=== PATIENT | male | born 1955 | race Caucasian/White ===

== ENCOUNTER → 2018-06-03 08:31 | Outpatient (CLI) | payer OTHER, MEDICAID, SELFPAY ==
[2018-06-03 09:12] LABS: Add Manual Diff / Slide Review NO; Basophils Percent Auto 0.9 % (0-2); Eosinophils Percent Auto 3.2 % (2-4); Hemoglobin 14.1 g/dL (13.5-17.5); Lymphocytes Percent Auto 19.8 % (25-40); Mean Corpuscular HGB Conc 34.5 % (30-36); Mean Corpuscular Hemoglobin 32.9 PG (26-34); Mean Corpuscular Volume 95.2 fL (80-100); Monocytes Percent Auto 9.3 % (3-14); Neutrophils Absolute Auto 6900 /uL (1500-7000); Neutrophils Percent Auto 66.8 % (50-75); Platelet Count 463 X10^3/uL (150-400); Red Cell Distribution Width 11.9 % (11.6-14.8); White Blood Cell Count 10.3 X10^3/uL (4.5-11.0)
[2018-06-03 09:45] LABS: Alanine Aminotransferase 17 IU/L (21-72); Albumin 4.5 g/dL (3.5-5.0); Albumin Globulin Ratio 1.7 (1.0-2.8); Alkaline Phosphatase 103 U/L (38-126); Aspartate Aminotransferase 22 IU/L (17-59); Bilirubin Total 0.5 mg/dL (0.2-1.3); Blood Urea Nitrogen 19 mg/dL (9-20); Calcium 9.3 mg/dL (8.4-10.2); Carbon Dioxide 28 mmol/L (22-32); Chloride 105 mmol/L (98-107); Cholesterol 191 mg/dL (140-199); Estimated Glomerular Filt Rate > 60.0 mL/min (>60); Globulin 2.6 g/dL (1.7-4.1); Glucose 121 mg/dL (80-110); HDL Cholesterol 50 mg/dL (40-60); HEMOLYSIS < 15 (0-50); LDL Cholesterol Calculated 125 mg/dL (<100); Potassium 4.6 mmol/L (3.4-5.1); Sodium 145 mmol/L (137-145); Total Protein 7.1 g/dL (6.3-8.2); Triglycerides 80 mg/dL (35-150)
== END ==
PROVIDERS: PCP Family Medicine; Visit Provider Family Medicine
DX: E78.5 Hyperlipidemia, unspecified (principal); G93.49 Other encephalopathy; I63.9 Cerebral infarction, unspecified; I67.89 Other cerebrovascular disease; I10 Essential (primary) hypertension
CPT/HCPCS: 36415; 80053; 80061; 85025

== ENCOUNTER 2018-08-07 13:01 | Emergency (ER) | payer OTHER, MEDICAID, SELFPAY ==
[2018-08-07 13:02] VITALS: BP 132/91; PULSE 88; RESP 14; TEMP 36.4; O2SAT 96
--- NOTE | 2018-08-07 13:10 | ED.HA ---
HPI - Headache <MARY Byrd - Last Filed: 08/07/18 22:13> General Chief Complaint: Headache Stated Complaint: stated head pain Time Seen by Provider: 08/07/18 13:10 Source: patient Mode of arrival: ambulatory Limitations: no limitations History of Present Illness HPI Narrative: 62-year-old male with history of cerebral autosomal dominant arteriaopathy that is a former smoker here for complaint of headache since last night. He does have a history of having frequent headaches due to said condition. he has been followed by this at [facility]. He states that he normally uses Tylenol for his headaches. He reports that this headache is different due to nausea vomiting which is new. He denies photophobia. He denies history of having migraines. He states he has had multiple episodes of vomiting since last night. He reports that the vomiting has subsided and his headache has reduced in intensity. He states that the quantity /quality of his headache is same as his prior headaches. He denies any head trauma. No fevers. Positive p.o. intake. He denies any other concerns or complaints this timeframe. Related Data Home Medications Medication Instructions Recorded Confirmed acetaminophen 325 mg PO 4-6XD #0 03/16/17 08/07/18 amlodipine 10 mg PO DAILY 08/07/18 08/07/18 hydroxyzine pamoate 25 - 50 mg PO BEDTIME 08/07/18 08/07/18 Previous Rx's Medication Instructions Recorded aspirin 81 mg tablet,delayed 81 mg PO DAILY #30 tab 11/19/17 release escitalopram 5 mg tablet 5 mg PO DAILY #90 tab 04/15/18 fluticasone 50 mcg/actuation nasal 1 spray INTRANASAL BID #16 gm 06/06/18 spray,suspension pravastatin 40 mg tablet 40 mg PO DAILY #30 tab 08/06/18 ondansetron 4 mg PO BID-TID PRN #10 tab 08/07/18 Allergies Allergy/AdvReac Type Severity Reaction Status Date / Time BEES Allergy Unknown Uncoded 07/19/18 15:57 Review of Systems <MARY Byrd - Last Filed: 08/07/18 22:13> Constitutional Denies chills, Denies fever(s), Reports headache(s), Denies lethargy and Denies weakness Eyes Denies change in vision, Denies eye discharge, Denies irritation and Denies loss of vision ENT Ears, Nose, Mouth, and Throat: Denies change in voice, Reports headache(s), Denies neck pain and Denies sore throat Cardiovascular Denies chest pain, Denies irregular heart rhythm, Denies lightheadedness, Denies palpitations, Denies dyspnea, Denies dyspnea on exertion and Denies orthopnea Respiratory Denies cough, Denies dyspnea, Denies dyspnea on exertion and Denies wheezing Gastrointestinal Gastrointestinal: Reports nausea and Reports vomiting Genitourinary Denies hematuria, Denies flank pain, Denies urinary incontinence and Denies urinary urgency Musculoskeletal Denies neck pain Integumentary/Breasts Denies pruritus, Denies erythema, Denies rash and Denies wounds Neurologic Denies confusion, Reports headache(s), Denies loss of vision and Denies weakness Psychiatric Denies anxiety, Denies confusion, Denies depression, Denies homicidal ideation and Denies suicidal ideation Endocrine Denies palpitations Hematologic/Lymphatic Denies easy bruising Allergic/Immunologic Denies wheezing PFSH <MARY Byrd - Last Filed: 08/07/18 22:13> Medical History Conductive hearing 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 (Chronic) Sensorineural hearing loss (SNHL) of both ears (Chronic) Headache (Chronic 04/01/15) 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) History of frequent headaches (Chronic) Hyperlipidemia (Chronic) Insomnia (Chronic) Low testosterone (Chronic) MRSA (methicillin resistant Staphylococcus aureus) (Chronic) Partial blindness (Chronic ~2010) Sleep apnea (Chronic) Tinnitus (Chronic) Surgical History Surgical procedure planned (Resolved) Surgical procedure planned (Resolved ~03/16/12) Family History Brother Hyperlipidemia Mother Age: 87 Hyperlipidemia GERD (gastroesophageal reflux disease) Sister Hyperlipidemia Sister Hyperlipidemia Sister Hyperlipidemia Sister Hyperlipidemia Father Emphysema lung Social History Smoking Status: Former smoker Social History Smoking Status: Former smoker Exam <MARY Byrd - Last Filed: 08/07/18 22:13> Initial Vital Signs Initial Vital Signs: Vital Signs Temperature 97.6 F 08/07/18 13:02 Pulse Rate 88 08/07/18 13:02 Respiratory Rate 14 08/07/18 13:02 Blood Pressure 132/91 H 08/07/18 13:02 Pulse Oximetry 96 08/07/18 13:02 Const General: cooperative and well developed Nutritional Appearance: well nourished Orientation: alert, awake, oriented x3 and not confused HENMT Mouth: oral mucosae normal and moist mucous membranes Eyes General: appearance normal, both eyes and all related structures Eyelids: eyelids normal Conjunctivae: conjunctivae normal Sclera: sclerae normal Pupils: PERRL EOM: EOM intact bilaterally Chest Chest: normal inspection of the chest Resp Effort & Inspection: normal respiratory effort, able to speak in complete sentences, no respiratory distress and no use of accessory muscles Auscultation: clear to auscultation bilaterally, no rales, no rhonchi and no wheezes Cardio Rate: regular rate Rhythm: regular rhythm Heart Sounds: no click, no gallops, no murmurs and no rubs Pulses: normal peripheral pulses Skin General: no rashes or lesions noted, No jaundice and No petechiae Neuro General: alert, oriented x3, gait normal and no focal motor deficits Speech: speech normal <Nile Velazquez DO - Last Filed: 08/08/18 07:10> Initial Vital Signs Initial Vital Signs: Vital Signs Temperature 97.6 F 08/07/18 13:02 Pulse Rate 88 08/07/18 13:02 Respiratory Rate 14 08/07/18 13:02 Blood Pressure 132/91 H 08/07/18 13:02 Pulse Oximetry 96 08/07/18 13:02 Course <MARY Byrd - Last Filed: 08/07/18 22:13> Orders Ordered: Discontinued Medications Sodium Chloride (Normal Saline 0.9%) 1,000 mls @ 1,000 mls/hr IV BOLUS ONE Stop: 08/07/18 14:25 Last Infusion: 08/07/18 15:00 Dose: 0 mls/hr Admin: 08/07/18 14:05 Dose: 1,000 mls/hr Morphine Sulfate (Morphine) 2 mg IV NOW ONE Stop: 08/07/18 13:33 Last Admin: 08/07/18 14:05 Dose: 2 mg Ondansetron HCl (Zofran) 4 mg IV NOW ONE Stop: 08/07/18 13:33 Last Admin: 08/07/18 14:05 Dose: 4 mg Vital Signs - 8 hr 08/07/18 14:55 Pulse Rate 71 Respiratory Rate 14 Blood Pressure 131/72 Pulse Oximetry 99 <Nile Velazquez DO - Last Filed: 08/08/18 07:10> Orders Ordered: Discontinued Medications Sodium Chloride (Normal Saline 0.9%) 1,000 mls @ 1,000 mls/hr IV BOLUS ONE Stop: 08/07/18 14:25 Last Infusion: 08/07/18 15:00 Dose: 0 mls/hr Admin: 08/07/18 14:05 Dose: 1,000 mls/hr Morphine Sulfate (Morphine) 2 mg IV NOW ONE Stop: 08/07/18 13:33 Last Admin: 08/07/18 14:05 Dose: 2 mg Ondansetron HCl (Zofran) 4 mg IV NOW ONE Stop: 08/07/18 13:33 Last Admin: 08/07/18 14:05 Dose: 4 mg Vital Signs - 8 hr 08/07/18 14:55 Pulse Rate 71 Respiratory Rate 14 Blood Pressure 131/72 Pulse Oximetry 99 MDM - Headache <MARY Byrd - Last Filed: 08/07/18 22:13> Lab Data Result diagrams: 08/07/18 13:53 08/07/18 13:53 Lab Results 08/07/18 08/07/18 Range/Units 13:53 13:53 WBC 10.5 (4.5-11.0) X10^3/uL RBC 4.87 (4.5-5.9) X10^6/uL Hgb 15.7 (13.5-17.5) g/dL Hct 46.9 (41-53) % MCV 96.3 (80-100) fL MCH 32.2 (26-34) PG MCHC 33.4 (30-36) % RDW 12.2 (11.6-14.8) % Plt Count 477 H (150-400) X10^3/uL Neut % (Auto) 67.6 (50-75) % Lymph % (Auto) 22.2 L (25-40) % Scre[place] % (Auto) 7.7 (3-14) % Eos % (Auto) 1.6 L (2-4) % Baso % (Auto) 0.9 (0-2) % Neut # (Auto) 7100 H (3919-5144) /uL Lymph # (Auto) 2300 (6015-3931) /uL [place] # (Auto) 800 (0-900) /uL Eos # (Auto) 200 (0-450) /uL Baso # (Auto) 100 (0-100) /uL Sodium 138 (137-145) mmol/L Potassium 3.7 (3.4-5.1) mmol/L Chloride 103 (98-107) mmol/L Carbon Dioxide 23 (22-32) mmol/L BUN 14 (9-20) mg/dL Creatinine 0.90 (0.66-1.25) mg/dL Estimated GFR > 60.0 (>60) mL/min BUN/Creatinine Ratio 15.6 (6-22) Glucose 141 H (80-110) mg/dL Calcium 9.6 (8.4-10.2) mg/dL Total Bilirubin 1.1 (0.2-1.3) mg/dL AST 22 (17-59) IU/L ALT 15 L (21-72) IU/L Alkaline Phosphatase 87 (38-126) U/L Total Protein 7.5 (6.3-8.2) g/dL Albumin 4.8 (3.5-5.0) g/dL Globulin 2.7 (1.7-4.1) g/dL Albumin/Globulin Ratio 1.8 (1.0-2.8) Imaging Data CT scan - head: Radiologist's impression: [address] [place] [address] CT Scan Report Signed Patient: Carlos Enrique Bullock R#: [id number] : 5Acct:[id number] Age/Sex: 62 / MDate of Service: 08/07/18 Loc: ED Accession Number: [id number] Procedure: CT head/brain wo con Ordering Provider: Sathish Trinidad PROCEDURE: CT HEAD/BRAIN WO CON INDICATIONS: headache TECHNIQUE: Noncontrast 4.5 mm thick angled axial sections acquired from the foramen magnum to the vertex, with coronal and sagittal reformats. For radiation dose reduction, the following was used: automated exposure control, adjustment of mA and/or kV according to patient size. COMPARISON: [facility], CT, HEAD WITHOUT CONTRAST, 03/16/2017, 13:25. [facility], CT, HEAD WITHOUT CONTRAST, 07/03/2016, 16:49. FINDINGS: Image quality: Excellent. CSF spaces: Basal cisterns are patent. No extra-axial fluid collections. Ventricles are normal in size and shape. Brain: No midline shift. No intracranial masses or hemorrhage. Palacios-white matter interface is normal. Skull and face: Calvarium and visualized facial bones are intact, without suspicious lesions. Sinuses: Visualized sinuses and mastoids are clear. IMPRESSION: Moderate microvascular atherosclerotic change in the deep white matter of each hemisphere, stable over time from the comparison study in June 2016. There is no sign of hemorrhage, no sign of mass lesion, and no sign of acute stroke. Dictated by: Simone Murry M.D. on 08/07/2018 at 14:16 Approved by: Simone Murry M.D. on 08/07/2018 at 14:16 MDM Narrative Medical decision making narrative: CT scan of the head was obtained and was negative for any acute findings. CT scan does show moderate microvascular atherosclerotic changes which is stable with comparison study of June of 2016 no hemorrhage or lesions are seen. CBC and Chem panel were obtained were unremarkable. Headache has resolved at this point and he is tolerating p.o. intake. headache presents as his chronic headache due to cerebral autosomal dominant arteriopathy. [id number] Tylenol as needed for any discomfort. Small amount of Zofran as prescribed for any nausea. Recommend the patient follows up with his specialist at [facility] neurology for re-evaluation for any worsening symptoms. <Nile Velazquez, - Last Filed: 08/08/18 07:10> Lab Data Lab Results 08/07/18 08/07/18 Range/Units 13:53 13:53 WBC 10.5 (4.5-11.0) X10^3/uL RBC 4.87 (4.5-5.9) X10^6/uL Hgb 15.7 (13.5-17.5) g/dL Hct 46.9 (41-53) % MCV 96.3 (80-100) fL MCH 32.2 (26-34) PG MCHC 33.4 (30-36) % RDW 12.2 (11.6-14.8) % Plt Count 477 H (150-400) X10^3/uL Neut % (Auto) 67.6 (50-75) % Lymph % (Auto) 22.2 L (25-40) % Scre[place] % (Auto) 7.7 (3-14) % Eos % (Auto) 1.6 L (2-4) % Baso % (Auto) 0.9 (0-2) % Neut # (Auto) 7100 H (3901-5624) /uL Lymph # (Auto) 2300 (1980-2975) /uL Screven # (Auto) 800 (0-900) /uL Eos # (Auto) 200 (0-450) /uL Baso # (Auto) 100 (0-100) /uL Sodium 138 (137-145) mmol/L Potassium 3.7 (3.4-5.1) mmol/L Chloride 103 (98-107) mmol/L Carbon Dioxide 23 (22-32) mmol/L BUN 14 (9-20) mg/dL Creatinine 0.90 (0.66-1.25) mg/dL Estimated GFR > 60.0 (>60) mL/min BUN/Creatinine Ratio 15.6 (6-22) Glucose 141 H (80-110) mg/dL Calcium 9.6 (8.4-10.2) mg/dL Total Bilirubin 1.1 (0.2-1.3) mg/dL AST 22 (17-59) IU/L ALT 15 L (21-72) IU/L Alkaline Phosphatase 87 (38-126) U/L Total Protein 7.5 (6.3-8.2) g/dL Albumin 4.8 (3.5-5.0) g/dL Globulin 2.7 (1.7-4.1) g/dL Albumin/Globulin Ratio 1.8 (1.0-2.8) Discharge Plan Departure Patient Disposition: Home Clinical Impression: Headache Discharge Date/Time: 08/07/18 14:55 Interventions: ED Discharge Assessment Last Done: 08/07/18 14:55 Instructions: DI for Headache Activity Restrictions/Additional Instructions: laboratory results and CT were negative for any acute findings. Head CT appears stable compared to prior head CT from 2017. Signs and symptoms presents as chronic headache secondary to cerebral autosomal dominant arteriopathy. follow-up with her specialty care at [facility]. Follow up with primary care provider. Use [id number] Tylenol as needed for any discomfort. The Zofran is prescribed to help with any nausea he also use as directed. For any worsening symptoms return to the emergency room. Prescriptions: New ondansetron 4 mg tablet,disintegrating 4 mg PO BID-TID PRN (Reason: nausea and vomiting) Qty: 10 RF: 0 No Action acetaminophen 325 MG tablet 325 mg PO 4-6XD Qty: 0 RF: 0 aspirin 81 mg tablet,delayed release (DR/EC) 81 mg PO DAILY Qty: 30 RF: 11 escitalopram oxalate 5 mg tablet 5 mg PO DAILY Qty: 90 RF: 1 pravastatin 40 mg tablet 40 mg PO DAILY Qty: 30 RF: 1 fluticasone 50 mcg/actuation spray,suspension 1 spray Intranasal BID Qty: 16 RF: 0 amlodipine 10 mg tablet 10 mg PO DAILY RF: 0 hydroxyzine pamoate 25 mg capsule 25 - 50 mg PO BEDTIME RF: 0 Referrals: Laila Reynolds DO [Primary Care Provider] - <Nile Velazquez DO - Last Filed: 08/08/18 07:10> Cosign ED Attending Cosignature Attestation: I was available for consultation during this patient's emergency department encounter
--- NOTE | 2018-08-07 13:27 | DI.CT.S_ITS ---
PROCEDURE: CT HEAD/BRAIN WO CON INDICATIONS: headache TECHNIQUE: Noncontrast 4.5 mm thick angled axial sections acquired from the foramen magnum to the vertex, with coronal and sagittal reformats. For radiation dose reduction, the following was used: automated exposure control, adjustment of mA and/or kV according to patient size. COMPARISON: [facility], CT, HEAD WITHOUT CONTRAST, 03/16/2017, 13:25. [facility], CT, HEAD WITHOUT CONTRAST, 07/03/2016, 16:49. FINDINGS: Image quality: Excellent. CSF spaces: Basal cisterns are patent. No extra-axial fluid collections. Ventricles are normal in size and shape. Brain: No midline shift. No intracranial masses or hemorrhage. Palacios-white matter interface is normal. Skull and face: Calvarium and visualized facial bones are intact, without suspicious lesions. Sinuses: Visualized sinuses and mastoids are clear. IMPRESSION: Moderate microvascular atherosclerotic change in the deep white matter of each hemisphere, stable over time from the comparison study in June 2016. There is no sign of hemorrhage, no sign of mass lesion, and no sign of acute stroke. Dictated by: Simone Murry M.D. on 08/07/2018 at 14:16 Approved by: Simone Murry M.D. on 08/07/2018 at 14:16
--- NOTE | 2018-08-07 13:46 | ED_ITS ---
HPI - Headache <MARY Byrd - Last Filed: 08/07/18 22:13> General Chief Complaint: Headache Stated Complaint: stated head pain Time Seen by Provider: 08/07/18 13:10 Source: patient Mode of arrival: ambulatory Limitations: no limitations History of Present Illness HPI Narrative: 62-year-old male with history of cerebral autosomal dominant arteriaopathy that is a former smoker here for complaint of headache since last night. He does have a history of having frequent headaches due to said condition. he has been followed by this at [facility]. He states that he normally uses Tylenol for his headaches. He reports that this headache is different due to nausea vomiting which is new. He denies photophobia. He denies history of having migraines. He states he has had multiple episodes of vomiting since last night. He reports that the vomiting has subsided and his headache has reduced in intensity. He states that the quantity /quality of his headache is same as his prior headaches. He denies any head trauma. No fevers. Positive p.o. intake. He denies any other concerns or complaints this timeframe. Related Data Home Medications Medication Instructions Recorded Confirmed acetaminophen 325 mg PO 4-6XD #0 03/16/17 08/07/18 amlodipine 10 mg PO DAILY 08/07/18 08/07/18 hydroxyzine pamoate 25 - 50 mg PO BEDTIME 08/07/18 08/07/18 Previous Rx's Medication Instructions Recorded aspirin 81 mg tablet,delayed 81 mg PO DAILY #30 tab 11/19/17 release escitalopram 5 mg tablet 5 mg PO DAILY #90 tab 04/15/18 fluticasone 50 mcg/actuation nasal 1 spray INTRANASAL BID #16 gm 06/06/18 spray,suspension pravastatin 40 mg tablet 40 mg PO DAILY #30 tab 08/06/18 ondansetron 4 mg PO BID-TID PRN #10 tab 08/07/18 Allergies Allergy/AdvReac Type Severity Reaction Status Date / Time BEES Allergy Unknown Uncoded 07/19/18 15:57 Review of Systems <MARY Byrd - Last Filed: 08/07/18 22:13> Constitutional Denies chills, Denies fever(s), Reports headache(s), Denies lethargy and Denies weakness Eyes Denies change in vision, Denies eye discharge, Denies irritation and Denies loss of vision ENT Ears, Nose, Mouth, and Throat: Denies change in voice, Reports headache(s), D enies neck pain and Denies sore throat Cardiovascular Denies chest pain, Denies irregular heart rhythm, Denies lightheadedness, Denies palpitations, Denies dyspnea, Denies dyspnea on exertion and Denies orthopnea Respiratory Denies cough, Denies dyspnea, Denies dyspnea on exertion and Denies wheezing Gastrointestinal Gastrointestinal: Reports nausea and Reports vomiting Genitourinary Denies hematuria, Denies flank pain, Denies urinary incontinence and Denies urinary urgency Musculoskeletal Denies neck pain Integumentary/Breasts Denies pruritus, Denies erythema, Denies rash and Denies wounds Neurologic Denies confusion, Reports headache(s), Denies loss of vision and Denies weakness Psychiatric Denies anxiety, Denies confusion, Denies depression, Denies homicidal ideation and Denies suicidal ideation Endocrine Denies palpitations Hematologic/Lymphatic Denies easy bruising Allergic/Immunologic Denies wheezing PFSH <MARY Byrd - Last Filed: 08/07/18 22:13> Medical History Conductive hearing 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 (Chronic) Sensorineural hearing loss (SNHL) of both ears (Chronic) Headache (Chronic 04/01/15) 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) History of frequent headaches (Chronic) Hyperlipidemia (Chronic) Insomnia (Chronic) Low testosterone (Chronic) MRSA (methicillin resistant Staphylococcus aureus) (Chronic) Partial blindness (Chronic ~2010) Sleep apnea (Chronic) Tinnitus (Chronic) Surgical History Surgical procedure planned (Resolved) Surgical procedure planned (Resolved ~03/16/12) Family History Brother Hyperlipidemia Mother Age: 87 Hyperlipidemia GERD (gastroesophageal reflux disease) Sister Hyperlipidemia Sister Hyperlipidemia Sister Hyperlipidemia Sister Hyperlipidemia Father Emphysema lung Social History Smoking Status: Former smoker Social History Smoking Status: Former smoker Exam <MARY Byrd - Last Filed: 08/07/18 22:13> Initial Vital Signs Initial Vital Signs: Vital Signs Temperature 97.6 F 08/07/18 13:02 Pulse Rate 88 08/07/18 13:02 Respiratory Rate 14 08/07/18 13:02 Blood Pressure 132/91 H 08/07/18 13:02 Pulse Oximetry 96 08/07/18 13:02 Const General: cooperative and well developed Nutritional Appearance: well nourished Orientation: alert, awake, oriented x3 and not confused HENMT Mouth: oral mucosae normal and moist mucous membranes Eyes General: appearance normal, both eyes and all related structures Eyelids: eyelids normal Conjunctivae: conjunctivae normal Sclera: sclerae normal Pupils: PERRL EOM: EOM intact bilaterally Chest Chest: normal inspection of the chest Resp Effort & Inspection: normal respiratory effort, able to speak in complete sentences, no respiratory distress and no use of accessory muscles Auscultation: clear to auscultation bilaterally, no rales, no rhonchi and no wheezes Cardio Rate: regular rate Rhythm: regular rhythm Heart Sounds: no click, no gallops, no murmurs and no rubs Pulses: normal peripheral pulses Skin General: no rashes or lesions noted, No jaundice and No petechiae Neuro General: alert, oriented x3, gait normal and no focal motor deficits Speech: speech normal <Nile Velazquez DO - Last Filed: 08/08/18 07:10> Initial Vital Signs Initial Vital Signs: Vital Signs Temperature 97.6 F 08/07/18 13:02 Pulse Rate 88 08/07/18 13:02 Respiratory Rate 14 08/07/18 13:02 Blood Pressure 132/91 H 08/07/18 13:02 Pulse Oximetry 96 08/07/18 13:02 Course <MARY Byrd - Last Filed: 08/07/18 22:13> Orders Ordered: Discontinued Medications Sodium Chloride (Normal Saline 0.9%) 1,000 mls @ 1,000 mls/hr IV BOLUS ONE Stop: 08/07/18 14:25 Last Infusion: 08/07/18 15:00 Dose: 0 mls/hr Admin: 08/07/18 14:05 Dose: 1,000 mls/hr Morphine Sulfate (Morphine) 2 mg IV NOW ONE Stop: 08/07/18 13:33 Last Admin: 08/07/18 14:05 Dose: 2 mg Ondansetron HCl (Zofran) 4 mg IV NOW ONE Stop: 08/07/18 13:33 Last Admin: 08/07/18 14:05 Dose: 4 mg Vital Signs - 8 hr 08/07/18 14:55 Pulse Rate 71 Respiratory Rate 14 Blood Pressure 131/72 Pulse Oximetry 99 <Nile Velazquez DO - Last Filed: 08/08/18 07:10> Orders Ordered: Discontinued Medications Sodium Chloride (Normal Saline 0.9%) 1,000 mls @ 1,000 mls/hr IV BOLUS ONE Stop: 08/07/18 14:25 Last Infusion: 08/07/18 15:00 Dose: 0 mls/hr Admin: 08/07/18 14:05 Dose: 1,000 mls/hr Morphine Sulfate (Morphine) 2 mg IV NOW ONE Stop: 08/07/18 13:33 Last Admin: 08/07/18 14:05 Dose: 2 mg Ondansetron HCl (Zofran) 4 mg IV NOW ONE Stop: 08/07/18 13:33 Last Admin: 08/07/18 14:05 Dose: 4 mg Vital Signs - 8 hr 08/07/18 14:55 Pulse Rate 71 Respiratory Rate 14 Blood Pressure 131/72 Pulse Oximetry 99 MDM - Headache <MARY Byrd - Last Filed: 08/07/18 22:13> Lab Data Result diagrams: 08/07/18 13:53 08/07/18 13:53 Lab Results 08/07/18 08/07/18 Range/Units 13:53 13:53 WBC 10.5 (4.5-11.0) X10^3/uL RBC 4.87 (4.5-5.9) X10^6/uL Hgb 15.7 (13.5-17.5) g/dL Hct 46.9 (41-53) % MCV 96.3 (80-100) fL MCH 32.2 (26-34) PG MCHC 33.4 (30-36) % RDW 12.2 (11.6-14.8) % Plt Count 477 H (150-400) X10^3/uL Neut % (Auto) 67.6 (50-75) % Lymph % (Auto) 22.2 L (25-40) % [place] % (Auto) 7.7 (3-14) % Eos % (Auto) 1.6 L (2-4) % Baso % (Auto) 0.9 (0-2) % Neut # (Auto) 7100 H (5231-8202) /uL Lymph # (Auto) 2300 (1454-6126) /uL [place] # (Auto) 800 (0-900) /uL Eos # (Auto) 200 (0-450) /uL Baso # (Auto) 100 (0-100) /uL Sodium 138 (137-145) mmol/L Potassium 3.7 (3.4-5.1) mmol/L Chloride 103 (98-107) mmol/L Carbon Dioxide 23 (22-32) mmol/L BUN 14 (9-20) mg/dL Creatinine 0.90 (0.66-1.25) mg/dL Estimated GFR > 60.0 (>60) mL/min BUN/Creatinine Ratio 15.6 (6-22) Glucose 141 H (80-110) mg/dL Calcium 9.6 (8.4-10.2) mg/dL Total Bilirubin 1.1 (0.2-1.3) mg/dL AST 22 (17-59) IU/L ALT 15 L (21-72) IU/L Alkaline Phosphatase 87 (38-126) U/L Total Protein 7.5 (6.3-8.2) g/dL Albumin 4.8 (3.5-5.0) g/dL Globulin 2.7 (1.7-4.1) g/dL Albumin/Globulin Ratio 1.8 (1.0-2.8) Imaging Data CT scan - head: Radiologist's impression: [address] [place] [address] CT Scan Report Signed Patient: Carlos Enrique Bullock R#: [id number] : 5Acct:[id number] Age/Sex: 62 / MDate of Service: 08/07/18 Loc: ED Accession Number: [id number] Procedure: CT head/brain wo con Ordering Provider: Sathish Trinidad PROCEDURE: CT HEAD/BRAIN WO CON INDICATIONS: headache TECHNIQUE: Noncontrast 4.5 mm thick angled axial sections acquired from the foramen magnum to the vertex, with coronal and sagittal reformats. For radiation dose reduction, the following was used: automated exposure control, adjustment of mA and/or kV according to patient size. COMPARISON: [facility], CT, HEAD WITHOUT CONTRAST, 03/16/2017, 13:25[facility], CT, HEAD WITHOUT CONTRAST, 07/03/2016, 16:49. FINDINGS: Image quality: Excellent. CSF spaces: Basal cisterns are patent. No extra-axial fluid collections. Ventricles are normal in size and shape. Brain: No midline shift. No intracranial masses or hemorrhage. [place]-white matter interface is normal. Skull and face: Calvarium and visualized facial bones are intact, without suspicious lesions. Sinuses: Visualized sinuses and mastoids are clear. IMPRESSION: Moderate microvascular atherosclerotic change in the deep white matter of each hemisphere, stable over time from the comparison study in June 2016. There is no sign of hemorrhage, no sign of mass lesion, and no sign of acute stroke. Dictated by: Simone Murry M.D. on 08/07/2018 at 14:16 Approved by: Simone Murry M.D. on 08/07/2018 at 14:16 MDM Narrative Medical decision making narrative: CT scan of the head was obtained and was negative for any acute findings. CT scan does show moderate microvascular atherosclerotic changes which is stable with comparison study of June of 2016 no hemorrhage or lesions are seen. CBC and Chem panel were obtained were unremarkable. Headache has resolved at this point and he is tolerating p.o. intake. headache presents as his chronic headache due to cerebral autosomal dominant arteriopathy. [id number] Tylenol as needed for any discomfort. Small amount of Zofran as prescribed for any nausea. Recommend the patient follows up with his specialist at [facility] neurology for re- evaluation for any worsening symptoms. <Nile Velazquez, DO - Last Filed: 08/08/18 07:10> Lab Data Lab Results 08/07/18 08/07/18 Range/Units 13:53 13:53 WBC 10.5 (4.5-11.0) X10^3/uL RBC 4.87 (4.5-5.9) X10^6/uL Hgb 15.7 (13.5-17.5) g/dL Hct 46.9 (41-53) % MCV 96.3 (80-100) fL MCH 32.2 (26-34) PG MCHC 33.4 (30-36) % RDW 12.2 (11.6-14.8) % Plt Count 477 H (150-400) X10^3/uL Neut % (Auto) 67.6 (50-75) % Lymph % (Auto) 22.2 L (25-40) % [place] % (Auto) 7.7 (3-14) % Eos % (Auto) 1.6 L (2-4) % Baso % (Auto) 0.9 (0-2) % Neut # (Auto) 7100 H (2325-8935) /uL Lymph # (Auto) 2300 (5618-2169) /uL [place] # (Auto) 800 (0-900) /uL Eos # (Auto) 200 (0-450) /uL Baso # (Auto) 100 (0-100) /uL Sodium 138 (137-145) mmol/L Potassium 3.7 (3.4-5.1) mmol/L Chloride 103 (98-107) mmol/L Carbon Dioxide 23 (22-32) mmol/L BUN 14 (9-20) mg/dL Creatinine 0.90 (0.66-1.25) mg/dL Estimated GFR > 60.0 (>60) mL/min BUN/Creatinine Ratio 15.6 (6-22) Glucose 141 H (80-110) mg/dL Calcium 9.6 (8.4-10.2) mg/dL Total Bilirubin 1.1 (0.2-1.3) mg/dL AST 22 (17-59) IU/L ALT 15 L (21-72) IU/L Alkaline Phosphatase 87 (38-126) U/L Total Protein 7.5 (6.3-8.2) g/dL Albumin 4.8 (3.5-5.0) g/dL Globulin 2.7 (1.7-4.1) g/dL Albumin/Globulin Ratio 1.8 (1.0-2.8) Discharge Plan Departure Patient Disposition: Home Clinical Impression: Headache Discharge Date/Time: 08/07/18 14:55 Interventions: ED Discharge Assessment Last Done: 08/07/18 14:55 Instructions: DI for Headache Activity Restrictions/Additional Instructions: laboratory results and CT were negative for any acute findings. Head CT appears stable compared to prior head CT from 2017. Signs and symptoms presents as chronic headache secondary to cerebral autosomal dominant arteriopathy. follow-up with her specialty care at [facility]. Follow up with primary care provider. Use [id number] Tylenol as needed for any discomfort. The Zofran is prescribed to help with any nausea he also use as directed. For any worsening symptoms return to the emergency room. Prescriptions: New ondansetron 4 mg tablet,disintegrating 4 mg PO BID-TID PRN (Reason: nausea and vomiting) Qty: 10 RF: 0 No Action acetaminophen 325 MG tablet 325 mg PO 4-6XD Qty: 0 RF: 0 aspirin 81 mg tablet,delayed release (DR/EC) 81 mg PO DAILY Qty: 30 RF: 11 escitalopram oxalate 5 mg tablet 5 mg PO DAILY Qty: 90 RF: 1 pravastatin 40 mg tablet 40 mg PO DAILY Qty: 30 RF: 1 fluticasone 50 mcg/actuation spray,suspension 1 spray Intranasal BID Qty: 16 RF: 0 amlodipine 10 mg tablet 10 mg PO DAILY RF: 0 hydroxyzine pamoate 25 mg capsule 25 - 50 mg PO BEDTIME RF: 0 Referrals: Laila Reynolds DO [Primary Care Provider] - <Nile Velazquez DO - Last Filed: 08/08/18 07:10> Cosign ED Attending Cosignature Attestation: I was available for consultation during this patient's emergency department encounter
[2018-08-07 14:00] LABS: Add Manual Diff / Slide Review NO; Basophils Absolute Auto 100 /uL (0-100); Basophils Percent Auto 0.9 % (0-2); Eosinophils Absolute Auto 200 /uL (0-450); Eosinophils Percent Auto 1.6 % (2-4); Hematocrit 46.9 % (41-53); Hemoglobin 15.7 g/dL (13.5-17.5); Lymphocytes Absolute Auto 2300 /uL (1100-4500); Lymphocytes Percent Auto 22.2 % (25-40); Mean Corpuscular HGB Conc 33.4 % (30-36); Mean Corpuscular Hemoglobin 32.2 PG (26-34); Mean Corpuscular Volume 96.3 fL (80-100); Monocytes Absolute Auto 800 /uL (0-900); Monocytes Percent Auto 7.7 % (3-14); Neutrophils Absolute Auto 7100 /uL (1500-7000); Neutrophils Percent Auto 67.6 % (50-75); Platelet Count 477 X10^3/uL (150-400); Red Blood Cell Count 4.87 X10^6/uL (4.5-5.9); Red Cell Distribution Width 12.2 % (11.6-14.8); White Blood Cell Count 10.5 X10^3/uL (4.5-11.0)
[2018-08-07] MEDS: ONDANSETRON 4 MG/2 ML INJ IV (14:05)
[2018-08-07] MEDS: MORPHINE 2 MG/ML INJ IV (14:05)
[2018-08-07] MEDS: SODIUM CHLORIDE 0.9% 1,000 ML 1000 ML IV (14:05)
[2018-08-07 14:11] LABS: Alanine Aminotransferase 15 IU/L (21-72); Albumin 4.8 g/dL (3.5-5.0); Albumin Globulin Ratio 1.8 (1.0-2.8); Alkaline Phosphatase 87 U/L (38-126); Aspartate Aminotransferase 22 IU/L (17-59); BUN Creatinine Ratio 15.6 (6-22); Bilirubin Total 1.1 mg/dL (0.2-1.3); Blood Urea Nitrogen 14 mg/dL (9-20); Calcium 9.6 mg/dL (8.4-10.2); Carbon Dioxide 23 mmol/L (22-32); Chloride 103 mmol/L (98-107); Estimated Glomerular Filt Rate > 60.0 mL/min (>60); Globulin 2.7 g/dL (1.7-4.1); Glucose 141 mg/dL (80-110); HEMOLYSIS < 15 (0-50); Potassium 3.7 mmol/L (3.4-5.1); Sodium 138 mmol/L (137-145); Total Protein 7.5 g/dL (6.3-8.2)
[2018-08-07 14:55] VITALS: BP 131/72; PULSE 71; RESP 14; O2SAT 99
== END 2018-08-07 14:55 | disposition home or self-care (01) ==
PROVIDERS: Emergency Provider Nurse Practitioner Family; Family Provider Family Medicine; PCP Family Medicine
DX: R51 Headache (principal)
CPT/HCPCS: 36591; 70450; 80053; 85025; 96361; 96374; 96375; 99283; 99284; J2270; J2405

== ENCOUNTER → 2019-02-12 14:08 | Outpatient (CLI) | payer OTHER, MEDICAID, SELFPAY ==
[2019-02-12 14:32] LABS: Add Manual Diff / Slide Review NO; Basophils Absolute Auto 100 /uL (0-100); Basophils Percent Auto 0.6 % (0-2); Eosinophils Absolute Auto 300 /uL (0-450); Eosinophils Percent Auto 3.3 % (2-4); Hematocrit 44.2 % (41-53); Hemoglobin 15.1 g/dL (13.5-17.5); Lymphocytes Absolute Auto 2400 /uL (1100-4500); Lymphocytes Percent Auto 28.6 % (25-40); Mean Corpuscular HGB Conc 34.2 % (30-36); Mean Corpuscular Hemoglobin 32.6 PG (26-34); Mean Corpuscular Volume 95.2 fL (80-100); Monocytes Absolute Auto 1200 /uL (0-900); Monocytes Percent Auto 13.5 % (3-14); Neutrophils Absolute Auto 4600 /uL (1500-7000); Platelet Count 441 X10^3/uL (150-400); Red Blood Cell Count 4.64 X10^6/uL (4.5-5.9); Red Cell Distribution Width 12.4 % (11.6-14.8); White Blood Cell Count 8.5 X10^3/uL (4.5-11.0)
[2019-02-12 15:00] LABS: Alanine Aminotransferase 18 IU/L (21-72); Albumin 4.6 g/dL (3.5-5.0); Albumin Globulin Ratio 1.8 (1.0-2.8); Alkaline Phosphatase 94 U/L (38-126); Aspartate Aminotransferase 24 IU/L (17-59); BUN Creatinine Ratio 17.8 (6-22); Bilirubin Total 1.1 mg/dL (0.2-1.3); Blood Urea Nitrogen 16 mg/dL (9-20); Calcium 9.7 mg/dL (8.4-10.2); Carbon Dioxide 28 mmol/L (22-32); Chloride 102 mmol/L (98-107); Estimated Glomerular Filt Rate > 60.0 mL/min (>60); Globulin 2.5 g/dL (1.7-4.1); Glucose 85 mg/dL (80-110); HEMOLYSIS < 15 (0-50); Lipase 54 U/L (23-300); Potassium 4.6 mmol/L (3.4-5.1); Sodium 140 mmol/L (137-145); Total Protein 7.1 g/dL (6.3-8.2)
== END ==
PROVIDERS: PCP Family Medicine; Visit Provider Family Medicine
DX: R10.9 Unspecified abdominal pain (principal)
CPT/HCPCS: 36415; 80053; 83690; 85025

== ENCOUNTER → 2019-02-13 17:13 | Outpatient (CLI) | payer OTHER, MEDICAID, SELFPAY ==
--- NOTE | 2019-02-13 17:16 | DI.RAD.S_ITS ---
PROCEDURE: XR ABDOMEN 1V INDICATIONS: abdominal pain TECHNIQUE: One view of the abdomen acquired. COMPARISON: None. FINDINGS: Surgical changes and devices: None. Bowel: Bowel gas pattern is normal except for mild colonic obstipation. Soft tissues: No suspicious abdominal calcifications. Visualized solid organ contours appear normal in size. Bones: No suspicious bony lesions. IMPRESSION: Mild colonic obstipation, otherwise normal. Dictated by: Simone Murry M.D. on 02/14/2019 at 8:26 Approved by: Simone Murry M.D. on 02/14/2019 at 8:26
== END ==
PROVIDERS: PCP Family Medicine; Visit Provider Family Medicine
DX: R10.9 Unspecified abdominal pain (principal); K59.00 Constipation, unspecified
CPT/HCPCS: 74018

== ENCOUNTER → 2019-03-18 12:00 | Outpatient (CLI) | payer OTHER, MEDICAID, SELFPAY ==
--- NOTE | 2019-03-18 12:02 | DI.RAD.S_ITS ---
PROCEDURE: XR KNEE LT 3V INDICATIONS: left knee medial joint line pain TECHNIQUE: 3 views of the knee were acquired. COMPARISON: None. FINDINGS: Bones: No fractures or dislocations. No suspicious bony lesions. Degenerative sclerosis and spurring. Soft tissues: No joint effusion. Pretibial soft tissue swelling IMPRESSION: Severe pretibial soft tissue swelling. If the patient's pain or other symptoms persist, consider further evaluation with MRI Dictated by: Roman Espinoza M.D. on 03/18/2019 at 15:09 Approved by: Roman Espinoza M.D. on 03/18/2019 at 15:11
== END ==
PROVIDERS: PCP Family Medicine; Visit Provider Family Medicine
DX: M25.562 Pain in left knee (principal); M79.89 Other specified soft tissue disorders
CPT/HCPCS: 73562

== ENCOUNTER 2019-08-14 17:20 | Emergency (ER) | payer OTHER, MEDICAID, SELFPAY ==
[2019-08-14 17:20] VITALS: BP 138/95; PULSE 82; RESP 16; TEMP 36.9; O2SAT 97; BMI 25.3
--- NOTE | 2019-08-14 17:28 | DI.RAD.S_ITS ---
PROCEDURE: XR CHEST 1V INDICATIONS: chest pain TECHNIQUE: One view of the chest was acquired. COMPARISON: None. FINDINGS: Surgical changes and devices: None. Lungs and pleura: Lungs are clear. No pleural effusions or pneumothorax. Mediastinum: Mediastinal contours appear normal. Heart size is normal. Bones and chest wall: No suspicious bony lesions. Overlying soft tissues appear unremarkable. IMPRESSION: No acute cardiopulmonary abnormality. Dictated by: Murray Dhaliwal M.D. on 08/14/2019 at 18:29 Approved by: Murray Dhaliwal M.D. on 08/14/2019 at 18:29
[2019-08-14 18:01] LABS: Add Manual Diff / Slide Review NO; Basophils Absolute Auto 100 /uL (0-100); Basophils Percent Auto 0.7 % (0-2); Eosinophils Absolute Auto 300 /uL (0-450); Eosinophils Percent Auto 2.3 % (2-4); Hematocrit 40.9 % (41-53); Lymphocytes Absolute Auto 2300 /uL (1100-4500); Lymphocytes Percent Auto 16.5 % (25-40); Mean Corpuscular HGB Conc 34.2 % (30-36); Mean Corpuscular Hemoglobin 32.8 PG (26-34); Mean Corpuscular Volume 95.9 fL (80-100); Monocytes Absolute Auto 1600 /uL (0-900); Monocytes Percent Auto 11.8 % (3-14); Neutrophils Absolute Auto 9400 /uL (1500-7000); Neutrophils Percent Auto 68.7 % (50-75); Platelet Count 411 X10^3/uL (150-400); Red Blood Cell Count 4.27 X10^6/uL (4.5-5.9); Red Cell Distribution Width 12.6 % (11.6-14.8); White Blood Cell Count 13.7 X10^3/uL (4.5-11.0)
[2019-08-14 18:04] LABS: Prothrombin Time 11.5 SECONDS (10.1-12.7)
[2019-08-14 18:06] LABS: PTT Partial Thromboplastin Tim 30 SECONDS (26.4-36.2)
--- NOTE | 2019-08-14 18:06 | ED_ITS ---
HPI - Chest Pain General Chief Complaint: Chest Pain Stated Complaint: lt leg, shoulder and head pain and swelling Time Seen by Provider: 08/14/19 18:05 Source: patient Mode of arrival: Ambulatory History of Present Illness HPI narrative: 63-year-old gentleman with hypertension and hyperlipidemia presents with left knee pain and swelling and mentions in an offhand manner that he has had brief episode of fleeting chest pain that was not associated with activity, diaphoresis, shortness of breath lasted only minutes but did catches attention. He talk to his primary care physician who recommended he come to the emergency department. On arrival his primary focus is clearly his knee. On review of systems he has been increasing activity recently he started exercising and spent a significant amount of time with the of the leg press machine trying to compete with a younger woman at the gym. He also was skiing last week in continues to work as a [employer]. He states he has not been doing activities where he is crawling on his knees but he has been doing more pushups that do involve more knee time at the gym recently. Related Data Home Medications Medication Instructions Recorded Confirmed acetaminophen 325 mg PO 4-6XD #0 03/16/17 08/04/19 Previous Rx's Medication Instructions Recorded amlodipine 10 mg tablet 10 mg PO DAILY #90 tab 06/25/19 pravastatin 40 mg tablet 40 mg PO DAILY #90 tab 06/25/19 aspirin 81 mg tablet,delayed 81 mg PO DAILY #90 tab 07/18/19 release escitalopram oxalate 5 mg tablet 5 mg PO DAILY #90 tab 07/18/19 fluticasone propionate 50 1 spray INTRANASAL BID #16 gm 07/18/19 mcg/actuation nasal spray,suspension Allergies Allergy/AdvReac Type Severity Reaction Status Date / Time BEES Allergy Unknown Uncoded 08/14/19 17:28 Review of Systems Review of Systems Narrative: Denies ? fever ? cough ? cold ? chills ? dyspnea ? orthopnea ? wheezing ? abdominal pain ? change to bowel or bladder habits ? nausea vomiting ? skin changes ? rashes Patient History Medical History Anxiety (Acute) Asbestos exposure (Acute) CADASIL (cerebral autosomal dominant arteriopathy with subcortical infarcts and leukoencephalopathy) (Acute ~2010) Concussion (Inactive) Conductive hearing 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 (Chronic) Eustachian tube dysfunction (Acute) Headache (Chronic 04/01/15) History of frequent headaches (Chronic) Hyperlipidemia (Chronic) Insomnia (Chronic) Low testosterone (Chronic) Minor head injury without loss of consciousness (Inactive) Monoallelic mutation of NOTCH3 gene (Acute) MRSA (methicillin resistant Staphylococcus aureus) (Chronic) Partial blindness (Chronic ~2010) Prepatellar bursitis (Resolved) Sensorineural hearing loss (SNHL) of both ears (Chronic) Sleep apnea (Chronic) Tinnitus (Chronic) Surgical History History of myringotomy (Acute ~2017) Surgical procedure planned (Resolved) Surgical procedure planned (Resolved ~03/16/12) Family History Brother Hyperlipidemia Mother Age: 88 Hyperlipidemia GERD (gastroesophageal reflux disease) CADASIL (cerebral AD arteriopathy w infarcts and leukoencephalopathy) Sister Hyperlipidemia CADASIL (cerebral AD arteriopathy w infarcts and leukoencephalopathy) Sister Hyperlipidemia Sister Hyperlipidemia Sister Hyperlipidemia Father Emphysema lung Daughter CADASIL (cerebral AD arteriopathy w infarcts and leukoencephalopathy) Social History Smoking Status: Former smoker Smoking Status: Former smoker alcohol intake frequency: 0-2 drinks per day Substance Use Type: does not use Exam Narrative Exam Narrative: General: Healthy appearing, in no acute distress. Able to give a complete and coherent history. Well-nourished well-developed HEENT: Moist mucous membranes, normal sclera with reactive pupils, Neck: No JVD, supple Respiratory: Lungs are clear to auscultation, no wheezing no rales no rhonchi. Full and symmetrical air movement Cardiac: Regular rate and rhythm no murmurs no bruits Abdomen: Soft nontender good bowel tones, no flank pain Skin: Warm and dry, no rashes Neurologic: Grossly neurologically intact with no obvious asymmetries or abnormalities Extremities: No trauma, well perfused. His left knee with a moderate pre patella bursitis with minor edema, no erythema, no warmth and full range of motion at that knee. He has 1+ edema distal to that without venous stasis mathis ges. Psych: Cooperative, appropriate insight and affect Initial Vital Signs Initial Vital Signs: Vital Signs Temperature 98.4 F 08/14/19 17:20 Pulse Rate 82 08/14/19 17:20 Respiratory Rate 16 08/14/19 17:20 Blood Pressure 138/95 H 08/14/19 17:20 Pulse Oximetry 97 08/14/19 17:20 Course Orders Ordered: ED Orders 08/14/19 17:28 XR chest 1V Stat 08/14/19 17:31 EKG-12 Lead Stat 08/14/19 17:43 Complete Blood Count AUTO DIFF Stat Comprehensive Metabolic Panel Stat Lipase Stat Partial Thromboplastin Time Stat Prothrombin Time INR Stat Troponin & CK Cardiac Panel Stat Vital Signs Vital signs: Vital Signs - 8 hr 08/14/19 17:20 Temperature 98.4 F Pulse Rate 82 Respiratory Rate 16 Blood Pressure 138/95 H Pulse Oximetry 97 MDM - Chest Pain Medical Records Data Attestation: I reviewed the patient's medical records. Lab Data Attestation: I reviewed the patient's lab results. Lab results narrative: MILD LEUKOCYTOSIS WITHOUT OBVIOUS INFECTIOUS ETIOLOGY. I suspect the slightly elevated creatinine kinase is due to his recent increase in weightlifting activities at the gym. Result diagrams: 08/14/19 17:43 08/14/19 17:43 Labs: Lab Results 08/14/19 08/14/19 08/14/19 Range/Units 17:43 17:43 17:43 WBC 13.7 H (4.5-11.0) X10^3/uL RBC 4.27 L (4.5-5.9) X10^6/uL Hgb 14.0 (13.5-17.5) g/dL Hct 40.9 L (41-53) % MCV 95.9 (80-100) fL MCH 32.8 (26-34) PG MCHC 34.2 (30-36) % RDW 12.6 (11.6-14.8) % Plt Count 411 H (150-400) X10^3/uL Neut % (Auto) 68.7 (50-75) % Lymph % (Auto) 16.5 L (25-40) % Patrick % (Auto) 11.8 (3-14) % Eos % (Auto) 2.3 (2-4) % Baso % (Auto) 0.7 (0-2) % Neut # (Auto) 9400 H (3912-7666) /uL Lymph # (Auto) 2300 (3948-6935) /uL Patrick # (Auto) 1600 H (0-900) /uL Eos # (Auto) 300 (0-450) /uL Baso # (Auto) 100 (0-100) /uL PT 11.5 (10.1-12.7) SECONDS INR 1.0 (0.9-1.3) APTT 30 (26.4-36.2) SECONDS Sodium 140 (137-145) mmol/L Potassium 4.1 (3.4-5.1) mmol/L Chloride 103 (98-107) mmol/L Carbon Dioxide 27 (22-32) mmol/L BUN 15 (9-20) mg/dL Creatinine 0.90 (0.66-1.25) mg/dL Estimated GFR > 60.0 (>60) mL/min BUN/Creatinine Ratio 16.7 (6-22) Glucose 87 (80-110) mg/dL Calcium 9.2 (8.4-10.2) mg/dL Total Bilirubin 0.5 (0.2-1.3) mg/dL AST 24 (17-59) IU/L ALT 12 (<50) IU/L Alkaline Phosphatase 91 (38-126) U/L Total Creatine Kinase 184 H (55-170) U/L Troponin I < 0.012 (0.01-0.034) ng/mL Total Protein 7.3 (6.3-8.2) g/dL Albumin 4.6 (3.5-5.0) g/dL Globulin 2.7 (1.7-4.1) g/dL Albumin/Globulin Ratio 1.7 (1.0-2.8) Lipase 49 (23-300) U/L Imaging Data Chest x-ray: Radiologist's Impression: IMPRESSION: No acute cardiopulmonary abnormality. Dictated by: Murray Dhaliwal M.D. on 08/14/2019 at 18:29 ECG Data Attestation: I personally reviewed and interpreted this ECG as follows: Interpretation: NORMAL SINUS RHYTHM AT A RATE OF 72. NORMAL INTERVALS, NORMAL AXIS, NO ACUTE ISCHEMIC CHANGES. MDM Narrative Medical decision making narrative: 63-year-old gentleman with fleeting chest pain with negative cardiac workup. Increased recent activity at the gym probably explains the musculoskeletal chest pain. He also presents with left prepatellar bursitis again related to overactivity. There is no evidence of infection related to the bursitis. The knee is wrapped with an Jerrell wrap for comfort and patient is safe for discharge home. There is no evidence of pneumonia, pneumothorax, cellulitis, bursal infection, sepsis, pulmonary embolism or acute coronary syndrome. Discharge Plan Departure Patient Disposition: Home Clinical Impression: Bursitis, prepatellar, left, Musculoskeletal chest pain Instructions: DI for Atypical Chest Pain, DI for Bursitis Activity Restrictions/Additional Instructions: Thank you for coming in today Growing old is a challenge however competing against the super fit women at the gym probably isn't in your best interest at this time-you going to have to work up to that. There is no evidence of any heart or heart related issues with the fleeting chest pain that you had noted. I suspect her increased activity both was skiing and at the gym has contributed to the prepatellar bursitis that is bothering you with the left knee. Please continue to use ice, rest compression and Tylenol to help with the pain. This should heal spontaneously If you do notice increasing warmth redness or other signs of infection around that knee, please feel free to return to the emergency room and I am happy to re-evaluate. I hope you make it to your vacation to the [facility]! Prescriptions: No Action acetaminophen 325 MG tablet 325 mg PO 4-6XD Qty: 0 RF: 0 amlodipine 10 mg tablet 10 mg PO DAILY Qty: 90 RF: 3 pravastatin 40 mg tablet 40 mg PO DAILY Qty: 90 RF: 3 escitalopram oxalate 5 mg tablet 5 mg PO DAILY Qty: 90 RF: 1 fluticasone propionate 50 mcg/actuation spray,suspension 1 spray Intranasal BID Qty: 16 RF: 0 aspirin [Aspirin Low Dose] 81 mg tablet,delayed release (DR/EC) 81 mg PO DAILY Qty: 90 RF: 3 Referrals: Laila Reynolds DO [Primary Care Provider] -
[2019-08-14 18:08] LABS: Alanine Aminotransferase 12 IU/L (<50); Albumin 4.6 g/dL (3.5-5.0); Albumin Globulin Ratio 1.7 (1.0-2.8); Alkaline Phosphatase 91 U/L (38-126); Aspartate Aminotransferase 24 IU/L (17-59); BUN Creatinine Ratio 16.7 (6-22); Bilirubin Total 0.5 mg/dL (0.2-1.3); Blood Urea Nitrogen 15 mg/dL (9-20); Calcium 9.2 mg/dL (8.4-10.2); Carbon Dioxide 27 mmol/L (22-32); Chloride 103 mmol/L (98-107); Creatine Kinase 184 U/L (55-170); Estimated Glomerular Filt Rate > 60.0 mL/min (>60); Globulin 2.7 g/dL (1.7-4.1); Glucose 87 mg/dL (80-110); HEMOLYSIS < 15 (0-50); Lipase 49 U/L (23-300); Potassium 4.1 mmol/L (3.4-5.1); Sodium 140 mmol/L (137-145); Total Protein 7.3 g/dL (6.3-8.2)
[2019-08-14 18:19] LABS: Troponin I < 0.012 ng/mL (0.01-0.034)
[2019-08-14 19:00] VITALS: BP 139/95; PULSE 78; RESP 16; O2SAT 98
[2019-08-14 19:45] LABS: CKMB % Relative Index 0.6 % (1.5-5.0); Creatine Kinase MB 1.03 ng/mL (<2.37)
== END 2019-08-14 19:20 | disposition home or self-care (01) ==
PROVIDERS: Emergency Medicine; Emergency Provider Emergency Medicine; PCP Family Medicine; Referring Provider Family Medicine
DX: M70.42 Prepatellar bursitis, left knee (principal); R07.89 Other chest pain
CPT/HCPCS: 36415; 71045; 80053; 82550; 82553; 83690; 84484; 85025; 85610; 85730; 93005; 99284; 99285

== ENCOUNTER → 2020-04-19 08:46 | Outpatient (CLI) | payer OTHER, MEDICAID, SELFPAY ==
[2020-04-19 10:35] LABS: Alanine Aminotransferase 13 IU/L (<50); Albumin Globulin Ratio 1.5 (1.0-2.8); Alkaline Phosphatase 80 U/L (38-126); Aspartate Aminotransferase 26 IU/L (17-59); BUN Creatinine Ratio 23.2 (6-22); Bilirubin Total 0.7 mg/dL (0.2-1.3); Blood Urea Nitrogen 22 mg/dL (9-20); Calcium 8.8 mg/dL (8.4-10.2); Carbon Dioxide 29 mmol/L (22-32); Chloride 105 mmol/L (98-107); Cholesterol 205 mg/dL (140-199); Estimated Glomerular Filt Rate > 60.0 mL/min (>60); Globulin 2.6 g/dL (1.7-4.1); Glucose 120 mg/dL (80-110); HDL Cholesterol 55 mg/dL (40-60); HEMOLYSIS < 15 (0-50); LDL Cholesterol Calculated 138 mg/dL (<100); Potassium 4.2 mmol/L (3.4-5.1); Sodium 137 mmol/L (137-145); Total Protein 6.6 g/dL (6.3-8.2); Triglycerides 60 mg/dL (35-150)
== END ==
PROVIDERS: PCP Family Medicine; Referring Provider Family Medicine; Visit Provider Family Medicine
DX: E78.5 Hyperlipidemia, unspecified (principal); I10 Essential (primary) hypertension
CPT/HCPCS: 36415; 80053; 80061

== ENCOUNTER 2020-08-06 08:18 | Emergency (ER) | payer MEDICARE, OTHER, MEDICAID, SELFPAY ==
[2020-08-06] VITALS (9 sets, daily range): BP systolic 130–146; BP diastolic 74–94; PULSE 57–66; RESP 17–21; TEMP 36.6; O2SAT 96–99; BMI 25.0
--- NOTE | 2020-08-06 08:45 | DI.RAD.S_ITS ---
PROCEDURE: XR CHEST 1V INDICATIONS: chest pain TECHNIQUE: One view of the chest was acquired. COMPARISON: [facility], CR, XR CHEST 1V, 08/14/2019, 17:47. FINDINGS: Surgical changes and devices: None. Lungs and pleura: Lungs are clear. No pleural effusions or pneumothorax. Mediastinum: Mediastinal contours appear normal. Heart size is normal. Bones and chest wall: No suspicious bony lesions. Overlying soft tissues appear unremarkable. IMPRESSION: No evidence acute pulmonary process. Dictated by: Irvin Garcia M.D. on 08/06/2020 at 9:19 Approved by: Irvin Garcia M.D. on 08/06/2020 at 9:19
[2020-08-06 08:59] LABS: Add Manual Diff / Slide Review NO; Basophils Absolute Auto 0 /uL (0-100); Basophils Percent Auto 0.5 % (0-2); Eosinophils Absolute Auto 300 /uL (0-450); Hematocrit 43.5 % (41-53); Hemoglobin 14.8 g/dL (13.5-17.5); Lymphocytes Absolute Auto 1900 /uL (1100-4500); Lymphocytes Percent Auto 24.6 % (25-40); Mean Corpuscular HGB Conc 34.1 % (30-36); Mean Corpuscular Hemoglobin 33.4 PG (26-34); Mean Corpuscular Volume 97.8 fL (80-100); Monocytes Absolute Auto 800 /uL (0-900); Monocytes Percent Auto 10.6 % (3-14); Neutrophils Absolute Auto 4700 /uL (1500-7000); Neutrophils Percent Auto 60.3 % (50-75); Platelet Count 399 X10^3/uL (150-400); Prothrombin Time 11.5 SECONDS (10.1-12.7); Red Blood Cell Count 4.45 X10^6/uL (4.5-5.9); Red Cell Distribution Width 11.9 % (11.6-14.8); White Blood Cell Count 7.8 X10^3/uL (4.5-11.0)
--- NOTE | 2020-08-06 09:01 | ED_ITS ---
HPI - Headache General Chief Complaint: Headache Stated Complaint: arm numbness,headache,vomiting Time Seen by Provider: 08/06/20 08:59 Source: patient Mode of arrival: Ambulatory Limitations: no limitations History of Present Illness HPI Narrative: Patient is a 64-year-old male who presents with headache bilat eral arm numbness and nausea vomiting. He said he was driving 2 days ago when both of his arms went numb. He said it lasted all day but then resolved. He then started vomiting and had a bad headache on Sunday which is 2 days ago. He vomited once yesterday feels like he has acid in his chest but currently denies any chest pain. His arm numbness is has improved and he is left with medium headache. He states that he does have a autosomal dominant disease where his brain age is faster than the rest of his body. He apparently was at [facility] in a coma in 2010. He is not allowed to take ibuprofen because of this. MD Complaint: headache Onset (ago): day(s) Onset description: sudden Location: diffuse Related Data Home Medications Medication Instructions Recorded Confirmed acetaminophen 325 mg PO 4-6XD #0 03/16/17 07/12/20 Previous Rx's Medication Instructions Recorded fluticasone propionate 50 1 spray INTRANASAL BID #16 gm 07/18/19 mcg/actuation nasal spray,suspension amlodipine 10 mg tablet 10 mg PO DAILY #90 tab 01/23/20 aspirin 81 mg tablet,delayed 81 mg PO DAILY #90 tab 01/23/20 release pravastatin 40 mg tablet 40 mg PO DAILY #90 tab 01/23/20 escitalopram oxalate 5 mg tablet 10 mg PO DAILY #180 tab 04/21/20 Allergies Allergy/AdvReac Type Severity Reaction Status Date / Time BEES Allergy Unknown Uncoded 08/06/20 08:37 Review of Systems Review of Systems ROS Unobtainable: All systems reviewed & are unremarkable except as noted in HPI and below Constitutional Constitutional: Denies chills, Denies fever(s), Denies lethargy and Denies weakness Eyes Eyes: Denies change in vision, Denies eye discharge, Denies irritation and Denies loss of vision Cardiovascular Cardiovascular: Denies chest pain, Denies irregular heart rhythm, Denies palpitations, Denies dyspnea and Denies dyspnea on exertion Respiratory Respiratory: Denies cough, Denies dyspnea, Denies dyspnea on exertion and Denies wheezing Gastrointestinal Gastrointestinal: Reports dyspepsia Musculoskeletal Musculoskeletal: Denies back pain Integumentary/Breasts Skin/Breast: Denies pruritus, Denies erythema, Denies rash and Denies wounds Neurologic Neurologic: Denies loss of vision and Denies weakness Endocrine Endocrine: Denies palpitations Allergic/Immunologic Allergic/Immunologic: Denies wheezing Patient History Medical History (Updated 08/06/20 @ 10:23 by Kathe Fairchild DO) Anxiety Asbestos exposure CADASIL (cerebral autosomal dominant arteriopathy with subcortical infarcts and leukoencephalopathy) (~2010) Concussion Conductive hearing 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 Eustachian tube dysfunction Headache (04/01/15) History of frequent headaches Hyperlipidemia Insomnia Low testosterone Minor head injury without loss of consciousness Monoallelic mutation of NOTCH3 gene MRSA (methicillin resistant Staphylococcus aureus) Partial blindness (~2010) Prepatellar bursitis Sensorineural hearing loss (SNHL) of both ears Sleep apnea Tinnitus Surgical History History of myringotomy (~2017) Surgical procedure planned Surgical procedure planned (~03/16/12) Family History Brother Hyperlipidemia Mother Age: 89 Hyperlipidemia GERD (gastroesophageal reflux disease) CADASIL (cerebral AD arteriopathy w infarcts and leukoencephalopathy) Sister Hyperlipidemia CADASIL (cerebral AD arteriopathy w infarcts and leukoencephalopathy) Sister Hyperlipidemia Sister Hyperlipidemia Sister Hyperlipidemia Father Emphysema lung Daughter CADASIL (cerebral AD arteriopathy w infarcts and leukoencephalopathy) Social History Smoking Status: Former smoker Smoking Status: Former smoker alcohol intake frequency: 0-2 drinks per day Substance Use Type: does not use Exam Initial Vital Signs Initial Vital Signs: Vital Signs Blood Pressure 142/82 H 08/06/20 08:30 GENERAL: Alert well-appearing 64-year-old male HEENT: Head atraumatic,EOMI, pupils reactive, face symmetric, moist mucous membranes CARDIOVASCULAR: Regular rate and rhythm without murmurs, rubs or gallops. RESPIRATORY: Breath sounds equal bilaterally, no wheezes rales or rhonchi. ABDOMEN: Soft, nontender. Normoactive bowel sounds all 4 quadrants. No guarding or rebound. EXTREMITIES: Normal range of motion, no clubbing or edema. Neurovascularly intact NEUROLOGICAL: Alert and oriented x4.Normal gait and speech. Cranial nerves II th rough XII grossly intact. Good [id number], good [id number], strength equal bilaterally, no dysarthria or aphasia, sensation in tact to soft touch bilaterally, no visual changes, no facial droop SKIN: Warm, dry, no laceration, no petechiae, no rashes or lesions. Scores NIH Stroke Scale Level of Conciousness: Alert, keenly responsive Ask month/age: Answers both questions correctly. Open/close eyes, close hand: Performs both tasks correctly Best gaze horizontal: Normal Visual mena: No visual loss Facial palsy: Normal symetrical movement Left arm drift: No drift for full 10 sec Right arm drift: No drift for full 10 sec Left leg drift: No drift for full 5 sec Right leg drift: No drift for full 5 sec Limb ataxia: Absent Sensory on face/arms/legs: Normal, no sensory loss Best language: No aphasia, normal Dysarthria: Normal Extinction or inattention: No abnormality Total NIH Stroke scale score: 0 Course Orders Ordered: Discontinued Medications Sodium Chloride (Normal Saline 0.9%) 1,000 mls @ 1,000 mls/hr IV BOLUS ONE Stop: 08/06/20 10:14 Last Infusion: 08/06/20 10:54 Dose: 0 mls/hr Documented by: Admin: 08/06/20 09:27 Dose: 1,000 mls/hr Documented by: PEDRO Pantoprazole Sodium (Pantoprazole 40 Mg Vial) 40 mg IV NOW ONE Stop: 08/06/20 09:16 Last Admin: 08/06/20 09:27 Dose: 40 mg Documented by: PEDRO Vital Signs Vital signs: Vital Signs - 8 hr 08/06/20 10:54 Pulse Rate 59 L Blood Pressure 145/94 H Pulse Oximetry 98 MDM - Headache Lab Data Attestation: I reviewed the patient's lab results. Result diagrams: 08/06/20 08:35 08/06/20 08:35 Labs: Lab Results 08/06/20 08/06/20 08/06/20 Range/Units 08:35 08:35 08:35 WBC 7.8 (4.5-11.0) X10^3/uL RBC 4.45 L (4.5-5.9) X10^6/uL Hgb 14.8 (13.5-17.5) g/dL Hct 43.5 (41-53) % MCV 97.8 (80-100) fL MCH 33.4 (26-34) PG MCHC 34.1 (30-36) % RDW 11.9 (11.6-14.8) % Plt Count 399 (150-400) X10^3/uL Neut % (Auto) 60.3 (50-75) % Lymph % (Auto) 24.6 L (25-40) % Stewart % (Auto) 10.6 (3-14) % Eos % (Auto) 4.0 (2-4) % Baso % (Auto) 0.5 (0-2) % Neut # (Auto) 4700 (3364-5948) /uL Lymph # (Auto) 1900 (3058-4532) /uL Stewart # (Auto) 800 (0-900) /uL Eos # (Auto) 300 (0-450) /uL Baso # (Auto) 0 (0-100) /uL PT 11.5 (10.1-12.7) SECONDS INR 1.0 (0.9-1.3) APTT 28 (26.4-36.2) SECONDS Sodium 136 L (137-145) mmol/L Potassium 4.4 (3.4-5.1) mmol/L Chloride 105 (98-107) mmol/L Carbon Dioxide 29 (22-32) mmol/L BUN 20 (9-20) mg/dL Creatinine 0.88 (0.66-1.25) mg/dL Estimated GFR > 60.0 (>60) mL/min BUN/Creatinine Ratio 22.7 H (6-22) Glucose 111 H (80-110) mg/dL Calcium 8.8 (8.4-10.2) mg/dL Magnesium 2.1 (1.6-2.3) mg/dL Total Bilirubin 0.8 (0.2-1.3) mg/dL AST 28 (17-59) IU/L ALT 15 (<50) IU/L Alkaline Phosphatase 88 (38-126) U/L Total Creatine Kinase 176 H (55-170) U/L CK-MB (CK-2) 1.51 (<2.37) ng/mL CK-MB (CK-2) Rel Index 0.9 L (1.5-5.0) % Troponin I < 0.012 (0.01-0.034) ng/mL Total Protein 6.9 (6.3-8.2) g/dL Albumin 4.3 (3.5-5.0) g/dL Globulin 2.6 (1.7-4.1) g/dL Albumin/Globulin Ratio 1.7 (1.0-2.8) Lipase 46 (23-300) U/L Imaging Data CT scan - head: Radiologist's Impression: PROCEDURE: CT HEAD/BRAIN WO CON INDICATIONS: headache with vomiting TECHNIQUE: Noncontrast 4.5 mm thick angled axial sections acquired from the foramen magnum to the vertex, with coronal and sagittal reformats. For radiation dose reduction, the following was used: automated exposure control, adjustment of mA and/or kV according to patient size. COMPARISON: [facility], CT, CT HEAD/BRAIN WO CON, 08/07/2018, 13:46. FINDINGS: Image quality: Excellent. CSF spaces: Basal cisterns are patent. No extra-axial fluid collections. The ventricles are symmetric in size and shape. Brain: No intracranial bleeds or masses. There is cerebral volume loss for age, with resultant ventricular and sulcal prominence. There are periventricular and deep white matter chronic small vessel ischemic changes. There is intracranial internal carotid artery atherosclerosis. Skull and face: Calvarium and visualized facial bones appear intact, without suspicious lesions. Skin nodule involving the right frontal parietal scalp image 26/2 measuring 5 mm. Sinuses: Visualized sinuses and mastoids are clear. IMPRESSION: No acute intracranial process. Incidentally noted right scalp skin nodule. Recommend clinical correlation and visual inspection to exclude neoplastic possibilities Dictated by: Roman Espinoza M.D. on 08/06/2020 at 9:33 Chest x-ray: Radiologist's Impression: PROCEDURE: XR CHEST 1V INDICATIONS: chest pain TECHNIQUE: One view of the chest was acquired. COMPARISON: [facility], CR, XR CHEST 1V, 08/14/2019, 17:47. FINDINGS: Surgical changes and devices: None. Lungs and pleura: Lungs are clear. No pleural effusions or pneumothorax. Mediastinum: Mediastinal contours appear normal. Heart size is normal. Bones and chest wall: No suspicious bony lesions. Overlying soft tissues appear unremarkable. IMPRESSION: No evidence acute pulmonary process. Dictated by: Irvin Garcia M.D. on 08/06/2020 at 9:19 ECG Data Attestation: I personally reviewed and interpreted this ECG as follows: Interpretation: Normal sinus rhythm rate 60 is p.r. interval 169 QRS [address] changes no T-wave inversions MDM Narrative Medical decision making narrative: Patient overall does not have any focal deficits. Head CT is within normal limits blood work is overall reassuring. He improved with Protonix. At this time feels ready and able to go home Discharge Plan Departure Patient Disposition: Home Clinical Impression: Headache Qualifiers: Headache type: unspecified Headache chronicity pattern: unspecified pattern Intractability: not intractable Qualified Code(s): R51.9 - Headache, unspecified GERD (gastroesophageal reflux disease) Qualifiers: Esophagitis presence: without esophagitis Qualified Code(s): K21.9 - Gastro- esophageal reflux disease without esophagitis Instructions: DI for Headache Activity Restrictions/Additional Instructions: *You have been diagnosed with headache and acid reflux *What to do: At this time blood work and CT scan are overall reassuring. You may require more testing with her primary care doctor but not indicated at this time *Continue to take medications as directed Omeprazole or famotidine for acid reflux this can be found [id number] please follow directions *Follow up with your primary care provider in 2-3 days *Return to ER if you should have worsening headache, weakness, numbness, tingling, chest pain or any new, worsening or concerning symptoms Prescriptions: No Action acetaminophen 325 MG tablet 325 mg PO 4-6XD Qty: 0 RF: 0 fluticasone propionate 50 mcg/actuation spray,suspension 1 spray Intranasal BID Qty: 16 RF: 0 escitalopram oxalate 5 mg tablet 10 mg PO DAILY Qty: 180 RF: 3 amlodipine 10 mg tablet 10 mg PO DAILY Qty: 90 RF: 3 aspirin [Aspirin Low Dose] 81 mg tablet,delayed release (DR/EC) 81 mg PO DAILY Qty: 90 RF: 3 pravastatin 40 mg tablet 40 mg PO DAILY Qty: 90 RF: 3 Referrals: Laila Reynolds DO [Primary Care Provider] -
[2020-08-06 09:02] LABS: PTT Partial Thromboplastin Tim 28 SECONDS (26.4-36.2)
[2020-08-06 09:06] LABS: Alanine Aminotransferase 15 IU/L (<50); Albumin 4.3 g/dL (3.5-5.0); Albumin Globulin Ratio 1.7 (1.0-2.8); Alkaline Phosphatase 88 U/L (38-126); Aspartate Aminotransferase 28 IU/L (17-59); BUN Creatinine Ratio 22.7 (6-22); Bilirubin Total 0.8 mg/dL (0.2-1.3); Blood Urea Nitrogen 20 mg/dL (9-20); Calcium 8.8 mg/dL (8.4-10.2); Carbon Dioxide 29 mmol/L (22-32); Chloride 105 mmol/L (98-107); Creatine Kinase 176 U/L (55-170); Estimated Glomerular Filt Rate > 60.0 mL/min (>60); Globulin 2.6 g/dL (1.7-4.1); Glucose 111 mg/dL (80-110); HEMOLYSIS < 15 (0-50); Lipase 46 U/L (23-300); Magnesium 2.1 mg/dL (1.6-2.3); Potassium 4.4 mmol/L (3.4-5.1); Sodium 136 mmol/L (137-145); Total Protein 6.9 g/dL (6.3-8.2)
[2020-08-06 09:16] LABS: Troponin I < 0.012 ng/mL (0.01-0.034)
--- NOTE | 2020-08-06 09:17 | DI.CT.S_ITS ---
PROCEDURE: CT HEAD/BRAIN WO CON INDICATIONS: headache with vomiting TECHNIQUE: Noncontrast 4.5 mm thick angled axial sections acquired from the foramen magnum to the vertex, with coronal and sagittal reformats. For radiation dose reduction, the following was used: automated exposure control, adjustment of mA and/or kV according to patient size. COMPARISON: [facility], CT, CT HEAD/BRAIN WO CON, 08/07/2018, 13:46. FINDINGS: Image quality: Excellent. CSF spaces: Basal cisterns are patent. No extra-axial fluid collections. The ventricles are symmetric in size and shape. Brain: No intracranial bleeds or masses. There is cerebral volume loss for age, with resultant ventricular and sulcal prominence. There are periventricular and deep white matter chronic small vessel ischemic changes. There is intracranial internal carotid artery atherosclerosis. Skull and face: Calvarium and visualized facial bones appear intact, without suspicious lesions. Skin nodule involving the right frontal parietal scalp image 26/2 measuring 5 mm. Sinuses: Visualized sinuses and mastoids are clear. IMPRESSION: No acute intracranial process. Incidentally noted right scalp skin nodule. Recommend clinical correlation and visual inspection to exclude neoplastic possibilities Dictated by: Roman Espinoza M.D. on 08/06/2020 at 9:33 Approved by: Roman Espinoza M.D. on 08/06/2020 at 9:37
[2020-08-06 09:21] LABS: CKMB % Relative Index 0.9 % (1.5-5.0); Creatine Kinase MB 1.51 ng/mL (<2.37)
[2020-08-06] MEDS: PANTOPRAZOLE 40 MG VIAL IV (09:27)
[2020-08-06] MEDS: SODIUM CHLORIDE 0.9% 1,000 ML 1000 ML IV (09:27)
== END 2020-08-06 10:55 | disposition home or self-care (01) ==
PROVIDERS: Emergency Provider Emergency Medicine; PCP Family Medicine
DX: R51.9 Headache, unspecified (principal); K21.9 Gastro-esophageal reflux disease without esophagitis; R07.9 Chest pain, unspecified; R20.0 Anesthesia of skin; R11.2 Nausea with vomiting, unspecified; R10.13 Epigastric pain
CPT/HCPCS: 36415; 70450; 71045; 80053; 82550; 82553; 83690; 83735; 84484; 85025; 85610; 85730; 93005; 93010; 96361; 96374; 99283; 99284; C9113

== ENCOUNTER → 2020-08-20 10:27 | Outpatient (CLI) | payer OTHER, MEDICAID, SELFPAY ==
[2020-08-20 11:05] LABS: COVID19 -Nasal RAPID Negative (Negative)
== END ==
PROVIDERS: PCP Family Medicine; Referring Provider Family Medicine; Visit Provider Family Medicine
DX: Z20.822 Contact with and (suspected) exposure to COVID-19 (principal)
CPT/HCPCS: 87635; C9803

== ENCOUNTER → 2020-08-20 12:36 | Outpatient (CLI) | payer MEDICARE, MEDICAID, SELFPAY ==
--- NOTE | 2020-09-01 09:52 | PM.PFT.1 ---
Pulmonary Function Test Referral & Results Date Patient Seen: 08/20/20 Requesting provider: Laila Reynolds Results: The spirometry demonstrates an FVC of 3.59 L which is 88% of predicted. The FEV1 was measured at 3.04 L which is 100% of predicted. The FEV1/FVC ratio was 84 which is 114% of predicted. Following the administration of bronchodilator there was no appreciable change to above normal numbers. Lung volumes show an SVC of 3.68 L which is 87% of predicted. The diffusing capacity was measured at 22.73 which is 80% of predicted. No hemoglobin value was provided, so no correction for potential anemia could be made, if appropriate. The maximum voluntary ventilation was normal Interpretation: This study demonstrates probably normal spirometry although there may be evidence of very minimal restrictive lung disease based on slight reduction SVC Diffusing capacity is also probably normal, although could be minimally reduced
== END ==
PROVIDERS: PCP Family Medicine; Referring Provider Family Medicine; Visit Provider Family Medicine
DX: Z77.090 Contact with and (suspected) exposure to asbestos (principal); Z20.822 Contact with and (suspected) exposure to COVID-19
CPT/HCPCS: 87635; 94060; 94726; 94729; C9803

== ENCOUNTER → 2020-11-29 12:11 | Outpatient (CLI) | payer OTHER, MEDICAID, SELFPAY ==
[2020-11-29 13:05] LABS: Add Manual Diff / Slide Review NO; Basophils Absolute Auto 100 /uL (0-100); Basophils Percent Auto 0.7 % (0-2); Eosinophils Absolute Auto 200 /uL (0-450); Hematocrit 44.1 % (41-53); Hemoglobin 14.8 g/dL (13.5-17.5); Lymphocytes Absolute Auto 2400 /uL (1100-4500); Lymphocytes Percent Auto 21.2 % (25-40); Mean Corpuscular HGB Conc 33.6 % (30-36); Mean Corpuscular Hemoglobin 32.7 PG (26-34); Mean Corpuscular Volume 97.3 fL (80-100); Monocytes Absolute Auto 1500 /uL (0-900); Monocytes Percent Auto 13.1 % (3-14); Neutrophils Absolute Auto 7200 /uL (1500-7000); Platelet Count 449 X10^3/uL (150-400); Red Blood Cell Count 4.53 X10^6/uL (4.5-5.9); Red Cell Distribution Width 11.9 % (11.6-14.8); White Blood Cell Count 11.4 X10^3/uL (4.5-11.0)
[2020-11-29 13:09] LABS: INR 1.1 (0.9-1.3)
[2020-11-29 13:17] LABS: BUN Creatinine Ratio 16.1 (6-22); Blood Urea Nitrogen 15 mg/dL (9-20); Calcium 9.6 mg/dL (8.4-10.2); Carbon Dioxide 27 mmol/L (22-32); Chloride 102 mmol/L (98-107); Estimated Glomerular Filt Rate > 60.0 mL/min (>60); Glucose 106 mg/dL (80-110); HEMOLYSIS < 15 (0-50); Potassium 4.3 mmol/L (3.4-5.1); Sodium 138 mmol/L (137-145)
== END ==
PROVIDERS: PCP Family Medicine; Referring Provider Physician Assistant; Visit Provider Physician Assistant
DX: M79.89 Other specified soft tissue disorders (principal)
CPT/HCPCS: 36415; 80048; 85025; 85610

== ENCOUNTER → 2020-11-29 13:44 | Outpatient (CLI) | payer MEDICARE, MEDICAID, SELFPAY ==
--- NOTE | 2020-11-29 13:45 | DI.US.S_ITS ---
PROCEDURE: US PERIPH VENOUS LOW EXTREM LT INDICATIONS: swelling TECHNIQUE: Real-time imaging, as well as color and pulse Doppler interrogation, were performed of the lower extremity deep veins from the inguinal ligament to the popliteal fossa. COMPARISON: [facility], CR, XR KNEE LT 3V, 03/18/2019, 12:03. FINDINGS: The common femoral, femoral and popliteal veins are normally compressible, and free of intraluminal thrombus. Color and pulse Doppler demonstrate normal phasic intraluminal flow. There is normal augmentation response to distal compression maneuver. In the area of palpable abnormality, there is a hypoechoic mass measuring 2.5 x 1.6 x 2.5 cm. No definite internal vascularity identified. This may correspond to the soft tissue swelling seen on the comparison radiograph from 03/18/19. IMPRESSION: No evidence of deep venous thrombosis. Indeterminate hypoechoic mass versus complex cyst in the area of palpable abnormality. Recommend further evaluation with contrast enhanced MRI. Technically, indolent neoplasm cannot be excluded. Dictated by: Roman Espinoza M.D. on 11/29/2020 at 14:55 Approved by: Roman Espinoza M.D. on 11/29/2020 at 14:57
== END ==
PROVIDERS: PCP Family Medicine; Referring Provider Physician Assistant; Visit Provider Physician Assistant
DX: M79.89 Other specified soft tissue disorders (principal)
CPT/HCPCS: 36415; 80048; 85025; 85610; 93971

== ENCOUNTER → 2020-12-31 09:36 | Outpatient (CLI) | payer MEDICARE, MEDICAID, SELFPAY ==
[2020-12-31 11:36] LABS: COVID19 -Nasal RAPID Negative (Negative)
== END ==
PROVIDERS: PCP Family Medicine; Visit Provider Surgery
DX: Z01.812 Encounter for preprocedural laboratory examination (principal); Z20.822 Contact with and (suspected) exposure to COVID-19
CPT/HCPCS: 87635; C9803

== ENCOUNTER 2021-01-03 09:09 | Day surgery (SDC) | payer MEDICARE, MEDICAID, SELFPAY ==
--- NOTE | 2021-01-03 | PATH_ITS ---
[facility] Accession Number: [id number] . 01 Material submitted: . esophagus, E-G Junction - GE JUNCTION . 02 Diagnosis: Gastroesophageal Junction, Biopsy: Squamous epithelium with no diagnostic abnormality. Intraepithelial eosinophils are not increased. Additional levels were examined. Negative for dysplasia and malignancy. MRV 01/07/2021 1436 Local . 02 Electronically signed: . Viki Carnes MD, Pathologist NPI- [id number] . 01 Gross description: . GE JUNCTION: Received in formalin is 1 fragment(s) of koch, soft tissue measuring 0.4 x 0.2 x 0.1 cm submitted entirely in 1 cassette(s) /AKILA 01/04/2021 0526 Local . 02 Pathologist provided ICD-10: R13.10 . 02 CPT . 748687 Performed at: 01 [facility] [address], [place], [place] [id number] MD Kvng Thomas MD Phone: [phone] Performed at: [address] [facility] [address] [place], [place] [id number] MD Viki Carnes MD Phone: [phone]
[2021-01-03] MEDS: LACTATED RINGERS 1,000 ML 200 ML IV (10:43)
[2021-01-03 11:08] VITALS: BP 140/82; PULSE 53; RESP 14; TEMP 36.4; O2SAT 98
--- NOTE | 2021-01-03 11:15 | PM.PREOP ---
Pre-operative Note Interval Note History & Physical reviewed/Exam performed by Physician: Yes Changes to H&P: No
[2021-01-03] MEDS: fentaNYL 250 MCG/5 ML INJ IV (11:22)
[2021-01-03] MEDS: MIDAZOLAM 5 MG/5 ML VIAL IV (11:22)
[2021-01-03] MEDS: LIDOCAINE 4% SOLN 50 ML 20 ML TOP (11:22)
--- NOTE | 2021-01-03 11:31 | PM.OP.ENDO ---
Operative Date/Time/Diagnoses Date of procedure: 01/03/21 Time of procedure: 11:31 Pre-op diagnosis: Esophageal dysphagia Post-op diagnosis: same Procedure & Clinicians Study performed: Esophagoduodenoscopy Same procedure as scheduled: Yes Indications: Esophageal dysphagia Surgeon: Rashi Argueta Procedure Notes Procedure in detail: Patient placed in left lateral decubitus position. Time out was performed. Procedural sedation was administered with Versed and Fentanyl. A bite block was placed. the scope was inserted into the mouth and advanced through the esophagus and into the stomach. The pylorus was intubated and the duodenum was normal to the 2nd portion. The scope was retroflexed within the stomach and there was no hiatal hernia. No ulcers, or gastritis. The scope was withdrawn into the esophagus the Z line was seen at 40 cm from the incisions. There was mild esophagitis at the GE junction, no valerie Daly's, multiple random biopsies of the GE junction were taken with forceps. T no esophageal stricture. Stomach was desufflated and scope removed. Patient tolerated procedure well. Specimen(s): other (GE junction) Complications: none Impression: Esophagitis Post-procedure Plan for aftercare: Protonix 20 mg b.i.d. Disposition: same day surgery
[2021-01-03 11:33] VITALS: BP 136/96; PULSE 64; RESP 14; TEMP 36.6; O2SAT 93
--- NOTE | 2021-01-03 11:35 | SUR.PHASEI ---
Received to PACU after EGD with sedation. Report received from DAVY Serrato.
[2021-01-03 11:43] VITALS: BP 125/84; PULSE 63; RESP 14; O2SAT 92
[2021-01-03 11:48] VITALS: BP 129/91; PULSE 70; RESP 12; TEMP 36.4; O2SAT 94
--- NOTE | 2021-01-03 11:49 | SUR.PHASEI ---
Annette at Dr Argueta's office spoke to Dr Argueta in regards to discharge instructions concerning protonix vs omeprazole. Protonix is what pt should start on.
[2021-01-03 11:53] VITALS: BP 131/90; PULSE 72; RESP 14; O2SAT 95
[2021-01-03 12:12] VITALS: BP 140/84; PULSE 69; RESP 14; TEMP 36.4; O2SAT 95
== END 2021-01-03 12:41 | disposition home or self-care (01) ==
PROVIDERS: PCP Family Medicine; Referring Provider Surgery; Visit Provider Surgery
PROC: 0DJ08ZZ Inspection of Upper Intestinal Tract, Via Natural or Artificial Opening Endoscopic (ICD-10-PCS; CPT 43235; principal; 2021-01-03 11:30)
DX: R13.10 Dysphagia, unspecified (principal)
CPT/HCPCS: 43239; J2250; J3010

== ENCOUNTER → 2021-01-05 08:38 | Outpatient (CLI) | payer MEDICARE, MEDICAID, SELFPAY ==
--- NOTE | 2021-01-05 | DI.MRI.S_ITS ---
PROCEDURE: MR LOWER LEG LT WO/W CON INDICATIONS: LEFT LEG SWELLING TECHNIQUE: Noncontrast coronal T1 spin echo and STIR, sagittal T1 spin echo with fat saturation and STIR, axial T1 spin echo and T2 fast spin echo with fat saturation. After the administration of contrast, axial/sagittal/coronal T1 spin echo with fat saturation through the left lower leg. COMPARISON: [facility], US, US PERIPH VENOUS LOW EXTREM LT, 11/29/2020, 14:00. FINDINGS: Image quality: Excellent. Bones: The visualized bone marrow demonstrates normal signal on all sequences. The overlying cortex appears intact. A small circumscribed nonaggressive osseous lesion is seen in the posterior portion of the central tibial metaphysis, most likely representing a benign lesion such as an enchondroma. Soft tissues: Adjacent to the skin marker at the level of the tibial tubercle, there is a circumscribed subcutaneous collection measuring approximately 3.8 x 1.6 x 3.2 cm that corresponds to the abnormality seen on ultrasound from 11/29/2020. There is central T2-hyperintense signal with a hypointense rim and intermediate signal intensity on T1-weighted images without appreciable contrast enhancement. Findings are consistent with a subacute to chronic hematoma. There is mild surrounding subcutaneous soft tissue edema. No solid soft tissue masses are visualized. The scanned muscles demonstrate normal overall bulk and internal signal. Abnormal signal is seen in the bilateral medial menisci, and bilateral meniscal tears are suspected. However, this exam is not tailored for evaluation of the knees or ankles. IMPRESSION: 1. Subacute to chronic hematoma measuring up to 3.8 cm in the subcutaneous tissues anterior to the tibial tubercle corresponds to the abnormality seen on ultrasound from 11/29/2020. 2. Probable bilateral medial meniscal tears are incidentally noted. Dictated by: Brain Han M.D. on 01/05/2021 at 9:55 Approved by: Brain Han M.D. on 01/05/2021 at 10:09
== END ==
PROVIDERS: PCP Family Medicine; Referring Provider Family Medicine; Visit Provider Family Medicine
DX: M79.89 Other specified soft tissue disorders (principal); R93.6 Abnormal findings on diagnostic imaging of limbs; S80.12XA Contusion of left lower leg, initial encounter
CPT/HCPCS: 73720

== ENCOUNTER 2022-02-15 17:17 | Inpatient (IN) | payer MEDICARE, MEDICAID, SELFPAY ==
[2022-02-15] VITALS (17 sets, daily range): BP systolic 140–194; BP diastolic 66–104; PULSE 70–115; RESP 18–32; TEMP 37.1–37.8; O2SAT 93–98; BMI 24.3
--- NOTE | 2022-02-15 17:09 | DI.CT.S_ITS ---
PROCEDURE: CT STROKE INDICATIONS: left sided weakness hemiparesis TECHNIQUE: Noncontrast 4.5 mm thick angled axial sections acquired from the foramen magnum to the vertex, with coronal reformats. For radiation dose reduction, the following was used: automated exposure control, adjustment of mA and/or kV according to patient size. COMPARISON: [facility], CT, CT ANGIO HEAD AND NECK, 02/15/2022, 17:00. FINDINGS: Image quality: Degraded by patient positioning factors. CSF spaces: Basal cisterns are patent. No extra-axial fluid collections. The ventricles are symmetric in size and shape. Brain: No intracranial bleeds or masses. There is cerebral volume loss for age, with resultant ventricular and sulcal prominence. There are periventricular and deep white matter chronic small vessel ischemic changes. There is intracranial internal carotid artery atherosclerosis. Skull and face: Calvarium and visualized facial bones appear intact, without suspicious lesions. Sinuses: Visualized sinuses and mastoids are clear. IMPRESSION: No acute intracranial abnormality. Findings discussed with Dr. Kathe Fairchild MD on 02/15/2022 at 17:46 hours. This study fulfills neurological imaging criteria for inclusion or exclusion of acute stroke therapies based on available published neurological guidelines. Dictated by: Arnold Matt M.D. on 02/15/2022 at 17:45 Approved by: Arnold Matt M.D. on 02/15/2022 at 17:48
--- NOTE | 2022-02-15 17:15 | DI.CT.S_ITS ---
PROCEDURE: CT ANGIO HEAD AND NECK INDICATIONS: left sided weakness TECHNIQUE: After the administration of intravenous contrast, 1 mm thick sections acquired from the aortic arch through the [place] of [place]. Post-contrast 4.5 mm thick sections then re-acquired from the foramen magnum to the vertex. 3-dimensional zuojyas-rvewameen-btgttnsmnp (MIP) and/or volume rendering reformats were acquired of the central intracranial vasculature and neck separately. For radiation dose reduction, the following was used: automated exposure control, adjustment of mA and/or kV according to patient size. COMPARISON: None. FINDINGS: Image quality: Excellent. BRAIN: CSF spaces: Ventricles are normal in size and shape. Basal cisterns are patent. No extra-axial fluid collections. Brain: No midline shift. Moderate patchy low-density within the periventricular and subcortical white matter No intracranial bleeds or masses. [place]-white matter interface appears intact. Skull and face: Calvarium and facial bones appear intact, without suspicious lesions. Orbits appear normal. Sinuses: Sinuses and mastoids are clear. HEAD CT ANGIOGRAPHY: Anterior circulation: Mild calcific stenosis of the cavernous segments of the internal carotid arteries bilaterally. The flow within the paired anterior cerebral arteries is normal and symmetric. The flow within the middle cerebral arteries is normal and symmetric. The anterior communicating artery is seen. No aneurysms are seen. Posterior circulation: Visualized portions of the vertebral arteries demonstrate normal caliber, and join to form a normal appearing basilar artery. Flow within the posterior cerebral arteries is normal and symmetric. No aneurysms are seen. NECK CT ANGIOGRAPHY: Carotid system: The great vessels demonstrate a conventional anatomy as they arise from the aortic arch. The origins of the common carotid arteries appear patent. The common carotid arteries demonstrate normal caliber and courses. There is mild, roughly 10% calcific origin stenosis of the bilateral internal carotid arteries. Posterior circulation: Mild right and high-grade left vertebral artery origin stenosis. Focal stenosis within the distal left vertebral artery. Right distal vertebral artery is small in caliber and patent. The more superior extracranial portions of both vertebral arteries also demonstrate normal courses and calibers. They join to form a normal appearing basilar artery. Soft tissues: Visualized neck soft tissues demonstrate no suspicious abnormalities. Bones: No suspicious bony lesions. Visualized cervical spine appears normally aligned. IMPRESSION: 1. No acute process involving the arterial tree of the head and neck. 2. Volume loss and small vessel ischemic disease. 3. 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 4. Mild bilateral internal carotid artery origin stenoses. Any quantitative measurements of stenosis were performed using NASCET criteria. Dictated by: Arnold Matt M.D. on 02/15/2022 at 17:48 Approved by: Arnold Matt M.D. on 02/15/2022 at 17:52
--- NOTE | 2022-02-15 17:20 | DI.RAD.S_ITS ---
PROCEDURE: XR CHEST 1V INDICATIONS: stroke TECHNIQUE: One view of the chest was acquired. COMPARISON: [facility], CR, XR CHEST 1V, 08/06/2020, 8:53. FINDINGS: Surgical changes and devices: None. Lungs and pleura: Moderate patchy bilateral multifocal airspace opacities.. No pleural effusions or pneumothorax. Mediastinum: Mediastinal contours appear normal. Heart size is normal. Bones and chest wall: No suspicious bony lesions. Overlying soft tissues appear unremarkable. IMPRESSION: Multifocal pneumonia. Dictated by: Arnold Matt M.D. on 02/15/2022 at 17:52 Approved by: Arnold Matt M.D. on 02/15/2022 at 17:53
[2022-02-15] MEDS: LORazepam 2 MG/ML INJ 1 MG IV (17:39)
--- NOTE | 2022-02-15 18:06 | ED_ITS ---
HPI - Neuro Symptoms/Deficit General Chief Complaint: Trauma Stated Complaint: L sided weakness Time Seen by Provider: 02/15/22 17:27 Source: EMS and other Mode of arrival: EMS History of Present Illness HPI Narrative: 66-year-old male former smoker with history of GERD, hypertension presents by EMS for evaluation significant left-sided weakness and altered mental status. Per EMS roommate states that he was found on the floor confused and has not been normal for the past few days. He was seen and evaluated by EMS last night due to the fall and at the time the patient declared he did not want to be seen. He is altered, apparently neglecting his left side and had blood glucose 168 prior to arrival. Due to the fall with altered mental status patient was activated as a modified trauma. He is not activated as a code stroke as he is outside of any window for tPA or CODE IR. On Anticoagulants: No Related Data Home Medications Medication Instructions Recorded Confirmed acetaminophen 325 mg tablet 325 mg PO 4-6XD pain ##0 03/16/17 12/13/21 propranolol 10 mg tablet 10 mg PO BID 12/13/21 12/13/21 Previous Rx's Medication Instructions Recorded amlodipine 10 mg tablet 10 mg PO DAILY #90 tabs 07/21/21 hydroxyzine pamoate 50 mg capsule 50 mg PO BEDTIME PRN insomnia #30 07/21/21 caps pantoprazole 20 mg tablet,delayed 20 mg PO BID #60 tabs 07/21/21 release (Protonix) pravastatin 40 mg tablet 40 mg PO DAILY #90 tabs 07/21/21 Allergies Allergy/AdvReac Type Severity Reaction Status Date / Time BEES AdvReac Mild local Uncoded 12/13/21 10:23 irritation Review of Systems Review of Systems ROS Unobtainable: Unobtainable due to mental status/LOC Hematologic/Lymphatic On Anticoagulants: No Patient History Medical History Anxiety Asbestos exposure CADASIL (cerebral autosomal dominant arteriopathy with subcortical infarcts and leukoencephalopathy) (~2010) Concussion Conductive hearing 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 Eustachian tube dysfunction GERD (gastroesophageal reflux disease) Headache (04/01/15) Hiatal hernia History of frequent headaches Hyperlipidemia (09/29/16) Insomnia Leukoaraiosis (~2014) Low testosterone Minor head injury without loss of consciousness Monoallelic mutation of NOTCH3 gene MRSA (methicillin resistant Staphylococcus aureus) Partial blindness (~2010) Prepatellar bursitis Sensorineural hearing loss (SNHL) of both ears Sleep apnea Tinnitus Surgical History History of myringotomy (~2017) Surgical procedure planned Surgical procedure planned (~03/16/12) Family History Brother Hyperlipidemia Mother Age: 91 Hyperlipidemia GERD (gastroesophageal reflux disease) CADASIL (cerebral AD arteriopathy w infarcts and leukoencephalopathy) Sister Hyperlipidemia CADASIL (cerebral AD arteriopathy w infarcts and leukoencephalopathy) Sister Hyperlipidemia Sister Hyperlipidemia Sister Hyperlipidemia Father Emphysema lung Daughter CADASIL (cerebral AD arteriopathy w infarcts and leukoencephalopathy) Social History household members: none Smoking Status: Former smoker alcohol intake: former Smoking Status: Former smoker alcohol intake frequency: 0-2 drinks per day Substance Use Type: does not use Exam Narrative Exam Narrative: GENERAL: [66] year old patient appears stated age. Not following commands, apparently neglecting left side. HEAD: Atraumatic. Normocephalic. EYES: Pupils equal round and reactive. Extraocular motions intact. No scleral icterus. No injection or drainage. ENT: Nose without bleeding, purulent drainage. Throat without erythema, t onsillar hypertrophy or exudate. Airway patent. NECK: Trachea midline. Non tender CARDIOVASCULAR: Regular rate and rhythm without murmurs, gallops, or rubs. RESPIRATORY: Clear to auscultation. Breath sounds equal bilaterally. No wheezes, rales, or rhonchi. GASTROINTESTINAL: Abdomen soft, non-tender, nondistended. EXTREMITIES: No edema or joint tenderness. BACK: Nontender without deformity or crepitance. No flank tenderness. NEURO: Guarding airway, CNII-XII grossly in tact SKIN: No rash or erythema of visible areas Initial Vital Signs Initial Vital Signs: Vital Signs Pulse Rate 113 H 02/15/22 17:34 Pulse Oximetry 93 02/15/22 17:34 Scores NIH Stroke Scale Level of Conciousness: Not alert, requires repeated stimulation to attend, or is obtunded Ask month/age: Answers neither question correctly, aphasic, stuporous, coma Open/close eyes, close hand: Performs one task correctly Best gaze horizontal: Partial gaze palsy, can be overcome by finger tracking, head turning Visual mena: No visual loss Facial palsy: Normal symetrical movement Left arm drift: Drifts down, not to bed Right arm drift: No drift for full 10 sec Left leg drift: Drifts down, not to bed Right leg drift: No drift for full 5 sec Limb ataxia: Absent Sensory on face/arms/legs: Mild to moderate sensory loss, can tell touch Best language: Mild to moderate, slurs some words Dysarthria: Mild to mod,some slurring Extinction or inattention: Visual, tactile, auditory, spacial or personal inatt ention to stimuli Total NIH Stroke scale score: 12 Course Orders Ordered: ED Orders 02/15/22 17:09 CT Stroke Stat 02/15/22 17:15 CT angio head and neck Stat 02/15/22 17:20 XR chest 1V Stat EKG-12 Lead Stat 02/15/22 17:54 Urine Drug Screen, Rapid Stat 02/15/22 17:55 COVID19 -Nasal RAPID/Pre-Proc Stat Complete Blood Count AUTO DIFF Stat Comprehensive Metabolic Panel Stat ETOH [Ethanol (ETOH)] Stat Lactate (Lactic Acid) Stat Lipase Stat Procalcitonin Stat Troponin & CK Cardiac Panel Stat 02/15/22 18:49 COVID19 -Nasal RAPID/Pre-Proc Stat 02/15/22 20:18 Blood Culture Stat Sodium Chloride (Normal Saline 0.9%) 2,190 mls @ 730 mls/hr 30 ml/kg infuse over 3 hr (2190 ml) IV NOW ONE Stop: 02/15/22 21:32 Last Admin: 02/15/22 20:05 Dose: 730 mls/hr Documented By: JUAN Discontinued Medications Sodium Chloride (Normal Saline 0.9%) 1,000 mls @ 1,000 mls/hr IV BOLUS ONE Stop: 02/15/22 19:15 Last Infusion: 02/15/22 20:04 Dose: 0 mls/hr Documented By: Admin: 02/15/22 18:29 Dose: 1,000 mls/hr Documented By: NANCY Levofloxacin (Levaquin) 750 mg in 150 mls @ 100 mls/hr IV NOW ONE Stop: 02/15/22 19:45 Last Infusion: 02/15/22 20:10 Dose: 0 mls/hr Documented By: Admin: 02/15/22 18:36 Dose: 100 mls/hr Documented By: NANCY Lorazepam (Lorazepam 2 Mg/Ml Inj) 1 mg IV NOW ONE Stop: 02/15/22 17:20 Last Admin: 02/15/22 17:39 Dose: 1 mg Documented By: BASIA Reevaluation(s) Reevaluation #1: Patient was not following commands and not lying still, given Ativan to help him remain still for imaging Vital Signs Vital signs: Vital Signs - 8 hr 02/15/22 17:39 02/15/22 17:34 02/15/22 17:35 Temperature 98.7 F Pulse Rate 98 H 113 H Respiratory Rate 18 Blood Pressure 178/97 H 178/97 H Pulse Oximetry 96 93 Oxygen Delivery Method Room Air 02/15/22 17:35 02/15/22 17:50 02/15/22 17:50 Temperature Pulse Rate 115 H 92 H Respiratory Rate 23 Blood Pressure 174/99 H Pulse Oximetry 94 95 Oxygen Delivery Method 02/15/22 18:00 02/15/22 18:00 02/15/22 18:30 Temperature Pulse Rate 91 H Respiratory Rate 19 Blood Pressure 170/98 H 179/94 H Pulse Oximetry 94 Oxygen Delivery Method 02/15/22 18:30 02/15/22 19:00 02/15/22 19:00 Temperature Pulse Rate 95 H 110 H Respiratory Rate 25 H 28 H Blood Pressure 183/95 H Pulse Oximetry 95 93 Oxygen Delivery Method 02/15/22 19:06 02/15/22 19:06 02/15/22 19:30 Temperature Pulse Rate 110 H Respiratory Rate 22 Blood Pressure 178/91 H 181/101 H Pulse Oximetry Oxygen Delivery Method 02/15/22 19:30 Temperature Pulse Rate 105 H Respiratory Rate 24 Blood Pressure Pulse Oximetry 93 Oxygen Delivery Method MDM - Neuro Symptoms/Deficit Lab Data Result diagrams: 02/15/22 17:55 02/15/22 17:55 Labs: Lab Results 02/15/22 02/15/22 02/15/22 Range/Units 17:55 17:55 17:55 WBC 18.3 H (4.5-11.0) X10^3/uL RBC 4.29 L (4.5-5.9) X10^6/uL Hgb 14.5 (13.5-17.5) g/dL Hct 41.3 (41-53) % MCV 96.4 (80-100) fL MCH 33.7 (26-34) PG MCHC 35.0 (30-36) % RDW 12.0 (11.6-14.8) % Plt Count 397 (150-400) X10^3/uL Neut % (Auto) 85.2 H (50-75) % Lymph % (Auto) 5.5 L (25-40) % [place] % (Auto) 9.0 (3-14) % Eos % (Auto) 0.0 L (2-4) % Baso % (Auto) 0.3 (0-2) % Neut # (Auto) 85115 H (5863-6395) /uL Lymph # (Auto) 1000 L (6787-1188) /uL [place] # (Auto) 1600 H (0-900) /uL Eos # (Auto) 0 (0-450) /uL Baso # (Auto) 100 (0-100) /uL Sodium 134 L (137-145) mmol/L Potassium 3.9 (3.4-5.1) mmol/L Chloride 95 L (98-107) mmol/L Carbon Dioxide 26 (22-32) mmol/L BUN 19 (9-20) mg/dL Creatinine 0.85 (0.66-1.25) mg/dL Estimated GFR > 60 (>60) mL/min BUN/Creatinine Ratio 22.4 H (6-22) Glucose 148 H (80-110) mg/dL Lactate 3.2 H (0.7-2.1) mmol/L Calcium 8.9 (8.4-10.2) mg/dL Total Bilirubin 2.3 H (0.2-1.3) mg/dL AST 31 (17-59) IU/L ALT 18 (<50) IU/L Alkaline Phosphatase 74 (38-126) U/L Total Creatine Kinase 483 H (55-170) U/L CK-MB (CK-2) 2.48 H (<2.37) ng/mL CK-MB (CK-2) Rel Index 0.5 L (1.5-5.0) % Troponin I 0.014 (0.01-0.034) ng/mL Total Protein 7.8 (6.3-8.2) g/dL Albumin 4.9 (3.5-5.0) g/dL Globulin 2.9 (1.7-4.1) g/dL Albumin/Globulin Ratio 1.7 (1.0-2.8) Lipase 21 L (23-300) U/L Procalcitonin (<0.5) ng/mL Ethyl Alcohol ( - 10) mg/dL SARS-CoV-2 (PCR) (Negative) 02/15/22 02/15/22 02/15/22 Range/Units 17:55 17:55 17:55 WBC (4.5-11.0) X10^3/uL RBC (4.5-5.9) X10^6/uL Hgb (13.5-17.5) g/dL Hct (41-53) % MCV (80-100) fL MCH (26-34) PG MCHC (30-36) % RDW (11.6-14.8) % Plt Count (150-400) X10^3/uL Neut % (Auto) (50-75) % Lymph % (Auto) (25-40) % [place] % (Auto) (3-14) % Eos % (Auto) (2-4) % Baso % (Auto) (0-2) % Neut # (Auto) (2271-8518) /uL Lymph # (Auto) (2072-8522) /uL [place] # (Auto) (0-900) /uL Eos # (Auto) (0-450) /uL Baso # (Auto) (0-100) /uL Sodium (137-145) mmol/L Potassium (3.4-5.1) mmol/L Chloride (98-107) mmol/L Carbon Dioxide (22-32) mmol/L BUN (9-20) mg/dL Creatinine (0.66-1.25) mg/dL Estimated GFR (>60) mL/min BUN/Creatinine Ratio (6-22) Glucose (80-110) mg/dL Lactate (0.7-2.1) mmol/L Calcium (8.4-10.2) mg/dL Total Bilirubin (0.2-1.3) mg/dL AST (17-59) IU/L ALT (<50) IU/L Alkaline Phosphatase (38-126) U/L Total Creatine Kinase (55-170) U/L CK-MB (CK-2) (<2.37) ng/mL CK-MB (CK-2) Rel Index (1.5-5.0) % Troponin I (0.01-0.034) ng/mL Total Protein (6.3-8.2) g/dL Albumin (3.5-5.0) g/dL Globulin (1.7-4.1) g/dL Albumin/Globulin Ratio (1.0-2.8) Lipase (23-300) U/L Procalcitonin 0.05 (<0.5) ng/mL Ethyl Alcohol < 10 ( - 10) mg/dL SARS-CoV-2 (PCR) Negative (Negative) 02/15/22 Range/Units 18:49 WBC (4.5-11.0) X10^3/uL RBC (4.5-5.9) X10^6/uL Hgb (13.5-17.5) g/dL Hct (41-53) % MCV (80-100) fL MCH (26-34) PG MCHC (30-36) % RDW (11.6-14.8) % Plt Count (150-400) X10^3/uL Neut % (Auto) (50-75) % Lymph % (Auto) (25-40) % [place] % (Auto) (3-14) % Eos % (Auto) (2-4) % Baso % (Auto) (0-2) % Neut # (Auto) (1250-2133) /uL Lymph # (Auto) (8131-9543) /uL [place] # (Auto) (0-900) /uL Eos # (Auto) (0-450) /uL Baso # (Auto) (0-100) /uL Sodium (137-145) mmol/L Potassium (3.4-5.1) mmol/L Chloride (98-107) mmol/L Carbon Dioxide (22-32) mmol/L BUN (9-20) mg/dL Creatinine (0.66-1.25) mg/dL Estimated GFR (>60) mL/min BUN/Creatinine Ratio (6-22) Glucose (80-110) mg/dL Lactate (0.7-2.1) mmol/L Calcium (8.4-10.2) mg/dL Total Bilirubin (0.2-1.3) mg/dL AST (17-59) IU/L ALT (<50) IU/L Alkaline Phosphatase (38-126) U/L Total Creatine Kinase (55-170) U/L CK-MB (CK-2) (<2.37) ng/mL CK-MB (CK-2) Rel Index (1.5-5.0) % Troponin I (0.01-0.034) ng/mL Total Protein (6.3-8.2) g/dL Albumin (3.5-5.0) g/dL Globulin (1.7-4.1) g/dL Albumin/Globulin Ratio (1.0-2.8) Lipase (23-300) U/L Procalcitonin (<0.5) ng/mL Ethyl Alcohol ( - 10) mg/dL SARS-CoV-2 (PCR) Negative (Negative) Imaging Data Chest x-ray: Radiologist's Impression: [address] [address] XRay Report Signed Patient: Carlos Enrique Bullock MR#: [id number] : 1955 Acct:[id number] Age/Sex: 66 / M Date of Service: 02/15/22 Loc: Accession Number: [id number] ?? Procedure: XR chest 1V Ordering Provider: Kathe Fairchild D.O. PROCEDURE:? XR CHEST 1V ? INDICATIONS:? stroke ? TECHNIQUE:? One view of the chest was acquired.? ? COMPARISON:? [facility], CR, XR CHEST 1V, 08/06/2020, 8:53. ? FINDINGS:? ? Surgical changes and devices:? None.? ? Lungs and pleura:? Moderate patchy bilateral multifocal airspace opacities..? No pleural effusions or pneumothorax.? ? Mediastinum:? Mediastinal contours appear normal.? Heart size is normal.? ? Bones and chest wall:? No suspicious bony lesions.? Overlying soft tissues appear unremarkable.? ? IMPRESSION:? Multifocal pneumonia.? ? ? Dictated by: Arnold Matt M.D. on 02/15/2022 at 17:52 ? ? Approved by: Arnold Matt M.D. on 02/15/2022 at 17:53 ? CT scan - head: Radiologist's Impression: No bleed CTA - brain/neck: Radiologist's Impression: No LVO MDM Narrative Medical decision making narrative: Patient presents with stroke and possible trauma activation and neurologic findings including left upper and lower extremity weakness that have been present for at least 1 day. He is outside of any tPA or interventional window, imaging is unremarkable and demonstrates no bleed or large vessel occlusion. Patient meets sepsis criteria as well and has multifocal pneumonia. Patient requires hospitalization for further stabilization and treatment of his multiple underlying conditions Discharge Plan Departure Patient Disposition: Admitted As Inpatient Clinical Impression: Sepsis, Multifocal pneumonia, Stroke Admit Date/Time: 02/15/22 20:42 Admit Provider: Indigo Gomez
[2022-02-15 18:09] LABS: Add Manual Diff / Slide Review NO; Basophils Absolute Auto 100 /uL (0-100); Basophils Percent Auto 0.3 % (0-2); Eosinophils Absolute Auto 0 /uL (0-450); Hematocrit 41.3 % (41-53); Hemoglobin 14.5 g/dL (13.5-17.5); Lymphocytes Absolute Auto 1000 /uL (1100-4500); Lymphocytes Percent Auto 5.5 % (25-40); Mean Corpuscular Hemoglobin 33.7 PG (26-34); Mean Corpuscular Volume 96.4 fL (80-100); Monocytes Absolute Auto 1600 /uL (0-900); Neutrophils Absolute Auto 15600 /uL (1500-7000); Neutrophils Percent Auto 85.2 % (50-75); Platelet Count 397 X10^3/uL (150-400); Red Blood Cell Count 4.29 X10^6/uL (4.5-5.9); White Blood Cell Count 18.3 X10^3/uL (4.5-11.0)
[2022-02-15 18:22] LABS: Lactate (Lactic Acid) 3.2 mmol/L (0.7-2.1)
[2022-02-15 18:23] LABS: Alanine Aminotransferase 18 IU/L (<50); Albumin 4.9 g/dL (3.5-5.0); Albumin Globulin Ratio 1.7 (1.0-2.8); Alkaline Phosphatase 74 U/L (38-126); Aspartate Aminotransferase 31 IU/L (17-59); BUN Creatinine Ratio 22.4 (6-22); Bilirubin Total 2.3 mg/dL (0.2-1.3); Blood Urea Nitrogen 19 mg/dL (9-20); Calcium 8.9 mg/dL (8.4-10.2); Carbon Dioxide 26 mmol/L (22-32); Chloride 95 mmol/L (98-107); Creatine Kinase 483 U/L (55-170); Estimated Glomerular Filt Rate > 60 mL/min (>60); Ethanol (ETOH) < 10 mg/dL; Globulin 2.9 g/dL (1.7-4.1); Glucose 148 mg/dL (80-110); HEMOLYSIS < 15 (0-50); Lipase 21 U/L (23-300); Potassium 3.9 mmol/L (3.4-5.1); Sodium 134 mmol/L (137-145); Total Protein 7.8 g/dL (6.3-8.2)
[2022-02-15] MEDS: SODIUM CHLORIDE 0.9% 1,000 ML 1000 ML IV (18:29)
[2022-02-15 18:32] LABS: COVID19 -Nasal RAPID Negative (Negative)
[2022-02-15 18:35] LABS: Troponin I 0.014 ng/mL (0.01-0.034)
[2022-02-15] MEDS: levoFLOXacin 750 MG/150 ML PIGGYBACK 100 MG IV (18:36)
[2022-02-15 18:38] LABS: CKMB % Relative Index 0.5 % (1.5-5.0); Creatine Kinase MB 2.48 ng/mL (<2.37)
[2022-02-15 19:27] LABS: Procalcitonin 0.05 ng/mL (<0.5)
[2022-02-15 19:54] LABS: COVID19 -Nasal RAPID Negative (Negative)
[2022-02-15 20:00] LABS: Reflexed Lactate in 2 Hours Y
[2022-02-15] MEDS: SODIUM CHLORIDE 0.9% 2,190 ML 730 ML IV (20:05)
[2022-02-15 21:09] LABS: Lactate 2HR (Lactic Acid Rflx) 3.2 mmol/L (0.7-2.1)
[2022-02-15] MEDS: cefTRIAXone 1,000 MG in SODIUM CHLORIDE 0.9% 100 ML 200 MG IV (21:57)
--- NOTE | 2022-02-15 22:00 | PC.NURSE ---
Patient admitted to 226 from ED for stroke, AMS, and sepsis. Patient confused on admission and unable to answer admission questions. Patient tachycardic (low 100's) and hypertensive. He was unable to move L arm and L leg when asked. Abx given, labs collected.
[2022-02-15 22:17] LABS: PTT Partial Thromboplastin Tim 27 SECONDS (26-36)
[2022-02-15] MEDS: AZITHROMYCIN 500 MG in DEXTROSE 5% IN WATER 250 ML 250 MG IV (22:22)
[2022-02-15 22:30] LABS: Magnesium 1.6 mg/dL (1.6-2.3)
[2022-02-15 22:31] LABS: INR 1.2 (0.9-1.3); Prothrombin Time 13.9 SECONDS (10.1-12.7)
[2022-02-15 22:35] LABS: C-Reactive Protein Quant 1.8 mg/dL (<1.0)
[2022-02-15 22:39] LABS: NT-proBNP (BNP-Adult 18+) 298 pg/mL (<125)
[2022-02-15 22:52] LABS: Hemoglobin A1C% w Est Avg Glu 5.5 % (4.0-6.0)
[2022-02-15 23:02] LABS: Thyroid Stimulating Hormone 0.516 uIU/mL (0.47-4.68)
[2022-02-15 23:18] LABS: Influenza A - CEPHEID Flu A NEGATIVE (NEGATIVE); Influenza B - CEPHEID Flu B NEGATIVE (NEGATIVE)
[2022-02-15 23:41] LABS: HCO3 ABG 23 mmol/L (22-26); PCO2 ABG 34.9 mmHg (35-45); PO2 ABG 63 mmHg (80-100); TCO2 ABG 24 mmol/L (21-31); pH ABG 7.42 (7.35-7.45)
[2022-02-15 23:42] LABS: Fractionated Inspired Oxygen 21; Oxygen Saturation ABG 92 % (95-100)
[2022-02-15] MEDS: MAGNESIUM SULFATE 2 GM/50 ML PIGGYBACK IV (23:47)
[2022-02-16] VITALS (51 sets, daily range): BP systolic 127–179; BP diastolic 74–111; PULSE 63–107; RESP 5–43; TEMP 36.6–37.4; O2SAT 94–100
[2022-02-16 00:43] LABS: Troponin I 0.022 ng/mL (0.01-0.034)
[2022-02-16] MEDS: diazePAM 10 MG/2 ML SYRINGE IV ×3 (00:51→23:48)
[2022-02-16 02:37] LABS: Ur Creatinine 20 (Normal); Ur Specific Gravity 1.025 (Normal); Urine pH 7 (Normal)
[2022-02-16 02:38] LABS: UR Morphine/Opiate cutoff 300 Negative (Negative); Urine Amphetamines Negative (Negative); Urine Barbiturates Negative (Negative); Urine Cocaine Negative (Negative); Urine MDMA Negative (Negative); Urine Methamphetamines Negative (Negative); Urine Phencyclidine Negative (Negative)
[2022-02-16 02:39] LABS: Urine Benzodiazepines Positive (Negative); Urine Methadone Negative (Negative); Urine Oxycodone Negative (Negative); Urine Tricyclic Antidepressant Negative (Negative)
[2022-02-16 02:54] LABS: Appearance Urine UA CLEAR; Bilirubin Urine UA NEGATIVE (NEGATIVE); Color Urine UA YELLOW; Glucose Urine UA TRACE g/dL (Negative); Ketones Urine UA TRACE (NEGATIVE); Leukocyte Esterase Urine UA NEGATIVE (NEGATIVE); Nitrite Urine UA NEGATIVE (Negative); Occult Blood Urine UA 2+ (Negative); Protein Urine UA TRACE (Negative)
--- NOTE | 2022-02-16 03:36 | PM.HP.1 ---
History of Present Illness History of Present Illness Date Patient Seen: 02/15/22 Time Patient Seen: 21:11 Chief complaint: L sided weakness Narrative: Carlos Enrique Bullock is a 66-year-old male former smoker with history of GERD, esophagitis, hypertension, HLD presents by EMS for evaluation significant left-sided weakness and altered mental status.? Per EMS roommate states that he was found on the floor confused and has not been normal for the past few days.? He was seen and evaluated by EMS last night due to the fall and at the time the patient declared he did not want to be seen.? He is altered, apparently neglecting his left side and had blood glucose 168 prior to arrival. He was not activated as a code stroke as he was outside of any window for tPA or CODE IR. In the ED patient presented with febrile temp of 100.1? hypertensive urgency BP is 181/101, 194/95, tachycardic with heart rates [id number], and tachypneic RR 24, 25, 29, but O2 saturations remained above 90% on room air. Patient is significantly confused and unable to contribute to HPI, ROS. Upon admit patient's temp is 98.7?, BP 179/94, HR is 95, R is 25, O2 saturation is 95% on room air. Patient has a white count of 18.3, with a left shift 15,600, mono# 1600, sofa score 5, mild hyponatremia sodium 134, chloride 95, glucose 148, total bili 2.3, lactate 3.2, CRP 1.8, BNP 298, TSH WNL, procalcitonin WNL, T CK 43, CK-2 is 2.48, COVID is negative. ABGs pH 7.42, pCO2 34.9, PO2 63, bicarb 23, T CO2 24, O2 saturation 92%. Initial NIH in the ED was recorded as 12 but difficult to evaluate accuracy as patient is unable to follow commands appropriately, definite left sided neglect. CTA is negative for pulmonary embolus, head CT is negative for any acute intracranial process. Chest x-ray demonstrates multifocal pneumonia. Patient is admitted for sepsis, due to multifocal pneumonia, encephalopathy, ground level fall possible head injury, r/o stroke/TIA. Patient History Medical History Anxiety Asbestos exposure CADASIL (cerebral autosomal dominant arteriopathy with subcortical infarcts and leukoencephalopathy) (~2010) Concussion Conductive hearing 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 Eustachian tube dysfunction GERD (gastroesophageal reflux disease) Headache (04/01/15) Hiatal hernia History of frequent headaches Hyperlipidemia (09/29/16) Insomnia Leukoaraiosis (~2014) Low testosterone Minor head injury without loss of consciousness Monoallelic mutation of NOTCH3 gene MRSA (methicillin resistant Staphylococcus aureus) Partial blindness (~2010) Prepatellar bursitis Sensorineural hearing loss (SNHL) of both ears Sleep apnea Tinnitus Surgical History History of myringotomy (~2017) Surgical procedure planned Surgical procedure planned (~03/16/12) Family & Social History Family History Brother Hyperlipidemia Mother Age: 91 Hyperlipidemia GERD (gastroesophageal reflux disease) CADASIL (cerebral AD arteriopathy w infarcts and leukoencephalopathy) Sister Hyperlipidemia CADASIL (cerebral AD arteriopathy w infarcts and leukoencephalopathy) Sister Hyperlipidemia Sister Hyperlipidemia Sister Hyperlipidemia Father Emphysema lung Daughter CADASIL (cerebral AD arteriopathy w infarcts and leukoencephalopathy) Social History: household members none Tobacco & Substance use: Smoking Status Former smoker alcohol intake former alcohol intake frequency 0-2 drinks per day Substance Use Type does not use Meds Home Medications and Allergies Home Medications Medication Instructions Recorded Confirmed Type acetaminophen 325 mg tablet 325 mg PO 4-6XD pain ##0 03/16/17 12/13/21 History amlodipine 10 mg tablet 10 mg PO DAILY #90 tabs 07/21/21 12/13/21 Rx hydroxyzine pamoate 50 mg capsule 50 mg PO BEDTIME PRN insomnia #30 07/21/21 12/13/21 Rx caps pantoprazole 20 mg tablet,delayed 20 mg PO BID #60 tabs 07/21/21 12/13/21 Rx release (Protonix) pravastatin 40 mg tablet 40 mg PO DAILY #90 tabs 07/21/21 12/13/21 Rx propranolol 10 mg tablet 10 mg PO BID 12/13/21 12/13/21 History Allergies Allergy/AdvReac Type Severity Reaction Status Date / Time BEES AdvReac Mild local Uncoded 12/13/21 10:23 irritation Review of Systems Review of Systems Narrative: Patient unable to participate in ROS due to encephalopathy. Exam Vital Signs (past 8 hours): - 02/15/22 21:30 02/15/22 21:40 02/15/22 22:04 Temperature 100.1 F H Pulse Rate 109 H 102 H Respiratory Rate 29 H 29 H Blood Pressure 194/95 H Pulse Oximetry 97 97 96 Oxygen Delivery Method Room Air Oxygen Flow Rate 0 02/15/22 22:00 02/15/22 22:00 02/15/22 22:00 Temperature Pulse Rate 104 H Respiratory Rate 32 H Blood Pressure 177/104 H Pulse Oximetry 97 Oxygen Delivery Method Room Air Oxygen Flow Rate 02/15/22 22:30 02/15/22 22:30 02/15/22 23:00 Temperature Pulse Rate 88 Respiratory Rate 20 Blood Pressure 169/88 H 156/90 H Pulse Oximetry 97 Oxygen Delivery Method Oxygen Flow Rate 02/15/22 23:00 02/15/22 23:30 02/15/22 23:30 Temperature Pulse Rate 88 86 Respiratory Rate 19 19 Blood Pressure 150/90 H Pulse Oximetry 96 98 Oxygen Delivery Method Oxygen Flow Rate 02/15/22 23:33 02/15/22 23:33 02/16/22 00:00 Temperature Pulse Rate 70 Respiratory Rate Blood Pressure 140/66 179/98 H Pulse Oximetry 94 Oxygen Delivery Method Oxygen Flow Rate 02/16/22 00:00 02/16/22 00:30 02/16/22 00:30 Temperature Pulse Rate 107 H 99 H Respiratory Rate 39 H 25 H Blood Pressure 165/89 H Pulse Oximetry 98 97 Oxygen Delivery Method Oxygen Flow Rate 02/16/22 01:00 02/16/22 01:00 02/16/22 01:30 Temperature 99.4 F Pulse Rate 104 H 88 Respiratory Rate 27 H 20 Blood Pressure 173/104 H Pulse Oximetry 98 96 Oxygen Delivery Method Oxygen Flow Rate 02/16/22 01:30 02/16/22 02:00 02/16/22 02:00 Temperature Pulse Rate 86 Respiratory Rate 20 Blood Pressure 156/86 H 158/88 H Pulse Oximetry 99 Oxygen Delivery Method Oxygen Flow Rate 02/16/22 02:30 02/16/22 02:30 02/16/22 03:00 Temperature Pulse Rate 104 H Respiratory Rate 39 H Blood Pressure 174/98 H 158/83 H Pulse Oximetry 98 Oxygen Delivery Method Oxygen Flow Rate 02/16/22 03:00 Temperature Pulse Rate 78 Respiratory Rate Blood Pressure Pulse Oximetry 99 Oxygen Delivery Method Oxygen Flow Rate Oxygen Delivery Method Room Air Oxygen Flow Rate 0 Narrative Exam Narrative: General: Patient is a well-developed male, confused unable to follow commands, in no distress at this time. HEENT: Normocephalic, atraumatic, extraocular muscles intact, oral pharynx is clear and mucous membranes are moist. Neck is supple and symmetric, trachea is midline, no adenopathy, no thyroid enlargement, nontender, no masses palpated. Negative for JVD Chest: Normal AP diameter and contour without kyphoscoliosis, no nasal flaring, retractions. Positive tachypneic non-labored breathing Lungs: Auscultation of all lung mena are clear without adventitious sounds, wheezes, rhonchi, or rales. Cardio: S1 & S2 with regular rate and rhythm without murmur, rubs, or gallops, no carotid bruit, no cardiac pulsations present. Abdomen: Soft nontender, negative for organomegaly, or masses. Bowel sounds are present in all 4 quadrants without guarding or rebound, no CVA tenderness. Musculoskeletal: Muscle strength and tone are equal within normal limits, no deformity, crepitus, effusions, cyanosis, clubbing or edema present. Full range of motion intact radial and pedal pulses are normal. Skin: Warm dry and intact without rashes, ulcerations or petechiae. Neuro: Orientated to self, strength is +5/5 in all extremities, sensation to touch intact, no gross deficits noted of cranial nerves. Psych: Patient calm resting confused, in no distress at this time. Objective Labs Result Diagrams: 02/15/22 17:55 02/15/22 17:55 Labs: Laboratory Results - last 24 hr 02/15/22 02/15/22 02/15/22 17:55 17:55 17:55 WBC 18.3 H RBC 4.29 L Hgb 14.5 Hct 41.3 MCV 96.4 MCH 33.7 MCHC 35.0 RDW 12.0 Plt Count 397 Neut % (Auto) 85.2 H Lymph % (Auto) 5.5 L [place] % (Auto) 9.0 Eos % (Auto) 0.0 L Baso % (Auto) 0.3 Neut # (Auto) 24900 H Lymph # (Auto) 1000 L [place] # (Auto) 1600 H Eos # (Auto) 0 Baso # (Auto) 100 PT INR APTT ABG pH ABG pCO2 ABG pO2 ABG HCO3 ABG Total CO2 ABG O2 Saturation ABG Base Excess FiO2 Sodium 134 L Potassium 3.9 Chloride 95 L Carbon Dioxide 26 BUN 19 Creatinine 0.85 Estimated GFR > 60 BUN/Creatinine Ratio 22.4 H Glucose 148 H Hemoglobin A1c Lactate 3.2 H Calcium 8.9 Magnesium Total Bilirubin 2.3 H AST 31 ALT 18 Alkaline Phosphatase 74 Total Creatine Kinase 483 H CK-MB (CK-2) 2.48 H CK-MB (CK-2) Rel Index 0.5 L Troponin I 0.014 C-Reactive Protein NT-Pro-B Natriuret Pep Total Protein 7.8 Albumin 4.9 Globulin 2.9 Albumin/Globulin Ratio 1.7 Lipase 21 L Procalcitonin TSH Urine Color Urine Appearance Urine pH Ur Specific [place] Urine Protein Urine Glucose (UA) Urine Ketones Urine Occult Blood Urine Nitrate Urine Bilirubin Urine Urobilinogen Ur Leukocyte Esterase Nasal Screen MRSA (PCR) U Opiates 300ng/mL cut Ur Oxycodone Screen Urine Methadone Screen Ur Barbiturates Screen U Tricyclic Antidepress Ur Phencyclidine Scrn Ur Amphetamines Screen U Methamphetamines Scrn Ur MDMA Scrn (Ecstasy) U Benzodiazepines Scrn Urine Cocaine Screen U Marijuana (THC) Screen Ethyl Alcohol SARS-CoV-2 (PCR) Influenza A (RT-PCR) Influenza B (RT-PCR) 02/15/22 02/15/22 02/15/22 17:55 17:55 17:55 WBC RBC Hgb Hct MCV MCH MCHC RDW Plt Count Neut % (Auto) Lymph % (Auto) [place] % (Auto) Eos % (Auto) Baso % (Auto) Neut # (Auto) Lymph # (Auto) [place] # (Auto) Eos # (Auto) Baso # (Auto) PT INR APTT ABG pH ABG pCO2 ABG pO2 ABG HCO3 ABG Total CO2 ABG O2 Saturation ABG Base Excess FiO2 Sodium Potassium Chloride Carbon Dioxide BUN Creatinine Estimated GFR BUN/Creatinine Ratio Glucose Hemoglobin A1c Lactate Calcium Magnesium Total Bilirubin AST ALT Alkaline Phosphatase Total Creatine Kinase CK-MB (CK-2) CK-MB (CK-2) Rel Index Troponin I C-Reactive Protein NT-Pro-B Natriuret Pep Total Protein Albumin Globulin Albumin/Globulin Ratio Lipase Procalcitonin 0.05 TSH Urine Color Urine Appearance Urine pH Ur Specific [place] Urine Protein Urine Glucose (UA) Urine Ketones Urine Occult Blood Urine Nitrate Urine Bilirubin Urine Urobilinogen Ur Leukocyte Esterase Nasal Screen MRSA (PCR) U Opiates 300ng/mL cut Ur Oxycodone Screen Urine Methadone Screen Ur Barbiturates Screen U Tricyclic Antidepress Ur Phencyclidine Scrn Ur Amphetamines Screen U Methamphetamines Scrn Ur MDMA Scrn (Ecstasy) U Benzodiazepines Scrn Urine Cocaine Screen U Marijuana (THC) Screen Ethyl Alcohol < 10 SARS-CoV-2 (PCR) Negative Influenza A (RT-PCR) Influenza B (RT-PCR) 02/15/22 02/15/22 02/15/22 18:49 20:18 21:49 WBC RBC Hgb Hct MCV MCH MCHC RDW Plt Count Neut % (Auto) Lymph % (Auto) [place] % (Auto) Eos % (Auto) Baso % (Auto) Neut # (Auto) Lymph # (Auto) [place] # (Auto) Eos # (Auto) Baso # (Auto) PT INR APTT ABG pH ABG pCO2 ABG pO2 ABG HCO3 ABG Total CO2 ABG O2 Saturation ABG Base Excess FiO2 Sodium Potassium Chloride Carbon Dioxide BUN Creatinine Estimated GFR BUN/Creatinine Ratio Glucose Hemoglobin A1c 5.5 Lactate 3.2 H Calcium Magnesium Total Bilirubin AST ALT Alkaline Phosphatase Total Creatine Kinase CK-MB (CK-2) CK-MB (CK-2) Rel Index Troponin I C-Reactive Protein NT-Pro-B Natriuret Pep Total Protein Albumin Globulin Albumin/Globulin Ratio Lipase Procalcitonin TSH Urine Color Urine Appearance Urine pH Ur Specific [place] Urine Protein Urine Glucose (UA) Urine Ketones Urine Occult Blood Urine Nitrate Urine Bilirubin Urine Urobilinogen Ur Leukocyte Esterase Nasal Screen MRSA (PCR) U Opiates 300ng/mL cut Ur Oxycodone Screen Urine Methadone Screen Ur Barbiturates Screen U Tricyclic Antidepress Ur Phencyclidine Scrn Ur Amphetamines Screen U Methamphetamines Scrn Ur MDMA Scrn (Ecstasy) U Benzodiazepines Scrn Urine Cocaine Screen U Marijuana (THC) Screen Ethyl Alcohol SARS-CoV-2 (PCR) Negative Influenza A (RT-PCR) Influenza B (RT-PCR) 02/15/22 02/15/22 02/15/22 21:49 21:49 21:49 WBC RBC Hgb Hct MCV MCH MCHC RDW Plt Count Neut % (Auto) Lymph % (Auto) [place] % (Auto) Eos % (Auto) Baso % (Auto) Neut # (Auto) Lymph # (Auto) [place] # (Auto) Eos # (Auto) Baso # (Auto) PT 13.9 H INR 1.2 APTT 27 ABG pH ABG pCO2 ABG pO2 ABG HCO3 ABG Total CO2 ABG O2 Saturation ABG Base Excess FiO2 Sodium Potassium Chloride Carbon Dioxide BUN Creatinine Estimated GFR BUN/Creatinine Ratio Glucose Hemoglobin A1c Lactate Calcium Magnesium Total Bilirubin AST ALT Alkaline Phosphatase Total Creatine Kinase CK-MB (CK-2) CK-MB (CK-2) Rel Index Troponin I C-Reactive Protein NT-Pro-B Natriuret Pep Total Protein Albumin Globulin Albumin/Globulin Ratio Lipase Procalcitonin TSH 0.516 Urine Color Urine Appearance Urine pH Ur Specific [place] Urine Protein Urine Glucose (UA) Urine Ketones Urine Occult Blood Urine Nitrate Urine Bilirubin Urine Urobilinogen Ur Leukocyte Esterase Nasal Screen MRSA (PCR) U Opiates 300ng/mL cut Ur Oxycodone Screen Urine Methadone Screen Ur Barbiturates Screen U Tricyclic Antidepress Ur Phencyclidine Scrn Ur Amphetamines Screen U Methamphetamines Scrn Ur MDMA Scrn (Ecstasy) U Benzodiazepines Scrn Urine Cocaine Screen U Marijuana (THC) Screen Ethyl Alcohol SARS-CoV-2 (PCR) Influenza A (RT-PCR) Influenza B (RT-PCR) 02/15/22 02/15/22 02/15/22 21:49 21:49 21:49 WBC RBC Hgb Hct MCV MCH MCHC RDW Plt Count Neut % (Auto) Lymph % (Auto) [place] % (Auto) Eos % (Auto) Baso % (Auto) Neut # (Auto) Lymph # (Auto) [place] # (Auto) Eos # (Auto) Baso # (Auto) PT INR APTT ABG pH ABG pCO2 ABG pO2 ABG HCO3 ABG Total CO2 ABG O2 Saturation ABG Base Excess FiO2 Sodium Potassium Chloride Carbon Dioxide BUN Creatinine Estimated GFR BUN/Creatinine Ratio Glucose Hemoglobin A1c Lactate Calcium Magnesium 1.6 Total Bilirubin AST ALT Alkaline Phosphatase Total Creatine Kinase CK-MB (CK-2) CK-MB (CK-2) Rel Index Troponin I C-Reactive Protein 1.8 H NT-Pro-B Natriuret Pep 298 H Total Protein Albumin Globulin Albumin/Globulin Ratio Lipase Procalcitonin TSH Urine Color Urine Appearance Urine pH Ur Specific [place] Urine Protein Urine Glucose (UA) Urine Ketones Urine Occult Blood Urine Nitrate Urine Bilirubin Urine Urobilinogen Ur Leukocyte Esterase Nasal Screen MRSA (PCR) U Opiates 300ng/mL cut Ur Oxycodone Screen Urine Methadone Screen Ur Barbiturates Screen U Tricyclic Antidepress Ur Phencyclidine Scrn Ur Amphetamines Screen U Methamphetamines Scrn Ur MDMA Scrn (Ecstasy) U Benzodiazepines Scrn Urine Cocaine Screen U Marijuana (THC) Screen Ethyl Alcohol SARS-CoV-2 (PCR) Influenza A (RT-PCR) Influenza B (RT-PCR) 02/15/22 02/15/22 02/15/22 22:13 22:13 23:08 WBC RBC Hgb Hct MCV MCH MCHC RDW Plt Count Neut % (Auto) Lymph % (Auto) [place] % (Auto) Eos % (Auto) Baso % (Auto) Neut # (Auto) Lymph # (Auto) [place] # (Auto) Eos # (Auto) Baso # (Auto) PT INR APTT ABG pH 7.42 ABG pCO2 34.9 L ABG pO2 63 L ABG HCO3 23 ABG Total CO2 24 ABG O2 Saturation 92 L ABG Base Excess -2.0 FiO2 21 Sodium Potassium Chloride Carbon Dioxide BUN Creatinine Estimated GFR BUN/Creatinine Ratio Glucose Hemoglobin A1c Lactate Calcium Magnesium Total Bilirubin AST ALT Alkaline Phosphatase Total Creatine Kinase CK-MB (CK-2) CK-MB (CK-2) Rel Index Troponin I C-Reactive Protein NT-Pro-B Natriuret Pep Total Protein Albumin Globulin Albumin/Globulin Ratio Lipase Procalcitonin TSH Urine Color Urine Appearance Urine pH Ur Specific [place] Urine Protein Urine Glucose (UA) Urine Ketones Urine Occult Blood Urine Nitrate Urine Bilirubin Urine Urobilinogen Ur Leukocyte Esterase Nasal Screen MRSA (PCR) Negative for mrsa U Opiates 300ng/mL cut Ur Oxycodone Screen Urine Methadone Screen Ur Barbiturates Screen U Tricyclic Antidepress Ur Phencyclidine Scrn Ur Amphetamines Screen U Methamphetamines Scrn Ur MDMA Scrn (Ecstasy) U Benzodiazepines Scrn Urine Cocaine Screen U Marijuana (THC) Screen Ethyl Alcohol SARS-CoV-2 (PCR) Influenza A (RT-PCR) Flu a negative Influenza B (RT-PCR) Flu b negative 02/15/22 02/15/22 02/16/22 23:59 23:59 00:16 WBC RBC Hgb Hct MCV MCH MCHC RDW Plt Count Neut % (Auto) Lymph % (Auto) [place] % (Auto) Eos % (Auto) Baso % (Auto) Neut # (Auto) Lymph # (Auto) [place] # (Auto) Eos # (Auto) Baso # (Auto) PT INR APTT ABG pH ABG pCO2 ABG pO2 ABG HCO3 ABG Total CO2 ABG O2 Saturation ABG Base Excess FiO2 Sodium Potassium Chloride Carbon Dioxide BUN Creatinine Estimated GFR BUN/Creatinine Ratio Glucose Hemoglobin A1c Lactate Calcium Magnesium Total Bilirubin AST ALT Alkaline Phosphatase Total Creatine Kinase CK-MB (CK-2) CK-MB (CK-2) Rel Index Troponin I 0.022 C-Reactive Protein NT-Pro-B Natriuret Pep Total Protein Albumin Globulin Albumin/Globulin Ratio Lipase Procalcitonin TSH Urine Color Yellow Urine Appearance Clear Urine pH 7.0 Ur Specific [place] 1.020 Urine Protein Trace H Urine Glucose (UA) Trace H Urine Ketones Trace H Urine Occult Blood 2+ H Urine Nitrate Negative Urine Bilirubin Negative Urine Urobilinogen 2.0 H Ur Leukocyte Esterase Negative Nasal Screen MRSA (PCR) U Opiates 300ng/mL cut Negative Ur Oxycodone Screen Negative Urine Methadone Screen Negative Ur Barbiturates Screen Negative U Tricyclic Antidepress Negative Ur Phencyclidine Scrn Negative Ur Amphetamines Screen Negative U Methamphetamines Scrn Negative Ur MDMA Scrn (Ecstasy) Negative U Benzodiazepines Scrn Positive H Urine Cocaine Screen Negative U Marijuana (THC) Screen TNP Ethyl Alcohol SARS-CoV-2 (PCR) Influenza A (RT-PCR) Influenza B (RT-PCR) Assessment & Plan Assessment & Plan narrative: Carlos Enrique Bullock is a 66-year-old male former smoker with history of GERD, esophagitis, hypertension found down with significant left-sided weakness and altered mental status.? He was not activated as a code stroke as he was outside of any window for tPA or CODE IR. Patient admitted for management of sepsis secondary to multifocal pneumonia, encephalopathy rule out TIA versus stroke, with hypertensive urgency. 1. Sepsis, secondary to multifocal pneumonia, acute, present on admission -presenting: temp of 100.1? hypertensive urgency BP is 181/101, 194/95, tachycardic with heart rates 109,105, and tachypneic RR 24, 25, 29, but O2 saturations remained above 90% on room air. -wbc 18.3, neut 15,600, mono# 1600, sofa score 5, Na+ 134, - ABGs pH 7.42, pCO2 34.9, PO2 63, bicarb 23, T CO2 24, O2 saturation 92%. -patient received sepsis rehydration in ED -CTA is negative for pulmonary embolus -Chest x-ray demonstrates multifocal pneumonia. -prednisone 40 mg p.o. q.day, DuoNebs, incentive spirometry, respiratory consult -blood cultures, sputum culture, u/a, flu A/ B, COVID negative, procalcitonin wnl -impaired therapy azithromycin and Rocephin -patient is not in respiratory failure, no distress stable. 2. Encephalopathy, reported ground level fall, patient found down, neurological deficit (left-sided neglect), acute, present on admission -R/O TIA vs Stroke -Stroke MR orderd - Initial NIH in the ED was recorded as 12, unable to complete accurate NIH as patient is unable to follow commands appropriately, definite left sided neglect present. - head CT is negative for any acute intracranial process. -patient bedside swallow, aspiration precautions, seizure precautions, Fall precautions- in observation room, neuro checks, NIH PRN -Plavix, Lipitor, ASA- -PT, OT, and speech consult placed -tox ordered 3. Essential hypertension with hypertensive urgency, acute on chronic, present on admission - 181/101, 194/95, 179/94, -allow for permissive hypertension -continue patient's amlodipine, propanolol, hydralazine -metoprolol 5 mg as needed Q 15 minutes with a max of 3 doses for SBP >180, DBP >100, HR >110 sustained greater than 30 minutes -initial troponin 0.014-trend x3 -Telemed -Pt/PTT/INR 4. GERD with esophagitis, chronic, present on admission -continue Protonix 5. Hyperlipidemia, chronic, present on admission -hold pravastatin patient being given Lipitor Code status:DNR Surrogate decision maker: Rachele FRANCIS PCR:Negative DVT/VTE prophylaxis: Lovenox and SCDs Disposition: Patient admitted to acute care service expected length of stay greater than 3 midnights. I have utilized all available immediate resources to obtain, update, or review the patient's current medications. I confirmed that the patient's advanced care plan is present, Code status is documented and/or surrogate decision maker is listed in the patient's medical record. Time Spent With Patient Critical Care time: I spent a total of [] minutes of critical care time on this patient's care today; this time is exclusive of procedural time. Scores GCS Curtis coma scale eye opening: To sound Curtis coma scale verbal response: Confused Courtney coma scale motor response: Localising Curtis coma scale total score: 12
[2022-02-16] MEDS: METOPROLOL TARTRATE 5 MG/5 ML INJ IV (05:10)
--- NOTE | 2022-02-16 05:28 | DI.RAD.S_ITS ---
PROCEDURE: XR HIP W PEL IF DONE LT 2V INDICATIONS: bruising on L hip, from fall? TECHNIQUE: 2 views of the hip were acquired. COMPARISON: None. FINDINGS: Patient is rotated which limits the study. There is no evidence of fracture. The femoral head appears to be in normal alignment. IMPRESSION: No acute finding. Dictated by: Sandip Montes M.D. on 02/16/2022 at 15:25 Approved by: Sandip Montes M.D. on 02/16/2022 at 15:26
[2022-02-16 05:47] LABS: Add Manual Diff / Slide Review NO; Basophils Absolute Auto 0 /uL (0-100); Basophils Percent Auto 0.2 % (0-2); Eosinophils Absolute Auto 0 /uL (0-450); Hemoglobin 13.5 g/dL (13.5-17.5); Lymphocytes Absolute Auto 1900 /uL (1100-4500); Lymphocytes Percent Auto 9.7 % (25-40); Mean Corpuscular HGB Conc 34.7 % (30-36); Mean Corpuscular Hemoglobin 33.4 PG (26-34); Mean Corpuscular Volume 96.4 fL (80-100); Monocytes Absolute Auto 2600 /uL (0-900); Neutrophils Absolute Auto 15400 /uL (1500-7000); Neutrophils Percent Auto 77.1 % (50-75); Platelet Count 399 X10^3/uL (150-400); Red Blood Cell Count 4.05 X10^6/uL (4.5-5.9); Red Cell Distribution Width 12.2 % (11.6-14.8); White Blood Cell Count 19.9 X10^3/uL (4.5-11.0)
[2022-02-16 05:55] LABS: Alanine Aminotransferase 14 IU/L (<50); Albumin 4.3 g/dL (3.5-5.0); Albumin Globulin Ratio 1.8 (1.0-2.8); Alkaline Phosphatase 62 U/L (38-126); Aspartate Aminotransferase 37 IU/L (17-59); BUN Creatinine Ratio 18.8 (6-22); Bilirubin Total 2.1 mg/dL (0.2-1.3); Blood Urea Nitrogen 15 mg/dL (9-20); Calcium 8.3 mg/dL (8.4-10.2); Carbon Dioxide 24 mmol/L (22-32); Chloride 99 mmol/L (98-107); Cholesterol 230 mg/dL (140-199); Estimated Glomerular Filt Rate > 60 mL/min (>60); Globulin 2.4 g/dL (1.7-4.1); Glucose 140 mg/dL (80-110); HDL Cholesterol 57 mg/dL (40-60); HEMOLYSIS < 15 (0-50); LDL Cholesterol Calculated 150 mg/dL (<100); Sodium 132 mmol/L (137-145); Total Protein 6.7 g/dL (6.3-8.2); Triglycerides 113 mg/dL (35-150)
[2022-02-16 06:04] LABS: Troponin I 0.026 ng/mL (0.01-0.034)
[2022-02-16 06:54] LABS: Bacteria Urine None Seen; Culture Indicated Urine Cult Not Indicated; RBC Urine 1-5/HPF (0-5/HPF); Squamous Epithelial Cell Urine None Seen (0-5/HPF); WBC Urine None Seen (0-5/HPF)
--- NOTE | 2022-02-16 09:05 | SLP.IPNOTE ---
Attempted bedside swallow assessment at 9:00. Pt was oriented to self but not place. He was unable to follow instructions during oral motor exam and not safe for PO trials at this time. Per NSG, pt was having difficulty managing secretions. Recommend NPO until bedside swallow assessment can be completed.
--- NOTE | 2022-02-16 09:26 | PC.NURSE ---
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 Daughter claims there are certain medications that the patient can not take or it will kill him, like TPA. She asked that we contact Dr Wallace and she will have the information on the team of neurologists that treat him.
--- NOTE | 2022-02-16 09:36 | PC.NURSE ---
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 Daughter claims there are certain medications that the patient can not take or it will kill him, like TPA. She asked that we contact Dr Wallace and she will have the information on the team of neurologists that treat him.
--- NOTE | 2022-02-16 11:30 | SLP.IPNOTE ---
Attempted bedside swallow evaluation with pt at 11:20. Pt was asleep when BEAD FILLER arrived and did not wake to verbal or tactile cues. NSG woke pt up by shifting his position and pt refused to participate in evaluation. Recommend continued NPO diet until bedside swallow evaluation can be done. Will attempt tomorrow.
--- NOTE | 2022-02-16 13:39 | CM.DANOTE ---
DCP Assessment: Payor: Medicare and Medicaid PCP: Sergio Cárdenas MD Pt is a 66 y.o. M who presented to the ER via EMS following left sided weakness and altered mental status as reported by his roommate. Roommate told physician that he was found on the floor confused and has not been normal for the last few days. Pt admitted for further evaluation and management of symptoms. DCP unable to speak with patient due to his altered mental status. Upon arrival for DCP shift, RN verbalized that we were unable to find any contact information for pt or pt family. Eventually, pt daughter, Maricarmen, called and were able to find out information regarding pt. DCP later contacted Maricarmen and discussed discharge needs. Per Maricarmen, pt lives semi-alone as he has a house that he rents rooms out too who lives in the same structure. Maricarmen states that he has had episodes where he is incapacitated at times due to his illness. Maricarmen states that she does not live locally but was on the way to the hospital to visit with her dad. Maricarmen states that he is normally independent and still works. Maricarmen asked some questions regarding pt status and DCP instructed her to follow up with the MD and RN when she arrives at the hospital for further information and plan. DCP instructed to call or request case management for any other questions that might arise. DCP to follow up with team regarding further discharge needs. P: Pt to have MRI today. Will determine further discharge needs as plan of care needs are discussed. Yoko Romero RN/ALEX Discharge Planning/Care Management CM Discharge Assessment Start: 02/16/22 13:38 Freq: Status: Active Protocol: Document 02/16/22 13:38 EVAN (Rec: 02/16/22 13:39 EVAN [id number]) Discharge Planning Assessment Assigned Waistline Joiner Overlock Yoko Romero RN/ALEX Advance Directives? Yes Advance Directives on File No History Provided By Family Member Prior Living Arrangements House Household Members none Comment Pt has tenants that live in his house. Type of transporation used prior to Drives own vehicle admit Independent with ADL's Yes Is patient alert and oriented? No Discharge Plan Home Referrals Initiated None needed Additional Comment At this time. Whiteboard Updated in Patient Room with Yes name and ext. # of Waistline Joiner Overlock Comment Instructed to call Review Status In Process Please Provide Date Initial DC 02/16/22 Assessment Was Performed Next Review Type Continued Stay Review
--- NOTE | 2022-02-16 14:18 | DIET.CONS2 ---
Dietary Inpatient Consultation Note Admission Date: 02/15/2022 20:42 RD consult received, pt not yet cleared by [facility] for diet or reccs for meal and fluid textures, pt currently sleeping. RD will check in Sunday. Diet: 02/16/22 09:07 NPO Diet Diet Modifications: NPO Type: Strict Electronically Signed by: Becky Dave 02/16/22 14:18 Clinical Dietitian [address] [id number]
--- NOTE | 2022-02-16 15:16 | OT.IPNOTE ---
Still awaiting results of hip x-ray. Checked on pt for OT eval and pt asleep in the room. Per nursing best to wait until tomorrow for OT eval as hopefully pt will be more medically appropriate and alert.
--- NOTE | 2022-02-16 15:30 | PT-IP ANOTE ---
Discussed pt with [employer] who stated pt has been somnolent and difficult to rouse. Alertness did improve earlier today when pt's daughter was present. Also waiting on result for hip x-ray as pt was found down. RN advised may be best to hold PT evaluation until daughter is present tomorrow. Plan to check back Sunday AM.
--- NOTE | 2022-02-16 15:43 | PM.PN.1 ---
Subjective Subjective Date Patient Seen: 02/16/22 Interval history: Patient denies complaints today. Denies chest pain, fever, shortness of breath. Did not recall why he is in the hospital, when asked if he had become confused before he said yes and when asked about if he sees a neurologist he did not recall that. Exam Vital Signs (past 8 hours): - 02/16/22 08:00 02/16/22 08:00 02/16/22 08:30 Temperature Pulse Rate 84 70 Respiratory Rate 25 H 18 Blood Pressure 156/101 H Pulse Oximetry 96 98 02/16/22 09:00 02/16/22 09:30 02/16/22 10:00 Temperature Pulse Rate 86 72 70 Respiratory Rate 16 18 19 Blood Pressure Pulse Oximetry 97 96 96 02/16/22 10:44 02/16/22 11:00 02/16/22 11:30 Temperature Pulse Rate 74 67 73 Respiratory Rate 21 20 19 Blood Pressure Pulse Oximetry 98 98 02/16/22 12:00 02/16/22 12:00 02/16/22 12:30 Temperature Pulse Rate 71 84 Respiratory Rate 18 22 Blood Pressure 139/77 Pulse Oximetry 99 99 02/16/22 13:00 02/16/22 13:30 02/16/22 14:00 Temperature Pulse Rate 87 79 69 Respiratory Rate 22 21 18 Blood Pressure Pulse Oximetry 99 94 96 02/16/22 14:30 02/16/22 15:00 02/16/22 15:18 Temperature 99.4 F Pulse Rate 71 90 Respiratory Rate 17 25 H Blood Pressure Pulse Oximetry 98 97 Oxygen Delivery Method Room Air Oxygen Flow Rate 0 Narrative Exam Narrative: General: Patient is a well-developed male, in no distress at this time. HEENT: Normocephalic, atraumatic, extraocular muscles intact, oral pharynx is clear and mucous membranes are moist. Neck is supple and symmetric, trachea is midline, no adenopathy, no thyroid enlargement, nontender, no masses palpated. Negative for JVD Chest: Normal AP diameter and contour without kyphoscoliosis, no nasal flaring, retractions. Positive tachypneic non-labored breathing Lungs: Auscultation of all lung mena are clear without adventitious sounds, wheezes, rhonchi, or rales. Cardio: S1 & S2 with regular rate and rhythm without murmur, rubs, or gallops, no carotid bruit, no cardiac pulsations present. Abdomen: Soft nontender, negative for organomegaly, or masses. Bowel sounds are present in all 4 quadrants without guarding or rebound, no CVA tenderness. Musculoskeletal: Muscle strength and tone are equal within normal limits, no deformity, crepitus, effusions, cyanosis, clubbing or edema present. Full range of motion intact radial and pedal pulses are normal. Skin: Warm dry and intact without rashes, ulcerations or petechiae. Neuro: Orientated to self, location, strength is +5/5 in all extremities, sensation to touch intact, no gross deficits noted of cranial nerves. Psych: Patient calm resting confused, in no distress at this time. Objective Labs Result Diagrams: 02/16/22 05:04 02/16/22 05:04 Labs: Laboratory Results - last 24 hr 02/15/22 02/15/22 02/15/22 17:55 17:55 17:55 WBC 18.3 H RBC 4.29 L Hgb 14.5 Hct 41.3 MCV 96.4 MCH 33.7 MCHC 35.0 RDW 12.0 Plt Count 397 Neut % (Auto) 85.2 H Lymph % (Auto) 5.5 L [place] % (Auto) 9.0 Eos % (Auto) 0.0 L Baso % (Auto) 0.3 Neut # (Auto) 67[address] H Lymph # (Auto) 1000 L [place] # (Auto) 1600 H Eos # (Auto) 0 Baso # (Auto) 100 PT INR APTT ABG pH ABG pCO2 ABG pO2 ABG HCO3 ABG Total CO2 ABG O2 Saturation ABG Base Excess FiO2 Sodium 134 L Potassium 3.9 Chloride 95 L Carbon Dioxide 26 BUN 19 Creatinine 0.85 Estimated GFR > 60 BUN/Creatinine Ratio 22.4 H Glucose 148 H Hemoglobin A1c Lactate 3.2 H Calcium 8.9 Magnesium Total Bilirubin 2.3 H AST 31 ALT 18 Alkaline Phosphatase 74 Total Creatine Kinase 483 H CK-MB (CK-2) 2.48 H CK-MB (CK-2) Rel Index 0.5 L Troponin I 0.014 C-Reactive Protein NT-Pro-B Natriuret Pep Total Protein 7.8 Albumin 4.9 Globulin 2.9 Albumin/Globulin Ratio 1.7 Triglycerides Cholesterol LDL Cholesterol, Calc HDL Cholesterol Lipase 21 L Procalcitonin TSH Urine Color Urine Appearance Urine pH Ur Specific [place] Urine Protein Urine Glucose (UA) Urine Ketones Urine Occult Blood Urine Nitrate Urine Bilirubin Urine Urobilinogen Ur Leukocyte Esterase Urine RBC Urine WBC Ur Squamous Epith Cells Urine Bacteria Ur Culture Indicated? Nasal Screen MRSA (PCR) U Opiates 300ng/mL cut Ur Oxycodone Screen Urine Methadone Screen Ur Barbiturates Screen U Tricyclic Antidepress Ur Phencyclidine Scrn Ur Amphetamines Screen U Methamphetamines Scrn Ur MDMA Scrn (Ecstasy) U Benzodiazepines Scrn Urine Cocaine Screen U Marijuana (THC) Screen Ethyl Alcohol SARS-CoV-2 (PCR) Influenza A (RT-PCR) Influenza B (RT-PCR) 02/15/22 02/15/22 02/15/22 17:55 17:55 17:55 WBC RBC Hgb Hct MCV MCH MCHC RDW Plt Count Neut % (Auto) Lymph % (Auto) [place] % (Auto) Eos % (Auto) Baso % (Auto) Neut # (Auto) Lymph # (Auto) [place] # (Auto) Eos # (Auto) Baso # (Auto) PT INR APTT ABG pH ABG pCO2 ABG pO2 ABG HCO3 ABG Total CO2 ABG O2 Saturation ABG Base Excess FiO2 Sodium Potassium Chloride Carbon Dioxide BUN Creatinine Estimated GFR BUN/Creatinine Ratio Glucose Hemoglobin A1c Lactate Calcium Magnesium Total Bilirubin AST ALT Alkaline Phosphatase Total Creatine Kinase CK-MB (CK-2) CK-MB (CK-2) Rel Index Troponin I C-Reactive Protein NT-Pro-B Natriuret Pep Total Protein Albumin Globulin Albumin/Globulin Ratio Triglycerides Cholesterol LDL Cholesterol, Calc HDL Cholesterol Lipase Procalcitonin 0.05 TSH Urine Color Urine Appearance Urine pH Ur Specific [place] Urine Protein Urine Glucose (UA) Urine Ketones Urine Occult Blood Urine Nitrate Urine Bilirubin Urine Urobilinogen Ur Leukocyte Esterase Urine RBC Urine WBC Ur Squamous Epith Cells Urine Bacteria Ur Culture Indicated? Nasal Screen MRSA (PCR) U Opiates 300ng/mL cut Ur Oxycodone Screen Urine Methadone Screen Ur Barbiturates Screen U Tricyclic Antidepress Ur Phencyclidine Scrn Ur Amphetamines Screen U Methamphetamines Scrn Ur MDMA Scrn (Ecstasy) U Benzodiazepines Scrn Urine Cocaine Screen U Marijuana (THC) Screen Ethyl Alcohol < 10 SARS-CoV-2 (PCR) Negative Influenza A (RT-PCR) Influenza B (RT-PCR) 02/15/22 02/15/22 02/15/22 18:49 20:18 21:49 WBC RBC Hgb Hct MCV MCH MCHC RDW Plt Count Neut % (Auto) Lymph % (Auto) [place] % (Auto) Eos % (Auto) Baso % (Auto) Neut # (Auto) Lymph # (Auto) [place] # (Auto) Eos # (Auto) Baso # (Auto) PT INR APTT ABG pH ABG pCO2 ABG pO2 ABG HCO3 ABG Total CO2 ABG O2 Saturation ABG Base Excess FiO2 Sodium Potassium Chloride Carbon Dioxide BUN Creatinine Estimated GFR BUN/Creatinine Ratio Glucose Hemoglobin A1c 5.5 Lactate 3.2 H Calcium Magnesium Total Bilirubin AST ALT Alkaline Phosphatase Total Creatine Kinase CK-MB (CK-2) CK-MB (CK-2) Rel Index Troponin I C-Reactive Protein NT-Pro-B Natriuret Pep Total Protein Albumin Globulin Albumin/Globulin Ratio Triglycerides Cholesterol LDL Cholesterol, Calc HDL Cholesterol Lipase Procalcitonin TSH Urine Color Urine Appearance Urine pH Ur Specific [place] Urine Protein Urine Glucose (UA) Urine Ketones Urine Occult Blood Urine Nitrate Urine Bilirubin Urine Urobilinogen Ur Leukocyte Esterase Urine RBC Urine WBC Ur Squamous Epith Cells Urine Bacteria Ur Culture Indicated? Nasal Screen MRSA (PCR) U Opiates 300ng/mL cut Ur Oxycodone Screen Urine Methadone Screen Ur Barbiturates Screen U Tricyclic Antidepress Ur Phencyclidine Scrn Ur Amphetamines Screen U Methamphetamines Scrn Ur MDMA Scrn (Ecstasy) U Benzodiazepines Scrn Urine Cocaine Screen U Marijuana (THC) Screen Ethyl Alcohol SARS-CoV-2 (PCR) Negative Influenza A (RT-PCR) Influenza B (RT-PCR) 02/15/22 02/15/22 02/15/22 21:49 21:49 21:49 WBC RBC Hgb Hct MCV MCH MCHC RDW Plt Count Neut % (Auto) Lymph % (Auto) [place] % (Auto) Eos % (Auto) Baso % (Auto) Neut # (Auto) Lymph # (Auto) [place] # (Auto) Eos # (Auto) Baso # (Auto) PT 13.9 H INR 1.2 APTT 27 ABG pH ABG pCO2 ABG pO2 ABG HCO3 ABG Total CO2 ABG O2 Saturation ABG Base Excess FiO2 Sodium Potassium Chloride Carbon Dioxide BUN Creatinine Estimated GFR BUN/Creatinine Ratio Glucose Hemoglobin A1c Lactate Calcium Magnesium Total Bilirubin AST ALT Alkaline Phosphatase Total Creatine Kinase CK-MB (CK-2) CK-MB (CK-2) Rel Index Troponin I C-Reactive Protein NT-Pro-B Natriuret Pep Total Protein Albumin Globulin Albumin/Globulin Ratio Triglycerides Cholesterol LDL Cholesterol, Calc HDL Cholesterol Lipase Procalcitonin TSH 0.516 Urine Color Urine Appearance Urine pH Ur Specific [place] Urine Protein Urine Glucose (UA) Urine Ketones Urine Occult Blood Urine Nitrate Urine Bilirubin Urine Urobilinogen Ur Leukocyte Esterase Urine RBC Urine WBC Ur Squamous Epith Cells Urine Bacteria Ur Culture Indicated? Nasal Screen MRSA (PCR) U Opiates 300ng/mL cut Ur Oxycodone Screen Urine Methadone Screen Ur Barbiturates Screen U Tricyclic Antidepress Ur Phencyclidine Scrn Ur Amphetamines Screen U Methamphetamines Scrn Ur MDMA Scrn (Ecstasy) U Benzodiazepines Scrn Urine Cocaine Screen U Marijuana (THC) Screen Ethyl Alcohol SARS-CoV-2 (PCR) Influenza A (RT-PCR) Influenza B (RT-PCR) 02/15/22 02/15/22 02/15/22 21:49 21:49 21:49 WBC RBC Hgb Hct MCV MCH MCHC RDW Plt Count Neut % (Auto) Lymph % (Auto) [place] % (Auto) Eos % (Auto) Baso % (Auto) Neut # (Auto) Lymph # (Auto) [place] # (Auto) Eos # (Auto) Baso # (Auto) PT INR APTT ABG pH ABG pCO2 ABG pO2 ABG HCO3 ABG Total CO2 ABG O2 Saturation ABG Base Excess FiO2 Sodium Potassium Chloride Carbon Dioxide BUN Creatinine Estimated GFR BUN/Creatinine Ratio Glucose Hemoglobin A1c Lactate Calcium Magnesium 1.6 Total Bilirubin AST ALT Alkaline Phosphatase Total Creatine Kinase CK-MB (CK-2) CK-MB (CK-2) Rel Index Troponin I C-Reactive Protein 1.8 H NT-Pro-B Natriuret Pep 298 H Total Protein Albumin Globulin Albumin/Globulin Ratio Triglycerides Cholesterol LDL Cholesterol, Calc HDL Cholesterol Lipase Procalcitonin TSH Urine Color Urine Appearance Urine pH Ur Specific [place] Urine Protein Urine Glucose (UA) Urine Ketones Urine Occult Blood Urine Nitrate Urine Bilirubin Urine Urobilinogen Ur Leukocyte Esterase Urine RBC Urine WBC Ur Squamous Epith Cells Urine Bacteria Ur Culture Indicated? Nasal Screen MRSA (PCR) U Opiates 300ng/mL cut Ur Oxycodone Screen Urine Methadone Screen Ur Barbiturates Screen U Tricyclic Antidepress Ur Phencyclidine Scrn Ur Amphetamines Screen U Methamphetamines Scrn Ur MDMA Scrn (Ecstasy) U Benzodiazepines Scrn Urine Cocaine Screen U Marijuana (THC) Screen Ethyl Alcohol SARS-CoV-2 (PCR) Influenza A (RT-PCR) Influenza B (RT-PCR) 02/15/22 02/15/22 02/15/22 22:13 22:13 23:08 WBC RBC Hgb Hct MCV MCH MCHC RDW Plt Count Neut % (Auto) Lymph % (Auto) [place] % (Auto) Eos % (Auto) Baso % (Auto) Neut # (Auto) Lymph # (Auto) [place] # (Auto) Eos # (Auto) Baso # (Auto) PT INR APTT ABG pH 7.42 ABG pCO2 34.9 L ABG pO2 63 L ABG HCO3 23 ABG Total CO2 24 ABG O2 Saturation 92 L ABG Base Excess -2.0 FiO2 21 Sodium Potassium Chloride Carbon Dioxide BUN Creatinine Estimated GFR BUN/Creatinine Ratio Glucose Hemoglobin A1c Lactate Calcium Magnesium Total Bilirubin AST ALT Alkaline Phosphatase Total Creatine Kinase CK-MB (CK-2) CK-MB (CK-2) Rel Index Troponin I C-Reactive Protein NT-Pro-B Natriuret Pep Total Protein Albumin Globulin Albumin/Globulin Ratio Triglycerides Cholesterol LDL Cholesterol, Calc HDL Cholesterol Lipase Procalcitonin TSH Urine Color Urine Appearance Urine pH Ur Specific [place] Urine Protein Urine Glucose (UA) Urine Ketones Urine Occult Blood Urine Nitrate Urine Bilirubin Urine Urobilinogen Ur Leukocyte Esterase Urine RBC Urine WBC Ur Squamous Epith Cells Urine Bacteria Ur Culture Indicated? Nasal Screen MRSA (PCR) Negative for mrsa U Opiates 300ng/mL cut Ur Oxycodone Screen Urine Methadone Screen Ur Barbiturates Screen U Tricyclic Antidepress Ur Phencyclidine Scrn Ur Amphetamines Screen U Methamphetamines Scrn Ur MDMA Scrn (Ecstasy) U Benzodiazepines Scrn Urine Cocaine Screen U Marijuana (THC) Screen Ethyl Alcohol SARS-CoV-2 (PCR) Influenza A (RT-PCR) Flu a negative Influenza B (RT-PCR) Flu b negative 02/15/22 02/15/22 02/16/22 23:59 23:59 00:16 WBC RBC Hgb Hct MCV MCH MCHC RDW Plt Count Neut % (Auto) Lymph % (Auto) [place] % (Auto) Eos % (Auto) Baso % (Auto) Neut # (Auto) Lymph # (Auto) [place] # (Auto) Eos # (Auto) Baso # (Auto) PT INR APTT ABG pH ABG pCO2 ABG pO2 ABG HCO3 ABG Total CO2 ABG O2 Saturation ABG Base Excess FiO2 Sodium Potassium Chloride Carbon Dioxide BUN Creatinine Estimated GFR BUN/Creatinine Ratio Glucose Hemoglobin A1c Lactate Calcium Magnesium Total Bilirubin AST ALT Alkaline Phosphatase Total Creatine Kinase CK-MB (CK-2) CK-MB (CK-2) Rel Index Troponin I 0.022 C-Reactive Protein NT-Pro-B Natriuret Pep Total Protein Albumin Globulin Albumin/Globulin Ratio Triglycerides Cholesterol LDL Cholesterol, Calc HDL Cholesterol Lipase Procalcitonin TSH Urine Color Yellow Urine Appearance Clear Urine pH 7.0 Ur Specific [place] 1.020 Urine Protein Trace H Urine Glucose (UA) Trace H Urine Ketones Trace H Urine Occult Blood 2+ H Urine Nitrate Negative Urine Bilirubin Negative Urine Urobilinogen 2.0 H Ur Leukocyte Esterase Negative Urine RBC 1-5/hpf Urine WBC None seen Ur Squamous Epith Cells None seen Urine Bacteria None seen Ur Culture Indicated? Cult not indicated Nasal Screen MRSA (PCR) U Opiates 300ng/mL cut Negative Ur Oxycodone Screen Negative Urine Methadone Screen Negative Ur Barbiturates Screen Negative U Tricyclic Antidepress Negative Ur Phencyclidine Scrn Negative Ur Amphetamines Screen Negative U Methamphetamines Scrn Negative Ur MDMA Scrn (Ecstasy) Negative U Benzodiazepines Scrn Positive H Urine Cocaine Screen Negative U Marijuana (THC) Screen TNP Ethyl Alcohol SARS-CoV-2 (PCR) Influenza A (RT-PCR) Influenza B (RT-PCR) 02/16/22 02/16/22 02/16/22 05:04 05:04 05:04 WBC 19.9 H RBC 4.05 L Hgb 13.5 Hct 39.0 L MCV 96.4 MCH 33.4 MCHC 34.7 RDW 12.2 Plt Count 399 Neut % (Auto) 77.1 H Lymph % (Auto) 9.7 L [place] % (Auto) 13.0 Eos % (Auto) 0.0 L Baso % (Auto) 0.2 Neut # (Auto) 19128 H Lymph # (Auto) 1900 [place] # (Auto) 2600 H Eos # (Auto) 0 Baso # (Auto) 0 PT INR APTT ABG pH ABG pCO2 ABG pO2 ABG HCO3 ABG Total CO2 ABG O2 Saturation ABG Base Excess FiO2 Sodium 132 L Potassium 4.0 Chloride 99 Carbon Dioxide 24 BUN 15 Creatinine 0.80 Estimated GFR > 60 BUN/Creatinine Ratio 18.8 Glucose 140 H Hemoglobin A1c Lactate Calcium 8.3 L Magnesium Total Bilirubin 2.1 H AST 37 ALT 14 Alkaline Phosphatase 62 Total Creatine Kinase CK-MB (CK-2) CK-MB (CK-2) Rel Index Troponin I 0.026 C-Reactive Protein NT-Pro-B Natriuret Pep Total Protein 6.7 Albumin 4.3 Globulin 2.4 Albumin/Globulin Ratio 1.8 Triglycerides 113 Cholesterol 230 H LDL Cholesterol, Calc 150 H HDL Cholesterol 57 Lipase Procalcitonin TSH Urine Color Urine Appearance Urine pH Ur Specific [place] Urine Protein Urine Glucose (UA) Urine Ketones Urine Occult Blood Urine Nitrate Urine Bilirubin Urine Urobilinogen Ur Leukocyte Esterase Urine RBC Urine WBC Ur Squamous Epith Cells Urine Bacteria Ur Culture Indicated? Nasal Screen MRSA (PCR) U Opiates 300ng/mL cut Ur Oxycodone Screen Urine Methadone Screen Ur Barbiturates Screen U Tricyclic Antidepress Ur Phencyclidine Scrn Ur Amphetamines Screen U Methamphetamines Scrn Ur MDMA Scrn (Ecstasy) U Benzodiazepines Scrn Urine Cocaine Screen U Marijuana (THC) Screen Ethyl Alcohol SARS-CoV-2 (PCR) Influenza A (RT-PCR) Influenza B (RT-PCR) [facility] Medical History Anxiety Asbestos exposure CADASIL (cerebral autosomal dominant arteriopathy with subcortical infarcts and leukoencephalopathy) (~2010) Concussion Conductive hearing 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 Eustachian tube dysfunction GERD (gastroesophageal reflux disease) Headache (04/01/15) Hiatal hernia History of frequent headaches Hyperlipidemia (09/29/16) Insomnia Leukoaraiosis (~2014) Low testosterone Minor head injury without loss of consciousness Monoallelic mutation of NOTCH3 gene MRSA (methicillin resistant Staphylococcus aureus) Partial blindness (~2010) Prepatellar bursitis Sensorineural hearing loss (SNHL) of both ears Sleep apnea Tinnitus Surgical History History of myringotomy (~2017) Surgical procedure planned Surgical procedure planned (~03/16/12) Family History Brother Hyperlipidemia Mother Age: 91 Hyperlipidemia GERD (gastroesophageal reflux disease) CADASIL (cerebral AD arteriopathy w infarcts and leukoencephalopathy) Sister Hyperlipidemia CADASIL (cerebral AD arteriopathy w infarcts and leukoencephalopathy) Sister Hyperlipidemia Sister Hyperlipidemia Sister Hyperlipidemia Father Emphysema lung Daughter CADASIL (cerebral AD arteriopathy w infarcts and leukoencephalopathy) Social History household members: none Smoking Status: Former smoker alcohol intake: former Assessment & Plan Assessment & Plan narrative: Carlos Enrique Bullock is a 66-year-old male former smoker with history of GERD, esophagitis, hypertension, and prior autosomal dominant condition called CADASIL for which he follows with neurology at the and is currently in a clinical trial. 1. Sepsis, secondary to multifocal pneumonia, acute, present on admission sofa score 5 -patient received sepsis rehydration in ED and antibiotic therapy. -Chest x-ray and CT demonstrates multifocal pneumonia. -stop prednisone -continue therapy azithromycin and Rocephin -patient is not in respiratory failure, no distress stable. 2. Acute encephalopathy in setting of known CADASIL, present on admission -R/O TIA vs Stroke, though suspect metabolic -Stroke MR ordered but patient unable to tolerate today, will try again tomorrow - Initial NIH in the ED was recorded as 12, though this was difficult to assess. - head CT is negative for any acute intracranial process. -failed speech eval today, reassess daily -patient currently reported on clinical trial for his CADASIL at . Spoke wih Dr. Wallace today, recommended only ASA. Stop plavix. Prior presentations of his have included encephalopathy only and MRIs have previously been negative. Recommends MRI and continued therapy for antibiotics. EEG also beneficial though not available and not necessary for transfer at this time. -PT / OT if patient allows. 3. Essential hypertension with hypertensive urgency, acute on chronic, present on admission -continue patient's amlodipine, propanolol, hydralazine -metoprolol 5 mg as needed Q 15 minutes with a max of 3 doses for SBP >180, DBP >100, HR >110 sustained greater than 30 minutes -initial within normal limits x3. 4. GERD with esophagitis, chronic, present on admission -continue Protonix 5. Hyperlipidemia, chronic, present on admission -hold pravastatin, take lipitor when tolerating oral diet. Code status:DNR Surrogate decision maker: Rachele FRANCIS PCR:Negative DVT/VTE prophylaxis: Lovenox Disposition: Anticipate discharge home, timing unclear. I have utilized all available immediate resources to obtain, update, or review the patient's current medications. I confirmed that the patient's advanced care plan is present, Code status is documented and/or surrogate decision maker is listed in the patient's medical record. Time Spent With Patient Critical Care time: I spent a total of [] minutes of critical care time on this patient's care today; this time is exclusive of procedural time. Scores SOFA PaO2/FIO2: < 400 mmHg
--- NOTE | 2022-02-16 18:52 | PC.NURSE ---
decision maker is Baltazar Hernadez, not Rachele Rosado whos number is incorrect in system
[2022-02-16] MEDS: PANTOPRAZOLE 40 MG VIAL 20 MG IV (21:00)
[2022-02-16] MEDS: cefTRIAXone 1,000 MG in SODIUM CHLORIDE 0.9% 100 ML 200 MG IV (21:01)
[2022-02-16] MEDS: SODIUM CHLORIDE 0.9% FLUSH 10 ML IV (21:09)
[2022-02-16] MEDS: AZITHROMYCIN 500 MG in DEXTROSE 5% IN WATER 250 ML 250 MG IV (21:44)
[2022-02-17] VITALS (8 sets, daily range): BP systolic 110–148; BP diastolic 67–91; PULSE 64–95; RESP 18–25; TEMP 36.5–37.1; O2SAT 92–100
[2022-02-17] MEDS: diazePAM 10 MG/2 ML SYRINGE IV (01:25)
[2022-02-17 05:58] LABS: Add Manual Diff / Slide Review NO; Basophils Absolute Auto 0 /uL (0-100); Basophils Percent Auto 0.4 % (0-2); Eosinophils Absolute Auto 0 /uL (0-450); Eosinophils Percent Auto 0.1 % (2-4); Hematocrit 39.6 % (41-53); Hemoglobin 13.4 g/dL (13.5-17.5); Lymphocytes Absolute Auto 2400 /uL (1100-4500); Lymphocytes Percent Auto 19.2 % (25-40); Mean Corpuscular HGB Conc 33.7 % (30-36); Mean Corpuscular Hemoglobin 33.2 PG (26-34); Mean Corpuscular Volume 98.5 fL (80-100); Monocytes Absolute Auto 1800 /uL (0-900); Monocytes Percent Auto 14.5 % (3-14); Neutrophils Absolute Auto 8300 /uL (1500-7000); Neutrophils Percent Auto 65.8 % (50-75); Platelet Count 383 X10^3/uL (150-400); Red Blood Cell Count 4.02 X10^6/uL (4.5-5.9); Red Cell Distribution Width 12.1 % (11.6-14.8); White Blood Cell Count 12.7 X10^3/uL (4.5-11.0)
[2022-02-17 06:06] LABS: Alanine Aminotransferase 13 IU/L (<50); Albumin Globulin Ratio 1.4 (1.0-2.8); Alkaline Phosphatase 55 U/L (38-126); Aspartate Aminotransferase 24 IU/L (17-59); BUN Creatinine Ratio 19.6 (6-22); Blood Urea Nitrogen 21 mg/dL (9-20); Calcium 8.6 mg/dL (8.4-10.2); Carbon Dioxide 30 mmol/L (22-32); Chloride 102 mmol/L (98-107); Estimated Glomerular Filt Rate > 60 mL/min (>60); Globulin 2.8 g/dL (1.7-4.1); Glucose 119 mg/dL (80-110); HEMOLYSIS < 15 (0-50); Potassium 4.2 mmol/L (3.4-5.1); Sodium 137 mmol/L (137-145); Total Protein 6.8 g/dL (6.3-8.2)
--- NOTE | 2022-02-17 07:32 | PC.NURSE ---
PRN valium given for agitation.
[2022-02-17] MEDS: PANTOPRAZOLE 40 MG VIAL 20 MG IV ×2 (09:04→20:37)
--- NOTE | 2022-02-17 09:07 | DI.MRI.S_ITS ---
PROCEDURE: MR HEAD/BRAIN WO CON INDICATIONS: 66-year-old male with neurologic deficit and history CADASIL TECHNIQUE: Noncontrast axial T1 spin echo, axial T2 fast spin echo, sagittal and axial FLAIR, coronal T2 fast spin echo, axial gradient echo, axial diffusion and ADC through the brain. COMPARISON: [facility], CT, CT STROKE, 02/15/2022, 17:00. FINDINGS: Image quality: Study is significantly limited motion artifact Confluent white matter disease noted with probable underlying old white matter infarcts. Diffusion sequence is grossly normal. No significant midline shift or large intracranial hemorrhage present. Smaller foci less than 5 mm of old blood products noted in the right lentiform nucleus and temporal cortex, consistent with sequelae of prior hemorrhagic lacunar infarcts. IMPRESSION: 1. No evidence of acute infarct, acute hemorrhage or mass lesion. 2. Advanced confluent white matter disease and small old infarcts, consistent with given history of CADASIL. 3. Significantly limited exam related to motion artifact Approved by: Daniel Pérez M.D. on 02/17/2022 at 9:52
[2022-02-17] MEDS: SODIUM CHLORIDE 0.9% FLUSH 10 ML IV ×3 (09:53→20:37)
--- NOTE | 2022-02-17 10:07 | OT.IPNOTE ---
Check on pt for OT eval and pt going down to get an MRI, to check on the pt later.
--- NOTE | 2022-02-17 10:09 | PT-IP ANOTE ---
Attempted to eval with OT, however upon getting to pt's room, he was in the process of being taken down to DI for further brain imaging.
--- NOTE | 2022-02-17 10:27 | ST.IPCSEOM ---
Visit Care Team Role Provider Type Sergio Cárdenas MD Primary Care Provider Physician Specialty: Internal Medicine Pediatrics Address: [address] [place] [address], [facility] Phone: Fax: Email: [email or web address] Provider Physician Referring Provider Specialty: Emergency Medicine Address: [address] [place] [address], [facility] Email: [email or web address]NE [facility] Admit Provider Physician Attending Provider Specialty: Hospitalist Internal Medicine Address: [address] [place] [address], [facility] Email: Current Diagnoses Sepsis, unspecified organism (02/15/22) Past Medical History (Last Reviewed 02/16/22 @ 03:50 by EVELYNE CampbellNY) Anxiety (Medical) Asbestos exposure (Medical) CADASIL (cerebral autosomal dominant arteriopathy with subcortical infarcts and leukoencephalopathy) (Medical ~2010) neuro recommendations are to avoid anticoagulation and IV antithrombotics if possible. Strict maintenance of normal blood pressure, blood sugar. Concussion (Medical) Conductive hearing 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 (Medical) Eustachian tube dysfunction (Medical) GERD (gastroesophageal reflux disease) (Medical) Headache (Medical 04/01/15) Follows with neurology clinic. At 03/18 visit they requested he keep a headache diary, their hypothysis is headaches may be triggered by poor sleep. They also recommended evaluation for depression as a contributor to his irritability and stress which has decreased off of topirimate. 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 MRSA (methicillin resistant Staphylococcus aureus) (Medical) Gluteal Partial blindness (Medical ~2010) Right homonymous hemianopsia Prepatellar bursitis (Medical) Sensorineural hearing loss (SNHL) of both ears (Medical) Sleep apnea (Medical) Tinnitus (Medical) Speech-Language Pathology Swallow Evaluation BENZENE STILL UTILITY OPERATOR Clinical Swallow Evaluation Start: 02/17/22 09:55 Freq: Status: Active Protocol: Document 02/17/22 09:55 RADHAMES (Rec: 02/17/22 10:26 ZS [id number]) Clinical Swallow Evaluation Session Time Visit Start Time 09:30 Visit Stop Time 10:00 Total Visit Minutes 30 Setting Assessment Location Acute Care Visit Type Note Type Initial evaluation Next Note Type Next Note Type Treatment Note Patient Information Identification Type Name History Per H&P: Carlos Enrique Bullock is a 66-year-old male former smoker with history of GERD, esophagitis, hypertension, HLD presents by EMS for evaluation significant left- sided weakness and altered mental status.? Per EMS roommate states that he was found on the floor confused and has not been normal for the past few days.? He was seen and evaluated by EMS last night due to the fall and at the time the patient declared he did not want to be seen.? He is altered, apparently neglecting his left side and had blood glucose 168 prior to arrival. He was not activated as a code stroke as he was outside of any window for tPA or CODE IR. In the ED patient presented with febrile temp of 100.1? hypertensive urgency BP is 181 /101, 194/95, tachycardic with heart rates 108178, and tachypneic RR 24, 25, 29, but O2 saturations remained above 90% on room air. Patient is significantly confused and unable to contribute to HPI, ROS. Upon admit patient's temp is 98.7?, BP 179/94, HR is 95, R is 25, O2 saturation is 95% on room air. Initial NIH in the ED was recorded as 12 but difficult to evaluate accuracy as patient is unable to follow commands appropriately, definite left sided neglect. CTA is negative for pulmonary embolus, head CT is negative for any acute intracranial process. Chest x-ray demonstrates multifocal pneumonia. Patient is admitted for sepsis, due to multifocal pneumonia, encephalopathy, ground level fall possible head injury, r/o stroke/TIA. Subjective Observations Carlos Enrique was laying in bed when BENZENE STILL UTILITY OPERATOR arrived. His eyes were open and he was awake and alert. Oriented to self and place (i.e., hospital) but not time. He agreed to participate in swallow evaluation and was repositioned to upright position in bed for assessment . Reported by Patient Current Diet Nothing by mouth Baseline Feeding Method Independent in self-feeding Objective Assessment Mental Status Alert,Responsive,Cooperative Oral Integrity WFL Dentition Missing teeth,Upper dentures/ partials Lip Function Within normal limits Observation of Lips at Rest Symmetrical Pucker Within normal limits Lip Retraction Within normal limits Alternating Pucker/Lip Retraction Incoordination Tongue Function Within normal limits Observations of Tongue at Rest Within normal limits Tongue Protrusion Within normal limits Tongue Retraction Within normal limits Tongue Lateralization Within normal limits Jaw Function Within normal limits Observations of Jaw at Rest Within normal limits Jaw Opening Within normal limits Jaw Closing Within normal limits Hard/Soft Palate Function Within normal limits Observations of Hard/Soft Palate Within normal limits Comment Completed oral motor exam with pt. He presented with possible mild thrush and tongue fissures, though reported no discomfort in oral cavity. Structures were symmetrical at rest and in motion. Tongue, lips, and jaw strength and ROM were WNL, though coordination of smile/ pucker was moderately impaired . Unclear if difficulty was in coordinating movements or understanding directions. Pt wears upper dentures, which he does not currently have with him. Some missing lower dentition in the back. Pt reported he is able to chew soft foods without his dentures. Food and Liquid Trials Position During Assessment Upright (90 degrees),In bed Liquids Trialed Thin Solids Trialed Puree,Dysphagia Mechanical Administration Type Tea spoon,Cup single sip,Cup consecutive sips,Straw,Self- feeding Oral Impairment Within normal limits Oral Phase Comments Pt exhibited no anterior loss of bolus and no oral residue following PO trials. He was observed to eat and drink very quickly and was reminded to take single small sips/bites at a time. Fast rate of eating /drinking may be due, in part, to high hunger levels as a result of NPO diet. Mastication of peaches was timely and efficient and pt reported no difficulty. Pharyngeal Impairment Mildly impaired Pharyngeal Phase Comments Pt did not cough when taking small, single sips of water and implementing chin tuck. When BENZENE STILL UTILITY OPERATOR left the room, pt began coughing while drinking water. BENZENE STILL UTILITY OPERATOR returned and provided coaching regarding swallow safety, use of chin tuck, and slow rate of eating/ drinking. Pt expressed understanding and followed directions to drink with a slow rate. Pt would likely benefit from verbal reminders to drink slowly. No overt signs/symptoms of aspiration observed with solids. Fatigue/Endurance Endurance WNL Comment Pt requires reminders to follow directions for improved swallow safety. Recommend pt only be fed when awake and alert. When he is groggy, swallow safety is impaired as is his ability to follow directions. Strategies Attempted Chin tuck Findings Swallowing Function Within normal limits Severity of Swallow Impairment Within normal limits Contributing Factors to Swallow Reduced alertness or attention Impairment ,Difficulty following directions,Mastication inefficiency Prognosis Fair Based on Cognitive status,Family support,Age,Comorbidities Comment The pt presents with swallowing WNL, though exhibits mild pharyngeal impairment when drinking rapidly as evidenced by increased coughing with rapid PO intake of thin liquids. Pt benefitted from verbal reminders to slow rate of drinking, though impaired cognition requires frequent reminders of this. Pt exhibited no overt signs/ symptoms of aspiration with solids. He does not currently have his upper dentures and would benefit from a softer diet for ease of PO intake. Recommend thin liquids and dysphgia mechanical diet with monitoring and reminders to drink slowly during meals. Thickened liquids are not recommended at this time as rate of intake is primary concern for aspiration and this does not change with thickness of liquid. Impact on Safety and Functioning Risk for aspiration Recommendations Instrumental Assessment No Swallowing Treatment Yes Frequency Follow-up to ensure diet tolerance and use of strategies. Recommended Solids Dysphagia Mechanical Recommended Liquids Thin Other Recommendations Reminders to eat/drink slowly. Safety Precautions/Swallowing 1 to 1 distant supervision, Recommendations Feed only when alert,Reduce distractions,Remain upright ( 90 degrees) during all oral intake,Needs verbal cues to use recommended strategies, Upright position at least 30 minutes after meals,Small bites and sips when eating, Slow rate; swallow between bites Medication Recommendations As Tolerated Education Patient/Caregiver Education Described results of evaluation,Patient expressed understanding of evaluation, Patient expressed agreement with goals & treatment plans, Patient expressed understanding of safety precautions,Patient expressed understanding of feeding recommendations,Patient requires further education/ training Goals Short-term Goals 1. The pt will perform safe swallow strategies with oral intake independently to reduce risk of aspiration. Long-term Goals The pt will safely tolerate least restrictive diet to meet his nutrition and hydration needs.
--- NOTE | 2022-02-17 11:42 | PC.NURSE ---
Addendum entered by Arias Caban R.N. 02/17/22 15:32: Pt sleeping RR even and unlaboured offers no c/o presently, physically or verbally. Original Note: some repetitive questions, left weaker than right working with OT. Family at bedside. Pt had MRI this morning see report. Family asking appropriate questions. Pt a bit fidgety, impulsive.
--- NOTE | 2022-02-17 11:45 | OT.IP.EVAL ---
Current Diagnoses Sepsis, unspecified organism (02/15/22) Past Medical History (Last Reviewed 02/16/22 @ 03:50 by EVELYNE Campbell-[place]) Anxiety Asbestos exposure CADASIL (cerebral autosomal dominant arteriopathy with subcortical infarcts and leukoencephalopathy) (~2010) Concussion Conductive hearing 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 Eustachian tube dysfunction GERD (gastroesophageal reflux disease) Headache (04/01/15) Hiatal hernia History of frequent headaches Hyperlipidemia (09/29/16) Insomnia Leukoaraiosis (~2014) Low testosterone Minor head injury without loss of consciousness Monoallelic mutation of NOTCH3 gene MRSA (methicillin resistant Staphylococcus aureus) Partial blindness (~2010) Prepatellar bursitis Sensorineural hearing loss (SNHL) of both ears Sleep apnea Tinnitus Surgical History (Last Reviewed 02/16/22 @ 03:50 by EVELYNE Campbell-[place]) History of myringotomy (~2017) Surgical procedure planned Surgical procedure planned (~03/16/12) Occupational Therapy Inpatient Evaluation/Re-Eval M1 PT/OT-IP Prior Functional Status Start: 02/16/22 14:42 Freq: NEEDED Status: Active Protocol: Document 02/17/22 11:49 [facility] (Rec: 02/17/22 12:28 [facility] [id number]) Medical Review Prior Functional Status Communication Prior completely independent. Mobility and Gait Prior pt did not use any devices for mobility needs. Activities of Daily Living and IADL's Completely independent with ADL, IADL, drives and works in construction. Social History Household Members none Living Arrangements House Number of Floors (Floors) One Floor Number of Stairs To Enter/Railing? 3-4 steps with no rails Home Environment Walk in Shower,Tub/Shower Home Equipment Grab Bars In Shower M2 OT-IP Current Condition Start: 02/17/22 11:48 Freq: Status: Active Protocol: Document 02/17/22 11:49 [facility] (Rec: 02/17/22 12:28 [facility] [id number]) Occupational Therapy Current Condition Current Condition Evaluation Date 02/17/22 Treatment Diagnosis Sepsis, multiple PNA Diagnosis Onset Date 02/15/22 M3 OT- IP Subjective and Pain Start: 02/17/22 11:48 Freq: Status: Active Protocol: Document 02/17/22 11:49 [facility] (Rec: 02/17/22 12:28 [facility] [id number]) OT- Subjective Occupational Therapy Visit Type Type Initial Evaluation Visit Start Time 11:08 Visit Stop Time 11:45 Total Visit Minutes 37 Occupational Therapy Visit Comments Patient Comments Pt agreed to get up and pt's two daughters and grandson in the room. Patient/Caregiver Goals To go home. OT Pain Assessment Pain When Pain Assessed At Rest Pain Present Pain Present Denied Pain M4 OT- IP ADL's Start: 02/17/22 11:48 Freq: Status: Active Protocol: Document 02/17/22 11:49 [facility] (Rec: 02/17/22 12:28 [facility] [id number]) OT RNP-Meto-Cwidrlp Comments OT Self-Feeding Comments Not at meal time. OT ADL-Grooming Comments OT Grooming Comments Not performed. OT ADL-Oral Care Comments Oral Care Comments Not performed. OT ADL-Dressing General Eval Lower Body Dressing Ability Moderate Assistance Comments OT Dressing Comments Pt having trouble to grasp the sock with his left hand and also having decreased balance on the edge of the bed and needing to help leeroy his socks . OT ADL-Toileting Comments OT Toileting Comments Pt not having to go at this time. OT ADL-Bathing Comments OT Bathing Comments Not performed. M5 OT- IP IADL's Start: 02/17/22 11:48 Freq: Status: Active Protocol: Document 02/17/22 11:49 [facility] (Rec: 02/17/22 12:28 [facility] [id number]) OT-Instrumental Activities of Daily Living Deficits IADL Deficits Identified Deficits Home Safety Awareness Awareness of Need for Assistance at Home Decreased Awareness Ability to Problem Solve Emergency Unable to Problem Solve Situations Home Safety Comments Pt is very confused at this time and also had Ativan earlier as got an MRI which may be also affecting his mentation. At this time if pt having to go would require 24/ 7 assist for all needs. M6 OT- IP Functional Cognition Start: 02/17/22 11:48 Freq: Status: Active Protocol: Document 02/17/22 11:49 [facility] (Rec: 02/17/22 12:28 [facility] [id number]) Cognitive Factors Limiting Selfcare Function Cognitive Ability Level of Alertness Confusional State Patient Orientation Name Attention Span Ability Capable of Focused Attention, Unable to Sustain Attention Ability to Follow Commands Able to Follow One Step Commands with Increased Time, Able to Follow One Step Commands with Repetition Memory Description Short Term Impaired,Residential Impaired,Working Impaired Safety Awareness Underestimates Need for Assistance Cognitive Comments Cognitive Assessment Comments Pt mainly orientated to his name. Pt not able to say and identify the name of his daughters initially and needing cues. Pt initially unaware where he is at , but able to [facility] hospital after given pt multiple choices. Pt very impulsive and decreased safety awareness at this time . pt needing increased time to process commands. OT- Vision and Hearing OT- Vision Assessment Vision Assessment Comments Per chart pt has conductive hearing loss right ear. M7 OT- IP Mobility and Balance Start: 02/17/22 11:48 Freq: Status: Active Protocol: Document 02/17/22 11:49 [facility] (Rec: 02/17/22 12:28 [facility] [id number]) OT- Bed Mobility Assessment Supine to Sit Supine to Sit Assist Standby Assistance Sit to Supine Sit to Supine Assist Standby Assistance OT-Transfer Assessment Sit to and From Stand Sit to and from Stand Minimal Assistance,Moderate Assistance,1 Person Assistance ,2 Person Assistance Transfers Transfer Ability Moderate Assistance,1 Person Assistance,2 Person Assistance Technique Transfer Destination Bed Transfer Technique Stand Step Pivot Devices Transfer Assistive Devices None,Gait Belt,Front Wheeled Walker Comments Mobility Comments Pt needing to use momentum to get into long sitting and increased time to get to the edge of the bed. DHAVAL x2 to stand to FWW and MODA x 2 to walk as pt tends to cross his feet, unsteady on his feet and leans to the left. At this time suggested two person assist for safety due to unsteadiness and impulsivity of the pt. OT- Balance Assessment Sitting Balance and Reactions Static Sitting Balance Ability Fair Dynamic Sitting Balance Ability Poor Standing Balance and Reactions Static Standing Balance Ability Poor Dynamic Standing Balance Ability Poor Comments Other Balance Tests/Deviations/Treatment Pt needing MODA form falling : over when trying to leeroy/doff his socks. Pt leans to the left during static sitting. Pt needing assist x2 on his feet with FWW as pt tends to cross his feet when up on his feet. M8 OT- IP Objective Assessments Start: 02/17/22 11:48 Freq: Status: Active Protocol: Document 02/17/22 11:49 [facility] (Rec: 02/17/22 12:28 [facility] [id number]) OT Gross Range of Motion Upper Extremity Range of Motion Assessment Within Functional Limits OT Strength Upper Extremity Strength Assessment Left Impaired Comments Strength Comments RUE 5/5, LUE 4-/5 to 4/5 from proximal to distal. OT-Muscle Tone Assessment Muscle Tone WNL Yes M9 OT- IP Assessment and Plan Start: 02/17/22 11:48 Freq: Status: Active Protocol: Document 02/17/22 11:49 [facility] (Rec: 02/17/22 12:28 [facility] [id number]) OT Summary Assessment and Plan Potential Rehabilitation Potential Good Analytic Complexity at Evaluation Moderate Summary OT Impairments Strength,Balance,Coordination, Functional Cognition, Functional Mobility,Self- Feeding,Grooming,Dressing, Toileting,Bathing,Toilet Transfers,Shower Transfers, Activity Tolerance Progress Towards Goals Slow Progress due to Medical Issues,Slow Progress due to Activity Tolerance,Slow Progress due to Cognition Assessment Summary Pt MOD complexity and main barriers are steps, decreased balance, safety awareness, functional cognition, and now needing 2 person assist for all needs. Pt just received Ativan earlier due to MRI which may be affecting his mentation as well. Pt will benefit from skilled rehab. Prior pt was completely independent and worked as a engineer design and construction. Goals Self-Feeding Goal Independent Grooming Goal Independent Dressing Goal Independent Toileting Goal Independent Bathing Goal Independent Toilet Transfer Goal Independent Shower Transfer Goal Independent Days to Meet Goals 25 Frequency of Treatment Frequency Of Treatment Once a Day Treatment Plan OT Treatment Plan ADL Training,Functional Cognition Training,Functional Mobility,Patient/Family Education,Discharge Planning Discharge Recommendations OT Discharge Recommendations SNF Rehab Transportation Needs at Discharge Wheelchair/Cabulance
--- NOTE | 2022-02-17 13:21 | CM.DPC ---
DCP Acute Rehab vs SNF Per MD, pt making some improvements but still far below baseline and spent lengthy time bedside with pt and his family members. Per PT/OT/ST, feel pt could likely benefit from Acute Inpt Rehab. Per MD, pt with likely stroke per MRI results and comorbidities. Family requesting referral sent to [facility] and if pt cannot meet criteria then request for SNF closer to them in [facility]. BRANNON called [facility] and left [facility] requesting review and faxed referral to [phone]. BRANNON printed list for [facility] SNF, SW called following: [facility] [place]- left msg Brenna Ellis- [facility] Plan: SW to follow closely in the AM with [facility] Acute [facility]hab review and further calls to [place] SNFs as a back up. Liz Albarado, REFERENCE LIBRARY ASSISTANT
--- NOTE | 2022-02-17 14:23 | PM.PN.1 ---
Subjective Subjective Date Patient Seen: 02/17/22 Interval history: Patient denies complaints today. Denies chest pain, fever, shortness of breath. He remains confused, but slow with improvement. MRI today shows possible old infarcts with small hemorrhages also appear old per read. Per [facility] yesterday his MRIs have not showed prior infarcts in the past. These may represent a new infarct for him given his L weakness and difficulty swallowing, along with decline in his cognitive function per family. Family does not wish for him to return home at this time. Exam Vital Signs (past 8 hours): - 02/17/22 06:45 02/17/22 06:51 02/17/22 08:14 Temperature 98.8 F 98.1 F Pulse Rate 73 66 Respiratory Rate 21 Blood Pressure 138/87 Pulse Oximetry 94 Oxygen Flow Rate 0 02/17/22 11:25 Temperature 98.1 F Pulse Rate 70 Respiratory Rate 18 Blood Pressure 148/91 H Pulse Oximetry 94 Oxygen Flow Rate 0 Oxygen Delivery Method Room Air Oxygen Flow Rate 0 Narrative Exam Narrative: General: Patient is a well-developed male, in no distress at this time. HEENT: Normocephalic, atraumatic, extraocular muscles intact, oral pharynx is clear and mucous membranes are moist. Neck is supple and symmetric, trachea is midline, no adenopathy, no thyroid enlargement, nontender, no masses palpated. Negative for JVD Chest: Normal AP diameter and contour without kyphoscoliosis. No tenderness Lungs: Auscultation of all lung mena are clear without adventitious sounds, wheezes, rhonchi, or rales. Cardio: regular rate and rhythm without murmur, rubs, or gallops, no carotid bruit, no cardiac pulsations present. Abdomen: S NT ND Musculoskeletal: Muscle strength and tone are equal within normal limits, no deformity, crepitus, effusions, cyanosis, clubbing or edema present. Full range of motion intact radial and pedal pulses are normal. Skin: Warm dry and intact without rashes, ulcerations or petechiae. Neuro: Orientated to self, hospital only. strength is +5/5 in all extremities, sensation to touch intact, no gross deficits noted of cranial nerves. Psych: Patient calm resting confused, in no distress at this time. Objective Labs Result Diagrams: 02/17/22 05:28 02/17/22 05:28 Labs: Laboratory Results - last 24 hr 02/17/22 02/17/22 05:28 05:28 WBC 12.7 H RBC 4.02 L Hgb 13.4 L Hct 39.6 L MCV 98.5 MCH 33.2 MCHC 33.7 RDW 12.1 Plt Count 383 Neut % (Auto) 65.8 Lymph % (Auto) 19.2 L [place] % (Auto) 14.5 H Eos % (Auto) 0.1 L Baso % (Auto) 0.4 Neut # (Auto) 8300 H Lymph # (Auto) 2400 [place] # (Auto) 1800 H Eos # (Auto) 0 Baso # (Auto) 0 Sodium 137 Potassium 4.2 Chloride 102 Carbon Dioxide 30 BUN 21 H Creatinine 1.07 Estimated GFR > 60 BUN/Creatinine Ratio 19.6 Glucose 119 H Calcium 8.6 Total Bilirubin 1.0 AST 24 ALT 13 Alkaline Phosphatase 55 Total Protein 6.8 Albumin 4.0 Globulin 2.8 Albumin/Globulin Ratio 1.4 [facility] Medical History Anxiety Asbestos exposure CADASIL (cerebral autosomal dominant arteriopathy with subcortical infarcts and leukoencephalopathy) (~2010) Concussion Conductive hearing 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 Eustachian tube dysfunction GERD (gastroesophageal reflux disease) Headache (04/01/15) Hiatal hernia History of frequent headaches Hyperlipidemia (09/29/16) Insomnia Leukoaraiosis (~2014) Low testosterone Minor head injury without loss of consciousness Monoallelic mutation of NOTCH3 gene MRSA (methicillin resistant Staphylococcus aureus) Partial blindness (~2010) Prepatellar bursitis Sensorineural hearing loss (SNHL) of both ears Sleep apnea Tinnitus Surgical History History of myringotomy (~2017) Surgical procedure planned Surgical procedure planned (~03/16/12) Family History Brother Hyperlipidemia Mother Age: 91 Hyperlipidemia GERD (gastroesophageal reflux disease) CADASIL (cerebral AD arteriopathy w infarcts and leukoencephalopathy) Sister Hyperlipidemia CADASIL (cerebral AD arteriopathy w infarcts and leukoencephalopathy) Sister Hyperlipidemia Sister Hyperlipidemia Sister Hyperlipidemia Father Emphysema lung Daughter CADASIL (cerebral AD arteriopathy w infarcts and leukoencephalopathy) Social History household members: none Smoking Status: Former smoker alcohol intake: former Assessment & Plan Assessment & Plan narrative: Carlos Enrique Bullock is a 66-year-old male former smoker with history of GERD, esophagitis, hypertension, and prior autosomal dominant condition called CADASIL for which he follows with neurology at the and is currently in a clinical trial. 1. Sepsis, secondary to multifocal pneumonia, acute, present on admission sofa score 5 -patient received sepsis rehydration in ED and antibiotic therapy. -Chest x-ray and CT demonstrates multifocal pneumonia. -stopped oral prednisone that was given on admission. -continue therapy azithromycin and Rocephin -patient is not in respiratory failure, no distress stable. 2. Acute encephalopathy in setting of known CADASIL, CVA, present on admission -MRI shows R sided possible hemorrhagic conversion of old lacunar infarct. Timing unable to be determined but possibly represents source of new deficits. - Initial NIH in the ED was recorded as 12, though this was difficult to assess. He has current difficulties with swallowing, cognitigion, and is weak on the left which would possibly fit with areas seen on MRI. - head CT was negative for any acute intracranial process. -patient currently reported on clinical trial for his CADASIL at . Spoke wih Dr. Wallace. recommended only ASA. Stopped plavix. Prior presentations of his have included encephalopathy only and MRIs have previously been negative. EEG also beneficial though not available and not necessary for transfer at this time. MRI as noted above. -PT / OT to continue -continue speech, currently need frequent behavioral reminders to safely swallow, though is much improved today. 3. Essential hypertension with hypertensive urgency, acute on chronic, present on admission -continue patient's amlodipine, propanolol, hydralazine -metoprolol 5 mg as needed Q 15 minutes with a max of 3 doses for SBP >180, DBP >100, HR >110 sustained greater than 30 minutes -initial within normal limits x3. 4. GERD with esophagitis, chronic, present on admission -continue Protonix 5. Hyperlipidemia, chronic, present on admission -hold pravastatin, take lipitor when tolerating oral diet. Code status:DNR Surrogate decision maker: Rachele FRANCIS PCR:Negative DVT/VTE prophylaxis: Lovenox Disposition: Anticipate discharge to SNF or possible acute rehab depending on PT/OT evaluations. I have utilized all available immediate resources to obtain, update, or review the patient's current medications. I confirmed that the patient's advanced care plan is present, Code status is documented and/or surrogate decision maker is listed in the patient's medical record. Time Spent With Patient Critical Care time: I spent a total of [] minutes of critical care time on this patient's care today; this time is exclusive of procedural time.
[2022-02-17] MEDS: AMLODIPINE 5 MG TABLET 10 MG PO (15:48)
--- NOTE | 2022-02-17 16:39 | PT.IIE ---
Current Diagnoses Sepsis, unspecified organism (02/15/22) Surgical History (Last Reviewed 02/16/22 @ 03:50 by BERLIN Campbell) History of myringotomy (~2017) Surgical procedure planned Surgical procedure planned (~03/16/12) Medical History (Last Reviewed 02/16/22 @ 03:50 by EVELYNE Campbell-[place]) Anxiety Asbestos exposure CADASIL (cerebral autosomal dominant arteriopathy with subcortical infarcts and leukoencephalopathy) (~2010) Concussion Conductive hearing 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 Eustachian tube dysfunction GERD (gastroesophageal reflux disease) Headache (04/01/15) Hiatal hernia History of frequent headaches Hyperlipidemia (09/29/16) Insomnia Leukoaraiosis (~2014) Low testosterone Minor head injury without loss of consciousness Monoallelic mutation of NOTCH3 gene MRSA (methicillin resistant Staphylococcus aureus) Partial blindness (~2010) Prepatellar bursitis Sensorineural hearing loss (SNHL) of both ears Sleep apnea Tinnitus Physical Therapy Inpatient Evaluation/Re-Eval M1 PT/OT-IP Prior Functional Status Start: 02/16/22 14:42 Freq: NEEDED Status: Active Protocol: Document 02/17/22 16:39 DLM (Rec: 02/17/22 17:02 [facility] [id number]) Medical Review Prior Functional Status Medical History Reviewed Yes Diet/Fluid Consistency Regular Communication Independent. Wears dentures Mobility and Gait Independent without device, active in community Activities of Daily Living and IADL's Completely independent with ADL, IADL, drives and works in construction. Social History Household Members none Living Arrangements House Number of Floors (Floors) One Floor Number of Stairs To Enter/Railing? 3 steps with rail Home Environment Walk in Shower,Tub/Shower Home Equipment Grab Bars In Shower Employment Status Self-Employed Additional Social History Comment He has two supportive Daughters M2 PT-IP Current Condition Start: 02/16/22 14:42 Freq: NEEDED Status: Active Protocol: Document 02/17/22 16:39 DLM (Rec: 02/17/22 17:02 [facility] [id number]) Physical Therapy Current Condition Current Condition Evaluation Date 02/17/22 Treatment Diagnosis Left side weakness, impaired balance and gait Onset Date 02/15/22 M3 PT-IP Subjective Start: 02/16/22 14:42 Freq: NEEDED Status: Active Protocol: Document 02/17/22 16:39 DLM (Rec: 02/17/22 17:02 [facility] [id number]) Subjective Physical Therapy Visit Type Type Initial Evaluation Visit Start Time 16:00 Visit Stop Time 16:39 Total Visit Minutes 39 Number of CANDY SPREADER Visits 0 Physical Therapy Visit Comments Patient Comments He does not know why he is in the hospital Patient Goals He wants to go home M4 PT-IP Mobility and Gait Start: 02/16/22 14:42 Freq: NEEDED Status: Active Protocol: Document 02/17/22 16:39 DLM (Rec: 02/17/22 17:02 [facility] [id number]) PT-Bed Mobility Assessment Rolling Type of Rolling Bilateral Level of Assist Independent Supine to Sit Supine to Sit Independent Sit to Supine Sit to Supine Independent Scooting Scooting to Edge of Bed Independent Scooting Up and Down in Bed Independent PT-Transfer Assessment Sit to and From Stand Sit to and from Stand Contact Guard Assistance,Use of Upper Extremities Equipment Transfer Assistive Device Gait Belt,Front Wheeled Walker Transfers Transfer Destination Bed,Toilet Transfer Technique Stand Step Pivot Transfer Ability Level of Assist Minimal Assistance,Use of Upper Extremities Comments Mobility Comments He is able to stand up without device but very unsteady when he reaches standing. He is safer when using the FWW for support but it does not fully compensate for his decreased balance in static standing and when he is moving. Pt likes to enter bed by placing his knee on the bed and diving into the bed. He is resistant to sitting on the edge of the bed first even when asked. Gait Assessment Gait Gait Assistance Required: Minimum Assistance,Moderate Assistance Distance (Feet) 300 Assistive Devices Assistive Device Gait Belt,Front Wheeled Walker Gait Deviations General Gait Pattern Wide Based Gait Factors Limiting Gait Function Factors Limiting Gait Function Difficulty Following Directions,Poor Balance Comments Gait Comments He is impulsive and tries to go too fast during gait. He needs assistance to go slower during gait. He needs reminders to use the FWW. Even with the FWW he is prone to lateral losses of balance. Stair Climbing Assessment Comments Stair Climbing Comments not tested this visit PT-Balance Assessment Sitting Balance and Reactions Static Sitting Balance Ability Good Dynamic Sitting Balance Ability Good Standing Balance and Reactions Static Standing Balance Ability Poor Dynamic Standing Balance Ability Poor Balance Tests Single Limb Standing unable to hold with left worse than right Romberg increased sway with lateral losses of balance Tandem Standing unable to hold Comments Other Balance Tests/Deviations/Treatment standing in narrow FLACO with : eyes open- head motions with severe losses of balance with up/down worse than side to side. M5 PT-IP Objective Assessments Start: 02/16/22 14:42 Freq: NEEDED Status: Active Protocol: Document 02/17/22 16:39 DLM (Rec: 02/17/22 17:02 [facility] [id number]) Orientation Orientation/Cognition Level of Alertness Alert Orientation Name,Place Language Function Ability No Deficits Noted Safety Awareness Decreased Safety Awareness Memory Description Short Term Impaired Comments He believed it was still January. He does not know the day of the week. He has difficulty reading information on the white board on the wall to assist with orientation but he does look towards the board to try. He does not know why he is in the hospital. He reports his Daughters visited him today. He is very impulsive and shows poor awareness of his deficits. He shows decreased concentration with tasks and often perseverates on the prior task. Even with demonstration it is difficult for him to change to a new task. He is pleasant and will participate in conversation. Gross Range of Motion Upper Extremity ROM Assessment Within Functional Limits Lower Extremity ROM Assessment Within Functional Limits Strength Upper Extremity Strength Assessment Left Impaired Lower Extremity Strength Assessment Left Impaired Comments Strength Comments 4/5 Coordination Assessment Gross Coordination Gross Coordination Impaired Assessment Foot Tapping Test Moderate Impairment Sensation Assessment Sensation Gross Sensation WNL Muscle Tone Muscle Tone WNL Yes M6 PT-IP Treatment Start: 02/16/22 14:42 Freq: NEEDED Status: Active Protocol: Document 02/17/22 16:39 DLM (Rec: 02/17/22 17:02 [facility] [id number]) Physical Therapy Treatment Education Education Provided Safety Other Treatments Other Treatment Performed re-orientation and safety education provided this visit. Bed alarm in use to decrease his fall risks. He is aware of his need to urinate and was able to get to the toilet without incontinence. He needs encouragement to sit on the toilet instead of standing. M7 PT-IP Assessment and Plan Start: 02/16/22 14:42 Freq: NEEDED Status: Active Protocol: Document 02/17/22 16:39 DLM (Rec: 02/17/22 17:02 [facility] [id number]) PT Summary Assessment and Plan Potential Rehabilitation Potential Good Status of Condition at Evaluation Evolving Summary Impairments Strength,Balance,Coordination, Cognition,Transfers,Gait, Activity Tolerance Assessment Summary Carlos Enrique is alert and willing to work with physical therapy. He can follow simple instructions but has decreased concentration, perseveration and is very impulsive. He presents with impaired balance and coordination in addition to mild left sided weakness. His lack of awareness of his deficits makes him a high fall risk. His gait improves with use of the FWW and when he goes slower. He likes to get back into bed by crawling in on his knee instead of sitting first. He is not safe to discharge home alone. He needs 24/ assistance available at discharge. He is a good candidate for acute rehab. Goals Transfer Goal Contact Guard Assistance,Front Wheeled Walker Gait Goal Contact Guard Assistance,Front Wheel Walker Gait Distance 150 feet Days to Meet Goals 5 Frequency of Treatment Frequency Of Treatment Once a Day Treatment Plan Physical Therapy Treatment Plan Transfer Training,Gait Training,Therapeutic Exercise, Balance Retraining,Discharge Planning,Neuromuscular Re-ed, Coordination Retraining Precautions Other Precautions High fall risk, confusion Recommendations To Nursing Amount of Assist Needed 1 Person Assist Discharge Recommendations PT Discharge Recommendations SNF Rehab,Acute Rehab Transportation Needs at Discharge Private Vehicle,Wheelchair/ Cabulance
--- NOTE | 2022-02-17 17:08 | DIET.CONS ---
Dietary Consultation Note Admission Date: 02/15/2022 20:42 Assessment: 66 y/o M admitted with left-sided weakness and altered mental status found to have sepsis and acute encephalopathy. RD consulted for NPO stroke. Carlos Enrique has since seen [facility] [employer] and diet changed to dysphagia with thin liquids. Carlos Enrique with PT when RD tried to complete assessment. He has had some weight loss (-5.8% over 2 mo and -6.8% pver 4 mo), which is not significant. Will attempt assessment again, though pending POs may not need nutrition interventions. Ht: 167.64 cm Wt: 68.5 kg BMI: 24.3 UBW: Last BM: () MNA: Kyree Score: 16 Diet: 02/17/22 Lunch Dysphagia Diet Diet Modifications: 1:1 distant supervision & remind to use strategies Liquid consistency: Normal/Thin Food texture: Dysphagia Mechanical Soft Labs: RBC 4.02 X10^6/uL (4.5-5.9) L 02/17/22 05:28 Hgb 13.4 g/dL (13.5-17.5) L 02/17/22 05:28 Hct 39.6 % (41-53) L 02/17/22 05:28 Creatinine 1.07 mg/dL (0.66-1.25) 02/17/22 05:28 Hemoglobin A1c 5.5 % (4.0-6.0) 02/15/22 21:49 Lactate 3.2 mmol/L (0.7-2.1) H 02/15/22 20:18 NT-Pro-B Natriuret Pep 298 pg/mL (<125) H 02/15/22 21:49 Monitoring/Evaluations: POs ; Next RD visit 02/20 Electronically Signed by: Juany Yeung 02/17/22 17:08 Clinical Dietitian [address] [address]
[2022-02-17] MEDS: cefTRIAXone 1,000 MG in SODIUM CHLORIDE 0.9% 100 ML 200 MG IV (20:37)
[2022-02-17] MEDS: hydrOXYzine pamoate 25 MG CAPSULE 50 MG PO (20:38)
[2022-02-17] MEDS: SENNOSIDES 8.6 MG TABLET 17.2 MG PO (20:38)
[2022-02-17] MEDS: PROPRANOLOL 10 MG TABLET PO (20:38)
[2022-02-17] MEDS: ATORVASTATIN 20 MG TABLET 80 MG PO (20:38)
[2022-02-17] MEDS: AZITHROMYCIN 500 MG in DEXTROSE 5% IN WATER 250 ML 250 MG IV (22:18)
[2022-02-18 00:13] VITALS: BP 108/71; PULSE 61; RESP 18; TEMP 36.7; O2SAT 96
[2022-02-18 04:59] LABS: Add Manual Diff / Slide Review NO; Basophils Absolute Auto 100 /uL (0-100); Basophils Percent Auto 0.7 % (0-2); Eosinophils Absolute Auto 200 /uL (0-450); Eosinophils Percent Auto 1.7 % (2-4); Hematocrit 38.7 % (41-53); Hemoglobin 13.3 g/dL (13.5-17.5); Lymphocytes Absolute Auto 2800 /uL (1100-4500); Lymphocytes Percent Auto 27.1 % (25-40); Mean Corpuscular HGB Conc 34.4 % (30-36); Mean Corpuscular Hemoglobin 33.7 PG (26-34); Mean Corpuscular Volume 97.8 fL (80-100); Monocytes Absolute Auto 1500 /uL (0-900); Monocytes Percent Auto 14.1 % (3-14); Neutrophils Absolute Auto 5800 /uL (1500-7000); Neutrophils Percent Auto 56.4 % (50-75); Platelet Count 378 X10^3/uL (150-400); Red Blood Cell Count 3.95 X10^6/uL (4.5-5.9); Red Cell Distribution Width 11.9 % (11.6-14.8); White Blood Cell Count 10.4 X10^3/uL (4.5-11.0)
[2022-02-18 05:01] VITALS: BP 136/77; PULSE 63; RESP 18; TEMP 36.5; O2SAT 95
[2022-02-18 05:08] LABS: Alanine Aminotransferase 13 IU/L (<50); Albumin 3.8 g/dL (3.5-5.0); Albumin Globulin Ratio 1.4 (1.0-2.8); Alkaline Phosphatase 57 U/L (38-126); Aspartate Aminotransferase 23 IU/L (17-59); Bilirubin Total 0.8 mg/dL (0.2-1.3); Blood Urea Nitrogen 21 mg/dL (9-20); Calcium 8.5 mg/dL (8.4-10.2); Carbon Dioxide 30 mmol/L (22-32); Chloride 103 mmol/L (98-107); Estimated Glomerular Filt Rate > 60 mL/min (>60); Globulin 2.7 g/dL (1.7-4.1); Glucose 103 mg/dL (80-110); HEMOLYSIS < 15 (0-50); Potassium 4.3 mmol/L (3.4-5.1); Sodium 138 mmol/L (137-145); Total Protein 6.5 g/dL (6.3-8.2)
--- NOTE | 2022-02-18 06:35 | PC.NURSE ---
End of shift report. Patient oriented to self, can state name and date, impulsive, forgets to use call light for assist OOB to use urinal. Slept well during the night. Woke up this am incontinent of urine. Bathed, new gown and linen change. Adult briefs put on. Bed alarm on.
[2022-02-18 07:46] VITALS: BP 111/67; PULSE 61; RESP 16; TEMP 36.8; O2SAT 94
--- NOTE | 2022-02-18 10:48 | OT.IP.TRT ---
Current Diagnoses Sepsis, unspecified organism (02/15/22) Occupational Therapy Treatment Note M2 OT-IP Current Condition Start: 02/17/22 11:48 Freq: Status: Active Protocol: Document 02/17/22 11:49 [facility] (Rec: 02/17/22 12:28 [facility] [id number]) Occupational Therapy Current Condition Current Condition Evaluation Date 02/17/22 Treatment Diagnosis Sepsis, multiple PNA Diagnosis Onset Date 02/15/22 M3 OT- IP Subjective and Pain Start: 02/17/22 11:48 Freq: Status: Active Protocol: Document 02/18/22 11:16 [facility] (Rec: 02/18/22 11:41 [facility] [id number]) OT- Subjective Occupational Therapy Visit Type Type Treatment Note Visit Start Time 10:20 Visit Stop Time 10:48 Total Visit Minutes 28 Occupational Therapy Visit Comments Patient Comments Pt eating his breakfast when Ot came in to see the pt. Patient/Caregiver Goals TO get better. OT Pain Assessment Pain When Pain Assessed At Rest Pain Present Pain Present Denied Pain M4 OT- IP ADL's Start: 02/17/22 11:48 Freq: Status: Active Protocol: Document 02/18/22 11:16 [facility] (Rec: 02/18/22 11:41 [facility] [id number]) OT [id number] General Evaluation Self-Feeding Ability Independent Comments OT Self-Feeding Comments Pt able to use utensils appropriately to eat his cream of wheat.Pt insisting that he was eating potatoes and thought the brown sugar was cinnamon. OT ADL-Grooming General Evaluation Grooming Ability Standby Assistance Areas Needing Assistance Retrieving/Set-up of Grooming Items Comments OT Grooming Comments Assist to open the package for his brush. OT ADL-Oral Care General Eval Oral Care Ability Standby Assistance Areas of Assistance Retrieving/Set-Up of Items Comments Oral Care Comments CGA for balance while standing with the FWW in front of the sink for oral care needs. OT ADL-Dressing General Eval Lower Body Dressing Ability Moderate Assistance Comments OT Dressing Comments Pt able to leeroy brief over his feet after cues for orientation. MODA for balance and also assist to help pull up the brief in the back. OT ADL-Toileting Comments OT Toileting Comments Pt just used the toilet earlier with PT. OT ADL-Bathing Comments OT Bathing Comments To attempt on next session. M6 OT- IP Functional Cognition Start: 02/17/22 11:48 Freq: Status: Active Protocol: Document 02/18/22 11:16 [facility] (Rec: 02/18/22 11:41 [facility] [id number]) Cognitive Factors Limiting Selfcare Function Cognitive Ability Level of Alertness Alert Patient Orientation Name Attention Span Ability Capable of Focused Attention, Capable of Sustained Attention Ability to Follow Commands Able to Follow One Step Commands with Increased Time, Able to Follow One Step Commands with Repetition Safety Awareness Underestimates Need for Assistance Cognitive Comments Cognitive Assessment Comments Pt able to read/see numbers and letters however not able to read after reading out the letters. 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 Pt able to follow commands and needing cues to slow down and take his time. OT- Vision and Hearing OT- Vision Assessment Vision Assessment Comments Pt able to see up close and distance for letters and numbers but not able to read them. M7 OT- IP Mobility and Balance Start: 02/17/22 11:48 Freq: Status: Active Protocol: Document 02/18/22 11:16 [facility] (Rec: 02/18/22 11:41 [facility] [id number]) OT- Bed Mobility Assessment Supine to Sit Supine to Sit Assist Standby Assistance Sit to Supine Sit to Supine Assist Standby Assistance Scooting Scooting to Edge of Bed Contact Guard Assistance OT-Transfer Assessment Sit to and From Stand Sit to and from Stand Minimal Assistance Transfers Transfer Ability Minimal Assistance,Moderate Assistance Technique Transfer Destination Bed Transfer Technique Stand Step Pivot Devices Transfer Assistive Devices Gait Belt,Front Wheeled Walker Comments Mobility Comments SBA to get out of the bed, CGA to stand to FWW and from DHAVAL to MODA for balance with the FWW as pt very unsteady on his feet a little impulsive and needs constant cues to slow down and for safety cues for FWW safety. OT- Balance Assessment Sitting Balance and Reactions Static Sitting Balance Ability Good Dynamic Sitting Balance Ability Fair Standing Balance and Reactions Static Standing Balance Ability Fair Dynamic Standing Balance Ability Poor Comments Other Balance Tests/Deviations/Treatment Pt still tends to cross his : feet at times when up with the FWW. Pt needing MIN A for balance while leaning forwards to leeroy his brief over his feet. M9 OT- IP Assessment and Plan Start: 02/17/22 11:48 Freq: Status: Active Protocol: Document 02/18/22 11:16 [facility] (Rec: 02/18/22 11:41 [facility] [id number]) OT Summary Assessment and Plan Potential Rehabilitation Potential Good Analytic Complexity at Evaluation Moderate Summary OT Impairments Strength,Balance,Coordination, Functional Cognition, Functional Mobility,Self- Feeding,Grooming,Dressing, Toileting,Bathing,Toilet Transfers,Shower Transfers, Activity Tolerance Progress Towards Goals Progressing Toward Goals Assessment Summary Pt making overall improvements with mobility and ADL needs today however 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 Pt now needing one person assist for needs and able to eat with utensils on his own and do oral care and grooming needs after set-up. Pt still having difficulty to read words but able to see, recognize and states individual letters. Pt would benefit from acute rehab versus skilled rehab- as now able to tolerate much more activity today. Pt is highly motivated to get better. Goals Self-Feeding Goal Independent Grooming Goal Independent Dressing Goal Independent Toileting Goal Independent Bathing Goal Independent Toilet Transfer Goal Independent Shower Transfer Goal Independent Days to Meet Goals 24 Frequency of Treatment Frequency Of Treatment Once a Day Treatment Plan OT Treatment Plan ADL Training,Functional Cognition Training,Functional Mobility,Patient/Family Education,Discharge Planning Discharge Recommendations OT Discharge Recommendations SNF Rehab,Acute Rehab Transportation Needs at Discharge Private Vehicle,Wheelchair/ Cabulance
[2022-02-18] MEDS: AMLODIPINE 5 MG TABLET 10 MG PO (10:55)
[2022-02-18] MEDS: PROPRANOLOL 10 MG TABLET PO ×2 (10:55→21:32)
[2022-02-18] MEDS: ASPIRIN EC 81 MG TABLET PO (10:55)
[2022-02-18] MEDS: PANTOPRAZOLE 40 MG VIAL 20 MG IV (10:56)
[2022-02-18] MEDS: ENOXAPARIN 40 MG/0.4 ML SYRINGE SUBCUT (10:56)
[2022-02-18] MEDS: SODIUM CHLORIDE 0.9% FLUSH 10 ML IV ×2 (10:57→21:33)
[2022-02-18 11:40] VITALS: BP 106/59; PULSE 78; RESP 17; TEMP 36.5; O2SAT 94
--- NOTE | 2022-02-18 14:03 | PM.PN.1 ---
Subjective Subjective Date Patient Seen: 02/18/22 Interval history: Patient denies complaints today. Denies chest pain, fever, shortness of breath. He remains confused, though much improved today. Exam Vital Signs (past 8 hours): - 02/18/22 07:46 02/18/22 11:40 Temperature 98.2 F 97.7 F Pulse Rate 61 78 Respiratory Rate 16 17 Blood Pressure 111/67 106/59 L Pulse Oximetry 94 94 Oxygen Flow Rate 0 0 Oxygen Delivery Method Room Air Oxygen Flow Rate 0 Narrative Exam Narrative: General: Patient is a well-developed male, in no distress at this time. HEENT: Normocephalic, atraumatic, extraocular muscles intact, oral pharynx is clear and mucous membranes are moist. Neck is supple and symmetric, trachea is midline, no adenopathy, no thyroid enlargement, nontender, no masses palpated. Negative for JVD Chest: Normal AP diameter and contour without kyphoscoliosis. No tenderness Lungs: Auscultation of all lung mena are clear without adventitious sounds, wheezes, rhonchi, or rales. Cardio: regular rate and rhythm without murmur, rubs, or gallops, no carotid bruit, no cardiac pulsations present. Abdomen: S NT ND Musculoskeletal: Muscle strength and tone are equal within normal limits, no deformity, crepitus, effusions, cyanosis, clubbing or edema present. Full range of motion intact radial and pedal pulses are normal. Skin: Warm dry and intact without rashes, ulcerations or petechiae. Neuro: Orientated to self, hospital only. strength is +5/5 in all extremities, sensation to touch intact, no gross deficits noted of cranial nerves. Psych: Patient calm resting confused, in no distress at this time. Objective Labs Result Diagrams: 02/18/22 04:39 02/18/22 04:39 Labs: Laboratory Results - last 24 hr 02/18/22 02/18/22 04:39 04:39 WBC 10.4 RBC 3.95 L Hgb 13.3 L Hct 38.7 L MCV 97.8 MCH 33.7 MCHC 34.4 RDW 11.9 Plt Count 378 Neut % (Auto) 56.4 Lymph % (Auto) 27.1 [place] % (Auto) 14.1 H Eos % (Auto) 1.7 L Baso % (Auto) 0.7 Neut # (Auto) 5800 Lymph # (Auto) 2800 [place] # (Auto) 1500 H Eos # (Auto) 200 Baso # (Auto) 100 Sodium 138 Potassium 4.3 Chloride 103 Carbon Dioxide 30 BUN 21 H Creatinine 1.00 Estimated GFR > 60 BUN/Creatinine Ratio 21.0 Glucose 103 Calcium 8.5 Total Bilirubin 0.8 AST 23 ALT 13 Alkaline Phosphatase 57 Total Protein 6.5 Albumin 3.8 Globulin 2.7 Albumin/Globulin Ratio 1.4 FOR[facility]LY [facility], [facility] Medical History Anxiety Asbestos exposure CADASIL (cerebral autosomal dominant arteriopathy with subcortical infarcts and leukoencephalopathy) (~2010) Concussion Conductive hearing 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 Eustachian tube dysfunction GERD (gastroesophageal reflux disease) Headache (04/01/15) Hiatal hernia History of frequent headaches Hyperlipidemia (09/29/16) Insomnia Leukoaraiosis (~2014) Low testosterone Minor head injury without loss of consciousness Monoallelic mutation of NOTCH3 gene MRSA (methicillin resistant Staphylococcus aureus) Partial blindness (~2010) Prepatellar bursitis Sensorineural hearing loss (SNHL) of both ears Sleep apnea Tinnitus Surgical History History of myringotomy (~2017) Surgical procedure planned Surgical procedure planned (~03/16/12) Family History Brother Hyperlipidemia Mother Age: 91 Hyperlipidemia GERD (gastroesophageal reflux disease) CADASIL (cerebral AD arteriopathy w infarcts and leukoencephalopathy) Sister Hyperlipidemia CADASIL (cerebral AD arteriopathy w infarcts and leukoencephalopathy) Sister Hyperlipidemia Sister Hyperlipidemia Sister Hyperlipidemia Father Emphysema lung Daughter CADASIL (cerebral AD arteriopathy w infarcts and leukoencephalopathy) Social History household members: none Smoking Status: Former smoker alcohol intake: former Assessment & Plan Assessment & Plan narrative: Carlos Enrique Bullock is a 66-year-old male former smoker with history of GERD, esophagitis, hypertension, and prior autosomal dominant condition called CADASIL for which he follows with neurology at the and is currently in a clinical trial. 1. Sepsis, secondary to multifocal pneumonia, acute, present on admission sofa score 5 -patient received sepsis rehydration in ED and antibiotic therapy. -Chest x-ray and CT demonstrates multifocal pneumonia. -stopped oral prednisone that was given on admission. -continue therapy azithromycin x3 days and Rocephin for 5 days total therapy. -patient is not in respiratory failure, no distress stable. 2. Acute encephalopathy in setting of known CADASIL, CVA, present on admission -MRI shows R sided possible hemorrhagic conversion of old lacunar infarct. Timing unable to be determined but possibly represents source of new deficits. - Initial NIH in the ED was recorded as 12, though this was difficult to assess. He has current difficulties with swallowing, cognitigion, and is weak on the left which would possibly fit with areas seen on MRI. - head CT was negative for any acute intracranial process. -patient currently reported on clinical trial for his CADASIL at . Spoke [facility] Dr. Wallace. recommended only ASA. Stopped plavix. Prior presentations of his have included encephalopathy only and MRIs have previously been negative. EEG also beneficial though not available and not necessary for transfer at this time. MRI as noted above. -PT / OT to continue -continue speech, currently need frequent behavioral reminders to safely swallow, though is much improved today. 3. Essential hypertension with hypertensive urgency, acute on chronic, present on admission -continue patient's amlodipine, propanolol, hydralazine -metoprolol 5 mg as needed Q 15 minutes with a max of 3 doses for SBP >180, DBP >100, HR >110 sustained greater than 30 minutes -initial within normal limits x3. 4. GERD with esophagitis, chronic, present on admission -continue Protonix 5. Hyperlipidemia, chronic, present on admission -hold pravastatin, take lipitor when tolerating oral diet. Code status:DNR Surrogate decision maker: Rachele FRANCIS PCR:Negative DVT/VTE prophylaxis: Lovenox Disposition: Anticipate discharge to SNF or possible acute rehab depending on PT/OT evaluations. I have utilized all available immediate resources to obtain, update, or review the patient's current medications. I confirmed that the patient's advanced care plan is present, Code status is documented and/or surrogate decision maker is listed in the patient's medical record. Time Spent With Patient Critical Care time: I spent a total of [] minutes of critical care time on this patient's care today; this time is exclusive of procedural time.
--- NOTE | 2022-02-18 15:47 | PT.IPTN ---
Current Diagnoses Sepsis, unspecified organism (02/15/22) Physical Therapy Treatment Note M2 PT-IP Current Condition Start: 02/16/22 14:42 Freq: NEEDED Status: Active Protocol: Document 02/17/22 16:39 DLM (Rec: 02/17/22 17:02 DLM [id number]) Physical Therapy Current Condition Current Condition Evaluation Date 02/17/22 Treatment Diagnosis Left side weakness, impaired balance and gait Onset Date 02/15/22 M3 PT-IP Subjective Start: 02/16/22 14:42 Freq: NEEDED Status: Active Protocol: Document 02/18/22 15:47 DLM (Rec: 02/18/22 16:02 DLM [id number]) Subjective Physical Therapy Visit Type Type Treatment Note Visit Start Time 15:00 Visit Stop Time 15:47 Total Visit Minutes 47 Number of BAND MAKER Visits 0 Physical Therapy Visit Comments Patient Comments He believes someone wanted to amputate his left leg during this hospitalization. Patient Goals He wants to get better and go back to his normal activites M4 PT-IP Mobility and Gait Start: 02/16/22 14:42 Freq: NEEDED Status: Active Protocol: Document 02/18/22 15:47 DLM (Rec: 02/18/22 16:02 DLM [id number]) PT-Bed Mobility Assessment Rolling Level of Assist Independent Supine to Sit Supine to Sit Independent Sit to Supine Sit to Supine Independent Scooting Scooting to Edge of Bed Independent Scooting Up and Down in Bed Independent PT-Transfer Assessment Sit to and From Stand Sit to and from Stand Contact Guard Assistance,Use of Upper Extremities Equipment Transfer Assistive Device Gait Belt,Front Wheeled Walker Transfers Transfer Destination Bed,Toilet Transfer Technique Stand Step Pivot Transfer Ability Level of Assist Contact Guard Assistance, Minimal Assistance,Use of Upper Extremities Comments Mobility Comments Intermittent losse of balance laterally and posteriorly, his balance respond is slow. Pt up to toilet to urinate and he agrees to sit. He forgots to pull down underpants before sitting on toilet. Gait Assessment Gait Gait Assistance Required: Contact Guard Assist,Minimum Assistance Distance (Feet) 400 Assistive Devices Assistive Device Gait Belt,Front Wheeled Walker Gait Deviations General Gait Pattern Ataxic,Wide Based Gait Factors Limiting Gait Function Factors Limiting Gait Function Difficulty Following Directions,Poor Balance,Poor Safety Awareness Comments Gait Comments He agrees to use the FWW for gait. He needs frequent reminders to slow down to better manage his balance. Lateral losses of balance intermittently during gait especially when distracted and he turns his head or going around corners. PT-Balance Assessment Sitting Balance and Reactions Static Sitting Balance Ability Good Dynamic Sitting Balance Ability Good Standing Balance and Reactions Static Standing Balance Ability Fair Dynamic Standing Balance Ability Fair Device Used FWW M5 PT-IP Objective Assessments Start: 02/16/22 14:42 Freq: NEEDED Status: Active Protocol: Document 02/17/22 16:39 DLM (Rec: 02/17/22 17:02 ON LICENSE OF [facility] [id number]) Orientation Orientation/Cognition Level of Alertness Alert Orientation Name,Place Language Function Ability No Deficits Noted Safety Awareness Decreased Safety Awareness Memory Description Short Term Impaired Comments He believed it was still January. He does not know the day of the week. He has difficulty reading information on the white board on the wall to assist with orientation but he does look towards the board to try. He does not know why he is in the hospital. He reports his Daughters visited him today. He is very impulsive and shows poor awareness of his deficits. He shows decreased concentration with tasks and often perseverates on the prior task. Even with demonstration it is difficult for him to change to a new task. He is pleasant and will participate in conversation. Gross Range of Motion Upper Extremity ROM Assessment Within Functional Limits Lower Extremity ROM Assessment Within Functional Limits Strength Upper Extremity Strength Assessment Left Impaired Lower Extremity Strength Assessment Left Impaired Comments Strength Comments 4/5 Coordination Assessment Gross Coordination Gross Coordination Impaired Assessment Foot Tapping Test Moderate Impairment Sensation Assessment Sensation Gross Sensation WNL Muscle Tone Muscle Tone WNL Yes M6 PT-IP Treatment Start: 02/16/22 14:42 Freq: NEEDED Status: Active Protocol: Document 02/18/22 15:47 DLM (Rec: 02/18/22 16:02 DL [id number]) Physical Therapy Treatment Other Treatments Other Treatment Performed Standing LE ex with UE support : marching, heel raises, hip extension, hip abduction x 10 reps each B. He has a lot of difficulty completing hip extension exercises with impaired motor planning for that movement. Balance activities: standing in narrow FLACO, standing with EC, standing in tandem, standing with head motions, stepping motions M7 PT-IP Assessment and Plan Start: 02/16/22 14:42 Freq: NEEDED Status: Active Protocol: Document 02/18/22 15:47 DLM (Rec: 02/18/22 16:02 DLScott [id number]) PT Summary Assessment and Plan Summary Impairments Strength,Balance,Coordination, Cognition,Transfers,Gait, Activity Tolerance Progress Towards Goals Progressing Toward Goals Assessment Summary Carlos Enrique is resting in bed but wakes up easily. He participated in re-orientation this morning. This afternoon he was able to recall the day of the week and the hospital name. He knows the month. He does not understand why he is in the hospital. He has decreased insight into his deficits at this time and is focused on being able to go home. He is cooperative with therapy and shows good effort with all activities. He continues to have impaired motor planning and impaired standing balance. He shows improved use of the FWW to manage his balance. He was able to increase his distance of gait. He is not safe to discharge home alone and continues to be a high fall risk. Continue to recommend Acute Rehab at discharge. Goals Transfer Goal Standby Assistance,Front Wheeled Walker Gait Goal Standby Assistance,Front Wheel Walker Gait Distance 150 feet Days to Meet Goals 5 Frequency of Treatment Frequency Of Treatment Once a Day Treatment Plan Physical Therapy Treatment Plan Transfer Training,Gait Training,Therapeutic Exercise, Balance Retraining,Discharge Planning,Neuromuscular Re-ed, Coordination Retraining Precautions Other Precautions High fall risk, confusion, impulsive Recommendations To Nursing Amount of Assist Needed 1 Person Assist Discharge Recommendations PT Discharge Recommendations SNF Rehab,Acute Rehab Transportation Needs at Discharge Private Vehicle,Wheelchair/ Cabulance
[2022-02-18 16:30] VITALS: BP 129/74; PULSE 64; RESP 20; TEMP 36.4; O2SAT 95
--- NOTE | 2022-02-18 16:48 | CM.DPNOTE ---
Discharge Planning Note: Met with patient in room. One of his tenants is visiting. Patient conversing, sitting up in bed. PT worked with him this afternoon, she states he has improved in some areas from yesterday. Apparently cognition, swallowing and balance are issues. S.T. to work with patient tomorrow. Patient states he is not vaccinated and does not desire to be. This limits finding SNF rehabs for him. Daughters Maricarmen and Yanique live in [facility] [facility] [place] and want him to be in skilled rehab facility near them. Yanique will be visiting patient tomorrow. Had lengthy discussion with Maricarmen re patient's condition and stroke effects as well as his genetic disorder which the daughters also have and are educated about she states. She would like to speak with doctor about his condition. Will ask hospitalist tomorrow if he/she can speak with her. Spoke with [facility] SNF, they cannot take, must be fully vaccinated. Spoke with [facility] in [place], [facility] not in until Sunday or Sunday ([phone]), they state patient would have to be in isolation for 14 days if not vaccinated. P: Meet with daughter Yanique tomorrow. Ask hospitalist to call daughter Maricarmen, most involved. Discuss patient needs with therapies. Continue to work on finding acute inpatient Rehab. Prov [facility] rehab looking at, but daughter states she [place]. Dariela Simon RN/DCP
[2022-02-18 19:25] VITALS: BP 113/56; PULSE 68; RESP 18; TEMP 36.5; O2SAT 97
[2022-02-18] MEDS: ATORVASTATIN 20 MG TABLET 80 MG PO (21:32)
[2022-02-18] MEDS: cefTRIAXone 1,000 MG in SODIUM CHLORIDE 0.9% 100 ML 200 MG IV (21:32)
[2022-02-18] MEDS: PANTOPRAZOLE DR 20 MG TABLET PO (21:32)
[2022-02-18] MEDS: SENNOSIDES 8.6 MG TABLET 17.2 MG PO (21:32)
[2022-02-19 04:00] VITALS: BP 142/80; PULSE 56; RESP 18; TEMP 36.2; O2SAT 96
[2022-02-19] MEDS: PANTOPRAZOLE DR 20 MG TABLET PO ×2 (06:23→21:18)
[2022-02-19 08:00] VITALS: BP 118/77; PULSE 64; RESP 16; TEMP 36.5; O2SAT 94
[2022-02-19] MEDS: ASPIRIN EC 81 MG TABLET PO (09:39)
[2022-02-19] MEDS: AMLODIPINE 5 MG TABLET 10 MG PO (09:39)
[2022-02-19] MEDS: ENOXAPARIN 40 MG/0.4 ML SYRINGE SUBCUT (09:39)
[2022-02-19] MEDS: PROPRANOLOL 10 MG TABLET PO ×2 (09:39→21:14)
[2022-02-19] MEDS: SODIUM CHLORIDE 0.9% FLUSH 10 ML IV ×2 (09:40→21:20)
--- NOTE | 2022-02-19 09:59 | ST.IPSLE ---
Visit Care Team Role Provider Type Sergio Cárdenas MD Primary Care Provider Physician Specialty: Internal Medicine Pediatrics Address: [address] [place] [address], [facility] Phone: Fax: Email: [email or web address] Singer DO Emergency Provider Physician Referring Provider Specialty: Emergency Medicine Address: [address] [place] [address], [facility] Email: [email or web address] Indigo Gomez [facility] Admit Provider Physician Attending Provider Specialty: Hospitalist Internal Medicine Address: [address] [place] [address], [facility] Email: Current Diagnoses Sepsis, unspecified organism (02/15/22) Past Medical History (Last Reviewed 02/16/22 @ 03:50 [facility] Anxiety (Medical) Asbestos exposure (Medical) CADASIL (cerebral autosomal dominant arteriopathy with subcortical infarcts and leukoencephalopathy) (Medical ~2010) neuro recommendations are to avoid anticoagulation and IV antithrombotics if possible. Strict maintenance of normal blood pressure, blood sugar. Concussion (Medical) Conductive hearing 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 (Medical) Eustachian tube dysfunction (Medical) GERD (gastroesophageal reflux disease) (Medical) Headache (Medical 04/01/15) Follows with neurology clinic. At 03/18 visit they requested he keep a headache diary, their hypothysis is headaches may be triggered by poor sleep. They also recommended evaluation for depression as a contributor to his irritability and stress which has decreased off of topirimate. 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 MRSA (methicillin resistant Staphylococcus aureus) (Medical) Gluteal Partial blindness (Medical ~2010) Right homonymous hemianopsia Prepatellar bursitis (Medical) Sensorineural hearing loss (SNHL) of both ears (Medical) Sleep apnea (Medical) Tinnitus (Medical) Speech-Language Pathology Speech/Language Eval [employer] Adult Cognitive Linguistic Eval Start: 02/19/22 09:24 Freq: Status: Active Protocol: Document 02/19/22 09:24 MG (Rec: 02/19/22 09:56 MG [id number]) Adult Cognitive Linguistic Evaluation Session Time Visit Start Time 08:30 Visit Stop Time 09:15 Total Visit Minutes 45 Visit Information Visit Number 2 Setting Assessment Location Acute Care Patient Information Identification Type Name Patient History Per H&P: Carlos Enrique Bullock is a 66-year-old male former smoker with history of GERD, esophagitis, hypertension, HLD presents by EMS for evaluation significant left- sided weakness and altered mental status.? Per EMS roommate states that he was found on the floor confused and has not been normal for the past few days.? He was seen and evaluated by EMS last night due to the fall and at the time the patient declared he did not want to be seen.? He is altered, apparently neglecting his left side and had blood glucose 168 prior to arrival. He was not activated as a code stroke as he was outside of any window for tPA or CODE IR. In the ED patient presented with febrile temp of 100.1? hypertensive urgency BP is 181 /101, 194/95, tachycardic with heart rates [id number], and tachypneic RR 24, 25, 29, but O2 saturations remained above 90% on room air. Patient is significantly confused and unable to contribute to HPI, ROS. Upon admit patient's temp is 98.7?, BP 179/94, HR is 95, R is 25, O2 saturation is 95% on room air. Initial NIH in the ED was recorded as 12 but difficult to evaluate accuracy as patient is unable to follow commands appropriately, definite left sided neglect. CTA is negative for pulmonary embolus, head CT is negative for any acute intracranial process. Chest x-ray demonstrates multifocal pneumonia. Patient is admitted for sepsis, due to multifocal pneumonia, encephalopathy, ground level fall possible head injury, r/o stroke/TIA. Education Level Dropped out ej year of high school Occupation Status Construction Hearing Hearing Level Normal Vision Vision Status Impaired Comments Wears glasses; were not at hospital at this time Previous Therapy Previous Speech-Language Therapy No Subjective Patient Report Pt was eating breakfast when [employer]W MEMBER entered the room. Pt was agreeable to [employer]BER entering and conducting language evaluation with him. Further evaluation was requested by the team in order to best plan for discharge. Of note, pt was very talkative and engaging this morning. No overt s/sx noted during his meal. No wet/ gurlgy voice observed. Laryngeal palpation indicated adequate movement at that time . Pt noted he did not feel he was having any swallowing or speech concerns. Mental Status Alert,Responsive,Cooperative, Confused Informal Assessment Receptive Language Normal Yes Expressive Language Normal Yes Pragmatic Language Normal Yes Speech Normal Yes Cognition Normal No Formal Assessment Standardized Test/Screener Type [facility] Mental Status (UMS) Administration Complete Results Pt scored a 13/30 on this assessment, indicating moderate cognitive changes at this time. Of note, pt appeared to have the most difficult time with short term memory storage (i.e., not being able to recall instructions just given, asking for repetitions of information, following verbal tasks residential). Testing protocol is in pt's hospital file. Findings/Results Language Function Within functional limits Cognitive Function Moderately impaired Findings Pt demonstrates congitive communication deficits which negatively impact his ability to retain and verbalize new information given to him. Pt appears unaware of difficulties at this time. Of note, the pt reported he wants to go home and he feels back to normal multiple times during this evaluation. Cognitive Communication Deficits Self-awareness of Cognitive- Limited awareness (minimal Communication Deficits appreciation without specificity) Impact on Functioning Activity Limits/Particip.Rest. Mild: Interpersonal Interactions Mod: General Tasks and Demands Household Tasks Employment Community Safety Risks Mild: Being Left Alone at Home Reacting to Emergency Mod: Managing Medication Traveling Alone in Community Prognosis Prognosis Fair Based on Cognitive status,Comorbidities ,Time since onset Plan of Care Speech-Language Treatment Yes Frequency F/U with therapy for cognitive communication strategies and memory tasks. Patient/Caregiver Education Described results of evaluation,Patient expressed understanding of evaluation, Patient expressed agreement with goals and treatment plans ,Patient expressed understanding of safety precautions,Patient expressed understanding of feeding recommendations,Patient requires further education/ training,Family/caregivers require further education/ training Short Term Goals Pt will participate and utilize memory strategies with 2 verbal reminders. Pt will participate in ongoing evaluation to advance diet if possible. Clothespin Drier Operator Goals Pt will participate and utilize memory strategies independently. Pt will tolerate least restrictive diet without demonstrating overt s/sx of aspiration. Discharge Recommendations [facility] facility, Inpatient rehab facility
[2022-02-19 11:54] VITALS: BP 128/74; PULSE 64; RESP 17; TEMP 36.8; O2SAT 96
--- NOTE | 2022-02-19 12:20 | PT.IPTN ---
Current Diagnoses Sepsis, unspecified organism (02/15/22) Physical Therapy Treatment Note M2 PT-IP Current Condition Start: 02/16/22 14:42 Freq: NEEDED Status: Active Protocol: Document 02/17/22 16:39 DLM (Rec: 02/17/22 17:02 DLM [id number]) Physical Therapy Current Condition Current Condition Evaluation Date 02/17/22 Treatment Diagnosis Left side weakness, impaired balance and gait Onset Date 02/15/22 M3 PT-IP Subjective Start: 02/16/22 14:42 Freq: NEEDED Status: Active Protocol: Document 02/19/22 12:20 AW (Rec: 02/19/22 12:33 AW [id number]) Subjective Physical Therapy Visit Type Type Treatment Note Visit Start Time 11:55 Visit Stop Time 12:20 Total Visit Minutes 25 Number of MANAGER MEDICAL WRITING Visits 0 Physical Therapy Visit Comments Patient Comments Pt understands he likely had a stroke and knows he is in the hospital. Patient Goals He wants to get better and go back to his normal activites M4 PT-IP Mobility and Gait Start: 02/16/22 14:42 Freq: NEEDED Status: Active Protocol: Document 02/19/22 12:20 AW (Rec: 02/19/22 12:33 AW [id number]) PT-Bed Mobility Assessment Supine to Sit Supine to Sit Independent Sit to Supine Sit to Supine Independent Scooting Scooting to Edge of Bed Independent Scooting Up and Down in Bed Independent PT-Transfer Assessment Sit to and From Stand Sit to and from Stand Contact Guard Assistance,Use of Upper Extremities Equipment Transfer Assistive Device None,Gait Belt Transfers Transfer Destination Bed Transfer Technique ambulated with and without FWW Transfer Ability Level of Assist Contact Guard Assistance,Use of Upper Extremities Comments Mobility Comments Pt lying in bed as PT arrived. He sat up and stood using FWW initially to walk the halls. After 200 feet with FWW SBA, pt agreed to ambulate without AD, requiring CGA to min assist to recover from intermittent lateral and posterior LOB. Gait Assessment Gait Gait Assistance Required: Contact Guard Assist,Minimum Assistance Distance (Feet) 400 Assistive Devices Assistive Device None,Gait Belt,Front Wheeled Walker Gait Deviations General Gait Pattern Wide Based Gait Factors Limiting Gait Function Factors Limiting Gait Function Difficulty Following Directions,Poor Balance,Poor Safety Awareness Comments Gait Comments Pt is impulsive, needs regular reminders to slow down for improved balance, needs up to min assist for intermittent LOB - especially in turns and around corners. PT-Balance Assessment Sitting Balance and Reactions Static Sitting Balance Ability Good Dynamic Sitting Balance Ability Good Standing Balance and Reactions Static Standing Balance Ability Fair Dynamic Standing Balance Ability Fair Device Used FWW, no AD Balance Tests Romberg increased sway with lateral losses of balance Tandem Standing able to maintain semi-tandem 15 sec Comments Other Balance Tests/Deviations/Treatment -NBOS EO and EC : -NBOS with head turns and nods EO and EC -semi-tandem stance EO M5 PT-IP Objective Assessments Start: 02/16/22 14:42 Freq: NEEDED Status: Active Protocol: Document 02/17/22 16:39 DLM (Rec: 02/17/22 17:02 DLM [id number]) Orientation Orientation/Cognition Level of Alertness Alert Orientation Name,Place Language Function Ability No Deficits Noted Safety Awareness Decreased Safety Awareness Memory Description Short Term Impaired Comments He believed it was still January. He does not know the day of the week. He has difficulty reading information on the white board on the wall to assist with orientation but he does look towards the board to try. He does not know why he is in the hospital. He reports his Daughters visited him today. He is very impulsive and shows poor awareness of his deficits. He shows decreased concentration with tasks and often perseverates on the prior task. Even with demonstration it is difficult for him to change to a new task. He is pleasant and will participate in conversation. Gross Range of Motion Upper Extremity ROM Assessment Within Functional Limits Lower Extremity ROM Assessment Within Functional Limits Strength Upper Extremity Strength Assessment Left Impaired Lower Extremity Strength Assessment Left Impaired Comments Strength Comments 4/5 Coordination Assessment Gross Coordination Gross Coordination Impaired Assessment Foot Tapping Test Moderate Impairment Sensation Assessment Sensation Gross Sensation WNL Muscle Tone Muscle Tone WNL Yes M6 PT-IP Treatment Start: 02/16/22 14:42 Freq: NEEDED Status: Active Protocol: Document 02/19/22 12:20 AW (Rec: 02/19/22 12:33 AW [id number]) Physical Therapy Treatment Education Education Provided Safety Other Treatments Other Treatment Performed Extra time spent discussing rehab options and differentiating acute rehab from SNF. End of session, pt had a better idea of acute rehab as a means to the stated goal of returning to more independent living. M7 PT-IP Assessment and Plan Start: 02/16/22 14:42 Freq: NEEDED Status: Active Protocol: Document 02/19/22 12:20 AW (Rec: 02/19/22 12:33 AW [id number]) PT Summary Assessment and Plan Summary Impairments Strength,Balance,Coordination, Cognition,Transfers,Gait, Activity Tolerance Progress Towards Goals Progressing Toward Goals Assessment Summary Carlos Enrique expressed fear that rehab would be a end and that he would end up in a fdc. Educated pt extensively on acute rehab environment and high-intensity rehab designed to get him back to regular activity. Pt continues to have poor motor planning and impaired balance that put him at risk of falls. Given needs for speech and physical therapy combined with pt's ability to participate in rehab activities, pt remains an excellent candidate for acute inpatient rehab. Goals Transfer Goal Standby Assistance,Front Wheeled Walker Gait Goal Standby Assistance,Front Wheel Walker Gait Distance 150 feet Days to Meet Goals 5 Frequency of Treatment Frequency Of Treatment Once a Day Treatment Plan Physical Therapy Treatment Plan Transfer Training,Gait Training,Therapeutic Exercise, Balance Retraining,Discharge Planning,Neuromuscular Re-ed, Coordination Retraining Precautions Other Precautions High fall risk, confusion, impulsive Recommendations To Nursing Amount of Assist Needed 1 Person Assist Discharge Recommendations PT Discharge Recommendations SNF Rehab,Acute Rehab Transportation Needs at Discharge Private Vehicle,Wheelchair/ Cabulance
--- NOTE | 2022-02-19 13:14 | CM.DPNOTE ---
Faxed referral to [facility]. [facility] [place] [phone]. Jane Stephen CM Assist.
--- NOTE | 2022-02-19 15:14 | PM.PN.1 ---
Subjective Subjective Date Patient Seen: 02/19/22 Interval history: Patient denies complaints today. Denies chest pain, fever, shortness of breath. He wants to return home at this time, was agreeable to continue to work with therapies today. Exam Vital Signs (past 8 hours): - 02/19/22 08:00 02/19/22 11:54 Temperature 97.7 F 98.3 F Pulse Rate 64 64 Respiratory Rate 16 17 Blood Pressure 118/77 128/74 Pulse Oximetry 94 96 Oxygen Flow Rate 0 0 Oxygen Delivery Method Room Air Oxygen Flow Rate 0 Narrative Exam Narrative: General: Patient is a well-developed male, in no distress at this time. HEENT: Normocephalic, atraumatic, extraocular muscles intact, oral pharynx is clear and mucous membranes are moist. Neck is supple and symmetric, trachea is midline, no adenopathy, no thyroid enlargement, nontender, no masses palpated. Negative for JVD Chest: Normal AP diameter and contour without kyphoscoliosis. No tenderness Lungs: Auscultation of all lung mena are clear without adventitious sounds, wheezes, rhonchi, or rales. Cardio: regular rate and rhythm without murmur, rubs, or gallops, no carotid bruit, no cardiac pulsations present. Abdomen: S NT ND Musculoskeletal: Muscle strength and tone are equal within normal limits, no deformity, crepitus, effusions, cyanosis, clubbing or edema present. Full range of motion intact radial and pedal pulses are normal. Skin: Warm dry and intact without rashes, ulcerations or petechiae. Neuro: Orientated to self, hospital only. strength is +5/5 in all extremities, sensation to touch intact, no gross deficits noted of cranial nerves. Psych: Patient calm resting, in no distress at this time. Poor retention of short term memory. Objective Labs Result Diagrams: 02/18/22 04:39 02/18/22 04:39 [facility] Medical History Anxiety Asbestos exposure CADASIL (cerebral autosomal dominant arteriopathy with subcortical infarcts and leukoencephalopathy) (~2010) Concussion Conductive hearing 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 Eustachian tube dysfunction GERD (gastroesophageal reflux disease) Headache (04/01/15) Hiatal hernia History of frequent headaches Hyperlipidemia (09/29/16) Insomnia Leukoaraiosis (~2014) Low testosterone Minor head injury without loss of consciousness Monoallelic mutation of NOTCH3 gene MRSA (methicillin resistant Staphylococcus aureus) Partial blindness (~2010) Prepatellar bursitis Sensorineural hearing loss (SNHL) of both ears Sleep apnea Tinnitus Surgical History History of myringotomy (~2017) Surgical procedure planned Surgical procedure planned (~03/16/12) Family History Brother Hyperlipidemia Mother Age: 91 Hyperlipidemia GERD (gastroesophageal reflux disease) CADASIL (cerebral AD arteriopathy w infarcts and leukoencephalopathy) Sister Hyperlipidemia CADASIL (cerebral AD arteriopathy w infarcts and leukoencephalopathy) Sister Hyperlipidemia Sister Hyperlipidemia Sister Hyperlipidemia Father Emphysema lung Daughter CADASIL (cerebral AD arteriopathy w infarcts and leukoencephalopathy) Social History household members: none Smoking Status: Former smoker alcohol intake: former Assessment & Plan Assessment & Plan narrative: Carlos Enrique Bullock is a 66-year-old male former smoker with history of GERD, esophagitis, hypertension, and prior autosomal dominant condition called CADASIL for which he follows with neurology at the and is currently in a clinical trial. 1. Sepsis, secondary to multifocal pneumonia, acute, present on admission sofa score 5 -patient received sepsis rehydration in ED and antibiotic therapy. -Chest x-ray and CT demonstrates multifocal pneumonia. -stopped oral prednisone that was given on admission. -continue therapy azithromycin x3 days and Rocephin for 5 days total therapy. -patient is not in respiratory failure, no distress stable. 2. Acute encephalopathy in setting of known CADASIL, CVA, present on admission -MRI shows R sided possible hemorrhagic conversion of old lacunar infarct. Timing unable to be determined but possibly represents source of new deficits. - Initial NIH in the ED was recorded as 12, though this was difficult to assess. He has current difficulties with swallowing, cognitigion, and is weak on the left which would possibly fit with areas seen on MRI. - head CT was negative for any acute intracranial process. -patient currently reported on clinical trial for his CADASIL at . Spoke wih Dr. Wallace. recommended only ASA. Stopped plavix. Prior presentations of his have included encephalopathy only and MRIs have previously been negative. EEG also beneficial though not available and not necessary for transfer at this time. MRI as noted above. -PT / OT to continue -continue speech, currently need frequent behavioral reminders to safely swallow, though is much improved. -SLUMS score of 13/30, indicative of significant cognitive impairment. 3. Essential hypertension with hypertensive urgency, acute on chronic, present on admission -continue patient's amlodipine, propanolol, hydralazine -metoprolol 5 mg as needed Q 15 minutes with a max of 3 doses for SBP >180, DBP >100, HR >110 sustained greater than 30 minutes -initial within normal limits x3. 4. GERD with esophagitis, chronic, present on admission -continue Protonix 5. Hyperlipidemia, chronic, present on admission -hold pravastatin, take lipitor when tolerating oral diet. Code status:DNR Surrogate decision maker: Rachele Rosado COVID PCR:Negative, he is unvaccinated. DVT/VTE prophylaxis: Lovenox Disposition: Hopeful for acute rehab, his lack of covid vaccination precludes him from many possible discharge options. I have utilized all available immediate resources to obtain, update, or review the patient's current medications. I confirmed that the patient's advanced care plan is present, Code status is documented and/or surrogate decision maker is listed in the patient's medical record. Time Spent With Patient Critical Care time: I spent a total of [] minutes of critical care time on this patient's care today; this time is exclusive of procedural time.
--- NOTE | 2022-02-19 15:26 | CM.DPNOTE ---
Discharge Planning Note: Patient worked with therapies today -- PT and COTTON PROGRAM TECHNICIAN. Still struggling but improving. Beginning of day he was saying he wanted to go home but with this DCP and especially [facility] he has come around to accepting the value of acute inpatient rehab for good results. Daughter Maricarmen has also talked with him and encouraging him to do this. [facility] called and spoke with Maricarmen and realize he has a good dc plan from rehab and that is, he would go to Maricarmen's and 's home upon discharge. Sent more PT notes to Meri at [facility] acute inpatient rehab. They are still deciding if accept, Risk Control Manager will have to approve after weekend. Also faxed [facility] in [place] and faxed initial referral. Spoke with katya Millan, , admissions. Plan: Discharge to [facility] if accepting when medically cleared. If [facility] cannot accept, possible backup [facility], stay in touch. Dariela Simon RN/DCP
[2022-02-19 17:10] VITALS: BP 119/82; PULSE 69; RESP 21; TEMP 36.6; O2SAT 95
[2022-02-19 20:00] VITALS: BP 125/86; PULSE 77; RESP 18; TEMP 36.5; O2SAT 98
[2022-02-19] MEDS: ATORVASTATIN 20 MG TABLET 80 MG PO (21:13)
[2022-02-19] MEDS: hydrOXYzine pamoate 25 MG CAPSULE 50 MG PO (21:14)
[2022-02-19] MEDS: SENNOSIDES 8.6 MG TABLET 17.2 MG PO (21:14)
[2022-02-19] MEDS: cefTRIAXone 1,000 MG in SODIUM CHLORIDE 0.9% 100 ML 200 MG IV (21:19)
[2022-02-20] VITALS: BP 114/74; PULSE 57; RESP 16; TEMP 36.8; O2SAT 97
[2022-02-20 04:00] VITALS: BP 103/63; PULSE 56; RESP 15; TEMP 36.1; O2SAT 94
--- NOTE | 2022-02-20 06:41 | PC.NURSE ---
End of shift report. Care of patient from . Patient AAOX3, forgets to use call light for assist, impulsive. Left sided weakness, unsteady gait. Needs assist to prevent fall while getting up to void in BR. Patient is hopeful he can transition home after going to rehab.
[2022-02-20 08:00] VITALS: BP 100/56; PULSE 54; RESP 16; TEMP 36.4; O2SAT 97
[2022-02-20] MEDS: ASPIRIN EC 81 MG TABLET PO (08:17)
[2022-02-20] MEDS: PANTOPRAZOLE DR 20 MG TABLET PO (08:17)
[2022-02-20] MEDS: AMLODIPINE 5 MG TABLET 10 MG PO (08:17)
[2022-02-20] MEDS: ENOXAPARIN 40 MG/0.4 ML SYRINGE SUBCUT (08:17)
[2022-02-20] MEDS: SODIUM CHLORIDE 0.9% FLUSH 10 ML IV (08:18)
--- NOTE | 2022-02-20 08:45 | CM.DPC ---
Addendum entered by Megan Butcher R.N. 02/20/22 15:46: Spoke to patient's daughter, Sandra, and daughter, Yanique. 'They are prepared to take patient home and follow up with [facility] tomorrow. Confirmed with Monty at [facility], that this can be done. She gave her cell number for family to contact. Her number is: [phone]. She will reach out to family, or they can call her tomorrow. Confirmed that patient has Medicare A&B. Was able to get a copy of his card from nurse, and faxed it to Monty. Nurse is obtaining a rapid COVID, and have updated hospitalist for discharge. Addendum entered by Megan Butcher R.N. 02/20/22 14:12: Sent today's OT note to [facility], along with other therapy notes. Will confirm acceptance again, and if they do deny, may need to discuss patient going home with home health, since many facilities have already been contacted. Have spoken to family, daughter, Sandra, is willing to take patient home until he can go to inpatient rehab. Will need to contact Monty to ensure that this can be done. Daughter, aYnique, is also at bedside and is speaking to her sister. Will call facility back and see if this is an option. Addendum entered by Megan Butcher R.N. 02/20/22 12:28: Monty called back from [facility], stated that they reviewed, and based on his cognitive assessment, may be able to accept patient, most likely not until Sun. She was requesting updated O.T. note, possible cognitive assessment, as well, vitals. Asked O.T. if she can do cognitive assessment today, if one was not done. Called back Monty and asked her if she can possibly consider patient for tomorrow. She indicated that if she has some discharges, may consider, can follow up in the am. Gave this DC manufacturing planner fax number of [phone]. Will fax over notes today, and await updated therapy notes. Addendum entered by Megan Butcher R.N. 02/20/22 11:29: Meri at [facility] feels that patient is too high functioning to go to their facility, so they are declining. Awaiting to hear back from [facility]. Updated P.T, they will try to see patient sooner, and put in an updated note. Addendum entered by Megan Butcher R.N. 02/20/22 11:21: Met with patient in his room, had left a message with daughter, Sandra, about the possibility of [facility] accepting patient today. Meri had mentioned, patient has been doing pretty well with therapy, and not sure how much he will need at their facility. She is reviewing clinicals. Patient had someone at bedside, a friend of the family named Antonio. Patient continues to say I want to go home. Sandra, patient's daughter, called back, and updated her. She was more hopeful for [facility] in [place]. Let her know that if patient is medically cleared, and that there is an accepting facility, would most likely need to go with the accepting facility. Daughter stated, has anyone called and asked if [facility] can take patient, let her know that this gearcase assembler can follow up. Called Motny in admissions at [facility]. She indicated, she has to review, patient is walking 400 feet, and may not qualify, but will discuss with her medical delivery technician. She already indicated that they may not be able to accept until Sunday or Sun. At this point, will follow up with both facilities today, regarding acceptance. Addendum entered by Megan Butcher R.N. 02/20/22 09:37: Spoke to Meri at [facility], could possibly take patient today. She indicated, she still needs clinical information, H&P, more P.T. notes, vitals. Sent over 40 pages including face sheet, H&P, MRI results, med sheets, P.T, O.T, and speech notes. Original Note: DCP Cont: [facility] a message, not in detail, in order to follow up if they can accept patient. It is also noted that [facility] may possibly accept as well. P: DCP to continue to follow, as is noted that two facilities may be able to accept patient tomorrow. Megan Butcher RN/Ruby On Rails Software Developer
--- NOTE | 2022-02-20 10:59 | DIET.CONS2 ---
Dietary Inpatient Consultation Note Admission Date: 02/15/2022 20:42 Pt eating well over weekend, 100% POs most meals using [employer] strategies. Pt to transfer to acute rehab today or tomorrow. Diet: 02/17/22 Lunch Dysphagia Diet Diet Modifications: 1:1 distant supervision & remind to use strategies Liquid consistency: Normal/Thin Food texture: Dysphagia Mechanical Soft Nutrition Percent Meal Consumed 100% 02/19/22 18:00 Percent Meal Consumed 100% 02/19/22 13:00 Percent Meal Consumed 25% 02/19/22 09:11 Percent Meal Consumed 100% 02/18/22 17:45 Percent Meal Consumed 5 02/18/22 12:31 Electronically Signed by: Becky Dave 02/20/22 10:59 Clinical Dietitian [address] [id number]
--- NOTE | 2022-02-20 11:38 | OT.IP.TRT ---
Current Diagnoses Sepsis, unspecified organism (02/15/22) Occupational Therapy Treatment Note M2 OT-IP Current Condition Start: 02/17/22 11:48 Freq: Status: Active Protocol: Document 02/17/22 11:49 CCC (Rec: 02/17/22 12:28 CCC [id number]) Occupational Therapy Current Condition Current Condition Evaluation Date 02/17/22 Treatment Diagnosis Sepsis, multiple PNA Diagnosis Onset Date 02/15/22 M3 OT- IP Subjective and Pain Start: 02/17/22 11:48 Freq: Status: Active Protocol: Document 02/20/22 13:34 CGR (Rec: 02/20/22 13:46 CGR [id number]) OT- Subjective Occupational Therapy Visit Type Type Progress Note Visit Start Time 11:11 Visit Stop Time 11:38 Total Visit Minutes 27 Notes Pt agreeable to shower Occupational Therapy Visit Comments Patient Comments how does this leg look (in reference to his L leg), they wanted to cut it off when I first came in here. OT Pain Assessment Pain When Pain Assessed At Rest Pain Present Pain Present Denied Pain M4 OT- IP ADL's Start: 02/17/22 11:48 Freq: Status: Active Protocol: Document 02/20/22 13:34 CGR (Rec: 02/20/22 13:46 CGR [id number]) OT [id number] Comments OT Self-Feeding Comments not meal time OT ADL-Grooming General Evaluation Grooming Ability Standby Assistance Areas Needing Assistance Combing/Brushing Hair,Face Washing Comments OT Grooming Comments standing at sink OT ADL-Oral Care General Eval Oral Care Ability Standby Assistance Areas of Assistance Brushing Teeth Comments Oral Care Comments standing at sink OT ADL-Dressing General Eval Upper Body Dressing Ability Independent Lower Body Dressing Ability Standby Assistance Areas Needing Assistance Underpants/Brief,Socks Comments OT Dressing Comments hospital gown, brief and socks OT ADL-Toileting Comments OT Toileting Comments not performed OT ADL-Bathing Bathing Type Bathing Type Shower General Evaluation Bathing Ability Contact Guard Assistance Comments OT Bathing Comments Pt performed showering seated and standing in shower. Pt stands without notifying their residential mortgage underwriter that he is going to stand dispite instructions to do so for safety. Pt reminded of this and continues to stand without notifiying the residential mortgage underwriter . M5 OT- IP IADL's Start: 02/17/22 11:48 Freq: Status: Active Protocol: Document 02/17/22 11:49 [facility] (Rec: 02/17/22 12:28 [facility] [id number]) OT-Instrumental Activities of Daily Living Deficits IADL Deficits Identified Deficits Home Safety Awareness Awareness of Need for Assistance at Home Decreased Awareness Ability to Problem Solve Emergency Unable to Problem Solve Situations Home Safety Comments Pt is very confused at this time and also had Ativan earlier as got an MRI which may be also affecting his mentation. At this time if pt having to go would require 24/ 7 assist for all needs. M6 OT- IP Functional Cognition Start: 02/17/22 11:48 Freq: Status: Active Protocol: Document 02/18/22 11:16 [facility] (Rec: 02/18/22 11:41 [facility] [id number]) Cognitive Factors Limiting Selfcare Function Cognitive Ability Level of Alertness Alert Patient Orientation Name Attention Span Ability Capable of Focused Attention, Capable of Sustained Attention Ability to Follow Commands Able to Follow One Step Commands with Increased Time, Able to Follow One Step Commands with Repetition Safety Awareness Underestimates Need for Assistance Cognitive Comments Cognitive Assessment Comments Pt able to read/see numbers and letters however not able to read after reading out the letters. 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 Pt able to follow commands and needign cues to slow down and take his time. OT- Vision and Hearing OT- Vision Assessment Vision Assessment Comments Pt able to see up close and distance for letters and numbers but not able to read them. M7 OT- IP Mobility and Balance Start: 02/17/22 11:48 Freq: Status: Active Protocol: Document 02/20/22 13:34 CGR (Rec: 02/20/22 13:46 CGR [id number]) OT- Bed Mobility Assessment Supine to Sit Supine to Sit Assist Standby Assistance Sit to Supine Sit to Supine Assist Standby Assistance Scooting Scooting to Edge of Bed Standby Assistance OT-Transfer Assessment Sit to and From Stand Sit to and from Stand Contact Guard Assistance Transfers Transfer Ability Contact Guard Assistance Technique Transfer Destination Bed,Shower Stall Transfer Technique Stand Step Pivot Devices Transfer Assistive Devices Gait Belt,Front Wheeled Walker Comments Mobility Comments Pt ambualted around the room with CGA d/t highly impulsive without proper use of walker for balance. OT- Balance Assessment Sitting Balance and Reactions Static Sitting Balance Ability Good Dynamic Sitting Balance Ability Fair M8 OT- IP Objective Assessments Start: 02/17/22 11:48 Freq: Status: Active Protocol: Document 02/17/22 11:49 CCC (Rec: 02/17/22 12:28 CCC [id number]) OT Gross Range of Motion Upper Extremity Range of Motion Assessment Within Functional Limits OT Strength Upper Extremity Strength Assessment Left Impaired Comments Strength Comments RUE 5/5, LUE 4-/5 to 4/5 from proximal to distal. OT-Muscle Tone Assessment Muscle Tone WNL Yes M9 OT- IP Assessment and Plan Start: 02/17/22 11:48 Freq: Status: Active Protocol: Document 02/20/22 13:34 CGR (Rec: 02/20/22 13:46 CGR [id number]) OT Summary Assessment and Plan Potential Rehabilitation Potential Good Analytic Complexity at Evaluation Moderate Summary OT Impairments Strength,Balance,Coordination, Functional Cognition, Functional Mobility,Self- Feeding,Grooming,Dressing, Toileting,Bathing,Toilet Transfers,Shower Transfers, Activity Tolerance Progress Towards Goals Progressing Toward Goals Assessment Summary Pt is progressing with his abilities. Pt was able to bathe himself with with poor safety. Pt educated on safety without follow through. Pt appears to have progressed in his abilities but is largely unsafe d/t his implusivity. Pt will continue to benefit from therapy services. Goals Self-Feeding Goal Independent Grooming Goal Independent Dressing Goal Independent Toileting Goal Independent Bathing Goal Independent Toilet Transfer Goal Independent Shower Transfer Goal Independent Days to Meet Goals 24 Frequency of Treatment Frequency Of Treatment Once a Day Treatment Plan OT Treatment Plan ADL Training,Functional Cognition Training,Functional Mobility,Patient/Family Education,Discharge Planning Discharge Recommendations OT Discharge Recommendations SNF Rehab,Acute Rehab Transportation Needs at Discharge Private Vehicle,Wheelchair/ Cabulance
[2022-02-20 11:53] VITALS: BP 140/79; PULSE 79; RESP 21; TEMP 36; O2SAT 97
--- NOTE | 2022-02-20 14:56 | PT.IPTN ---
Current Diagnoses Sepsis, unspecified organism (02/15/22) Physical Therapy Treatment Note M2 PT-IP Current Condition Start: 02/16/22 14:42 Freq: NEEDED Status: Active Protocol: Document 02/17/22 16:39 DLM (Rec: 02/17/22 17:02 DLM [id number]) Physical Therapy Current Condition Current Condition Evaluation Date 02/17/22 Treatment Diagnosis Left side weakness, impaired balance and gait Onset Date 02/15/22 M3 PT-IP Subjective Start: 02/16/22 14:42 Freq: NEEDED Status: Active Protocol: Document 02/20/22 14:35 [facility] (Rec: 02/20/22 14:56 [facility] [id number]) Subjective Physical Therapy Visit Type Type Treatment Note Visit Start Time 12:45 Visit Stop Time 13:10 Total Visit Minutes 25 Number of PRINCIPAL JAVA SOFTWARE ENGINEER Visits 0 Physical Therapy Visit Comments Patient Comments pt finished lunch and is laying in bed, he agrees to PT . He states his leg is feeling much better M4 PT-IP Mobility and Gait Start: 02/16/22 14:42 Freq: NEEDED Status: Active Protocol: Document 02/20/22 14:35 [facility] (Rec: 02/20/22 14:56 [facility] [id number]) PT-Transfer Assessment Sit to and From Stand Sit to and from Stand Standby Assistance Equipment Transfer Assistive Device None,Gait Belt Transfers Transfer Destination Bed Transfer Technique initially used FWW but then discontinued us and pt ambulated without walker Transfer Ability Level of Assist Contact Guard Assistance,Use of Upper Extremities Comments Mobility Comments Pt lying in bed after lunch. He stood with fww and ambulated 200 feet with walker . The walker was then discontinued and Carlos Enrique walked 5 laps around the ICU which is approx 680 feet with CGA and no loss of balance Gait Assessment Gait Gait Assistance Required: Contact Guard Assist Distance (Feet) 680 Assistive Devices Assistive Device None,Gait Belt Gait Deviations General Gait Pattern Wide Based Gait Factors Limiting Gait Function Factors Limiting Gait Function Difficulty Following Directions,Poor Balance,Poor Safety Awareness Comments Gait Comments Pt is demonstrating improved mobility for ambulation and does not require the fww. He is CGA and is taking full weight onto his left LE. He does tend to walk fast but did not show any loss of balance with gait today PT-Balance Assessment Sitting Balance and Reactions Static Sitting Balance Ability Good Dynamic Sitting Balance Ability Good Standing Balance and Reactions Static Standing Balance Ability Good Dynamic Standing Balance Ability Fair Device Used no AD M5 PT-IP Objective Assessments Start: 02/16/22 14:42 Freq: NEEDED Status: Active Protocol: Document 02/17/22 16:39 DLM (Rec: 02/17/22 17:02 DLM [id number]) Orientation Orientation/Cognition Level of Alertness Alert Orientation Name,Place Language Function Ability No Deficits Noted Safety Awareness Decreased Safety Awareness Memory Description Short Term Impaired Comments He believed it was still January. He does not know the day of the week. He has difficulty reading information on the white board on the wall to assist with orientation but he does look towards the board to try. He does not know why he is in the hospital. He reports his Daughters visited him today. He is very impulsive and shows poor awareness of his deficits. He shows decreased concentration with tasks and often perseverates on the prior task. Even with demonstration it is difficult for him to change to a new task. He is pleasant and will participate in conversation. Gross Range of Motion Upper Extremity ROM Assessment Within Functional Limits Lower Extremity ROM Assessment Within Functional Limits Strength Upper Extremity Strength Assessment Left Impaired Lower Extremity Strength Assessment Left Impaired Comments Strength Comments 4/5 Coordination Assessment Gross Coordination Gross Coordination Impaired Assessment Foot Tapping Test Moderate Impairment Sensation Assessment Sensation Gross Sensation WNL Muscle Tone Muscle Tone WNL Yes M6 PT-IP Treatment Start: 02/16/22 14:42 Freq: NEEDED Status: Active Protocol: Document 02/19/22 12:20 AW (Rec: 02/19/22 12:33 AW [id number]) Physical Therapy Treatment Education Education Provided Safety Other Treatments Other Treatment Performed Extra time spent discussing rehab options and differentiating acute rehab from SNF. End of session, pt had a better idea of acute rehab as a means to the stated goal of returning to more independent living. M7 PT-IP Assessment and Plan Start: 02/16/22 14:42 Freq: NEEDED Status: Active Protocol: Document 02/20/22 14:35 [facility] (Rec: 02/20/22 14:56 [facility] [id number]) PT Summary Assessment and Plan Summary Impairments Strength,Balance,Coordination, Cognition,Transfers,Gait, Activity Tolerance Progress Towards Goals Progressing Toward Goals Assessment Summary Carlos Enrique is doing better overall with his mobility and was CGA only for ambulation today of approx 680 feet without assistive device. He is showing progression with his left sided leg strength and tested 5/5 with MMT today. He is still showing cognitive impairments and impulsivity. He would benefit from acute rehab for cognitive impairments. Goals Transfer Goal Standby Assistance,Front Wheeled Walker Gait Goal Standby Assistance,Front Wheel Walker Gait Distance 150 feet Days to Meet Goals 5 Frequency of Treatment Frequency Of Treatment Once a Day Treatment Plan Physical Therapy Treatment Plan Transfer Training,Gait Training,Therapeutic Exercise, Balance Retraining,Discharge Planning,Neuromuscular Re-ed, Coordination Retraining Precautions Other Precautions High fall risk, confusion, impulsive Recommendations To Nursing Amount of Assist Needed 1 Person Assist Discharge Recommendations PT Discharge Recommendations SNF Rehab,Acute Rehab Transportation Needs at Discharge Private Vehicle,Wheelchair/ Cabulance
--- NOTE | 2022-02-20 16:04 | P.DS_ITS ---
History of Present Illness History of Present Illness Date Patient Seen: 02/20/22 Chief complaint: L sided weakness Narrative: Per Indigo Gomez, COIN MACHINE SUPERVISOR-BC: Carlos Enrique Bullock is a 66-year-old male former smoker with history of GERD, esophagitis, hypertension, HLD presents by EMS for evaluation significant left- sided weakness and altered mental status.? Per EMS roommate states that he was found on the floor confused and has not been normal for the past few days.? He was seen and evaluated by EMS last night due to the fall and at the time the patient declared he did not want to be seen.? He is altered, apparently neglecting his left side and had blood glucose 168 prior to arrival. He was not activated as a code stroke as he was outside of any window for tPA or CODE IR. In the ED patient presented with febrile temp of 100.1? hypertensive urgency BP is 181/101, 194/95, tachycardic with heart rates 128025, and tachypneic RR 24, 25, 29, but O2 saturations remained above 90% on room air. Patient is significantly confused and unable to contribute to HPI, ROS. Upon admit patient's temp is 98.7?, BP 179/94, HR is 95, R is 25, O2 saturation is 95% on room air. Patient has a white count of 18.3, with a left shift 15,600, mono# 1600, sofa score 5, mild hyponatremia sodium 134, chloride 95, glucose 148, total bili 2.3, lactate 3.2, CRP 1.8, BNP 298, TSH WNL, procalcitonin WNL, T CK 43, CK-2 is 2.48, COVID is negative. ABGs pH 7.42, pCO2 34.9, PO2 63, bicarb 23, T CO2 24, O2 saturation 92%. Initial NIH in the ED was recorded as 12 but difficult to evaluate accuracy as patient is unable to follow commands appropriately, definite left sided neglect. CTA is negative for pulmonary embolus, head CT is negative for any acute intracranial process. Chest x-ray demonstrates multifocal pneumonia. Patient is admitted for sepsis, due to multifocal pneumonia, encephalopathy, ground level fall possible head injury, r/o stroke/TIA. Discharge Providers Provider Date of admission: 02/15/22 20:42 Discharge Date: 02/20/22 Primary care physician: Sergio Cárdenas MD Consults: 02/15/22 20:39 Consult to Discharge Planning Routine Comment: stroke Consult to Occupational Therapy Evaluate & Treat Comment: left side deficit Physician Instructions: Evaluate and treat Consult to Physical Therapy Evaluate & Treat Comment: left side deficit Physician Instructions: Evaluate and Treat Consult to Speech Therapy Evaluate & Treat Comment: left side deficit Physician Instructions: Evaluate and treat 02/15/22 20:55 Consult to Respiratory Therapy Evaluate & Treat Comment: PRN Pneumonia Physician Instructions: Evaluate and treat 02/15/22 21:51 Consult to Speech Therapy Evaluate & Treat Comment: Physician Instructions: Evaluate and treat 02/15/22 21:55 Consult to Dietitian, Adult Routine Comment: Reason For Exam: stroke 02/16/22 15:34 Consult to Dietitian, Adult Routine Comment: Reason For Exam: NPO stroke Discharge provider: John Pinozn DO Summary Hospital Course Discharge Diagnosis: Please see hospital course by problem list noted Hospital Course: Carlos Enrique Bullock is a 66-year-old male former smoker with history of GERD, esophagitis, hypertension, and prior autosomal dominant condition called CADASIL for which he follows with neurology at the and is currently in a clinical trial. 1. Sepsis, secondary to multifocal pneumonia, acute, present on admission sofa score 5 -patient received sepsis rehydration in ED and antibiotic therapy. -Chest x-ray and CT demonstrated multifocal pneumonia in the emergency room. -continued therapy azithromycin x3 days and Rocephin for 5 days total therapy. He was discharged with oral augmentin to complete pneumonia treatment at home / acute rehab. ? 2. Acute encephalopathy in setting of known CADASIL, CVA, present on admission - MRI showed R sided possible hemorrhagic conversion of old lacunar infarct. Timing unable to be determined but possibly represents source of new deficits. He was initially was on aspirin, this was held and I recommend he follow up with his stroke neurology team at [facility] to discuss ongoing management. - Initial NIH in the ED was recorded as 12, though this was difficult to assess. He has current difficulties with swallowing, cognition, and is weak on the left which would possibly fit with areas seen on MRI. These symptoms did improve rapidly over the course of admission. - head CT was negative for any acute intracranial process. -patient currently reported on clinical trial for his CADASIL at . Spoke [facility] Dr. Wallace. recommended only ASA initially. Stopped plavix. Prior presentations of his have included encephalopathy only and MRIs have previously been negative. EEG also beneficial though not available and not necessary for transfer. MRI as noted above. -PT / OT / speech therapy at acute rehab. -SLUMS score of 13/30, indicative of significant cognitive impairment. -patient was insistent on going home. He was medically stable as of 02/20 and continuing to improve. He is being evaluated for an acute rehab stay at [facility] nearer to his family, but bed not available until possibly Sunday. Family agreed to take patient to live with daughter and will transport patient to acute rehab at that time. Please see care management notes for further specifics. 3. Essential hypertension with hypertensive urgency, acute on chronic, present on admission -continued patient's amlodipine, propanolol, hydralazine. No changes currently recommended. Initially some medications were held in the setting of sepsis. 4. GERD with esophagitis, chronic, present on admission -continued home Protonix 5. Hyperlipidemia, chronic, present on admission - continued home pravastatin. Time Spent with Patient Time spent: Greater than 30 minutes Exam Vital Signs (past 8 hours): - 02/20/22 11:53 Temperature 96.8 F L Pulse Rate 79 Respiratory Rate 21 Blood Pressure 140/79 Pulse Oximetry 97 Oxygen Delivery Method Room Air Oxygen Flow Rate 0 Narrative Exam Narrative: General: Patient is a well-developed male, in no distress at this time. HEENT: Normocephalic, atraumatic, extraocular muscles intact, oral pharynx is clear and mucous membranes are moist. Neck is supple and symmetric, trachea is midline, no adenopathy, no thyroid enlargement, nontender, no masses palpated. Negative for JVD Chest: Normal AP diameter and contour without kyphoscoliosis. No tenderness Lungs: Auscultation of all lung mena are clear without adventitious sounds, wheezes, rhonchi, or rales. Cardio: regular rate and rhythm without murmur, rubs, or gallops, no carotid bruit, no cardiac pulsations present. Abdomen: S NT ND Musculoskeletal: Muscle strength and tone are equal within normal limits, no deformity, crepitus, effusions, cyanosis, clubbing or edema present. Full range of motion intact radial and pedal pulses are normal. Skin: Warm dry and intact without rashes, ulcerations or petechiae. Neuro: Orientated to self, hospital only. strength is +5/5 in all extremities, sensation to touch intact, no gross deficits noted of cranial nerves. Psych: Patient calm resting, in no distress at this time. Poor retention of short term memory. Objective Labs Result Diagrams: 02/18/22 04:39 02/18/22 04:39 [facility] Medical History Anxiety Asbestos exposure CADASIL (cerebral autosomal dominant arteriopathy with subcortical infarcts and leukoencephalopathy) (~2010) Concussion Conductive hearing 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 Eustachian tube dysfunction GERD (gastroesophageal reflux disease) Headache (04/01/15) Hiatal hernia History of frequent headaches Hyperlipidemia (09/29/16) Insomnia Leukoaraiosis (~2014) Low testosterone Minor head injury without loss of consciousness Monoallelic mutation of NOTCH3 gene MRSA (methicillin resistant Staphylococcus aureus) Partial blindness (~2010) Prepatellar bursitis Sensorineural hearing loss (SNHL) of both ears Sleep apnea Tinnitus Surgical History History of myringotomy (~2017) Surgical procedure planned Surgical procedure planned (~03/16/12) Family History Brother Hyperlipidemia Mother Age: 91 Hyperlipidemia GERD (gastroesophageal reflux disease) CADASIL (cerebral AD arteriopathy w infarcts and leukoencephalopathy) Sister Hyperlipidemia CADASIL (cerebral AD arteriopathy w infarcts and leukoencephalopathy) Sister Hyperlipidemia Sister Hyperlipidemia Sister Hyperlipidemia Father Emphysema lung Daughter CADASIL (cerebral AD arteriopathy w infarcts and leukoencephalopathy) Social History household members: none Smoking Status: Former smoker alcohol intake: former Discharge Plan Discharge Plan Patient Disposition: Home Provider Discharge Comment: You were admitted to the hospital with confusion, possibly due to a new CVA or pneumonia. You improved with time and antibiotics. Follow up with your stroke neurologist at [facility]. [place], but you wished to go home with your sister for a few days. 3 additional day of antibiotics were sent to [facility] for treatment of pneumonia. Discharge orders & Medications Prescriptions: New amoxicillin-pot clavulanate 875-125 mg tablet 1 tab PO BID 3 Days Qty: 6 0RF Continued acetaminophen 325 MG tablet 325 mg PO 4-6XD Qty: 0 amlodipine 10 mg tablet 10 mg PO DAILY Qty: 90 3RF pantoprazole [Protonix] 20 mg tablet,delayed release (DR/EC) 20 mg PO BID Qty: 60 1RF pravastatin 40 mg tablet 40 mg PO DAILY Qty: 90 3RF hydroxyzine pamoate 50 mg capsule 50 mg PO BEDTIME PRN (Reason: insomnia) Qty: 30 6RF propranolol 10 mg tablet 10 mg PO BID Follow up/Referrals: Sergio Cárdenas MD [Primary Care Provider] - Diet/Activity/Treatments Diet: Diet as Tolerated Activity: As tolerated Other treatments: [facility] at [phone] tomorrow to arrance admission for patient. Visit Report/Discharge Packet Instructions: DI for Pneumonia -- Adult, How to Prevent Falls Discharge Data Primary Care Provider: Sergio Cárdenas
[2022-02-20 16:30] VITALS: BP 131/83; PULSE 79; RESP 20; TEMP 36.3; O2SAT 98
[2022-02-20 17:14] LABS: COVID19 -Nasal RAPID Negative (Negative)
--- NOTE | 2022-02-20 17:38 | PC.NURSE ---
Discharge instructions given to Yanique, daughter, who also picked up patient's prescription. information given and written for Maricarmen to call Rehab tomorrow. Covid negative
== END 2022-02-20 17:20 | disposition home or self-care (01) | DRG 871 ==
LOC: ED 18:53 → AC 21:09 → ICU 21:20 → AC 02-21 15:55
PROVIDERS: Emergency Medicine; Internal Medicine; Admitting Provider Nurse Practitioner Family; Emergency Provider Emergency Medicine; PCP Pediatrics; Referring Provider Emergency Medicine; Visit Provider Nurse Practitioner Family
DX: A41.9 Sepsis, unspecified organism (principal); G93.41 Metabolic encephalopathy; J18.9 Pneumonia, unspecified organism; I63.9 Cerebral infarction, unspecified; I61.8 Other nontraumatic intracerebral hemorrhage; R41.4 Neurologic neglect syndrome; G81.94 Hemiplegia, unspecified affecting left nondominant side; I67.850 Cerebral autosomal dominant arteriopathy with subcortical infarcts and leukoencephalopathy; R65.20 Severe sepsis without septic shock; I16.0 Hypertensive urgency; R13.10 Dysphagia, unspecified; R47.1 Dysarthria and anarthria; I10 Essential (primary) hypertension; K21.00 Gastro-esophageal reflux disease with esophagitis, without bleeding; E78.5 Hyperlipidemia, unspecified; R29.712 NIHSS score 12; G47.00 Insomnia, unspecified; Z87.891 Personal history of nicotine dependence; Z20.822 Contact with and (suspected) exposure to COVID-19; Z66 Do not resuscitate
CPT/HCPCS: 36415; 36600; 70450; 70496; 70498; 70551; 71045; 73502; 80053; 80061; 80305; 80320; 81001; 82550; 82553; 82805; 83036; 83605; 83690; 83735; 83880; 84145; 84443; 84484; 85025; 85610; 85730; 86140; 87040; 87502; 87635; 87797; 92523; 92610; 93005; 96365; 96366; 96375; 97112; 97116; 97162; 97166; 97530; 97535; 99285; C9803; C9113; J0696; J1650; J1956; J2060; J3360; J3475

== ENCOUNTER → 2022-04-18 13:00 | Outpatient (CLI) | payer MEDICARE, MEDICAID, SELFPAY ==
[2022-02-15 22:24] VITALS: BMI 24.3
[2022-04-18 15:14] LABS: Prostate Specific Antigen Scrn 1.17 ng/mL (0.1-4.0)
[2022-04-18 15:33] LABS: Microalbumin Urine Random 2.1 mg/dL (0-1.6)
[2022-04-18 16:13] LABS: Creatinine Urine Random 396.2 mg/dL; Microalbumi Creatinin Ratio Ur 5.3 ug/mg CR (<30)
== END ==
PROVIDERS: PCP Family Medicine; Referring Provider Family Medicine; Visit Provider Family Medicine
DX: Z12.5 Encounter for screening for malignant neoplasm of prostate (principal); I10 Essential (primary) hypertension
CPT/HCPCS: 36415; 82043; 82570; G0103

== ENCOUNTER → 2022-05-16 08:32 | Outpatient (CLI) | payer MEDICARE, MEDICAID, SELFPAY ==
[2022-02-15 22:24] VITALS: BMI 24.3
[2022-05-16 09:36] LABS: Influenza A - CEPHEID Flu A NEGATIVE (NEGATIVE); Influenza B - CEPHEID Flu B NEGATIVE (NEGATIVE); Respiratory Syncytial Virus Negative (Negative)
[2022-05-16 09:39] LABS: COVID-19 CEPHEID 4-PLEX PCR POSITIVE (Negative)
== END ==
PROVIDERS: PCP Family Medicine; Visit Provider Physician Assistant Medical
DX: R51.9 Headache, unspecified (principal); Z20.828 Contact with and (suspected) exposure to other viral communicable diseases; R05.1 Acute cough
CPT/HCPCS: 0241U

== ENCOUNTER 2022-07-28 19:09 | Inpatient (IN) | payer MEDICARE, MEDICAID, SELFPAY ==
[2022-02-15 22:24] VITALS: BMI 24.3
[2022-07-28] VITALS (40 sets, daily range): BP systolic 96–145; BP diastolic 57–95; PULSE 66–82; RESP 18–37; TEMP 36.8; O2SAT 93–99; BMI 19.6; BMI 19.1
--- NOTE | 2022-07-28 19:09 | DI.CT.S_ITS ---
PROCEDURE: CT STROKE INDICATIONS: CODE STROKE TECHNIQUE: Noncontrast 4.5 mm thick angled axial sections acquired from the foramen magnum to the vertex, with coronal reformats. For radiation dose reduction, the following was used: automated exposure control, adjustment of mA and/or kV according to patient size. COMPARISON: [facility], CT, CT STROKE, 02/15/2022, 17:00. FINDINGS: Image quality: Excellent. CSF spaces: Basal cisterns are patent. No extra-axial fluid collections. The ventricles are symmetric in size and shape. Brain: No intracranial bleeds or masses. There is cerebral volume loss for age, with resultant ventricular and sulcal prominence. There are periventricular and deep white matter chronic small vessel ischemic changes. There is intracranial internal carotid artery atherosclerosis. Skull and face: Calvarium and visualized facial bones appear intact, without suspicious lesions. Sinuses: Visualized sinuses and mastoids are clear. IMPRESSION: 1. No CT evidence of acute intracranial abnormalities. No contraindication for tPA therapy. 2. Age related volume loss and extensive white matter chronic small vessel ischemic changes not significantly changed from previous study. Findings were reported to Dr. Fairchidl in the ER at 7:17 p.m. On 07/28/2022. This study fulfills neurological imaging criteria for inclusion or exclusion of acute stroke therapies based on available published neurological guidelines. Dictated by: Jeremías Carlin M.D. on 07/28/2022 at 19:16 Approved by: Jeremías Carlin M.D. on 07/28/2022 at 19:17
--- NOTE | 2022-07-28 19:09 | DI.CT.S_ITS ---
PROCEDURE: CT ANGIO HEAD AND NECK INDICATIONS: CODE STROKE TECHNIQUE: After the administration of intravenous contrast, 1 mm thick sections acquired from the aortic arch through the [place] of [place]. Post-contrast 4.5 mm thick sections then re-acquired from the foramen magnum to the vertex. 3-dimensional tyebumm-rzuisyiap-ksyzlexedc (MIP) and/or volume rendering reformats were acquired of the central intracranial vasculature and neck separately. For radiation dose reduction, the following was used: automated exposure control, adjustment of mA and/or kV according to patient size. COMPARISON: [facility], CT, CT ANGIO HEAD AND NECK, 02/15/2022, 17:00. FINDINGS: Image quality: Excellent. BRAIN: CSF spaces: Ventricles are normal in size and shape. Basal cisterns are patent. No extra-axial fluid collections. Brain: No midline shift. No intracranial bleeds or masses. Age related atrophy is seen. Extensive periventricular and deep white matter chronic small vessel ischemic changes are seen. No area of abnormal contrast enhancement. [place]-white matter interface appears intact. Skull and face: Calvarium and facial bones appear intact, without suspicious lesions. Orbits appear normal. Sinuses: Sinuses and mastoids are clear. HEAD CT ANGIOGRAPHY: Anterior circulation: Intracranial internal carotid arteries are normal in size and flow. The flow within the paired anterior cerebral arteries is normal and symmetric. The flow within the middle cerebral arteries is normal and symmetric. The anterior communicating artery is seen. No aneurysms are seen. Posterior circulation: Visualized portions of the vertebral arteries demonstrate normal caliber, and join to form a normal appearing basilar artery. Flow within the posterior cerebral arteries is normal and symmetric. No aneurysms are seen. NECK CT ANGIOGRAPHY: Carotid system: The great vessels demonstrate a conventional anatomy as they arise from the aortic arch. The origins of the common carotid arteries appear patent. The common carotid arteries demonstrate normal caliber and courses. The bifurcation regions are both widely patent. The internal carotid arteries demonstrate normal calibers and courses. Posterior circulation: Atherosclerotic calcifications involving origin of bilateral vertebral arteries are again seen more prominent on the left side. The more superior extracranial portions of both vertebral arteries also demonstrate normal courses and calibers. They join to form a normal appearing basilar artery. Soft tissues: Visualized neck soft tissues demonstrate no suspicious abnormalities. Bones: No suspicious bony lesions. Visualized cervical spine appears normally aligned. IMPRESSION: 1. No CT evidence of acute intracranial bleed, midline shift or mass effect. No area of abnormal contrast enhancement. 2. Volume loss and small-vessel ischemic changes unchanged from prior studies. 3. Left greater than right vertebral artery origin stenosis unchanged from prior study. 4. No hemodynamically significant stenosis is seen in bilateral carotid arteries. Any quantitative measurements of stenosis were performed using NASCET criteria. Dictated by: Jeremías Carlin M.D. on 07/28/2022 at 19:38 Approved by: Jeremías Carlin M.D. on 07/28/2022 at 19:41
--- NOTE | 2022-07-28 19:18 | ED_ITS ---
HPI - Neuro Symptoms/Deficit General Chief Complaint: Neuro Symptoms/Deficit Stated Complaint: Altered Mental Status Time Seen by Provider: 07/28/22 19:18 History of Present Illness HPI Narrative: Patient is a 66-year-old male former smoker with history of CADASIL, presents today with sudden onset of confusion and vomiting. Last known well was 6:00 p.m.. 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 At that point EMS was called. Patient has an underlying condition predisposed to chronic white matter he sees a new Bambi and a CADASIL specialist Dr. Brooks. He is not supposed to receive some sort of blood thinner because it could potentially kill him. Neither he or his daughter are aware of what it is. I have spoken with daughter she reports that he has had similar episodes to this he actually was seen here in February 2022 with a similar episode but at that time he had left-sided weakness as well. He currently is moving his extremities but not able to follow commands or answer questions appropriately but does have clear speech. Related Data Previous Rx's Medication Instructions Recorded propranolol 10 mg tablet 10 mg PO BID #180 tabs 03/21/22 albuterol sulfate 90 mcg/actuation 2 puff inhalation QID PRN 04/18/22 aerosol inhaler shortness of breath or wheezing #8.5 grams acetaminophen 325 mg tablet 325 mg PO 4-6XD pain #540 tabs 06/14/22 amlodipine 10 mg tablet 10 mg PO DAILY #90 tabs 06/14/22 aspirin 325 mg tablet 325 mg PO DAILY #90 tabs 06/14/22 hydroxyzine pamoate 50 mg capsule 50 mg PO BEDTIME PRN insomnia #90 06/14/22 caps pantoprazole 20 mg tablet,delayed 20 mg PO BID #180 tabs 06/14/22 release (Protonix) pravastatin 40 mg tablet 40 mg PO DAILY #90 tabs 06/14/22 Allergies Allergy/AdvReac Type Severity Reaction Status Date / Time venom-honey bee Allergy Severe swelling Verified 07/28/22 19:47 Review of Systems Review of Systems ROS Unobtainable: All systems reviewed & are unremarkable except as noted in HPI and below Patient History Medical History Anxiety Asbestos exposure CADASIL (cerebral autosomal dominant arteriopathy with subcortical infarcts and leukoencephalopathy) (~2010) Cellulitis Concussion Conductive hearing 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 Eustachian tube dysfunction GERD (gastroesophageal reflux disease) Headache (04/01/15) Hiatal hernia History of frequent headaches Hyperlipidemia (09/29/16) Insomnia Leukoaraiosis (~2014) Low testosterone Minor head injury without loss of consciousness Monoallelic mutation of NOTCH3 gene MRSA (methicillin resistant Staphylococcus aureus) Partial blindness (~2010) Prepatellar bursitis Sensorineural hearing loss (SNHL) of both ears Sepsis Sleep apnea Tinnitus Surgical History History of myringotomy (~2017) Surgical procedure planned Surgical procedure planned (~03/16/12) Family History Brother Hyperlipidemia Mother Age: 91 Hyperlipidemia GERD (gastroesophageal reflux disease) CADASIL (cerebral AD arteriopathy w infarcts and leukoencephalopathy) Sister Hyperlipidemia CADASIL (cerebral AD arteriopathy w infarcts and leukoencephalopathy) Sister Hyperlipidemia Sister Hyperlipidemia Sister Hyperlipidemia Father Emphysema lung Daughter CADASIL (cerebral AD arteriopathy w infarcts and leukoencephalopathy) Social History household members: none Smoking Status: Former smoker Tobacco: How many years used: 5 alcohol intake: former substance use type: does not use Smoking Status: Former smoker (Childhood ) alcohol intake frequency: 0-2 drinks per day Substance Use Type: does not use Exam Initial Vital Signs Initial Vital Signs: Vital Signs Pulse Rate 74 07/28/22 19:26 Respiratory Rate 18 07/28/22 19:26 GENERAL: Alert pleasant confused 66-year-old male and in no acute distress. HEENT: Head atraumatic,EOMI, pupils reactive, face symmetric, moist mucous membranes CARDIOVASCULAR: Regular rate and rhythm without murmurs, rubs or gallops. RESPIRATORY: Breath sounds equal bilaterally, no wheezes rales or rhonchi. ABDOMEN: Soft, nontender. Normoactive bowel sounds all 4 quadrants. No guarding or rebound. EXTREMITIES: Normal range of motion, no clubbing or edema. Neurovascularly intact NEUROLOGICAL: Alert clear speech repetitive answers and questioning moving extremities but not following commands face is symmetric pupils are equal SKIN: Warm, dry, no laceration, no petechiae, no rashes or lesions. Course Orders Ordered: ED Orders 07/28/22 19:[address] angio head and neck Stat 07/28/22 19:19 EKG-12 Lead Stat 07/28/22 19:32 Complete Blood Count AUTO DIFF Stat Comprehensive Metabolic Panel Stat Ethanol (ETOH) Stat Hemoglobin A1C% w Est Avg Glu Urgent Partial Thromboplastin Time Stat Prothrombin Time INR Stat Troponin & CK Cardiac Panel Stat 07/28/22 19:55 COVID19 -Nasal RAPID/Pre-Proc Stat 07/28/22 22:06 Education, smoking cessation ONGOING 07/28/22 22:13 Consult to Dietitian, Adult Routine 07/28/22 22:14 Consult to Occupational Therapy Evaluate & Treat Consult to Physical Therapy Evaluate & Treat 07/28/22 22:15 MR stroke Stat 07/29/22 05:00 Basic Metabolic Panel Routine Hemoglobin and Hematocrit Routine Prothrombin Time INR Routine Acetaminophen (Acetaminophen 325 Mg Tablet) 650 mg PO Q6H PRN PRN Reason: Fever/Mild Pain (1-3) Amlodipine Besylate (Amlodipine 5 Mg Tablet) 10 mg PO DAILY [facility] Hydroxyzine Pamoate (Hydroxyzine Pamoate 25 Mg Capsule) 50 mg PO BEDTIME PRN PRN Reason: insomnia Last Admin: 07/28/22 23:25 Dose: 50 mg Documented By: LIBBY Naloxone HCl (Naloxone 0.4 Mg/Ml Vial) 0.2 mg IV Q2MIN PRN PRN Reason: Opiate Reversal Ondansetron HCl (Ondansetron 4 Mg/2 Ml Inj) 4 mg IV Q8HR PRN PRN Reason: Nausea And Vomiting Pantoprazole Sodium (Pantoprazole Dr 20 Mg Tablet) 20 mg PO BID [facility] Pravastatin Sodium (Pravastatin 20 Mg Tablet) 40 mg PO DAILY [facility] Propranolol HCl (Propranolol 10 Mg Tablet) 10 mg PO BID [facility] Last Admin: 07/28/22 23:26 Dose: 10 mg Documented By: LIBBY Vital Signs Vital signs: Vital Signs - 8 hr 07/28/22 19:51 07/28/22 19:51 07/28/22 19:56 Pulse Rate 70 Respiratory Rate 27 H Blood Pressure 127/78 110/64 Pulse Oximetry 97 07/28/22 19:56 07/28/22 20:00 07/28/22 20:00 Pulse Rate 71 71 Respiratory Rate 24 24 Blood Pressure 118/65 Pulse Oximetry 94 93 07/28/22 20:06 07/28/22 20:06 07/28/22 20:11 Pulse Rate 79 Respiratory Rate 29 H Blood Pressure 121/95 H 96/66 Pulse Oximetry 95 07/28/22 20:11 07/28/22 20:16 07/28/22 20:16 Pulse Rate 72 78 Respiratory Rate 22 20 Blood Pressure 112/70 Pulse Oximetry 95 97 07/28/22 20:20 07/28/22 20:20 07/28/22 20:25 Pulse Rate 74 75 Respiratory Rate 37 H 32 H Blood Pressure 123/74 Pulse Oximetry 96 95 07/28/22 20:25 07/28/22 20:30 07/28/22 20:30 Pulse Rate 77 Respiratory Rate 21 Blood Pressure 129/79 128/77 Pulse Oximetry 95 07/28/22 20:35 07/28/22 20:35 07/28/22 20:40 Pulse Rate 74 Respiratory Rate 23 Blood Pressure 118/76 118/79 Pulse Oximetry 96 07/28/22 20:40 07/28/22 20:45 07/28/22 20:45 Pulse Rate 72 72 Respiratory Rate 18 18 Blood Pressure 123/80 Pulse Oximetry 96 96 07/28/22 20:50 07/28/22 20:50 07/28/22 21:00 Pulse Rate 71 80 Respiratory Rate 20 32 H Blood Pressure 126/81 Pulse Oximetry 96 97 07/28/22 21:02 07/28/22 21:02 07/28/22 21:05 Pulse Rate 78 Respiratory Rate 27 H Blood Pressure 138/76 132/75 Pulse Oximetry 95 07/28/22 21:05 07/28/22 21:11 07/28/22 21:11 Pulse Rate 74 82 Respiratory Rate 20 29 H Blood Pressure 145/68 H Pulse Oximetry 97 98 07/28/22 21:17 07/28/22 21:17 07/28/22 21:20 Pulse Rate 68 Respiratory Rate 24 Blood Pressure 111/58 L 106/58 L Pulse Oximetry 95 07/28/22 21:20 07/28/22 21:25 07/28/22 21:25 Pulse Rate 67 66 Respiratory Rate 21 20 Blood Pressure 105/58 L Pulse Oximetry 96 97 07/28/22 21:30 07/28/22 21:30 07/28/22 21:35 Pulse Rate 68 Respiratory Rate 21 Blood Pressure 104/62 100/58 L Pulse Oximetry 96 07/28/22 21:35 07/28/22 21:40 07/28/22 21:40 Pulse Rate 71 69 Respiratory Rate 28 H 26 H Blood Pressure 110/57 L Pulse Oximetry 97 96 07/28/22 21:45 07/28/22 21:45 07/28/22 21:50 Pulse Rate 69 Respiratory Rate 28 H Blood Pressure 108/63 113/63 Pulse Oximetry 96 07/28/22 21:50 07/28/22 21:54 07/28/22 21:55 Pulse Rate 71 69 Respiratory Rate 27 H 25 H Blood Pressure 121/76 Pulse Oximetry 97 98 07/28/22 21:55 07/28/22 22:00 07/28/22 22:00 Pulse Rate 71 72 Respiratory Rate 21 Blood Pressure 130/82 Pulse Oximetry 97 96 07/28/22 22:05 07/28/22 22:05 07/28/22 22:10 Pulse Rate 70 Respiratory Rate 20 Blood Pressure 141/83 H 135/78 Pulse Oximetry 97 07/28/22 22:10 07/28/22 22:15 07/28/22 22:15 Pulse Rate 71 73 Respiratory Rate Blood Pressure 127/75 Pulse Oximetry 97 98 MDM - Neuro Symptoms/Deficit Lab Data 07/28/22 19:32 07/28/22 19:32 Labs: Lab Results 07/28/22 07/28/22 07/28/22 Range/Units 19:32 19:32 19:32 WBC 7.5 (4.5-11.0) X10^3/uL RBC 4.35 L (4.5-5.9) X10^6/uL Hgb 14.2 (13.5-17.5) g/dL Hct 41.9 (41-53) % MCV 96.5 (80-100) fL MCH 32.7 (26-34) PG MCHC 33.9 (30-36) % RDW 12.6 (11.6-14.8) % Plt Count 329 (150-400) X10^3/uL Neut % (Auto) 52.6 (50-75) % Lymph % (Auto) 31.2 (25-40) % [place] % (Auto) 10.5 (3-14) % Eos % (Auto) 5.1 H (2-4) % Baso % (Auto) 0.6 (0-2) % Neut # (Auto) 3900 (6273-4425) /uL Lymph # (Auto) 2300 (2455-7249) /uL [place] # (Auto) 800 (0-900) /uL Eos # (Auto) 400 (0-450) /uL Baso # (Auto) 0 (0-100) /uL PT 11.5 (10.1-12.7) SECONDS INR 1.0 (0.9-1.3) APTT 22 L (26-36) SECONDS Sodium 135 L (137-145) mmol/L Potassium 3.7 (3.4-5.1) mmol/L Chloride 100 (98-107) mmol/L Carbon Dioxide 22 (22-32) mmol/L BUN 14 (9-20) mg/dL Creatinine 1.04 (0.66-1.25) mg/dL Estimated GFR > 60 (>60) mL/min BUN/Creatinine Ratio 13.5 (6-22) Glucose 150 H (80-110) mg/dL Hemoglobin A1c (4.0-6.0) % Calcium 8.2 L (8.4-10.2) mg/dL Total Bilirubin 0.4 (0.2-1.3) mg/dL AST 24 (17-59) IU/L ALT 15 (<50) IU/L Alkaline Phosphatase 120 (38-126) U/L Total Creatine Kinase 122 (55-170) U/L CK-MB (CK-2) 0.47 (<2.37) ng/mL CK-MB (CK-2) Rel Index 0.4 L (1.5-5.0) % Troponin I < 0.012 (0.01-0.034) ng/mL Total Protein 6.3 (6.3-8.2) g/dL Albumin 3.9 (3.5-5.0) g/dL Globulin 2.4 (1.7-4.1) g/dL Albumin/Globulin Ratio 1.6 (1.0-2.8) Ethyl Alcohol < 10 ( - 10) mg/dL SARS-CoV-2 (PCR) (Negative) 07/28/22 07/28/22 Range/Units 19:32 19:55 WBC (4.5-11.0) X10^3/uL RBC (4.5-5.9) X10^6/uL Hgb (13.5-17.5) g/dL Hct (41-53) % MCV (80-100) fL MCH (26-34) PG MCHC (30-36) % RDW (11.6-14.8) % Plt Count (150-400) X10^3/uL Neut % (Auto) (50-75) % Lymph % (Auto) (25-40) % [place] % (Auto) (3-14) % Eos % (Auto) (2-4) % Baso % (Auto) (0-2) % Neut # (Auto) (6512-3334) /uL Lymph # (Auto) (5922-9602) /uL [place] # (Auto) (0-900) /uL Eos # (Auto) (0-450) /uL Baso # (Auto) (0-100) /uL PT (10.1-12.7) SECONDS INR (0.9-1.3) APTT (26-36) SECONDS Sodium (137-145) mmol/L Potassium (3.4-5.1) mmol/L Chloride (98-107) mmol/L Carbon Dioxide (22-32) mmol/L BUN (9-20) mg/dL Creatinine (0.66-1.25) mg/dL Estimated GFR (>60) mL/min BUN/Creatinine Ratio (6-22) Glucose (80-110) mg/dL Hemoglobin A1c 5.7 (4.0-6.0) % Calcium (8.4-10.2) mg/dL Total Bilirubin (0.2-1.3) mg/dL AST (17-59) IU/L ALT (<50) IU/L Alkaline Phosphatase (38-126) U/L Total Creatine Kinase (55-170) U/L CK-MB (CK-2) (<2.37) ng/mL CK-MB (CK-2) Rel Index (1.5-5.0) % Troponin I (0.01-0.034) ng/mL Total Protein (6.3-8.2) g/dL Albumin (3.5-5.0) g/dL Globulin (1.7-4.1) g/dL Albumin/Globulin Ratio (1.0-2.8) Ethyl Alcohol ( - 10) mg/dL SARS-CoV-2 (PCR) Negative (Negative) Urine Dip Bedside Urine Glucose Negative Bedside Urine Bilirubin - Negative Bedside Urine Ketone - Negative Urine Specific [place] 1.015 Bedside Urine Occult Blood - Negative Bedside Urine pH 6.0 Bedside Urine Protein - Negative Bedside Urine Urobilinogen - Negative Bedside Urine Nitrite - Negative Bedside Urine Leukocytes - Negative Esterase Imaging Data CT scan - head: Radiologist's Impression: see sones CTA - brain/neck: Radiologist's Impression: see sones ECG Data Interpretation: Normal sinus rhythm rate 69 SC 182 QRS [address] changes mild artifact noted similar to previous EKGs MDM Narrative Medical decision making narrative: Patient has underlying genetic disorder followed at the [facility] presents today as a code stroke. His symptoms actually start improving while in the emergency department. I did call and speak to [facility] stroke doctor. There was a evaluation over VTM however at the time of evaluation patient was able to follow commands and cooperate for exam. She was able to find previous neurology notes as well who stated that he may need to start be started on Vimpat 100 mg twice a day his this disease can cause some underlying seizures. She did not recommend any further anticoagulation such as Plavix or aspirin stated that tPA is not indicated for variety of reasons 1 being that his symptoms are improving and #2 the underlying condition can cause increasing bleeding. Patient will need MRI in the morning. Blood work has been reviewed and is unremarkable. Head CT and CT angio results did not crossover. However head CT does not show any intracranial abnormalities, CT angio shows volume loss and small vessel ischemic changes unchanged from prior studies and no significant stenosis. Patient is not having large vessel occlusion symptoms. I have spoken with the patient's daughter who actually gave me most of the history. Indigo Gomez accepts patient Discharge Plan Departure Patient Disposition: Admitted as Observation Clinical Impression: Brain TIA Admit Date/Time: 07/28/22 22:17 Admit Provider: Indigo Gomez
--- NOTE | 2022-07-28 19:49 | PC.NURSE ---
Patient states his last memory was cleaning off his roof at noon. Remembers being at a restaurant but doesn't remember which one. Has asked where he's at and how he got here. Patient recalls that this RN told him he came to the hospital by ambulance.
[2022-07-28 19:52] LABS: Add Manual Diff / Slide Review NO; Basophils Absolute Auto 0 /uL (0-100); Basophils Percent Auto 0.6 % (0-2); Eosinophils Absolute Auto 400 /uL (0-450); Eosinophils Percent Auto 5.1 % (2-4); Hematocrit 41.9 % (41-53); Hemoglobin 14.2 g/dL (13.5-17.5); Lymphocytes Absolute Auto 2300 /uL (1100-4500); Lymphocytes Percent Auto 31.2 % (25-40); Mean Corpuscular HGB Conc 33.9 % (30-36); Mean Corpuscular Hemoglobin 32.7 PG (26-34); Mean Corpuscular Volume 96.5 fL (80-100); Monocytes Absolute Auto 800 /uL (0-900); Monocytes Percent Auto 10.5 % (3-14); Neutrophils Absolute Auto 3900 /uL (1500-7000); Neutrophils Percent Auto 52.6 % (50-75); Platelet Count 329 X10^3/uL (150-400); Red Blood Cell Count 4.35 X10^6/uL (4.5-5.9); Red Cell Distribution Width 12.6 % (11.6-14.8); White Blood Cell Count 7.5 X10^3/uL (4.5-11.0)
[2022-07-28 19:55] LABS: Prothrombin Time 11.5 SECONDS (10.1-12.7)
[2022-07-28 19:57] LABS: PTT Partial Thromboplastin Tim 22 SECONDS (26-36)
[2022-07-28 19:59] LABS: Alanine Aminotransferase 15 IU/L (<50); Albumin 3.9 g/dL (3.5-5.0); Albumin Globulin Ratio 1.6 (1.0-2.8); Alkaline Phosphatase 120 U/L (38-126); Aspartate Aminotransferase 24 IU/L (17-59); BUN Creatinine Ratio 13.5 (6-22); Bilirubin Total 0.4 mg/dL (0.2-1.3); Blood Urea Nitrogen 14 mg/dL (9-20); Calcium 8.2 mg/dL (8.4-10.2); Carbon Dioxide 22 mmol/L (22-32); Chloride 100 mmol/L (98-107); Creatine Kinase 122 U/L (55-170); Estimated Glomerular Filt Rate > 60 mL/min (>60); Ethanol (ETOH) < 10 mg/dL; Globulin 2.4 g/dL (1.7-4.1); Glucose 150 mg/dL (80-110); Potassium 3.7 mmol/L (3.4-5.1); Sodium 135 mmol/L (137-145); Total Protein 6.3 g/dL (6.3-8.2)
[2022-07-28 20:13] LABS: CKMB % Relative Index 0.4 % (1.5-5.0); Creatine Kinase MB 0.47 ng/mL (<2.37)
[2022-07-28 20:29] LABS: COVID19 -Nasal RAPID Negative (Negative)
[2022-07-28 20:35] LABS: HEMOLYSIS 20 (0-50); Troponin I < 0.012 ng/mL (0.01-0.034)
--- NOTE | 2022-07-28 22:15 | DI.MRI.S_ITS ---
PROCEDURE: MR HEAD/BRAIN WO CON INDICATIONS: altered mental/CADSIL exac TECHNIQUE: Non-contrast axial T1 spin echo, axial T2 fast spin echo, sagittal and axial FLAIR, coronal T2 fast spin echo, axial gradient echo, axial diffusion and ADC through the brain. COMPARISON: [facility], CT, CT ANGIO HEAD AND NECK, 07/28/2022, 19:01. [facility], MR, MR HEAD/BRAIN WO CON, 02/17/2022, 10:09. [facility], CT, CT ANGIO HEAD AND NECK, 02/15/2022, 17:00. [facility], CT, CT STROKE, 02/15/2022, 17:00. [facility], CT, CT STROKE, 07/28/2022, 19:01. FINDINGS: Image quality: This examination is limited by involuntary motion artifact. CSF spaces: Ventricles appear symmetric in size and shape. Basal cisterns are patent. No extra-axial fluid collections. Brain: There is a 5 mm focus of abnormal diffusion-weighted signal within the right anterior temporal lobe, as on series 11, image 60. Associated dark signal can be seen on the ADC map, as on series 12 image 10. No intracranial bleeds or mass effects. Brain parenchymal volume loss is seen. Relatively prominent areas of T2 weighted hyperintensity can be seen within the periventricular deep white matter. Brainstem appears normal. Normal intravascular flow voids are present. Skull and face: Calvarial bone marrow is normal in signal. Orbits are normal. Sinuses: Sinuses and mastoids are clear. IMPRESSION: 5 mm focus of acute infarction involving the right anterior temporal lobe. Prominent, confluent areas of abnormal T2 weighted hyperintensity can be seen within the periventricular deep white matter, which are consistent with the given history. Dictated by: Yung Pillai M.D. on 07/29/2022 at 12:09 Approved by: Yung Pillai M.D. on 07/29/2022 at 12:12
--- NOTE | 2022-07-28 22:19 | P.HP_ITS ---
History of Present Illness History of Present Illness Date Patient Seen: 07/28/22 Time Patient Seen: 22:19 Chief complaint: Altered Mental Status Narrative: Carlos Enrique Bullock is a 66-year-old male former smoker with history of hypertension, hyperlipidemia, insomnia, GERD, and CADASIL (episodes/exacerbations: Stroke-like symptoms) was brought in today to the ED following an acute onset of sudden confusion, vomiting, pale, and diaphoretic.? Last known well was 6:00 p.m, in ED he was moving his extremities but not able to follow commands or answer questions appropriately but did have clear speech, NIH :0, telehealth stroke evaluation also completed in ED. which felt that this is a episodes/exacerbation of the progression of CADASIL. Patient was moderately tachypneic in ED RR 29- 37, but remained hemodynamically stable and oxygenating well. On admit patient appears to continue to be confused repeats questions unable to retain information are process discussion. Patient is orientated to self and that he is in the hospital but is unable to recall why he is here and how he got here. He is also avoiding eye contact, turned away during exam and remains in a contracted position. Due to altered mental status accuracy of ROS is unreliable. On admit patient denies chest pain, shortness in breath, headache, changes in vision, difficulty swallowing, speech impairment, weakness, numbness, tingling, difficulty with ambulation, recent falls, head injury, LOC, fever, body aches, chills, cough, recent exposure to illness, abdominal pain, nausea, vomiting, urinary incontinence/retention, dysuria, frequency, urgency, hematuria, bowel changes, constipation, incontinence, melena, rashes, recent changes to medication, illness, injury, or trauma. Admit vitals 121/76, 69, 25, 98% on room air. Patient's laboratory findings are unremarkable with the exception of a glucose 150. Patient is negative for alcohol, COVID, and UTI. NIH:0-though accuracy is questionable as patient is unable to follow commands. CT imaging down at the time of admit. ED ordered CThead & CTA- pending. Patient admitted for observation altered mental status likely CADASIL exacerbation. Patient History Medical History Anxiety Asbestos exposure CADASIL (cerebral autosomal dominant arteriopathy with subcortical infarcts and leukoencephalopathy) (~2010) Cellulitis Concussion Conductive hearing 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 Eustachian tube dysfunction GERD (gastroesophageal reflux disease) Headache (04/01/15) Hiatal hernia History of frequent headaches Hyperlipidemia (09/29/16) Insomnia Leukoaraiosis (~2014) Low testosterone Minor head injury without loss of consciousness Monoallelic mutation of NOTCH3 gene MRSA (methicillin resistant Staphylococcus aureus) Partial blindness (~2010) Prepatellar bursitis Sensorineural hearing loss (SNHL) of both ears Sepsis Sleep apnea Tinnitus Surgical History History of myringotomy (~2017) Surgical procedure planned Surgical procedure planned (~03/16/12) Family & Social History Family History Brother Hyperlipidemia Mother Age: 91 Hyperlipidemia GERD (gastroesophageal reflux disease) CADASIL (cerebral AD arteriopathy w infarcts and leukoencephalopathy) Sister Hyperlipidemia CADASIL (cerebral AD arteriopathy w infarcts and leukoencephalopathy) Sister Hyperlipidemia Sister Hyperlipidemia Sister Hyperlipidemia Father Emphysema lung Daughter CADASIL (cerebral AD arteriopathy w infarcts and leukoencephalopathy) Social History: household members none Safety & Behavioral: Feels Safe in Current Yes Environment Tobacco & Substance use: Smoking Status Former smoker alcohol intake former alcohol intake frequency 0-2 drinks per day Substance Use Type does not use Meds Home Medications and Allergies Home Medications Medication Instructions Recorded Confirmed Type propranolol 10 mg tablet 10 mg PO BID #180 tabs 03/21/22 07/28/22 Rx albuterol sulfate 90 mcg/actuation 2 puff inhalation QID PRN 04/18/22 07/28/22 Rx aerosol inhaler shortness of breath or wheezing #8.5 grams acetaminophen 325 mg tablet 325 mg PO 4-6XD pain #540 tabs 06/14/22 07/28/22 Rx amlodipine 10 mg tablet 10 mg PO DAILY #90 tabs 06/14/22 07/28/22 Rx aspirin 325 mg tablet 325 mg PO DAILY #90 tabs 06/14/22 07/28/22 Rx hydroxyzine pamoate 50 mg capsule 50 mg PO BEDTIME PRN insomnia #90 06/14/22 07/28/22 Rx caps pantoprazole 20 mg tablet,delayed 20 mg PO BID #180 tabs 06/14/22 07/28/22 Rx release (Protonix) pravastatin 40 mg tablet 40 mg PO DAILY #90 tabs 06/14/22 07/28/22 Rx Allergies Allergy/AdvReac Type Severity Reaction Status Date / Time venom-honey bee Allergy Severe swelling Verified 07/28/22 19:47 Review of Systems Review of Systems Narrative: All 12 point systems reviewed with the patient and are negative except otherwise documented. Exam Vital Signs (past 8 hours): - 07/28/22 19:47 07/28/22 19:26 07/28/22 19:28 Pulse Rate 74 74 Respiratory Rate 18 18 Blood Pressure 132/72 134/78 Pulse Oximetry 99 Oxygen Delivery Method Room Air 07/28/22 19:28 07/28/22 19:30 07/28/22 19:30 Pulse Rate 75 74 Respiratory Rate 18 18 Blood Pressure 132/72 Pulse Oximetry 95 97 Oxygen Delivery Method 07/28/22 19:35 07/28/22 19:35 07/28/22 19:40 Pulse Rate 76 Respiratory Rate 20 Blood Pressure 140/76 120/62 Pulse Oximetry 96 Oxygen Delivery Method 07/28/22 19:40 07/28/22 19:46 07/28/22 19:46 Pulse Rate 77 73 Respiratory Rate 24 26 H Blood Pressure 120/81 Pulse Oximetry 95 96 Oxygen Delivery Method 07/28/22 19:51 07/28/22 19:51 07/28/22 19:56 Pulse Rate 70 Respiratory Rate 27 H Blood Pressure 127/78 110/64 Pulse Oximetry 97 Oxygen Delivery Method 07/28/22 19:56 07/28/22 20:00 07/28/22 20:00 Pulse Rate 71 71 Respiratory Rate 24 24 Blood Pressure 118/65 Pulse Oximetry 94 93 Oxygen Delivery Method 07/28/22 20:06 07/28/22 20:06 07/28/22 20:11 Pulse Rate 79 Respiratory Rate 29 H Blood Pressure 121/95 H 96/66 Pulse Oximetry 95 Oxygen Delivery Method 07/28/22 20:11 07/28/22 20:16 07/28/22 20:16 Pulse Rate 72 78 Respiratory Rate 22 20 Blood Pressure 112/70 Pulse Oximetry 95 97 Oxygen Delivery Method 07/28/22 20:20 07/28/22 20:20 07/28/22 20:25 Pulse Rate 74 75 Respiratory Rate 37 H 32 H Blood Pressure 123/74 Pulse Oximetry 96 95 Oxygen Delivery Method 07/28/22 20:25 07/28/22 20:30 07/28/22 20:30 Pulse Rate 77 Respiratory Rate 21 Blood Pressure 129/79 128/77 Pulse Oximetry 95 Oxygen Delivery Method 07/28/22 20:35 07/28/22 20:35 07/28/22 20:40 Pulse Rate 74 Respiratory Rate 23 Blood Pressure 118/76 118/79 Pulse Oximetry 96 Oxygen Delivery Method 07/28/22 20:40 07/28/22 20:45 07/28/22 20:45 Pulse Rate 72 72 Respiratory Rate 18 18 Blood Pressure 123/80 Pulse Oximetry 96 96 Oxygen Delivery Method 07/28/22 20:50 07/28/22 20:50 07/28/22 21:00 Pulse Rate 71 80 Respiratory Rate 20 32 H Blood Pressure 126/81 Pulse Oximetry 96 97 Oxygen Delivery Method 07/28/22 21:02 07/28/22 21:02 07/28/22 21:05 Pulse Rate 78 Respiratory Rate 27 H Blood Pressure 138/76 132/75 Pulse Oximetry 95 Oxygen Delivery Method 07/28/22 21:05 07/28/22 21:11 07/28/22 21:11 Pulse Rate 74 82 Respiratory Rate 20 29 H Blood Pressure 145/68 H Pulse Oximetry 97 98 Oxygen Delivery Method 07/28/22 21:17 07/28/22 21:17 07/28/22 21:20 Pulse Rate 68 Respiratory Rate 24 Blood Pressure 111/58 L 106/58 L Pulse Oximetry 95 Oxygen Delivery Method 07/28/22 21:20 07/28/22 21:25 07/28/22 21:25 Pulse Rate 67 66 Respiratory Rate 21 20 Blood Pressure 105/58 L Pulse Oximetry 96 97 Oxygen Delivery Method 07/28/22 21:30 07/28/22 21:30 07/28/22 21:35 Pulse Rate 68 Respiratory Rate 21 Blood Pressure 104/62 100/58 L Pulse Oximetry 96 Oxygen Delivery Method 07/28/22 21:35 07/28/22 21:40 07/28/22 21:40 Pulse Rate 71 69 Respiratory Rate 28 H 26 H Blood Pressure 110/57 L Pulse Oximetry 97 96 Oxygen Delivery Method 07/28/22 21:45 07/28/22 21:45 07/28/22 21:50 Pulse Rate 69 Respiratory Rate 28 H Blood Pressure 108/63 113/63 Pulse Oximetry 96 Oxygen Delivery Method 07/28/22 21:50 07/28/22 21:54 07/28/22 21:55 Pulse Rate 71 69 Respiratory Rate 27 H 25 H Blood Pressure 121/76 Pulse Oximetry 97 98 Oxygen Delivery Method Oxygen Delivery Method Room Air Narrative Exam Narrative: General: Patient is a well-developed, well-nourished male, who appears disheveled, is turned away and avoiding eye contact, in no distress at this time. HEENT: Normocephalic, atraumatic, extraocular muscles intact, oral pharynx is clear and mucous membranes are moist. Neck is supple and symmetric, trachea is midline, no adenopathy, no thyroid enlargement, nontender, no masses palpated. Negative for JVD Chest: Normal AP diameter and contour without kyphoscoliosis, no nasal flaring, retractions, or tachypneic labored breathing. Lungs: Auscultation of all lung mena are clear without adventitious sounds, wheezes, rhonchi, or rales. Cardio: S1 & S2 with regular rate and rhythm without murmur, rubs, or gallops, no carotid bruit, no cardiac pulsations present. Abdomen: Soft nontender, negative for organomegaly, or masses. Bowel sounds are present in all 4 quadrants without guarding or rebound, no CVA tenderness. Musculoskeletal: Muscle strength and tone are equal within normal limits, no deformity, crepitus, effusions, cyanosis, clubbing or edema present. Full range of motion intact radial and pedal pulses are normal. Skin: Warm dry and intact without rashes, ulcerations or petechiae. Neuro: Alert and orientated x3, strength is +5/5 in all extremities, sensation to touch intact, no gross deficits noted of cranial nerves. Psych: Patient confused, unable to follow commands, repetitive speech/questions, inappropriate affect, mental status attitude, thought context and judgments. Objective Labs 07/28/22 19:32 07/28/22 19:32 Labs: Laboratory Results - last 24 hr 07/28/22 07/28/22 07/28/22 19:32 19:32 19:32 WBC 7.5 RBC 4.35 L Hgb 14.2 Hct 41.9 MCV 96.5 MCH 32.7 MCHC 33.9 RDW 12.6 Plt Count 329 Neut % (Auto) 52.6 Lymph % (Auto) 31.2 Mckean % (Auto) 10.5 Eos % (Auto) 5.1 H Baso % (Auto) 0.6 Neut # (Auto) 3900 Lymph # (Auto) 2300 Mckean # (Auto) 800 Eos # (Auto) 400 Baso # (Auto) 0 PT 11.5 INR 1.0 APTT 22 L Sodium 135 L Potassium 3.7 Chloride 100 Carbon Dioxide 22 BUN 14 Creatinine 1.04 Estimated GFR > 60 BUN/Creatinine Ratio 13.5 Glucose 150 H Calcium 8.2 L Total Bilirubin 0.4 AST 24 ALT 15 Alkaline Phosphatase 120 Total Creatine Kinase 122 CK-MB (CK-2) 0.47 CK-MB (CK-2) Rel Index 0.4 L Troponin I < 0.012 Total Protein 6.3 Albumin 3.9 Globulin 2.4 Albumin/Globulin Ratio 1.6 Ethyl Alcohol < 10 SARS-CoV-2 (PCR) 07/28/22 19:55 WBC RBC Hgb Hct MCV MCH MCHC RDW Plt Count Neut % (Auto) Lymph % (Auto) Mckean % (Auto) Eos % (Auto) Baso % (Auto) Neut # (Auto) Lymph # (Auto) Mckean # (Auto) Eos # (Auto) Baso # (Auto) PT INR APTT Sodium Potassium Chloride Carbon Dioxide BUN Creatinine Estimated GFR BUN/Creatinine Ratio Glucose Calcium Total Bilirubin AST ALT Alkaline Phosphatase Total Creatine Kinase CK-MB (CK-2) CK-MB (CK-2) Rel Index Troponin I Total Protein Albumin Globulin Albumin/Globulin Ratio Ethyl Alcohol SARS-CoV-2 (PCR) Negative Assessment & Plan Assessment & Plan narrative: Carlos Enrique Bullock is a 66-year-old male former smoker with history of hypertension, hyperlipidemia, insomnia, GERD, and CADASIL (episodes/exacerbations: Stroke-like symptoms) was brought in today to the ED following an acute onset of sudden confusion, vomiting, pale, and diaphoretic. Patient requires inpatient admit for observation to rule out TIA, CVA, vs CADASIL exacerbation, MRI, monitor for bleeding, and seizure activity. 1. Altered mental status, acute, likely secondary to CADASIL, episodes/exacerbation, acute on chronic, vs TIA/CVA, acute present admission -managed by specialist Dr. Brooks (CADSIL), and PCP Dr. Villarreal -likely CADSIL episode/exacerbation (stroke/TIA like symptoms) -Dr. Fairchild ED spoke w/?[facility] stroke doctor.? There was a evaluation over [employer] however at the time of evaluation patient was able to follow commands and cooperate for exam.? She was able to find previous neurology notes as well who stated that he may need to start be started on Vimpat 100 mg twice a day his this disease can cause some underlying seizures.? She did not recommend any further anticoagulation such as Plavix or aspirin stated that tPA is not indicated for variety of reasons 1 being that his symptoms are improving and tubing the underlying condition can cause increasing bleeding -MRI for tomorrow (CT imaging is currently down during the night) -avoid any anticoagulation/VTE medication due to risk of bleeding- Holding ASA -patient on strict fall and seizure precautions, monitor for bleeding -Ortho stats Q6HWA only -PT/OT consult ordered -if MRI is negative can be discharged tomorrow will require prescription Vimpat 100mg BID PO, and f/u with Neurology. 2. Essential hypertension, chronic, present on admission -continue patient's amlodipine, propanolol 3. GERD with esophagitis, chronic, present on admission -continue Protonix 4. Hyperlipidemia, chronic, present on admission -hold pravastatin patient being given Lipitor 5. Insomnia, chronic, present on admission -continue hydralazine 6. Malnutrition, mild, acute on chronic, present on admission -as evidence by BMI 19.1 -patient's malnutrition places them at high risk for medical and surgical complications in relation to acute illness and chronic illness. This increases the difficulty in complexity of medical management and increases the chances poor outcomes such as mortality and morbidity as well as impaired wound healing, and immune suppression. -dietary consult ordered to evaluate and implement steps to improve caloric intake and nutrition. Code status:DNR Surrogate decision maker: Rachele FRANCIS PCR: Negative DVT/VTE prophylaxis: No medication per Neurology recommendations, SCDs only. Disposition: Patient admitted for observation expected length of stay less than 2 midnights. I have utilized all available immediate resources to obtain, update, or review the patient's current medications. I confirmed that the patient's advanced care plan is present, Code status is documented and/or surrogate decision maker is listed in the patient's medical record. I have personally reviewed patient's chart notes from PCP, specialists, diagnostic imaging, and laboratory results. Time Spent With Patient Critical Care time: I spent a total of [] minutes of critical care time on this patient's care today; this time is exclusive of procedural time.
[2022-07-28 22:56] LABS: Hemoglobin A1C% w Est Avg Glu 5.7 % (4.0-6.0)
[2022-07-28] MEDS: hydrOXYzine pamoate 25 MG CAPSULE 50 MG PO (23:25)
[2022-07-28] MEDS: PROPRANOLOL 10 MG TABLET PO (23:26)
[2022-07-29 05:36] VITALS: BP 109/68; PULSE 72; RESP 19; TEMP 36.6; O2SAT 97
[2022-07-29 05:40] LABS: Hematocrit 40.9 % (41-53)
[2022-07-29 05:42] LABS: INR 1.1 (0.9-1.3); Prothrombin Time 12.1 SECONDS (10.1-12.7)
[2022-07-29 05:56] LABS: Blood Urea Nitrogen 12 mg/dL (9-20); Calcium 8.4 mg/dL (8.4-10.2); Carbon Dioxide 25 mmol/L (22-32); Chloride 102 mmol/L (98-107); Estimated Glomerular Filt Rate > 60 mL/min (>60); Glucose 108 mg/dL (80-110); HEMOLYSIS 16 (0-50); Potassium 3.8 mmol/L (3.4-5.1); Sodium 136 mmol/L (137-145)
[2022-07-29 08:00] VITALS: BP 115/71; PULSE 71; RESP 17; TEMP 36.6; O2SAT 94
--- NOTE | 2022-07-29 08:19 | PC.NURSE ---
Addendum entered by Arias Caban R.N. 07/29/22 16:04: relatively calm but anxious to have some answers and to go home. Addendum entered by Arias Cabna R.N. 07/29/22 12:53: Pt alert and wanting to go home. if I don't get my MRI I'm leaving. Dr. Pinzon notified. Pt will most likely go home after the MRI results are in per Dr. Pinzon. Addendum entered by Arias Caban R.N. 07/29/22 08:20: seizure pads on bed. Original Note: Pt wakes easily, offers no overt c/o. only questions is when he gets to go home. JIMENEZ's easily, shifts independently in bed.
[2022-07-29] MEDS: AMLODIPINE 5 MG TABLET 10 MG PO (09:09)
[2022-07-29] MEDS: PANTOPRAZOLE DR 20 MG TABLET PO ×2 (09:09→21:13)
[2022-07-29] MEDS: PRAVASTATIN 20 MG TABLET 40 MG PO (09:09)
[2022-07-29] MEDS: PROPRANOLOL 10 MG TABLET PO ×2 (09:10→21:13)
--- NOTE | 2022-07-29 09:45 | PT.IIE ---
Surgical History ([facility] 07[facility]29/22 @ 00:59 [facility] History of myringotomy (~2017) Surgical procedure planned Surgical procedure planned (~03/16/12) Medical History (Last Reviewed 07/29/22 @ 00:59 [facility] Anxiety Asbestos exposure CADASIL (cerebral autosomal dominant arteriopathy with subcortical infarcts and leukoencephalopathy) (~2010) Cellulitis Concussion Conductive hearing 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 Eustachian tube dysfunction GERD (gastroesophageal reflux disease) Headache (04/01/15) Hiatal hernia History of frequent headaches Hyperlipidemia (09/29/16) Insomnia Leukoaraiosis (~2014) Low testosterone Minor head injury without loss of consciousness Monoallelic mutation of NOTCH3 gene MRSA (methicillin resistant Staphylococcus aureus) Partial blindness (~2010) Prepatellar bursitis Sensorineural hearing loss (SNHL) of both ears Sepsis Sleep apnea Tinnitus Physical Therapy Inpatient Evaluation/Re-Eval M1 PT/OT-IP Prior Functional Status Start: 07/29/22 12:12 Freq: NEEDED Status: Active Protocol: Document 07/29/22 09:45 AB (Rec: 07/29/22 12:22 AB [id number]) Medical Review Prior Functional Status Medical History Reviewed Yes Communication able to make needs known Mobility and Gait pt stated that he is independent with all mobilities and ambulation without AD Social History Household Members none Living Arrangements House Number of Floors (Floors) One Floor Number of Stairs To Enter/Railing? 1 step to enter Home Environment High Toilet,Walk in Shower,Tub /Shower Home Equipment Shower Seat with Backrest,Hand Held Shower Additional Social History Comment pt stated that his GF will be able to assist him if needed M2 PT-IP Current Condition Start: 07/29/22 12:12 Freq: NEEDED Status: Active Protocol: Document 07/29/22 09:45 AB (Rec: 07/29/22 12:22 AB [id number]) Physical Therapy Current Condition Current Condition Evaluation Date 07/29/22 Treatment Diagnosis AMS; CADASIL; difficulty in walking Onset Date 07/28/22 M3 PT-IP Subjective Start: 07/29/22 12:12 Freq: NEEDED Status: Active Protocol: Document 07/29/22 09:45 AB (Rec: 07/29/22 12:22 AB [id number]) Subjective Physical Therapy Visit Type Type Initial Evaluation Visit Start Time 09:45 Visit Stop Time 10:00 Total Visit Minutes 15 Number of FLIGHT TOWER DISPATCHER Visits 0 Physical Therapy Visit Comments Patient Comments pt is agreeable to do PT M4 PT-IP Mobility and Gait Start: 07/29/22 12:12 Freq: NEEDED Status: Active Protocol: Document 07/29/22 09:45 AB (Rec: 07/29/22 12:22 AB [id number]) PT-Bed Mobility Assessment Supine to Sit Supine to Sit Independent Sit to Supine Sit to Supine Independent PT-Transfer Assessment Sit to and From Stand Sit to and from Stand Independent Equipment Transfer Assistive Device None,Gait Belt Orthotic/Prosthetic Devices or Brace: No Comments Mobility Comments pt is independent with bed mobility. ambulated in room without AD SBA for safety. has a wide base guarded gait but without LOB. completed up/ down step stool without rails SBA. pt went back to bed. positioned. call light and table placed within reach. Gait Assessment Gait Gait Assistance Required: Standby Assistance Distance (Feet) 50 Able to Maintain Weight Bearing Status Yes During Gait Assistive Devices Assistive Device None,Gait Belt Gait Deviations General Gait Pattern Wide Based Gait Factors Limiting Gait Function Factors Limiting Gait Function Poor Balance Stair Climbing Assessment Evaluation Level of Assist On Stairs Standby Assistance Technique/Endurance Stair Climbing Direction Ascend and Descend Stair Climbing Technique Step to Step Number of Steps Climbed 1 Query Text: Stair Climbing Set # Repetitions (reps) 2 PT-Balance Assessment Sitting Balance and Reactions Static Sitting Balance Ability Normal Dynamic Sitting Balance Ability Normal Standing Balance and Reactions Static Standing Balance Ability Good Dynamic Standing Balance Ability Good Device Used without AD M5 PT-IP Objective Assessments Start: 07/29/22 12:12 Freq: NEEDED Status: Active Protocol: Document 07/29/22 09:45 AB (Rec: 07/29/22 12:22 AB [id number]) Orientation Orientation/Cognition Level of Alertness Alert Orientation Name,Age,Birthday,Month,Date, Year,Day of Week,Place, Situation Language Function Ability No Deficits Noted Safety Awareness Understands Safety Issues Memory Description No Deficits Noted Gross Range of Motion Lower Extremity ROM Assessment Within Functional Limits Strength Lower Extremity Strength Assessment Within Functional Limits Sensation Assessment Sensation Gross Sensation WNL Muscle Tone Muscle Tone WNL Yes M6 PT-IP Treatment Start: 07/29/22 12:12 Freq: NEEDED Status: Active Protocol: Document 07/29/22 09:45 AB (Rec: 07/29/22 12:22 AB [id number]) Physical Therapy Treatment Education Education Provided Safety M7 PT-IP Assessment and Plan Start: 07/29/22 12:12 Freq: NEEDED Status: Active Protocol: Document 07/29/22 09:45 AB (Rec: 07/29/22 12:22 AB [id number]) PT Summary Assessment and Plan Potential Rehabilitation Potential Good Status of Condition at Evaluation Stable Summary Impairments Pain,ROM,Strength,Balance, Coordination,Sensation,Tone, Cognition,Bed Mobility, Transfers,Gait,Activity Tolerance Assessment Summary PT eval completed and pt at PLOF and no further PT intervention indicated at this time. pt may go home when medically stable. Frequency of Treatment Frequency Of Treatment Discharge Recommendations To Nursing Amount of Assist Needed Standby Assistance Discharge Recommendations PT Discharge Recommendations Home Transportation Needs at Discharge Private Vehicle
[2022-07-29 12:00] VITALS: BP 115/77; PULSE 67; RESP 17; TEMP 36.3; O2SAT 97
--- NOTE | 2022-07-29 15:55 | CM.DANOTE ---
Initial Discharge Assessment Note: Case reviewed, met with patient. Introduced self and role. Payer: Medicare and Medicaid PCP: Misa Iqbal 66 year old admitted yesterday with acute onset of confusion. MRI shows acute 5 mm infarct. During my interview with him today he was alert and oriented. He has had previous episodes of confusion onset apparently. Patient lives alone in [place] with his dog and works in construction. He has a daughter in [place] who will come visit. He also has a girlfriend he states. PT evaluation done, recommends home, may need some assistance. Plan: Continue to follow for needs. May need HH. GEETHA Discharge Planning/Care Management CM Discharge Assessment Start: 07/29/22 08:34 Freq: Status: Active Protocol: Document 07/29/22 15:53 (Rec: 07/29/22 15:54 [id number]) Discharge Planning Assessment Assigned Licensing Director Dariela Simon RN/LYNDONP Advance Directives? Yes Advance Directives on File No History Provided By Patient,Family Member,Medical Record Prior Living Arrangements House Household Members none Type of transporation used prior to Drives own vehicle admit Independent with ADL's Yes Is patient alert and oriented? Yes Caregiver for Another No Discharge Plan Home Referrals Initiated None needed Additional Comment At this time. Review Status In Process Next Review Type Continued Stay Review
--- NOTE | 2022-07-29 16:16 | P.PN_ITS ---
Subjective Subjective Date Patient Seen: 07/29/22 Interval history: Patient with no complaints today, appears back to baseline. MRI does show acute 5mm infarct on the R. Discussed with neurology at , recommend continued monitoring with high risk of bleeding. Awaiting callback from their service regarding need for aspirin or statin, which patient takes at home. Exam Vital Signs (past 8 hours): - 07/29/22 12:00 Temperature 97.4 F L Pulse Rate 67 Respiratory Rate 17 Blood Pressure 115/77 Pulse Oximetry 97 Oxygen Flow Rate 0 Oxygen Delivery Method Room Air Oxygen Flow Rate 0 Narrative Exam Narrative: General:? Patient is well developed and well nourished, in no distress at this time. HEENT:? Normocephalic, atraumatic, extraocular muscles intact, oral pharynx is clear and mucous membranes are moist. Neck: supple and symmetric, trachea is midline, no cervical adenopathy. Negative for JVD Chest:? Normal AP diameter and contour without kyphoscoliosis, no tachypnea, equal chest rise bilaterally. Lungs:? CTA b/l no wheezing rhonchi or rales. Cardio:?RRR no m/r/g. Abdomen: S NT ND. No CVA tenderness. Musculoskeletal:? Muscle strength and tone are equal within normal limits, no deformity. Extremities: No edema or joint effusions. No cyanosis or clubbing. Skin:? Pale,? Warm to touch,dry and intact without rashes, ulcerations or petechiae.? Neuro:? Alert and orientated x3,? sensation to touch intact in all extremities, no gross deficits noted of cranial nerves. Psych:? Patient has a well-kept appearance, appropriate affect, mental status attitude thought context and judgment are appropriate for age. Objective Labs 07/29/22 05:12 07/29/22 05:12 Labs: Laboratory Results - last 24 hr 07/28/22 07/28/22 07/28/22 19:32 19:32 19:32 WBC 7.5 RBC 4.35 L Hgb 14.2 Hct 41.9 MCV 96.5 MCH 32.7 MCHC 33.9 RDW 12.6 Plt Count 329 Neut % (Auto) 52.6 Lymph % (Auto) 31.2 [place] % (Auto) 10.5 Eos % (Auto) 5.1 H Baso % (Auto) 0.6 Neut # (Auto) 3900 Lymph # (Auto) 2300 [place] # (Auto) 800 Eos # (Auto) 400 Baso # (Auto) 0 PT 11.5 INR 1.0 APTT 22 L Sodium 135 L Potassium 3.7 Chloride 100 Carbon Dioxide 22 BUN 14 Creatinine 1.04 Estimated GFR > 60 BUN/Creatinine Ratio 13.5 Glucose 150 H Hemoglobin A1c Calcium 8.2 L Total Bilirubin 0.4 AST 24 ALT 15 Alkaline Phosphatase 120 Total Creatine Kinase 122 CK-MB (CK-2) 0.47 CK-MB (CK-2) Rel Index 0.4 L Troponin I < 0.012 Total Protein 6.3 Albumin 3.9 Globulin 2.4 Albumin/Globulin Ratio 1.6 Ethyl Alcohol < 10 SARS-CoV-2 (PCR) 07/28/22 07/28/22 07/29/22 19:32 19:55 05:12 WBC RBC Hgb 14.0 Hct 40.9 L MCV MCH MCHC RDW Plt Count Neut % (Auto) Lymph % (Auto) [place] % (Auto) Eos % (Auto) Baso % (Auto) Neut # (Auto) Lymph # (Auto) [place] # (Auto) Eos # (Auto) Baso # (Auto) PT INR APTT Sodium Potassium Chloride Carbon Dioxide BUN Creatinine Estimated GFR BUN/Creatinine Ratio Glucose Hemoglobin A1c 5.7 Calcium Total Bilirubin AST ALT Alkaline Phosphatase Total Creatine Kinase CK-MB (CK-2) CK-MB (CK-2) Rel Index Troponin I Total Protein Albumin Globulin Albumin/Globulin Ratio Ethyl Alcohol SARS-CoV-2 (PCR) Negative 07/29/22 07/29/22 05:12 05:12 WBC RBC Hgb Hct MCV MCH MCHC RDW Plt Count Neut % (Auto) Lymph % (Auto) [place] % (Auto) Eos % (Auto) Baso % (Auto) Neut # (Auto) Lymph # (Auto) [place] # (Auto) Eos # (Auto) Baso # (Auto) PT 12.1 INR 1.1 APTT Sodium 136 L Potassium 3.8 Chloride 102 Carbon Dioxide 25 BUN 12 Creatinine 0.92 Estimated GFR > 60 BUN/Creatinine Ratio 13.0 Glucose 108 Hemoglobin A1c Calcium 8.4 Total Bilirubin AST ALT Alkaline Phosphatase Total Creatine Kinase CK-MB (CK-2) CK-MB (CK-2) Rel Index Troponin I Total Protein Albumin Globulin Albumin/Globulin Ratio Ethyl Alcohol SARS-CoV-2 (PCR) PFSH Medical History Anxiety Asbestos exposure CADASIL (cerebral autosomal dominant arteriopathy with subcortical infarcts and leukoencephalopathy) (~2010) Cellulitis Concussion Conductive hearing 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 Eustachian tube dysfunction GERD (gastroesophageal reflux disease) Headache (04/01/15) Hiatal hernia History of frequent headaches Hyperlipidemia (09/29/16) Insomnia Leukoaraiosis (~2014) Low testosterone Minor head injury without loss of consciousness Monoallelic mutation of NOTCH3 gene MRSA (methicillin resistant Staphylococcus aureus) Partial blindness (~2010) Prepatellar bursitis Sensorineural hearing loss (SNHL) of both ears Sepsis Sleep apnea Tinnitus Surgical History History of myringotomy (~2017) Surgical procedure planned Surgical procedure planned (~03/16/12) Family History Brother Hyperlipidemia Mother Age: 91 Hyperlipidemia GERD (gastroesophageal reflux disease) CADASIL (cerebral AD arteriopathy w infarcts and leukoencephalopathy) Sister Hyperlipidemia CADASIL (cerebral AD arteriopathy w infarcts and leukoencephalopathy) Sister Hyperlipidemia Sister Hyperlipidemia Sister Hyperlipidemia Father Emphysema lung Daughter CADASIL (cerebral AD arteriopathy w infarcts and leukoencephalopathy) Social History household members: none Smoking Status: Former smoker Tobacco: How many years used: 5 alcohol intake: former substance use type: does not use Assessment & Plan Assessment & Plan narrative: Carlos Enrique Bullock is a 66-year-old male former smoker with history of hypertension, hyperlipidemia, insomnia, GERD, and CADASIL (episodes/exacerbations: Stroke-like symptoms) admitted with encephalopathy, found to have an acute infarct on MRI consistent with CVA. 1. Acute encephalopathy, likely secondary to CADASIL, episodes/exacerbation, acute on chronic, with acute CVA. -managed by specialist Dr. Brooks (CADSIL), and PCP Dr. Villarreal -likely CADSIL episode/exacerbation (stroke/TIA like symptoms) but also noted acute infarct on MRI today. -Dr. Fairchild ED spoke w/?[facility] stroke doctor.? There was a evaluation over tele health however at the time of evaluation patient was able to follow commands and cooperate for exam.? She was able to find previous neurology notes as well who stated that he may need to start be started on Vimpat 100 mg twice a day his this disease can cause some underlying seizures.? She did not recommend any further anticoagulation such as Plavix or aspirin stated that tPA is not indicated for variety of reasons 1 being that his symptom s are improving and tubing the underlying condition can cause increasing bleeding -Awaiting callback from neurology stroke service to determine appropriateness of secondary prevention strategies balanced with bleeding risk. -patient on strict fall and seizure precautions, monitor for bleeding -TTE ordered 2. Essential hypertension, chronic, present on admission -continue patient's amlodipine, propanolol 3. GERD with esophagitis, chronic, present on admission -continue Protonix 4. Hyperlipidemia, chronic, present on admission -hold pravastatin patient being given Lipitor 5. Insomnia, chronic, present on admission -continue hydralazine 6. Malnutrition, mild, acute on chronic, present on admission -as evidence by BMI 19.1 -patient's malnutrition places them at high risk for medical and surgical complications in relation to acute illness and chronic illness. This increases the difficulty in complexity of medical management and increases the chances poor outcomes such as mortality and morbidity as well as impaired wound healing, and immune suppression. -dietary consult ordered to evaluate and implement steps to improve caloric intake and nutrition. Code status:DNR Surrogate decision maker: Rachele FRANCIS PCR: Negative DVT/VTE prophylaxis: No medication per Neurology recommendations, SCDs only. Disposition: Inpatient, hopeful discharge tomorrow, higher risk of bleeding from his infarct with CADASIL continue another night of observation. Awaiting final medication adjustments from neurology. I have utilized all available immediate resources to obtain, update, or review the patient's current medications. I confirmed that the patient's advanced care plan is present, Code status is documented and/or surrogate decision maker is listed in the patient's medical record. I have personally reviewed patient's chart notes from PCP, specialists, diagnostic imaging, and laboratory results. Time Spent With Patient Critical Care time: I spent a total of [] minutes of critical care time on this patient's care today; this time is exclusive of procedural time. Quality VTE Deep Vein Thrombosis/Pulmonary Embolism Present on Admission: No
[2022-07-29 16:57] VITALS: BP 117/81; PULSE 62; RESP 17; TEMP 36.4; O2SAT 96
--- NOTE | 2022-07-29 18:55 | PC.NURSE ---
Pt declined Q6 orthostatic vitals today. Stated he wanted to sleep multiple re-attempts, patient continued to decline.
[2022-07-30] VITALS: BP 102/65; PULSE 55; RESP 16; TEMP 35.7; O2SAT 93
[2022-07-30 06:00] VITALS: BP 113/72; PULSE 51; RESP 17; TEMP 36; O2SAT 95
[2022-07-30 06:12] LABS: Cholesterol 240 mg/dL (140-199); HDL Cholesterol 44 mg/dL (40-60); LDL Cholesterol Calculated 163 mg/dL (<100); Triglycerides 163 mg/dL (35-150)
--- NOTE | 2022-07-30 08:20 | P.DS_ITS ---
History of Present Illness History of Present Illness Date Patient Seen: 07/30/22 Time Patient Seen: 08:21 Chief complaint: Altered Mental Status Narrative: Per admitting provider, Carlos Enrique Bullock is a 66-year-old male former smoker with history of hypertension, hyperlipidemia, insomnia, GERD, and CADASIL (episodes/exacerbations: Stroke-like symptoms) was brought in today to the ED following an acute onset of sudden confusion, vomiting, pale, and diaphoretic.? Last known well was 6:00 p.m, in ED he was moving his extremities but not able to follow commands or answer questions appropriately but did have clear speech, NIH :0, telehealth stroke evaluation also completed in ED. which felt that this is a episodes/exacerbation of the progression of CADASIL. Patient was moderately tachypneic in ED RR 29- 37, but remained hemodynamically stable and oxygenating well. On admit patient appears to continue to be confused repeats questions unable to retain information are process discussion. Patient is orientated to self and that he is in the hospital but is unable to recall why he is here and how he got here. He is also avoiding eye contact, turned away during exam and remains in a contracted position. Due to altered mental status accuracy of ROS is unreliable. On admit patient denies chest pain, shortness in breath, headache, changes in vision, difficulty swallowing, speech impairment, weakness, numbness, tingling, difficulty with ambulation, recent falls, head injury, LOC, fever, body aches, chills, cough, recent exposure to illness, abdominal pain, nausea, vomiting, urinary incontinence/retention, dysuria, frequency, urgency, hematuria, bowel changes, constipation, incontinence, melena, rashes, recent changes to medication, illness, injury, or trauma. Admit vitals 121/76, 69, 25, 98% on room air. Patient's laboratory findings are unremarkable with the exception of a glucose 150. Patient is negative for alcohol, COVID, and UTI. NIH:0-though accuracy is questionable as patient is unable to follow commands. CT imaging down at the time of admit. ED ordered CThead & CTA- pending. Patient admitted for observation altered mental status likely CADASIL exacerbation. Discharge Providers Provider Date of admission: 07/28/22 22:17 Discharge Date: 07/30/22 Primary care physician: Misa Iqbal DO Consults: 07/28/22 22:13 Consult to Dietitian, Adult Routine Comment: Reason For Exam: BMI 19.6 07/28/22 22:14 Consult to Occupational Therapy Evaluate & Treat Comment: CADSIL-Fall risk Physician Instructions: Evaluate and treat Consult to Physical Therapy Evaluate & Treat Comment: CADSIL-Fall risk Physician Instructions: Evaluate and Treat Discharge provider: John Pinzon DO Summary Hospital Course Discharge Diagnosis: Please see hospital course by problem list noted below: Hospital Course: Carlos Enrique Bullock is a 66-year-old male former smoker with history of hypertension, hyperlipidemia, insomnia, GERD, and CADASIL (episodes/exacerbations: Stroke-like symptoms) admitted with encephalopathy, found to have an acute infarct on MRI consistent with CVA. 1. Acute encephalopathy, likely secondary to CADASIL, episodes/exacerbation, acute on chronic, with acute CVA. -managed by specialist Dr. Brooks (CADSIL), and PCP Dr. Villarreal -likely CADSIL episode/exacerbation (stroke/TIA like symptoms) but also noted acute infarct on MRI today. -Dr. Fairchild ED spoke w/?[facility] stroke doctor.? There was a evaluation over [employer] however at the time of evaluation patient was able to follow commands and cooperate for exam.? She was able to find previous neurology notes as well who stated that he may need to start be started on Vimpat 100 mg twice a day his this disease can cause some underlying seizures.? She did not recommend any further anticoagulation such as Plavix or aspirin stated that tPA is not indicated for variety of reasons 1 being that his sym ptoms are improving and tubing the underlying condition can cause increasing bleeding -Given new infarct, neurology stroke service recommended aspirin 81 mg , cilostazol 50 mg BID (increased to 100 mg BID at 1 week), and lacosamide 100 mg BID. -TTE recommended as an outpatient, patient did not wish to stay admitted to obtain while hospitalized on the day of discharge. 2. Essential hypertension,? chronic, present on admission -continued patient's amlodipine, propanolol 3. GERD with esophagitis, chronic, present on admission -continued Protonix 4. Hyperlipidemia, chronic, present on admission -gave lipitor while here, continue home medications upon discharge. 5. Insomnia, chronic, present on admission 6. Malnutrition, mild, acute on chronic, present on admission -as evidence by BMI 19.1 -patient's malnutrition places them at high risk for medical and surgical complications in relation to acute illness and chronic illness.? This increases the difficulty in complexity of medical management and increases the chances poor outcomes such as mortality and morbidity as well as impaired wound healing, and immune suppression. -dietary consult ordered to evaluate and implement steps to improve caloric intake and nutrition. Time Spent with Patient Time spent: Greater than 30 minutes Exam Vital Signs (past 8 hours): - 07/30/22 06:00 Temperature 96.8 F L Pulse Rate 51 L Respiratory Rate 17 Blood Pressure 113/72 Pulse Oximetry 95 Oxygen Flow Rate 0 Oxygen Delivery Method Room Air Oxygen Flow Rate 0 Narrative Exam Narrative: General:? Patient is well developed and well nourished, in no distress at this time. HEENT:? Normocephalic, atraumatic, extraocular muscles intact, oral pharynx is clear and mucous membranes are moist. Neck: supple and symmetric, trachea is midline, no cervical adenopathy. Negative for JVD Chest:? Normal AP diameter and contour without kyphoscoliosis, no tachypnea, equal chest rise bilaterally. Lungs:? CTA b/l no wheezing rhonchi or rales. Cardio:?RRR no m/r/g. Abdomen: S NT ND. No CVA tenderness. Musculoskeletal:? Muscle strength and tone are equal within normal limits, no deformity. Extremities: No edema or joint effusions. No cyanosis or clubbing. Skin:? Pale,? Warm to touch,dry and intact without rashes, ulcerations or petechiae.? Neuro:? Alert and orientated x3,? sensation to touch intact in all extremities, no gross deficits noted of cranial nerves. Psych:? Patient has a well-kept appearance, appropriate affect, mental status attitude thought context and judgment are appropriate for age. Objective Labs 07/29/22 05:12 07/29/22 05:12 Labs: Laboratory Results - last 24 hr 07/30/22 05:14 Triglycerides 163 H Cholesterol 240 H LDL Cholesterol, Calc 163 H HDL Cholesterol 44 PFSH Medical History Anxiety Asbestos exposure CADASIL (cerebral autosomal dominant arteriopathy with subcortical infarcts and leukoencephalopathy) (~2010) Cellulitis Concussion Conductive hearing 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 Eustachian tube dysfunction GERD (gastroesophageal reflux disease) Headache (04/01/15) Hiatal hernia History of frequent headaches Hyperlipidemia (09/29/16) Insomnia Leukoaraiosis (~2014) Low testosterone Minor head injury without loss of consciousness Monoallelic mutation of NOTCH3 gene MRSA (methicillin resistant Staphylococcus aureus) Partial blindness (~2010) Prepatellar bursitis Sensorineural hearing loss (SNHL) of both ears Sepsis Sleep apnea Tinnitus Surgical History History of myringotomy (~2017) Surgical procedure planned Surgical procedure planned (~03/16/12) Family History Brother Hyperlipidemia Mother Age: 91 Hyperlipidemia GERD (gastroesophageal reflux disease) CADASIL (cerebral AD arteriopathy w infarcts and leukoencephalopathy) Sister Hyperlipidemia CADASIL (cerebral AD arteriopathy w infarcts and leukoencephalopathy) Sister Hyperlipidemia Sister Hyperlipidemia Sister Hyperlipidemia Father Emphysema lung Daughter CADASIL (cerebral AD arteriopathy w infarcts and leukoencephalopathy) Social History household members: none Smoking Status: Former smoker Tobacco: How many years used: 5 alcohol intake: former substance use type: does not use Discharge Plan Discharge Plan Patient Disposition: Home Provider Discharge Comment: You were admitted to the hospital with an episode of confusion, likely due to your underlying CADASIL, now improved. MRI did find a stroke. You wished to defer echo until the clinic setting. Please follow up with PCP and your neurologist in the next 1-2 weeks. If no issues with bleeding start taking 100 mg of the cilostazol (new medication) instead of 50 per neurology. Both of these were sent to your pharmacy. Discharge orders & Medications Prescriptions: New aspirin 81 mg Tablet,Delayed Release (Dr/Ec) 81 mg PO DAILY 90 Days Qty: 90 0RF cilostazol 50 mg Tablet 50 mg PO BID 7 Days Qty: 14 0RF cilostazol 100 mg tablet 100 mg PO BID 90 Days Qty: 180 0RF Rx Instructions: To start after 50 mg dosing in 1 week lacosamide 100 mg tablet 100 mg PO BID 30 Days Qty: 60 0RF Continued amlodipine 10 mg tablet 10 mg PO DAILY Qty: 90 0RF acetaminophen 325 mg tablet 325 mg PO 4-6XD Qty: 540 0RF hydroxyzine pamoate 50 mg capsule 50 mg PO BEDTIME PRN (Reason: insomnia) Qty: 90 0RF pantoprazole [Protonix] 20 mg tablet,delayed release (DR/EC) 20 mg PO BID Qty: 180 0RF pravastatin 40 mg tablet 40 mg PO DAILY Qty: 90 0RF albuterol sulfate 90 mcg/actuation HFA aerosol inhaler 2 puff inhalation QID PRN (Reason: shortness of breath or wheezing) Qty: 8.5 0RF Rx Instructions: Take 2 puffs before, during, or immediately after exertional shortness of breath. Trial only, will not plan on making this joint terminal attack controller. propranolol 10 mg tablet 10 mg PO BID Qty: 180 0RF Hold Instructions: while taking albuterol Discontinued aspirin 325 mg tablet 325 mg PO DAILY Qty: 90 0RF Follow up/Referrals: Misa Iqbal DO [Primary Care Provider] - 2 Weeks Diet/Activity/Treatments Diet: Diet as Tolerated Activity: As tolerated Visit Report/Discharge Packet Instructions: DI for Prescription Opioid Use Stand Alone Forms: Congestive Heart Failure, Patient Portal/API, Stroke Signs & Symptoms Discharge Data Primary Care Provider: Misa Iqbal Quality VTE Deep Vein Thrombosis/Pulmonary Embolism Present on Admission: No
[2022-07-30] MEDS: PROPRANOLOL 10 MG TABLET PO (08:43)
[2022-07-30] MEDS: AMLODIPINE 5 MG TABLET 10 MG PO (08:43)
[2022-07-30] MEDS: PANTOPRAZOLE DR 20 MG TABLET PO (08:43)
[2022-07-30] MEDS: ASPIRIN EC 81 MG TABLET PO (08:43)
[2022-07-30] MEDS: PRAVASTATIN 20 MG TABLET 40 MG PO (08:45)
[2022-07-30] MEDS: cilostazoL 50 MG TABLET PO (08:55)
--- NOTE | 2022-07-30 11:47 | PC.NURSE ---
dc instructions reviewed w/ patient by wick tender, Arias. patient states he understands all instructions. AM meds given per order, instructed to p/u meds as they were sent in to his specified pharmacy. patient states he will be working on the roof later on w/ friend. encouraged to monitor b/p, pulse twice daily and write them down, to bring to his next MD appts. patient states he understands d/c instructions. left floor escorted by this RN. left hospital via private vehicle, driven by his friend.
--- NOTE | 2022-07-30 12:55 | CM.DPC ---
DCP Discharge Home Per MD, pt is medically stable to d/c home today and no identified barriers to discharge and pt plan to d/c this morning as he had a manjinder job to get to. Per PT, recomending safe d/c home. Per RN, no concerns noted and pt's girlfriend available for transport and assist if needed. Plan: Patient to d/c home today via POV and outpt follow up and no further SW needs at this time. ANTHONY Villa
== END 2022-07-30 09:15 | disposition home or self-care (01) | DRG 65 ==
LOC: ED 19:13 → AC 22:18
PROVIDERS: Internal Medicine; Admitting Provider Nurse Practitioner Family; Emergency Provider Emergency Medicine; PCP Family Medicine; Visit Provider Nurse Practitioner Family
DX: I63.9 Cerebral infarction, unspecified (principal); E44.1 Mild protein-calorie malnutrition; G93.49 Other encephalopathy; Z68.1 Body mass index [BMI] 19.9 or less, adult; I67.850 Cerebral autosomal dominant arteriopathy with subcortical infarcts and leukoencephalopathy; I10 Essential (primary) hypertension; E78.5 Hyperlipidemia, unspecified; K21.00 Gastro-esophageal reflux disease with esophagitis, without bleeding; F51.04 Psychophysiologic insomnia; Z20.822 Contact with and (suspected) exposure to COVID-19; R29.700 NIHSS score 0; Z66 Do not resuscitate; Z79.899 Other long term (current) drug therapy; Z79.82 Long term (current) use of aspirin; Z87.891 Personal history of nicotine dependence; Z82.5 Family history of asthma and other chronic lower respiratory diseases; Z83.438 Family history of other disorder of lipoprotein metabolism and other lipidemia; Z84.81 Family history of carrier of genetic disease
CPT/HCPCS: 36415; 70450; 70496; 70498; 70551; 80048; 80053; 80061; 80320; 81003; 82550; 82553; 83036; 84484; 85014; 85018; 85025; 85610; 85730; 87635; 93005; 97161; 99285; C9803; G0378; Q9967

== ENCOUNTER 2023-04-10 12:11 | Day surgery (SDC) | payer OTHER, SELFPAY ==
[2022-07-28 22:34] VITALS: BMI 19.1
--- NOTE | 2023-04-10 | PATH_ITS ---
[facility] Accession Number: [id number] No. of containers..02 Tissue . 01 Material submitted: . PART A: esophagus, E-G Junction - GE JUNCTION PART B: esophagus - ESOPHAGEAL BIOPSY . 01 Diagnosis: A. Gastroesophageal Junction, Biopsy: Squamocolumnar junctional mucosa with mild reactive epithelial and stromal changes, suggestive of esophageal reflux. Negative for intestinal metaplasia. Negative for dysplasia and malignancy. . B. Esophagus, Biopsy: Squamous epithelium with no diagnostic abnormality. Intraepithelial eosinophils are not increased. Negative for dysplasia and malignancy. MRV 04/17/2023 1400 Local . 01 Electronically signed: . Viki Carnes MD, Pathologist NPI- [id number] . 01 Gross description: . Part A: GE JUNCTION: Received in formalin is 1 fragment(s) of koch, soft tissue measuring 0.4 x 0.2 x 0.2 cm submitted entirely in 1 cassette(s) Part B: ESOPHAGEAL BIOPSY: Received in formalin is multiple fragment(s) of koch, soft tissue measuring 0.7 x 0.3 x 0.1 cm in aggregate submitted entirely in 1 cassette(s) /AAY 04/11/2023 0334 Local . 01 Pathologist provided ICD-10: R13.10 . 01 CPT . 897132, 403406 Specimen Comment: A courtesy copy of this report has been sent to [phone] Performed at: 01 [facility] [address] [place] [address], [place], [place] [id number] MD Kvng Thomas MD Phone: [phone]
[2023-04-10 12:49] VITALS: BP 144/82; PULSE 68; RESP 16; TEMP 36.2; O2SAT 99; BMI 25.3
[2023-04-10] MEDS: LACTATED RINGERS 1,000 ML 150 ML IV (13:05)
--- NOTE | 2023-04-10 13:09 | P.HP_ITS ---
History of Present Illness History of Present Illness Date Patient Seen: 04/10/23 Time Patient Seen: 13:09 Chief complaint: SDC Narrative: 67-year-old male history of chronic GERD here for diagnostic esophagoduodenoscopy. Recently having esophageal dysphagia with solid food and increase in breakthrough reflux symptoms. Please see the H and P from February 2023 for further detail [facility] Medical History (Updated 02/26/23 @ 15:52 by Misa Iqbal DO) HAMPTON (dyspnea on exertion) Multifocal pneumonia Sepsis Hiatal hernia GERD (gastroesophageal reflux disease) Cellulitis Leukoaraiosis (~2014) Asbestos exposure Anxiety Monoallelic mutation of NOTCH3 gene Eustachian tube dysfunction CADASIL (cerebral autosomal dominant arteriopathy with subcortical infarcts and leukoencephalopathy) (~2010) Prepatellar bursitis Insomnia MRSA (methicillin resistant Staphylococcus aureus) Sleep apnea Tinnitus Partial blindness (~2010) Low testosterone History of frequent headaches Conductive hearing 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 Sensorineural hearing loss (SNHL) of both ears Hyperlipidemia (09/29/16) Headache (04/01/15) Concussion Minor head injury without loss of consciousness Surgical History History of myringotomy (~2017) Surgical procedure planned (~03/16/12) Surgical procedure planned Family History Brother Hyperlipidemia Mother Age: 92 Hyperlipidemia GERD (gastroesophageal reflux disease) CADASIL (cerebral AD arteriopathy w infarcts and leukoencephalopathy) Sister Hyperlipidemia CADASIL (cerebral AD arteriopathy w infarcts and leukoencephalopathy) Sister Hyperlipidemia Sister Hyperlipidemia Sister Hyperlipidemia Father Emphysema lung Daughter CADASIL (cerebral AD arteriopathy w infarcts and leukoencephalopathy) Social History marital status: unmarried,single details: lives with dog household members: none lives independently: Yes pets and animals: Yes occupational status: previously employed Smoking Status: Former smoker Tobacco: How many years used: 5 alcohol intake: former substance use type: does not use Meds Home Medications and Allergies Home Medications Medication Instructions Recorded Confirmed Type acetaminophen 325 mg tablet 325 mg PO 4-6XD pain #540 tabs 06/14/22 02/26/23 Rx hydroxyzine pamoate 50 mg capsule 50 mg PO BEDTIME PRN insomnia #90 06/14/22 02/26/23 Rx caps amlodipine 10 mg tablet 10 mg PO DAILY #90 tabs 11/14/22 02/26/23 Rx aspirin 81 mg tablet,delayed 81 mg PO DAILY 11/14/22 04/10/23 History release (Adult Low Dose Aspirin) pravastatin 40 mg tablet 40 mg PO DAILY #90 tabs 11/14/22 02/26/23 Rx propranolol 10 mg tablet 10 mg PO BID #180 tabs 11/14/22 04/10/23 Rx pantoprazole 40 mg tablet,delayed 40 mg PO DAILY #30 tabs 01/23/23 02/26/23 Rx release (Protonix) cilostazol 100 mg tablet 100 mg PO BID #180 tabs 04/04/23 Rx Allergies Allergy/AdvReac Type Severity Reaction Status Date / Time venom-honey bee Allergy Severe swelling Verified 02/26/23 14:49 Exam Vital Signs (past 8 hours): - 04/10/23 12:49 Temperature 97.2 F L Pulse Rate 68 Respiratory Rate 16 Blood Pressure 144/82 H Pulse Oximetry 99 Oxygen Delivery Method Room Air Oxygen Delivery Method Room Air Narrative Exam Narrative: General adult man alert oriented no acute distress Chest nonlabored respiration Extremities warm well perfused Assessment & Plan Assessment and plan (1) Esophageal dysphagia: Status: Acute Assessment & Plan narrative: 67-year-old man with esophageal dysphagia here for diagnostic esophagoduodenoscopy with possible dilation. Overview of the procedure discussed. Procedural risks including bleeding, esophageal injury discussed. Questions have been answered he is in agreement with this plan.
[2023-04-10 13:28] VITALS: BP 115/78; PULSE 75; RESP 19; TEMP 36.4; O2SAT 98
--- NOTE | 2023-04-10 13:30 | P.OP.EGD_ITS ---
Operative Date/Time/Diagnoses Date of procedure: 04/10/23 Time of procedure: 13:30 Pre-op diagnosis: Esophageal dysphagia Post-op diagnosis: other (Hiatal hernia) Procedure & Clinicians Study performed: Esophagoduodenoscopy Same procedure as scheduled: Yes Indications: 59-year-old man history of GERD with esophageal dysphagia. Surgeon: Rashi Argueta Procedure Notes Procedure in detail: The history and physical was performed/updated and the patient is ASA class is 2. The procedure was discussed in detail with the patient. Potential risks complications including infection, bleeding, missed diagnosis, perforation, need for surgery, and were explained. Their questions were answered and informed consent was obtained. Patient placed in left lateral decubitus position. Time out was performed. Procedural sedation was administered by Anesthesia. A bite block was placed. the scope was inserted into the mouth and advanced through the esophagus and into the stomach. The stomach was without masses, ulcers or gastritis. The pylor us was intubated and the duodenum was normal to the 2nd portion. The scope was retroflexed within the stomach and there was a small hiatal hernia. The scope was withdrawn into the esophagus the Z line was seen at 35 cm from the incisions. There was no Daly's esophagitis, esophageal masses or strictures. Biopsy of the GE junction and esophagus were performed with forceps. Stomach was desufflated and scope removed. The patient tolerated the procedure well and will be discharged when they meet criteria. Findings -small hiatal hernia -no esophageal stricture Specimen(s): other Impression: Hiatal hernia Post-procedure Recommendations: Reflux diet Plan for aftercare: Continue pantoprazole 40 mg daily Disposition: same day surgery
[2023-04-10 13:33] VITALS: BP 119/79; PULSE 68; RESP 16; TEMP 36.4; O2SAT 99
[2023-04-10 13:39] VITALS: BP 120/83; PULSE 78; RESP 13; O2SAT 98
[2023-04-10 13:44] VITALS: BP 124/80; PULSE 76; RESP 18; O2SAT 97
== END 2023-04-10 14:00 | disposition home or self-care (01) ==
PROVIDERS: PCP Family Medicine; Referring Provider Surgery; Visit Provider Surgery
PROC: 0DJ08ZZ Inspection of Upper Intestinal Tract, Via Natural or Artificial Opening Endoscopic (ICD-10-PCS; CPT 43235; principal; 2023-04-10 13:00)
DX: R13.14 Dysphagia, pharyngoesophageal phase (principal); Z87.19 Personal history of other diseases of the digestive system; K44.9 Diaphragmatic hernia without obstruction or gangrene
CPT/HCPCS: 43235; J2704

== ENCOUNTER → 2023-07-04 08:23 | Outpatient (CLI) | payer OTHER, SELFPAY ==
[2022-07-28 22:34] VITALS: BMI 19.1
[2023-07-04 09:03] LABS: Add Manual Diff / Slide Review NO; Basophils Absolute Auto 100 /uL (0-100); Basophils Percent Auto 0.7 % (0-2); Eosinophils Absolute Auto 400 /uL (0-450); Eosinophils Percent Auto 4.9 % (2-4); Hematocrit 44.9 % (41-53); Hemoglobin 15.1 g/dL (13.5-17.5); Lymphocytes Absolute Auto 2100 /uL (1100-4500); Lymphocytes Percent Auto 26.1 % (25-40); Mean Corpuscular HGB Conc 33.7 % (30-36); Mean Corpuscular Hemoglobin 31.7 PG (26-34); Monocytes Absolute Auto 1000 /uL (0-900); Monocytes Percent Auto 12.9 % (3-14); Neutrophils Absolute Auto 4400 /uL (1500-7000); Neutrophils Percent Auto 55.4 % (50-75); Platelet Count 419 X10^3/uL (150-400); Red Blood Cell Count 4.77 X10^6/uL (4.5-5.9); Red Cell Distribution Width 12.3 % (11.6-14.8); White Blood Cell Count 7.9 X10^3/uL (4.5-11.0)
[2023-07-04 09:10] LABS: Hemoglobin A1C% w Est Avg Glu 5.9 % (4.0-6.0)
[2023-07-04 09:11] LABS: Alanine Aminotransferase 15 IU/L (<50); Albumin 4.7 g/dL (3.5-5.0); Albumin Globulin Ratio 1.7 (1.0-2.8); Alkaline Phosphatase 78 U/L (38-126); Aspartate Aminotransferase 23 IU/L (17-59); BUN Creatinine Ratio 15.2 (6-22); Bilirubin Total 1.2 mg/dL (0.2-1.3); Blood Urea Nitrogen 15 mg/dL (9-20); Calcium 9.4 mg/dL (8.4-10.2); Carbon Dioxide 22 mmol/L (22-32); Chloride 104 mmol/L (98-107); Cholesterol 208 mg/dL (140-199); Estimated Glomerular Filt Rate > 60 mL/min (>60); Globulin 2.8 g/dL (1.7-4.1); Glucose 123 mg/dL (80-110); HDL Cholesterol 53 mg/dL (40-60); HEMOLYSIS < 15 (0-50); LDL Cholesterol Calculated 132 mg/dL (<100); Potassium 4.2 mmol/L (3.4-5.1); Sodium 137 mmol/L (137-145); Total Protein 7.5 g/dL (6.3-8.2); Triglycerides 113 mg/dL (35-150); Uric Acid 5.4 mg/dL (3.5-8.5)
[2023-07-04 10:09] LABS: Vitamin D 25 Hydroxy (D3) 22.7 ng/mL (30.0-100.0)
[2023-07-04 10:30] LABS: Vitamin B12 257 pg/mL (239-931)
== END ==
PROVIDERS: PCP Family Medicine; Referring Provider Family Medicine; Visit Provider Family Medicine
DX: R22.42 Localized swelling, mass and lump, left lower limb (principal); E66.3 Overweight; E55.9 Vitamin D deficiency, unspecified; M79.672 Pain in left foot; F10.91 Alcohol use, unspecified, in remission; Z13.1 Encounter for screening for diabetes mellitus; Z13.220 Encounter for screening for lipoid disorders; E78.5 Hyperlipidemia, unspecified; E53.8 Deficiency of other specified B group vitamins
CPT/HCPCS: 36415; 80053; 80061; 82306; 82607; 83036; 84550; 85025

== ENCOUNTER → 2023-08-02 16:32 | Outpatient (CLI) | payer SELFPAY ==
[2022-07-28 22:34] VITALS: BMI 19.1
--- NOTE | 2023-08-02 16:33 | DI.RAD.S_ITS ---
PROCEDURE: XR FOOT LT MIN 3V INDICATIONS: r/o fracture, fusion TECHNIQUE: 3 views of the foot were acquired. COMPARISON: None. FINDINGS: Bones: No fractures or dislocations. No suspicious bony lesions. Multilevel degenerative IP narrowing. Calcaneal spur is present. Mild midfoot degenerative change. Soft tissues: No tibiotalar joint effusion. Achilles tendon appears normal. IMPRESSION: No visualized acute fracture or dislocation. However, if clinical concern and/or pain persist, short interval imaging followup in 7-10 days is recommended, as occult injury cannot be definitively excluded. Dictated by: Verito Moseley M.D. on 08/03/2023 at 13:56 Approved by: Verito Moseley M.D. on 08/03/2023 at 13:57
== END ==
PROVIDERS: PCP Family Medicine; Referring Provider Family Medicine; Visit Provider Family Medicine
DX: M79.672 Pain in left foot (principal)
CPT/HCPCS: 73630

== ENCOUNTER → 2023-11-24 11:39 | Outpatient (CLI) | payer MEDICARE, MEDICAID, SELFPAY ==
[2023-10-29 10:56] VITALS: BMI 19.1
--- NOTE | 2023-11-24 | DI.RAD.S_ITS ---
PROCEDURE: XR FOOT RT MIN 3V INDICATIONS: injury of right foot TECHNIQUE: 3 views of the foot were acquired. COMPARISON: [facility], CR, XR FOOT LT MIN 3V, 08/02/2023, 16:46. FINDINGS: Bones: No fractures or dislocations. No suspicious bony lesions. Age-appropriate bony degenerative changes are seen. Incidental note is made of an enthesophyte at the Achilles insertion. Soft tissues: No tibiotalar joint effusion. Achilles tendon appears normal. IMPRESSION: Foot plain film study within normal limits for age. Dictated by: Yung Pillai M.D. on 11/24/2023 at 11:10 Approved by: Yung Pillai M.D. on 11/24/2023 at 11:10
== END ==
PROVIDERS: PCP Family Medicine; Referring Provider Nurse Practitioner Family; Visit Provider Nurse Practitioner Family
DX: S99.921A Unspecified injury of right foot, initial encounter (principal); X58.XXXA Exposure to other specified factors, initial encounter
CPT/HCPCS: 73630

== ENCOUNTER 2023-12-10 22:10 | Emergency (ER) | payer MEDICAID, SELFPAY ==
[2023-10-29 10:56] VITALS: BMI 19.1
[2023-12-10 22:15] VITALS: BP 106/77; PULSE 100; RESP 18; TEMP 36.8; O2SAT 95; BMI 25.8
--- NOTE | 2023-12-10 22:39 | ED_ITS ---
HPI - Nausea/Vomiting/Diarrhea General Chief complaint: Nausea/Vomiting/Diarrhea Stated complaint: V T-4 Time Seen by Provider: 12/10/23 22:15 Source: patient Mode of arrival: Ambulatory History of Present Illness HPI Narrative: 68-year-old male with history of CADASIL, HTN, HLD, GERD presents by private vehicle from home for 4 days of nausea, vomiting, diarrhea. Patient states that he has thrown up ?every hour on the hour? for the last 4 days. Reports minimal midepigastric abdominal discomfort. Patient states that he ate a large serving of clam chowder and potato chips prior to symptom onset. Denies history of abdominal surgeries. Daughter at bedside states that several years ago patient had confusion with nausea and vomiting and they were told that he had had a stroke. Daughter is concerned that patient may be having another neurologic event. Patient denies any numbness, weakness, difficulty speaking, or other complaints Related Data Home Medications Medication Instructions Recorded Confirmed aspirin 81 mg tablet,delayed 81 mg PO DAILY 11/14/22 11/27/23 release (Adult Low Dose Aspirin) lacosamide 50 mg tablet 50 mg PO BID 07/18/23 11/27/23 pantoprazole 20 mg tablet,delayed 20 mg PO .QOD 10/29/23 11/27/23 release Previous Rx's Medication Instructions Recorded cholecalciferol (vitamin D3) 50 50 mcg PO DAILY #90 caps 08/02/23 mcg (2,000 unit) capsule trazodone 50 mg tablet 50 mg PO BEDTIME PRN sleep 08/02/23 difficulty #30 tabs amlodipine 10 mg tablet 10 mg PO DAILY #90 tabs 10/01/23 cilostazol 100 mg tablet 100 mg PO BID #180 tabs 10/01/23 pravastatin 40 mg tablet 40 mg PO DAILY #90 tabs 10/29/23 esomeprazole magnesium 40 mg 40 mg PO DAILY #30 caps 11/27/23 capsule,delayed release propranolol 10 mg tablet 10 mg PO BID #180 tabs 12/10/23 ondansetron 4 mg disintegrating 4 mg PO Q8H PRN nausea and 12/11/23 tablet vomiting #30 tabs Allergies Allergy/AdvReac Type Severity Reaction Status Date / Time venom-honey bee Allergy Severe swelling Verified 11/27/23 09:50 Patient History Medical History HAMPTON (dyspnea on exertion) Multifocal pneumonia Sepsis Hiatal hernia (~2022) GERD (gastroesophageal reflux disease) Cellulitis Leukoaraiosis (~2014) Asbestos exposure Anxiety Monoallelic mutation of NOTCH3 gene Eustachian tube dysfunction CADASIL (cerebral autosomal dominant arteriopathy with subcortical infarcts and leukoencephalopathy) (~2010) Prepatellar bursitis Insomnia MRSA (methicillin resistant Staphylococcus aureus) Sleep apnea Tinnitus Partial blindness (~2010) Low testosterone History of frequent headaches Conductive hearing 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 Sensorineural hearing loss (SNHL) of both ears Hyperlipidemia (09/29/16) Headache (04/01/15) Concussion Minor head injury without loss of consciousness Surgical History History of myringotomy (~2017) Surgical procedure planned (~03/16/12) Surgical procedure planned Family History Brother Hyperlipidemia Mother Age: 93 Hyperlipidemia GERD (gastroesophageal reflux disease) CADASIL (cerebral AD arteriopathy w infarcts and leukoencephalopathy) Sister Hyperlipidemia CADASIL (cerebral AD arteriopathy w infarcts and leukoencephalopathy) Sister Hyperlipidemia Sister Hyperlipidemia Sister Hyperlipidemia Father Emphysema lung Daughter CADASIL (cerebral AD arteriopathy w infarcts and leukoencephalopathy) Social History marital status: unmarried,single details: lives with dog household members: none lives independently: Yes pets and animals: Yes occupational status: previously employed Smoking Status: Former smoker Tobacco: How many years used: 5 alcohol intake: former substance use type: does not use Smoking Status: Former smoker alcohol intake frequency: 0-2 drinks per day Substance Use Type: does not use Exam Initial Vital Signs Initial Vital Signs: Vital Signs Temperature 98.2 F 12/10/23 22:15 Pulse Rate 100 H 12/10/23 22:15 Respiratory Rate 18 12/10/23 22:15 Blood Pressure 106/77 12/10/23 22:15 Pulse Oximetry 95 12/10/23 22:15 Oxygen Delivery Method Room Air 12/10/23 22:15 Const: Awake, alert, no acute distress, nontoxic appearing Cardiac: regular rate, regular rhythm RESP: unlabored, clear bilaterally, no wheezing GI: Soft, nondistended, minimal midepigastric tenderness to deep palpation without rebound or guarding MSK: Atraumatic, full range of motion, pulses equal Skin: Warm, Dry, intact, no rashes Neuro: AO x3, CN II-XII grossly intact, moves all extremities Course Orders Ordered: ED Orders 12/10/23 22:35 CBC Auto Diff [Complete Blood Count AUTO DIFF] Stat CMP [Comprehensive Metabolic Panel] Stat Lactate (Lactic Acid) Stat Lipase Stat 12/10/23 22:39 CT abdomen pelvis w con Stat CT head/brain wo con Stat 12/11/23 01:12 Urine Microscopic Stat Discontinued Medications Sodium Chloride (Normal Saline 0.9%) 1,000 mls @ 1,000 mls/hr IV BOLUS ONE Stop: 12/10/23 23:29 Last Infusion: 12/11/23 00:30 Dose: Infused Documented By: Admin: 12/10/23 22:44 Dose: 1,000 mls/hr Documented By: LUIS Ondansetron HCl (Ondansetron 4 Mg/2 Ml Inj) 4 mg IV NOW ONE Stop: 12/10/23 22:31 Last Admin: 12/10/23 22:43 Dose: 4 mg Documented By: LUIS Vital Signs Vital signs: Vital Signs - 8 hr 12/10/23 22:15 12/10/23 22:41 12/10/23 23:00 Temperature 98.2 F Pulse Rate 100 H 95 H 86 Respiratory Rate 18 23 Blood Pressure 106/77 Pulse Oximetry 95 94 92 Oxygen Delivery Method Room Air 12/10/23 23:00 12/10/23 23:30 12/10/23 23:30 Temperature Pulse Rate 81 Respiratory Rate 21 Blood Pressure 132/67 114/57 L Pulse Oximetry 91 Oxygen Delivery Method 12/11/23 00:00 12/11/23 00:30 12/11/23 00:41 Temperature Pulse Rate 84 83 Respiratory Rate 24 Blood Pressure 110/70 Pulse Oximetry 93 93 Oxygen Delivery Method 12/11/23 00:41 12/11/23 01:00 12/11/23 01:00 Temperature Pulse Rate 82 82 Respiratory Rate 21 Blood Pressure 112/81 Pulse Oximetry 93 95 Oxygen Delivery Method Room Air 12/11/23 01:30 12/11/23 01:30 Temperature Pulse Rate 80 Respiratory Rate 23 Blood Pressure 96/60 Pulse Oximetry 94 Oxygen Delivery Method MDM - Nausea/Vomiting/Diarrhea Differential Diagnosis Differential diagnosis: Likely traveler's diarrhea, food poisoning and gastroenteritis Lab Data 12/10/23 22:35 12/10/23 22:35 Labs: Lab Results 12/10/23 12/11/23 Range/Units 22:35 01:12 WBC 12.5 H (4.5-11.0) X10^3/uL RBC 4.80 (4.5-5.9) X10^6/uL Hgb 15.7 (13.5-17.5) g/dL Hct 45.7 (41-53) % MCV 95.3 (80-100) fL MCH 32.8 (26-34) PG MCHC 34.4 (30-36) % RDW 12.7 (11.6-14.8) % Plt Count 383 (150-400) X10^3/uL Neut % (Auto) 70.7 (50-75) % Lymph % (Auto) 9.7 L (25-40) % Jackson % (Auto) 19.0 H (3-14) % Eos % (Auto) 0.1 L (2-4) % Baso % (Auto) 0.5 (0-2) % Neut # (Auto) 8800 H (7859-2162) /uL Lymph # (Auto) 1200 (7984-6930) /uL Jackson # (Auto) 2400 H (0-900) /uL Eos # (Auto) 0 (0-450) /uL Baso # (Auto) 100 (0-100) /uL Sodium 133 L (137-145) mmol/L Potassium 4.1 (3.4-5.1) mmol/L Chloride 102 (98-107) mmol/L Carbon Dioxide 25 (22-32) mmol/L BUN 21 H (9-20) mg/dL Creatinine 1.11 (0.66-1.25) mg/dL Estimated GFR > 60 (>60) mL/min BUN/Creatinine Ratio 18.9 (6-22) Glucose 163 H (80-110) mg/dL Lactate 1.8 (0.7-2.1) mmol/L Calcium 9.0 (8.4-10.2) mg/dL Total Bilirubin 1.0 (0.2-1.3) mg/dL AST 26 (17-59) IU/L ALT 16 (<50) IU/L Alkaline Phosphatase 70 (38-126) U/L Total Protein 7.4 (6.3-8.2) g/dL Albumin 4.6 (3.5-5.0) g/dL Globulin 2.8 (1.7-4.1) g/dL Albumin/Globulin Ratio 1.6 (1.0-2.8) Lipase 25 (23-300) U/L Urine RBC 0-1/hpf (0-5/HPF) Urine WBC None seen (0-5/HPF) Ur Squamous Epith Cells None seen (0-5/HPF) Urine Bacteria None seen (None) Ur Culture Indicated? Cult not indicated Vol Urine Centrifuged 10ml (spun) Urine Dip Bedside Urine Glucose Negative Bedside Urine Bilirubin - Negative Bedside Urine Ketone - Negative Urine Specific [place] 1.005 Bedside Urine Occult Blood + Bedside Urine pH 6.0 Bedside Urine Protein - Negative Bedside Urine Urobilinogen - Negative Bedside Urine Nitrite - Negative Bedside Urine Leukocytes - Negative Esterase Imaging Data CT scan - head: My Impression: PROCEDURE: CT HEAD/BRAIN WO CON INDICATIONS: INTRACTABLE N/V, HX CADASIL TECHNIQUE: Noncontrast 4.5 mm thick angled axial sections acquired from the foramen magnum to the vertex, with coronal and sagittal reformats. For radiation dose reduction, the following was used: automated exposure control, adjustment of mA and/or kV according to patient size. COMPARISON: [facility], CT, CT HEAD/BRAIN WO CON, 08/06/2020, 9:17. FINDINGS: Image quality: Diagnostic. CSF spaces: Basal cisterns are patent. No extra-axial fluid collections. The ventricles are symmetric in size and shape. Brain: No intracranial bleeds or masses. There is cerebral volume loss for age, with resultant ventricular and sulcal prominence. There are periventricular and deep white matter chronic small vessel ischemic changes. There is intracranial internal carotid artery atherosclerosis. Skull and face: Calvarium and visualized facial bones appear intact, without suspicious lesions. Sinuses: Visualized sinuses and mastoids are clear. IMPRESSION: No acute intracranial pathology. Dictated by: Jeremías Carlin M.D. on 12/11/2023 at 0:16 Approved by: Jeremías Carlin M.D. on 12/11/2023 at 0:16 CT scan - abdomen/pelvis: Radiologist's Impression: PROCEDURE: CT ABDOMEN PELVIS W CON INDICATIONS: VOMITING EVERY HOUR X 4 DAYS, MIDEPIGASTRIC PN TECHNIQUE: After the administration of intravenous contrast, axial sections acquired from the lung bases to the pubic symphysis. Coronal and sagittal reformats were performed. For radiation dose reduction, the following was used: automated exposure control, adjustment of mA and/or kV according to patient size. COMPARISON: None. FINDINGS: Image quality: Diagnostic. Lower Chest: Bibasilar dependent atelectasis are seen posteriorly. Heart size is enlarged, no pericardial effusion. ABDOMEN: Liver: No solid mass. Gallbladder: Mildly distended gallbladder. No radiopaque gallstones or wall thickening. Biliary ducts: No biliary dilation. Pancreas: No ductal dilation. Spleen: Size is within normal limits. Adrenal Glands: No adrenal nodules. Kidneys and Ureters: No hydronephrosis. No solid mass. No complex renal cystic lesion which requires follow up. Stomach and Bowel: There is a small hiatal hernia. Fluid distended stomach and small bowel loops are noted throughout abdomen with multiple air-fluid levels. Distal small bowel loops are decompressed. Zone of transition is not definitively identified, likely in left lower quadrant. No abscess collection. Peritoneum: No abnormal intraperitoneal fluid. No free air. Ventral Wall: No significant ventral hernia. Abdominal Nodes: No retroperitoneal or mesenteric adenopathy by size criteria. Vessels: Aorta and inferior vena cava are normal in size. PELVIS: Pelvic Organs: Enlarged prostate gland with mass effect on floor of urinary bladder is seen.. Bladder: No bladder wall thickening, accounting for underdistention. Pelvic Nodes: No enlarged lymph nodes. Miscellaneous: No inguinal hernias are seen. Bones: No aggressive osseous abnormality. IMPRESSION: 1. Finding is suggestive of distal small bowel obstruction with zone of transition involving distal ileal loop knee in left lower quadrant. No abscess collection. No abnormal bowel wall thickening. No free fluid or free air. 2. No renal stone or hydronephrosis. Dictated by: Jeremías Carlin M.D. on 12/11/2023 at 0:17 Approved by: Jeremías Carlin M.D. on 12/11/2023 at 0:21 MDM Narrative Medical decision making narrative: Nontoxic patient presenting with 4 days of symptoms. Abdomen is soft but he was tender to deep palpation in the midepigastric region. Mildly dry mucous membranes. Labs, imaging ordered. I have low suspicion for neurologic event at this time, however daughter is concerned that this presentation may be related to a stroke, and so a CT is ordered. Laboratory work shows WBC count 12.5, hemoglobin 15.7, platelets 383, sodium 133, potassium 4.1, creatinine 1.11, glucose 163, normal liver enzymes. Patient has not vomited since arrival to the emergency department. CT brain negative for acute findings. CT of the abdomen and pelvis shows questionable findings of small-bowel obstruction, however there was no transition point identified. Patient has no known risk factors for small bowel obstruction and has had passage of stool and flatus since over the last 4 days per his report. Patient states that he feels much better after receiving medications and would like to go home if at all possible. Plan to p.o. challenge and if patient passes then we can talk about symptom management at home. Patient tolerated p.o. and did not vomit for at least 1 hour. He states that he feels much better and is insistent on going home. Patient advised to follow a clear liquid diet for the next several days. I advised that there is a small chance that patient would have recurrence of symptoms and advised that he should return immediately to the emergency department if this occurs. Otherwise a referral to General surgery was made if endoscopy or colonoscopy is indicated. Antinausea medication sent to pharmacy of choice. Discharge Plan Departure Patient Disposition: Home Clinical Impression: Nausea & vomiting Instructions: DI for Vomiting -- Adult Activity Restrictions/Additional Instructions: Stick to clear liquids for the next several days to help give your GI system time to recover. Antinausea medication has been sent to your pharmacy. If you notice vomiting despite using the antinausea medications or stopped passing gas please return immediately to the emergency department for repeat evaluation. A referral has been provided to General surgery, please make an appointment to see if colonoscopy or endoscopy is necessary Prescriptions: New ondansetron 4 mg tablet,disintegrating 4 mg PO Q8H PRN (Reason: nausea and vomiting) Qty: 30 0RF No Action lacosamide 50 mg tablet 50 mg PO BID amlodipine 10 mg tablet 10 mg PO DAILY Qty: 90 0RF cilostazol 100 mg tablet 100 mg PO BID Qty: 180 0RF pravastatin 40 mg tablet 40 mg PO DAILY Qty: 90 0RF propranolol 10 mg tablet 10 mg PO BID Qty: 180 0RF Hold Instructions: while taking albuterol aspirin [Adult Low Dose Aspirin] 81 mg tablet,delayed release (DR/EC) 81 mg PO DAILY trazodone 50 mg tablet 50 mg PO BEDTIME PRN (Reason: sleep difficulty) Qty: 30 2RF cholecalciferol (vitamin D3) 50 mcg (2,000 unit) capsule 50 mcg PO DAILY Qty: 90 0RF esomeprazole magnesium 40 mg capsule,delayed release(DR/EC) 40 mg PO DAILY Qty: 30 2RF pantoprazole 20 mg tablet,delayed release (DR/EC) 20 mg PO .QOD Hold Instructions: try to get Referrals: Destiny Chapin MD [Physician] - Misa Iqbal DO [Primary Care Provider] - Stand Alone Forms: Patient Portal/API
[2023-12-10 22:41] VITALS: PULSE 95; O2SAT 94
[2023-12-10] MEDS: ONDANSETRON 4 MG/2 ML INJ IV (22:43)
[2023-12-10] MEDS: SODIUM CHLORIDE 0.9% 1,000 ML 1000 ML IV (22:44)
[2023-12-10 22:46] LABS: Add Manual Diff / Slide Review NO; Basophils Absolute Auto 100 /uL (0-100); Basophils Percent Auto 0.5 % (0-2); Eosinophils Absolute Auto 0 /uL (0-450); Eosinophils Percent Auto 0.1 % (2-4); Hematocrit 45.7 % (41-53); Hemoglobin 15.7 g/dL (13.5-17.5); Lymphocytes Absolute Auto 1200 /uL (1100-4500); Lymphocytes Percent Auto 9.7 % (25-40); Mean Corpuscular HGB Conc 34.4 % (30-36); Mean Corpuscular Hemoglobin 32.8 PG (26-34); Mean Corpuscular Volume 95.3 fL (80-100); Monocytes Absolute Auto 2400 /uL (0-900); Neutrophils Absolute Auto 8800 /uL (1500-7000); Neutrophils Percent Auto 70.7 % (50-75); Platelet Count 383 X10^3/uL (150-400); Red Cell Distribution Width 12.7 % (11.6-14.8); White Blood Cell Count 12.5 X10^3/uL (4.5-11.0)
[2023-12-10 23:00] VITALS: BP 132/67; PULSE 86; RESP 23; O2SAT 92
[2023-12-10 23:10] LABS: Alanine Aminotransferase 16 IU/L (<50); Albumin 4.6 g/dL (3.5-5.0); Albumin Globulin Ratio 1.6 (1.0-2.8); Alkaline Phosphatase 70 U/L (38-126); Aspartate Aminotransferase 26 IU/L (17-59); BUN Creatinine Ratio 18.9 (6-22); Blood Urea Nitrogen 21 mg/dL (9-20); Carbon Dioxide 25 mmol/L (22-32); Chloride 102 mmol/L (98-107); Estimated Glomerular Filt Rate > 60 mL/min (>60); Globulin 2.8 g/dL (1.7-4.1); Glucose 163 mg/dL (80-110); HEMOLYSIS < 15 (0-50); Lipase 25 U/L (23-300); Potassium 4.1 mmol/L (3.4-5.1); Sodium 133 mmol/L (137-145); Total Protein 7.4 g/dL (6.3-8.2)
[2023-12-10 23:11] LABS: Lactate (Lactic Acid) 1.8 mmol/L (0.7-2.1)
[2023-12-10 23:30] VITALS: BP 114/57; PULSE 81; RESP 21; O2SAT 91
[2023-12-11] VITALS: PULSE 84; RESP 24; O2SAT 93
[2023-12-11 00:30] VITALS: PULSE 83; O2SAT 93
[2023-12-11 00:41] VITALS: BP 110/70; PULSE 82; RESP 21; O2SAT 93
[2023-12-11 01:00] VITALS: BP 112/81; PULSE 82; O2SAT 95
--- NOTE | 2023-12-11 01:00 | PC.NURSE ---
PO challenge initiated at Provider Tyler's verbal direction. Education from Up to Date printed out and given to patient and family about small bowel obstructions at patient daughter's request.
[2023-12-11 01:25] LABS: Bacteria Urine None Seen; Culture Indicated Urine Cult Not Indicated; RBC Urine 0-1/HPF (0-5/HPF); Squamous Epithelial Cell Urine None Seen (0-5/HPF); Urine Volume 10mL (spun); WBC Urine None Seen (0-5/HPF)
[2023-12-11 01:30] VITALS: BP 96/60; PULSE 80; RESP 23; O2SAT 94
== END 2023-12-11 01:55 | disposition home or self-care (01) ==
PROVIDERS: Emergency Provider Emergency Medicine; PCP Family Medicine
DX: R11.2 Nausea with vomiting, unspecified (principal); R19.7 Diarrhea, unspecified; R10.13 Epigastric pain; Z86.79 Personal history of other diseases of the circulatory system
CPT/HCPCS: 36415; 70450; 74177; 80053; 81003; 81015; 83605; 83690; 85025; 96374; 99284; J2405; Q9967

== ENCOUNTER 2024-01-04 14:40 | Day surgery (SDC) | payer MEDICARE, SELFPAY ==
[2023-10-29 10:56] VITALS: BMI 19.1
--- NOTE | 2024-01-04 | PATH_ITS ---
[facility] Accession Number: [id number] No. of containers..02 Tissue . 01 Material submitted: . PART A: esophagus - ESOPHAGUS PART B: colon - DESCENDING COLON POLYP . 01 Diagnosis: A. ESOPHAGUS, BIOPSY: Squamous epithelium with no diagnostic abnormality. Intraepithelial eosinophils are not increased. Negative for dysplasia and malignancy. . B. DESCENDING COLON, POLYP: Tubular adenoma. [facility] 01/08/2024 0845 Local . 01 Electronically signed: . Viki Carnes MD, Pathologist NPI- [id number] . 01 Gross description: . A. Received in formalin, labeled with two patient identifiers and esophagus biopsy, are four koch soft tissue measuring 0.3-0.4 cm in greatest dimension. Submitted in cassette A1. B. Received in formalin, labeled with two patient identifiers and descending colon polyp, is a single kohc soft tissue fragment measuring 0.3 cm in greatest dimension. Submitted in cassette B1. ([id number]) /FRR 01/05/2024 1445 Local . 01 Pathologist provided ICD-10: D12.4 . 01 CPT . 550113, 872405 Specimen Comment: A courtesy copy of this report has been sent to [phone] Performed at: [address] [facility] [address], [place], [place] [id number] MD Kvng Thomas MD Phone: [phone]
[2024-01-04 15:48] VITALS: BP 125/82; PULSE 65; RESP 16; TEMP 36.4; O2SAT 97
--- NOTE | 2024-01-04 16:23 | P.HP_ITS ---
History of Present Illness History of Present Illness Date Patient Seen: 01/04/24 Time Patient Seen: 16:23 [place] [facility] [place]: 68-year-old man with chronic esophageal dysphagia here for diagnostic esophagogastroduodenoscopy and screening colonoscopy. He occasionally chokes on food feels that it is stuck in his mid esophagus. His last upper endoscopy was approximately 1 year ago and this demonstrated a small hiatal hernia and no esophageal stricture. No family history of colon cancer. No abdominal concerns today. No prior colonoscopy [facility] Medical History (Updated 01/04/24 @ 15:45 by Maritza Clayton RN) HAMPTON (dyspnea on exertion) Multifocal pneumonia Sepsis Hiatal hernia (~2022) GERD (gastroesophageal reflux disease) Cellulitis Leukoaraiosis (~2014) Asbestos exposure Anxiety Monoallelic mutation of NOTCH3 gene Eustachian tube dysfunction CADASIL (cerebral autosomal dominant arteriopathy with subcortical infarcts and leukoencephalopathy) (~2010) Prepatellar bursitis Insomnia MRSA (methicillin resistant Staphylococcus aureus) Sleep apnea Tinnitus Partial blindness (~2010) Low testosterone Conductive hearing 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 Sensorineural hearing loss (SNHL) of both ears Hyperlipidemia (09/29/16) Headache (04/01/15) Concussion Minor head injury without loss of consciousness Surgical History History of myringotomy (~2017) Surgical procedure planned (~03/16/12) Surgical procedure planned Family History Brother Hyperlipidemia Mother Age: 93 Hyperlipidemia GERD (gastroesophageal reflux disease) CADASIL (cerebral AD arteriopathy w infarcts and leukoencephalopathy) Sister Hyperlipidemia CADASIL (cerebral AD arteriopathy w infarcts and leukoencephalopathy) Sister Hyperlipidemia Sister Hyperlipidemia Sister Hyperlipidemia Father Emphysema lung Daughter CADASIL (cerebral AD arteriopathy w infarcts and leukoencephalopathy) Social History marital status: unmarried,single details: lives with dog household members: none lives independently: Yes pets and animals: Yes occupational status: previously employed Smoking Status: Former smoker Tobacco: How many years used: 5 alcohol intake: former substance use type: does not use Meds Home Medications and Allergies Home Medications Medication Instructions Recorded Confirmed Type aspirin 81 mg tablet,delayed 81 mg PO DAILY 11/14/22 01/04/24 History release (Adult Low Dose Aspirin) lacosamide 50 mg tablet 50 mg PO BID 07/18/23 01/04/24 History cholecalciferol (vitamin D3) 50 50 mcg PO DAILY #90 caps 08/02/23 01/04/24 Rx mcg (2,000 unit) capsule trazodone 50 mg tablet 50 mg PO BEDTIME PRN sleep 08/02/23 12/14/23 Rx difficulty #30 tabs amlodipine 10 mg tablet 10 mg PO DAILY #90 tabs 10/01/23 01/04/24 Rx cilostazol 100 mg tablet 100 mg PO BID #180 tabs 10/01/23 01/04/24 Rx pantoprazole 20 mg tablet,delayed 20 mg PO .QOD 10/29/23 01/04/24 History release pravastatin 40 mg tablet 40 mg PO DAILY #90 tabs 10/29/23 12/14/23 Rx esomeprazole magnesium 40 mg 40 mg PO DAILY #30 caps 11/27/23 01/04/24 Rx capsule,delayed release propranolol 10 mg tablet 10 mg PO BID #180 tabs 12/10/23 12/14/23 Rx ondansetron 4 mg disintegrating 4 mg PO Q8H PRN nausea and 12/11/23 01/04/24 Rx tablet vomiting #30 tabs sodium,potassium,mag sulfates 17.5 See Rx Instructions PO .COMPLEX 12/27/23 Rx gram-3.13 gram-1.6 gram oral soln #354 mL (Suprep Bowel Prep Kit) Allergies Allergy/AdvReac Type Severity Reaction Status Date / Time venom-honey bee Allergy Severe swelling Verified 01/04/24 15:37 Exam Vital Signs (past 8 hours): - 01/04/24 15:48 Temperature 97.5 F L Pulse Rate 65 Respiratory Rate 16 Blood Pressure 125/82 Pulse Oximetry 97 Oxygen Delivery Method Room Air Oxygen Delivery Method Room Air Narrative Exam Narrative: General adult man alert oriented no acute distress Chest nonlabored respiration Extremities warm well perfused Assessment & Plan Assessment and plan (1) Esophageal dysphagia: Status: Acute Assessment & Plan narrative: Diagnostic esophagogastroduodenoscopy with biopsy possible and possible dilation with screening colonoscopy. The patient requires colorectal screening and colonoscopy is recommended. Technical details were discussed. Risks, benefits, alternatives explained. Risks including but not limited to myocardial infarction, aspiration, bleeding, pain, missed lesion, incomplete examination, need for further radiographic studies, intestinal injury, and need for major abdominal surgery were discussed. All questions were answered to their satisfaction, and they are in agreement with this plan. Time-Based Coding :: [TOTAL MINUTES] spent with patient and on the chart (including review of chart, obtaining history, exam, reviewing outside data, placing orders, documenting exam and treatment plan, and counseling patient) on [DATE].
--- NOTE | 2024-01-04 17:05 | PM.OP.EC ---
Operative Date/Time/Diagnoses Date of procedure: 01/04/24 Time of procedure: 17:05 Pre-op diagnosis: Esophageal dysphagia Post-op diagnosis: other (Hiatal hernia, colonic polyp x1) Procedure & Clinicians Study performed: Diagnostic esophagogastroduodenoscopy and colonoscopy screening Same procedure as scheduled: Yes Indications: 68-year-old man with chronic esophageal dysphagia here for diagnostic upper endoscopy and screening colonoscopy Surgeon: Rashi Argueta Procedure Notes Procedure in detail: The history and physical was performed/updated and the patient is ASA class is 2. The procedure was discussed in detail with the patient. Potential risks complications including infection, bleeding, missed diagnosis, perforation, need for surgery, and were explained. Their questions were answered and informed consent was obtained. Patient placed in left lateral decubitus position. Time out was performed. Procedural sedation was administered by Anesthesia. A bite block was placed. the scope was inserted into the mouth and advanced through the esophagus and into the stomach. the pylorus was intubated and the duodenum was examined to the 2nd portion.. The scope was retroflexed within the stomach. The stomach was then decompressed and scope pulled back to the GE junction. The scope was then removed Examination began with a thorough inspection of the perianal area there was no evidence of fissures, fistulae, external hemorrhoids or cutaneous malignancy. The colonoscopy scope was then placed into the anal canal and was advanced to the cecum, which was identified by the ileocecal valve, the appendiceal orifice and the confluence of the taenia. The scope was then slowly withdrawn examining colon thoroughly in all directions, irrigating it of any residual stool. FINDINGS -small hiatal hernia. -no esophageal stricture however there seems to be a twist of the distal esophagus as it enters the hiatal hernia. -GE junction at 35 cm -biopsy of the esophagus performed with forceps Sigmoid diverticulosis -3 mm sessile polyp within the sigmoid colon removed with biopsy forceps The patient tolerated the procedure well. They will be discharged once criteria are met. The prep was of good/excellent quality. The withdrawl time was 6 minutes. Specimen(s): other (Esophagus, sigmoid polyp) Impression: Hiatal hernia Post-procedure Plan for aftercare: Barium swallow study Disposition: same day surgery
[2024-01-04 17:07] VITALS: BP 137/97; PULSE 63; RESP 18; O2SAT 98
[2024-01-04 17:12] VITALS: BP 136/97; PULSE 66; RESP 16; O2SAT 98
[2024-01-04 17:14] VITALS: BP 132/98; PULSE 71; RESP 18; TEMP 36.8; O2SAT 96
[2024-01-04 17:19] VITALS: BP 144/94; PULSE 67; RESP 16; O2SAT 97
[2024-01-04 17:32] VITALS: BP 145/97; PULSE 95; RESP 18; TEMP 36.7; O2SAT 98
== END 2024-01-04 17:45 | disposition home or self-care (01) ==
PROVIDERS: PCP Family Medicine; Referring Provider Surgery; Visit Provider Surgery
PROC: 0DJ08ZZ Inspection of Upper Intestinal Tract, Via Natural or Artificial Opening Endoscopic (ICD-10-PCS; CPT 43235; principal; 2024-01-04 16:00)
PROC: 0DJD8ZZ Inspection of Lower Intestinal Tract, Via Natural or Artificial Opening Endoscopic (ICD-10-PCS; CPT 45378; 2024-01-04 16:00)
DX: Z12.11 Encounter for screening for malignant neoplasm of colon (principal); R13.10 Dysphagia, unspecified; K44.9 Diaphragmatic hernia without obstruction or gangrene; K57.30 Diverticulosis of large intestine without perforation or abscess without bleeding; D12.4 Benign neoplasm of descending colon
CPT/HCPCS: 45380; 43239; J2704

== ENCOUNTER → 2024-01-10 09:11 | Outpatient (CLI) | payer MEDICARE, SELFPAY ==
[2023-10-29 10:56] VITALS: BMI 19.1
--- NOTE | 2024-01-10 09:12 | DI.RAD.S_ITS ---
PROCEDURE: FL BARIUM SWALLOW INDICATIONS: esophageal dysphagia COMPARISON: None. FINDINGS: Function: There is normal esophageal peristalsis. Mild gastroesophageal reflux and small hiatal hernia. There is normal transit of a calibrated barium tablet through the esophagus into the stomach. Morphology: Air-contrast images demonstrate normal mucosal morphology. Single contrast views show no esophageal strictures, extrinsic mass effects, or diverticula. Limited images of the stomach demonstrate normal appearance. IMPRESSION: Small hiatal hernia and mild gastroesophageal reflux. Dictated by: Bruce Peters M.D. on 01/10/2024 at 16:42 Approved by: Bruce Peters M.D. on 01/10/2024 at 16:45
== END ==
PROVIDERS: PCP Family Medicine; Referring Provider Surgery; Visit Provider Surgery
DX: K44.9 Diaphragmatic hernia without obstruction or gangrene (principal); K21.9 Gastro-esophageal reflux disease without esophagitis; R13.19 Other dysphagia
CPT/HCPCS: 74220

== ENCOUNTER → 2024-11-27 10:19 | Outpatient (CLI) | payer MEDICARE, SELFPAY ==
[2024-04-17 12:46] VITALS: BMI 19.1
[2024-11-27 12:03] LABS: Alanine Aminotransferase 13 IU/L (<50); Albumin 4.5 g/dL (3.5-5.0); Albumin Globulin Ratio 2.1 (1.0-2.8); Alkaline Phosphatase 79 U/L (38-126); Aspartate Aminotransferase 24 IU/L (17-59); Bilirubin Total 0.9 mg/dL (0.2-1.3); Blood Urea Nitrogen 14 mg/dL (9-20); Calcium 9.3 mg/dL (8.4-10.2); Carbon Dioxide 26 mmol/L (22-32); Chloride 106 mmol/L (98-107); Cholesterol 193 mg/dL (140-199); Estimated Glomerular Filt Rate > 60 mL/min (>60); Globulin 2.1 g/dL (1.7-4.1); Glucose 104 mg/dL (70-99); HDL Cholesterol 54 mg/dL (40-60); HEMOLYSIS < 15 (0-50); LDL Cholesterol Calculated 121 mg/dL (<100); Potassium 4.9 mmol/L (3.4-5.1); Sodium 139 mmol/L (137-145); Total Protein 6.6 g/dL (6.3-8.2); Triglycerides 89 mg/dL (35-150)
[2024-11-27 14:12] LABS: Protein (Total) Urine Random 7 mg/dL (0-12); Protein Creatinine Ratio Urine 0.03 GRAM/24H
[2024-11-28 03:39] LABS: CRP, High Sensitivity 0.16 mg/L (0.00-3.00)
== END ==
PROVIDERS: PCP Family Medicine; Referring Provider Family Medicine; Visit Provider Family Medicine
DX: E78.00 Pure hypercholesterolemia, unspecified (principal); E55.9 Vitamin D deficiency, unspecified; I10 Essential (primary) hypertension; I67.850 Cerebral autosomal dominant arteriopathy with subcortical infarcts and leukoencephalopathy; R73.03 Prediabetes
CPT/HCPCS: 36415; 80053; 80061; 82306; 82570; 84156; 86140

== ENCOUNTER 2025-01-06 22:42 | Emergency (ER) | payer MEDICARE, SELFPAY ==
[2024-04-17 12:46] VITALS: BMI 19.1
--- NOTE | 2025-01-06 22:42 | DI.RAD.S_ITS ---
PROCEDURE: XR SHOULDER LT MIN 2V INDICATIONS: left elbow open fracture TECHNIQUE: 3 views of the shoulder were acquired. COMPARISON: None. FINDINGS: Bones: No fractures or dislocations. No suspicious bony lesions. Visualized ribs appear intact. Soft tissues: No suspicious soft tissue calcifications. IMPRESSION: No acute bony abnormality. Dictated by: Sathish Whyte M.D. on 01/06/2025 at 23:24 Approved by: Sathish Whyte M.D. on 01/06/2025 at 23:24
--- NOTE | 2025-01-06 22:42 | DI.RAD.S_ITS ---
PROCEDURE: XR FOREARM LT 2V INDICATIONS: open fracture left elbow TECHNIQUE: 2 views of the forearm were acquired. COMPARISON: None. FINDINGS: Bones: Partially visualized bicondylar fracture of the humerus. Remote ulnar styloid fracture. Soft tissues: Subcutaneous gas about the elbow with soft tissue swelling. IMPRESSION: Stable bicondylar fracture of the humerus. No additional forearm fractures identified. Dictated by: Sathish Whyte M.D. on 01/06/2025 at 23:56 Approved by: Sathish Whyte M.D. on 01/06/2025 at 23:57
--- NOTE | 2025-01-06 22:42 | DI.CT.S_ITS ---
PROCEDURE: CT TRAUMA CHEST ABDOMEN PELVIS INDICATIONS: trauma TECHNIQUE: MDCT axial chest images were obtained with IV contrast in the arterial phase. Maximum intensity projections and multiplanar reformats were obtained. MDCT axial abdomen and pelvis images were obtained with IV contrast in the portal venous phase. Multiplanar reformats were obtained. Optional delayed phase scanning may also be obtained Advanced techniques were used to lower patient radiation exposure. COMPARISON:None. FINDINGS Image Quality: Diagnostic. Chest: Lungs and pleura: No pneumothorax or hemothorax. No pulmonary contusions or lacerations. No solid pulmonary nodule requiring follow-up. Vascular: No dissection or pseudoaneurysm. No incidental central pulmonary embolism. No hemopericardium. Mediastinum: No mediastinum hematoma. No suspicious mass or lymph nodes. No actionable thyroid nodules. Small hiatal hernia. Chest wall: Intact clavicles, scapula, and glenohumeral joint. No displaced rib fractures. Partially visualized left upper extremity subcutaneous gas. Thoracic spine: No acute fracture or traumatic subluxation. ABDOMEN and PELVIS: Liver: No laceration or capsular hematoma. Gallbladder: Unremarkable. Biliary system: Non-dilated. Pancreas: Unremarkable. Spleen: No laceration or capsular hematoma. Adrenals: No suspicious nodules. Kidneys: No contrast extravasation or hydronephrosis. No solid masses. Vessels and lymph nodes: No pathology lymph nodes by size criteria. No dissection or aneurysm. No retroperitoneal hematoma. Bowel and peritoneum: No suspicious region of mesenteric hemorrhage or hemoperitoneum. No bowel obstruction. Pelvis: Unremarkable bladder. Pelvic ring and femurs: No pelvic ring disruption. No hip fractures. Lumbar spine: No acute fracture or traumatic subluxation. Abdominal wall: No drainable fluid collection or hematoma. IMPRESSION: Partially visualized subcutaneous gas about the left elbow. Otherwise, no acute traumatic injury to the chest, abdomen, or pelvis. Dictated by: Sathish Whyte M.D. on 01/06/2025 at 23:52 Approved by: Sathish Whyte M.D. on 01/06/2025 at 23:56
--- NOTE | 2025-01-06 22:42 | DI.RAD.S_ITS ---
PROCEDURE: XR ELBOW LT MIN 3V INDICATIONS: open fracture TECHNIQUE: 3 views of the elbow were acquired. COMPARISON: None. FINDINGS: Bones: Comminuted bicondylar fracture of the distal humerus. Soft tissues: Extensive swelling with associated subcutaneous gas. Large effusion.. IMPRESSION: Comminuted bicondylar fracture of the distal humerus. Dictated by: Sathish Whyte M.D. on 01/06/2025 at 23:23 Approved by: Sathish Whyte M.D. on 01/06/2025 at 23:24
[2025-01-06 22:44] VITALS: PULSE 63; RESP 16; O2SAT 94
--- NOTE | 2025-01-06 22:45 | ED_ITS ---
HPI - Trauma General Chief Complaint: Trauma Stated Complaint: Open Left Elbow Time Seen by Provider: 01/06/25 22:42 History of Present Illness HPI narrative: Patient is a 69-year-old male with a past medical history of CADASIL (cerebral autosomal dominant arteriopathy with subcortical infarcts and leukoencephalopathy), takes lacosamide for this hypertension, hyperlipidemia, GERD, presenting with medics for evaluation of trauma. Patient states that earlier today he was on a ladder approximately 6 ft tall fell, states that he did not have any LOC landed to his left side, full trauma was called given med call stated patient was hypotensive with a proximally 200 cc of blood loss, patient with a noted deformity to the left upper extremity and open fracture but he is neurovascularly intact otherwise. Tetanus was updated. He denies any other symptoms at this time. Patient only takes baby aspirin a day. Related Data Home Medications ?Medication ?Instructions ?Recorded ?Confirmed aspirin 81 mg tablet,delayed 81 mg PO DAILY 11/14/22 0 08/04/24 release (Adult Low Dose Aspirin) Previous Rx's ?Medication ?Instructions ?Recorded cholecalciferol (vitamin D3) 50 50 mcg PO DAILY #90 ca ps 08/02/23 mcg (2,000 unit) capsule amlodipine 10 mg tablet 10 mg PO DAILY #90 tabs 05/19 cilostazol 100 mg tablet 100 mg PO BID #180 tabs 05/19 lacosamide 50 mg tablet 50 mg PO BID #180 tabs 06/06 pravastatin 40 mg tablet 40 mg PO DAILY #90 tabs 05/19 trazodone 50 mg tablet 50 mg PO BEDTIME PRN sleep 1 08/07/23 difficulty #30 tabs propranolol 10 mg tablet 10 mg PO BID #180 tabs 09/09 esomeprazole magnesium 40 mg 40 mg PO DAILY #90 caps 0 10/16/24 capsule,delayed release Allergies Allergy/AdvReac Type Severity Reaction Status Date / Time venom-honey bee Allergy Severe swelling Verified 01/06/25 22:52 Review of Systems Review of Systems Narrative: General: Denies fever, chills, weight loss HEENT: Denies headache, eye drainage, eye irritation, head trauma, sore throat, voice change Cardiovascular: Denies any chest pain, palpitations, tachycardia Respiratory: Denies any shortness of breath, cough, wheeze, stridor GI/: Denies any abdominal pain, nausea, vomiting, diarrhea, bright red blood per rectum, melanotic stools, urinary frequency, urinary retention, dysuria, hematuria MSK: Patient complaining of left elbow pain with bleeding Skin: Denies any rashes, lesions, discoloration Neuro: Denies any headache, lightheadedness, dizziness, fainting, weakness Psych: Denies SI/HI Patient History Medical History (Updated 01/06/25 @ 23:29 by John Carballo DO) History of sepsis (~2021) Small bowel obstruction (~11/2023) Leg pain, bilateral Asbestos exposure Headache (04/01/15) Encounter for screening for malignant neoplasm of prostate (10/17/13) HAMPTON (dyspnea on exertion) Multifocal pneumonia Cellulitis 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) (~2010) Prepatellar bursitis Insomnia MRSA (methicillin resistant Staphylococcus aureus) Sleep apnea Tinnitus Partial blindness (~2010) Low testosterone Conductive hearing 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 Sensorineural hearing loss (SNHL) of both ears Hyperlipidemia (09/29/16) Concussion Minor head injury without loss of consciousness Surgical History (Updated 02/01/24 @ 12:08 by Misa Iqbal DO) History of myringotomy (~2017) Surgical procedure planned (~03/16/12) Surgical procedure planned Family History Brother Hyperlipidemia Mother Age: 94 Hyperlipidemia GERD (gastroesophageal reflux disease) CADASIL (cerebral AD arteriopathy w infarcts and leukoencephalopathy) Sister Hyperlipidemia CADASIL (cerebral AD arteriopathy w infarcts and leukoencephalopathy) Sister Hyperlipidemia Sister Hyperlipidemia Sister Hyperlipidemia Father Emphysema lung Daughter CADASIL (cerebral AD arteriopathy w infarcts and leukoencephalopathy) Social History marital status: unmarried,single details: lives with dog household members: none lives independently: Yes pets and animals: Yes occupational status: previously employed Tobacco: How many years used: 5 alcohol intake: former substance use type: does not use alcohol intake frequency: 0-2 drinks per day Exam Narrative Exam Narrative: General: Cooperative, well-developed, not in acute distress HEENT: Normocephalic, atraumatic, PERRLA, normal sclera, eyelids normal, no tenderness to palpation of the midline spine Neck: Active full range of motion, atraumatic Chest: Normal to inspection, negative crepitus, no overlying erythema ecchymosis Respiratory: Normal respiratory effort, not in acute respiratory distress, clear to auscultation bilaterally negative cough, wheeze, tachypnea, rhonchi, rales Cardiology: Regular rate rhythm negative gallop, murmur, rubs GI/: No tenderness to palpation, soft, non rigid, normal to inspection, exam deferred MSK: Patient with a 0.5 cm punctate lesion noted to the left elbow slight oozing but bleeding control, gross deformity noted but otherwise left upper extremity is neurovascularly intact Skin: No rashes or lesions noted Neuro: Alert awake oriented x3, moves all 4 extremities spontaneously, cranial nerves intact, able to answer all questions appropriately follows commands appropriately Psych: Cooperative, negative suicidal or homicidal ideations Initial Vital Signs Initial Vital Signs: Vital Signs Temperature 98 F 01/06/25 22:52 Pulse Rate 61 01/06/25 22:52 Respiratory Rate 17 01/06/25 22:52 Blood Pressure 119/85 01/06/25 22:52 Pulse Oximetry 94 01/06/25 22:52 Oxygen Delivery Method Room Air 01/06/25 22:52 Course Orders Ordered: ED Orders 01/06/25 22:42 CT Trauma Chest Abdomen Pelvis Stat XR elbow LT min 3V Stat XR forearm LT 2V Stat XR shoulder LT 2+ views Stat CBC Auto Diff [Complete Blood Count AUTO DIFF] Stat CMP [Comprehensive Metabolic Panel] Stat Ethanol (ETOH) Stat Lactate (Lactic Acid) Stat Lipase Stat PT [Prothrombin Time INR] Stat PTT Partial Thromboplastin Stat Type and Screen Stat Urine Drug Screen, Rapid Stat EKG-12 Lead Stat 01/06/25 22:43 CT cervical spine wo con Stat CT head/brain wo con Stat Discontinued Medications Diphtheria/Tetanus/Acell Pertussis (Tet,Diph,Pertuss(Acell),Vac/Pf 0.5 Ml Syringe) 0.5 ml IM .ONCE ONE Stop: 01/06/25 22:43 Last Admin: 01/06/25 23:38 Dose: 0.5 ml Fentanyl (Fentanyl 100 Mcg/2 Ml Inj) 50 mcg IV NOW ONE Stop: 01/06/25 22:43 Last Admin: 01/06/25 23:05 Dose: 50 mcg Cefazolin Sodium 2 gm/ Sodium (Chloride) 100 mls @ 200 mls/hr IV NOW ONE Stop: 01/06/25 23:13 Last Admin: 01/06/25 23:12 Dose: 200 mls/hr Sodium Chloride (Normal Saline 0.9%) 1,000 mls @ 1,000 mls/hr IV BOLUS ONE Stop: 01/06/25 23:49 Last Admin: 01/06/25 23:13 Dose: 1,000 mls/hr Vital Signs Vital signs: Vital Signs - 8 hr 01/06/25 22:52 Temperature 98 F Pulse Rate 61 Respiratory Rate 17 Blood Pressure 119/85 Pulse Oximetry 94 Oxygen Delivery Method Room Air MDM - Trauma Differential Diagnosis Differential diagnosis: Likely other (Open left elbow fracture, intracranial hemorrhage, electrolyte abnormality) Lab Data 01/06/25 22:45 01/06/25 22:45 Labs: Lab Results 01/06/25 01/06/25 Range/Units 22:45 23:20 WBC 12.9 H (4.5-11.0) X10^3/uL RBC 4.07 L (4.5-5.9) X10^6/uL Hgb 13.6 (13.5-17.5) g/dL Hct 39.0 L (41-53) % MCV 96.0 (80-100) fL MCH 33.5 (26-34) PG MCHC 34.9 (30-36) % RDW 12.3 (11.6-14.8) % Plt Count 337 (150-400) X10^3/uL Neut % (Auto) 71.0 (50-75) % Lymph % (Auto) 17.0 L (25-40) % Th[place]morton % (Auto) 8.3 (3-14) % Eos % (Auto) 2.9 (2-4) % Baso % (Auto) 0.8 (0-2) % Neut # (Auto) 9100 H (4848-3242) /uL Lymph # (Auto) 2200 (2544-1454) /uL Throckmorton # (Auto) 1100 H (0-900) /uL Eos # (Auto) 400 (0-450) /uL Baso # (Auto) 100 (0-100) /uL PT 11.9 (9.4-12.5) SECONDS INR 1.1 (0.9-1.3) APTT 25 L (25.1-36.5) SECONDS Sodium 137 (137-145) mmol/L Potassium 4.5 (3.4-5.1) mmol/L Chloride 108 H (98-107) mmol/L Carbon Dioxide 24 (22-32) mmol/L BUN 15 (9-20) mg/dL Creatinine 0.93 (0.66-1.25) mg/dL Estimated GFR > 60 (>60) mL/min BUN/Creatinine Ratio 16.1 (6-22) Glucose 143 H (70-99) mg/dL Lactate 1.9 (0.7-2.1) mmol/L Calcium 8.2 L (8.4-10.2) mg/dL Total Bilirubin 0.6 (0.2-1.3) mg/dL AST 34 (17-59) IU/L ALT 18 (<50) IU/L Alkaline Phosphatase 69 (38-126) U/L Total Protein 6.3 (6.3-8.2) g/dL Albumin 4.0 (3.5-5.0) g/dL Globulin 2.3 (1.7-4.1) g/dL Albumin/Globulin Ratio 1.7 (1.0-2.8) Lipase 54 (23-300) U/L Ethyl Alcohol < 10 (<10) mg/dL Blood Type O Positive Antibody Screen Negative Imaging Data CT scan - head: Radiologist's Impression: [place] [id number] CT Scan Report Signed Patient: Carlos Enrique Bullock MR#: [id number] : 1955 Acct:[id number] Age/Sex: 69 / M Date of Service: 01/06/25 Loc: ED Accession Number: [id number] Procedure: CT head/brain wo con Ordering Provider: John Carballo D.O. PROCEDURE: CT HEAD/BRAIN WO CON INDICATIONS: Trauma TECHNIQUE: Noncontrast 4.5 mm thick angled axial sections acquired from the foramen magnum to the vertex, with coronal and sagittal reformats. For radiation dose reduction, the following was used: automated exposure control, adjustment of mA and/or kV according to patient size. COMPARISON: [facility], CT, CT HEAD/BRAIN WO CON, 12/10/2023, 23:33. FINDINGS: Image quality: Diagnostic. CSF spaces: Basal cisterns are patent. No extra-axial fluid collections. The ventricles are symmetric in size and shape. Brain: No intracranial bleeds or mass effect. There is cerebral volume loss, with resultant ventricular and sulcal prominence. There are periventricular and deep white matter chronic small vessel ischemic changes. There is intracranial internal carotid artery atherosclerosis. Skull and face: Calvarium and visualized facial bones appear intact, without suspicious lesions. Sinuses: Visualized sinuses and mastoids are clear. IMPRESSION: No acute intracranial pathology. CT - cervical spine: Radiologist's Impression: [place] [address] CT Scan Report Signed Patient: Carlos Enrique Bullock MR#: [id number] : 1955 Acct:[id number] Age/Sex: 69 / M Date of Service: 01/06/25 Loc: ED Accession Number: [id number] Procedure: CT cervical spine wo con Ordering Provider: John Carballo D.O. PROCEDURE: CT CERVICAL SPINE WO CON INDICATIONS: Trauma TECHNIQUE: Noncontrast 3 mm thick sections acquired from the skull base to the T4 level. Sagittal and coronal reformats were then constructed. For radiation dose reduction, the following was used: automated exposure control, adjustment of mA and/or kV according to patient size. COMPARISON: None. FINDINGS: Image quality: Excellent. Bones: No fractures or dislocations. Visualized superior ribs are intact. Soft tissues: Prevertebral soft tissues are normal in thickness. No paravertebral hematomas. No apical pneumothoraces. IMPRESSION: No displaced fracture or traumatic subluxation. CT chest abdomen and pelvis: Radiologist's Impression: [address] [address] [address] Scan Report Signed Patient: Carlos Enrique Bullock MR#: [id number] : 1955 Acct:[id number] Age/Sex: 69 / M Date of Service: 01/06/25 Loc: ED Accession Number: [id number] Procedure: CT Trauma Chest Abdomen Pelvis Ordering Provider: John Cabrallo D.O. PROCEDURE: CT TRAUMA CHEST ABDOMEN PELVIS INDICATIONS: trauma TECHNIQUE: MDCT axial chest images were obtained with IV contrast in the arterial phase. Maximum intensity projections and multiplanar reformats were obtained. MDCT axial abdomen and pelvis images were obtained with IV contrast in the portal venous phase. Multiplanar reformats were obtained. Optional delayed phase scanning may also be obtained Advanced techniques were used to lower patient radiation exposure. COMPARISON:None. FINDINGS Image Quality: Diagnostic. Chest: Lungs and pleura: No pneumothorax or hemothorax. No pulmonary contusions or lacerations. No solid pulmonary nodule requiring follow-up. Vascular: No dissection or pseudoaneurysm. No incidental central pulmonary embolism. No hemopericardium. Mediastinum: No mediastinum hematoma. No suspicious mass or lymph nodes. No actionable thyroid nodules. Small hiatal hernia. Chest wall: Intact clavicles, scapula, and glenohumeral joint. No displaced rib fractures. Partially visualized left upper extremity subcutaneous gas. Thoracic spine: No acute fracture or traumatic subluxation. ABDOMEN and PELVIS: Liver: No laceration or capsular hematoma. Gallbladder: Unremarkable. Biliary system: Non-dilated. Pancreas: Unremarkable. Spleen: No laceration or capsular hematoma. Adrenals: No suspicious nodules. Kidneys: No contrast extravasation or hydronephrosis. No solid masses. Vessels and lymph nodes: No pathology lymph nodes by size criteria. No dissection or aneurysm. No retroperitoneal hematoma. Bowel and peritoneum: No suspicious region of mesenteric hemorrhage or hemoperitoneum. No bowel obstruction. Pelvis: Unremarkable bladder. Pelvic ring and femurs: No pelvic ring disruption. No hip fractures. Lumbar spine: No acute fracture or traumatic subluxation. Abdominal wall: No drainable fluid collection or hematoma. IMPRESSION: Partially visualized subcutaneous gas about the left elbow. Otherwise, no acute traumatic injury to the chest, abdomen, or pelvis. Extremity x-ray #1: Radiologist's Impression: [address] [address] XRay Report Signed Patient: Carlos Enrique Bullock MR#: [id number] : 1955 Acct:[id number] Age/Sex: 69 / M Date of Service: 01/06/25 Loc: ED Accession Number: [id number] Procedure: XR elbow LT min 3V Ordering Provider: John Carballo D.O. PROCEDURE: XR ELBOW LT MIN 3V INDICATIONS: open fracture TECHNIQUE: 3 views of the elbow were acquired. COMPARISON: None. FINDINGS: Bones: Comminuted bicondylar fracture of the distal humerus. Soft tissues: Extensive swelling with associated subcutaneous gas. Large effusion.. IMPRESSION: Comminuted bicondylar fracture of the distal humerus. Extremity x-ray #2: Radiologist's Impression: [address] [address] XRay Report Signed Patient: Carlos Enrique Bullock MR#: [id number] : 1955 Acct:[id number] Age/Sex: 69 / M Date of Service: 01/06/25 Loc: ED Accession Number: [id number] Procedure: XR shoulder LT 2+ views Ordering Provider: John Carballo D.O. PROCEDURE: XR SHOULDER LT MIN 2V INDICATIONS: left elbow open fracture TECHNIQUE: 3 views of the shoulder were acquired. COMPARISON: None. FINDINGS: Bones: No fractures or dislocations. No suspicious bony lesions. Visualized ribs appear intact. Soft tissues: No suspicious soft tissue calcifications. IMPRESSION: No acute bony abnormality. Extremity x-ray #3: Radiologist's Impression: [address] [address] XRay Report Signed Patient: Carlos Enrique Bullock MR#: [id number] : 1955 Acct:[id number] Age/Sex: 69 / M Date of Service: 01/06/25 Loc: ED Accession Number: [id number] Procedure: XR forearm LT 2V Ordering Provider: John Carballo D.O. PROCEDURE: XR FOREARM LT 2V INDICATIONS: open fracture left elbow TECHNIQUE: 2 views of the forearm were acquired. COMPARISON: None. FINDINGS: Bones: Partially visualized bicondylar fracture of the humerus. Remote ulnar styloid fracture. Soft tissues: Subcutaneous gas about the elbow with soft tissue swelling. IMPRESSION: Stable bicondylar fracture of the humerus. No additional forearm fractures identified. ECG Data Interpretation: EKG interpreted ED physician sinus 74 beats per minute QTC 428, QRS MT interval within normal limits, nonspecific ST changes no STEMI MDM Narrative Medical decision making narrative: Patient is a 69-year-old male with a past medical history of CADASIL, retention,takes lacosamide for this hypertension, hyperlipidemia, GERD, presenting with medics for evaluation of trauma. Patient states that earlier today he was on a ladder approximately 6 ft tall fell, states that he did not have any LOC landed to his left side, full trauma was called given med call stated patient was hypotensive with a proximally 200 cc of blood loss, patient with a noted deformity to the left upper extremity and open fracture but he is neurovascularly intact otherwise. Tetanus was updated. He denies any other symptoms at this time. Patient only takes baby aspirin a day. On evaluation patient noted to have a 0.5 punctate lesion to the elbow near the olecranon, slight oozing noted but not actively bleeding, deformity noted but otherwise neurovascularly intact, has decreased active and passive range of motion of the left elbow secondary to pain. He has no other tenderness to palpation of any other bony prominences however given the nature of the traumatic injury did order CT head neck chest abdomen and pelvis. Patient was given 2 g Ancef as well as updated patient is tetanus. X-ray did show bicondylar fracture of the distal humerus, 1119: Discussed case with orthopedic surgeon Dr. Godinez, who personally reviewed the x-rays and states that this is a type of fracture that is not manageable here is recommending transfer to [facility]. Agrees with posterior long splint for stabilization, no further recommendations 1147: Discussed case with transfer hotline at [facility], patient has been automatically accepted, accepting doctor is Dr. Childers, patient will be flown given open fracture Critical Care Time Critical Care Time Critical Care Time: Yes Total Critical Care Time: 35 Attestation: Authorized and Performed by: John Carballo DO Total critical care time: Approximately [35] minutes Due to a high probability of clinically significant, life threatening deterioration, the patient required my highest level of preparedness to intervene emergently and I personally spent this critical care time directly and personally managing the patient. This critical care time included obtaining a history; examining the patient; pulse oximetry; ordering and review of studies; arranging urgent treatment with development of a management plan; evaluation of patient's response to treatment; frequent reassessment; and, discussions with other providers. This critical care time was performed to assess and manage the high probability of imminent, life-threatening deterioration that could result in multi-organ failure. It was exclusive of separately billable procedures and treating other patients and teaching time. Please see MDM section and the rest of the note for further information on patient assessment and treatment. Discharge Plan Departure Patient Disposition: [facility] Clinical Impression: Open bicondylar fracture of distal humerus, Fall from ladder Prescriptions: No Action propranolol 10 mg tablet 10 mg PO BID Qty: 180 0RF esomeprazole magnesium 40 mg capsule,delayed release(DR/EC) 40 mg PO DAILY Qty: 90 1RF aspirin [Adult Low Dose Aspirin] 81 mg tablet,delayed release (DR/EC) 81 mg PO DAILY cholecalciferol (vitamin D3) 50 mcg (2,000 unit) capsule 50 mcg PO DAILY Qty: 90 0RF trazodone 50 mg tablet 50 mg PO BEDTIME PRN (Reason: sleep difficulty) Qty: 30 2RF amlodipine 10 mg tablet 10 mg PO DAILY Qty: 90 3RF pravastatin 40 mg tablet 40 mg PO DAILY Qty: 90 3RF cilostazol 100 mg tablet 100 mg PO BID Qty: 180 3RF lacosamide 50 mg tablet 50 mg PO BID Qty: 180 3RF Referrals: Misa Iqbal DO [Primary Care Provider, Medical]
[2025-01-06 22:52] VITALS: BP 119/85; PULSE 61; RESP 17; TEMP 36.6; O2SAT 94; BMI 21.7
[2025-01-06 22:59] VITALS: BP 87/62
[2025-01-06 23:00] VITALS: PULSE 58; RESP 33
[2025-01-06 23:03] VITALS: BP 118/74; PULSE 63; RESP 22
[2025-01-06] MEDS: fentaNYL 100 MCG/2 ML INJ 50 MCG IV (23:05)
[2025-01-06 23:08] LABS: Add Manual Diff / Slide Review NO; Hematocrit 39.0 % (41-53); Hemoglobin 13.6 g/dL (13.5-17.5); Lymphocytes Absolute Auto 2200 /uL (1100-4500); Mean Corpuscular HGB Conc 34.9 % (30-36); Mean Corpuscular Hemoglobin 33.5 PG (26-34); Mean Corpuscular Volume 96.0 fL (80-100); Platelet Count 337 X10^3/uL (150-400)
[2025-01-06] MEDS: CEFAZOLIN VIAL 2 GM in SODIUM CHLORIDE 0.9% 100 ML IV (23:12)
[2025-01-06] MEDS: SODIUM CHLORIDE 0.9% 1,000 ML 1000 ML IV (23:13)
[2025-01-06 23:18] LABS: Alanine Aminotransferase 18 IU/L (<50); Albumin 4.0 g/dL (3.5-5.0); Albumin Globulin Ratio 1.7 (1.0-2.8); Blood Urea Nitrogen 15 mg/dL (9-20); Calcium 8.2 mg/dL (8.4-10.2); Carbon Dioxide 24 mmol/L (22-32); Chloride 108 mmol/L (98-107); Estimated Glomerular Filt Rate > 60 mL/min (>60); Globulin 2.3 g/dL (1.7-4.1); Glucose 143 mg/dL (70-99); Lipase 54 U/L (23-300); Sodium 137 mmol/L (137-145); Total Protein 6.3 g/dL (6.3-8.2)
--- NOTE | 2025-01-06 23:19 | P.HP_ITS ---
History of Present Illness History of Present Illness Date Patient Seen: 01/06/25 Time Patient Seen: 23:19 Chief complaint: Open Left Elbow Narrative: The patient is a 69-year-old male who sustained an approximately 6 ft fall off of the ladder. The patient denies hitting his head and remembers the incident completely. He was [facility] as a full trauma secondary to transient hypotension. Upon arrival he complains of left elbow pain only. 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) Prepatellar bursitis Insomnia MRSA (methicillin resistant Staphylococcus aureus) Sleep apnea Tinnitus Partial blindness (~2010) Low testosterone Conductive hearing 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 Sensorineural hearing loss (SNHL) of both ears Hyperlipidemia (09/29/16) Concussion Minor head injury without loss of consciousness Surgical History (Updated 02/01/24 @ 12:08 by Misa Iqbal DO) History of myringotomy (~2017) Surgical procedure planned (~03/16/12) Surgical procedure planned Family History Brother Hyperlipidemia Mother Age: 94 Hyperlipidemia GERD (gastroesophageal reflux disease) CADASIL (cerebral AD arteriopathy w infarcts and leukoencephalopathy) Sister Hyperlipidemia CADASIL (cerebral AD arteriopathy w infarcts and leukoencephalopathy) Sister Hyperlipidemia Sister Hyperlipidemia Sister Hyperlipidemia Father Emphysema lung Daughter CADASIL (cerebral AD arteriopathy w infarcts and leukoencephalopathy) Social History marital status: unmarried,single details: lives with dog household members: none lives independently: Yes pets and animals: Yes occupational status: previously employed Tobacco: How many years used: 5 alcohol intake: former substance use type: does not use Meds Home Medications and Allergies Home Medications ?Medication ?Instructions ?Recorded ?Confirmed ?Type aspirin 81 mg tablet,delayed 81 mg PO DAILY 11/14/22 0 08/04/24 History release (Adult Low Dose Aspirin) cholecalciferol (vitamin D3) 50 50 mcg PO DAILY #90 ca ps 08/02/23 08/04/24 Rx mcg (2,000 unit) capsule amlodipine 10 mg tablet 10 mg PO DAILY #90 tabs 05/1908/04/24 Rx cilostazol 100 mg tablet 100 mg PO BID #180 tabs 05/1908/04/24 Rx lacosamide 50 mg tablet 50 mg PO BID #180 tabs 06/0608/04/24 Rx pravastatin 40 mg tablet 40 mg PO DAILY #90 tabs 05/1908/04/24 Rx trazodone 50 mg tablet 50 mg PO BEDTIME PRN sleep 1 08/07/23 08/04/24 Rx difficulty #30 tabs propranolol 10 mg tablet 10 mg PO BID #180 tabs 09/09 Rx esomeprazole magnesium 40 mg 40 mg PO DAILY #90 caps 0 10/16/24 Rx capsule,delayed release Allergies Allergy/AdvReac Type Severity Reaction Status Date / Time venom-honey bee Allergy Severe swelling Verified 01/06/25 22:52 Review of Systems Review of Systems ROS: Yes All systems reviewed with the patient and are negative except as otherwise documented Exam Vital Signs (past 8 hours): - 01/06/25 22:52 Temperature 98 F Pulse Rate 61 Respiratory Rate 17 Blood Pressure 119/85 Pulse Oximetry 94 Oxygen Delivery Method Room Air Oxygen Delivery Method Room Air Narrative Exam Narrative: Patient is alert and oriented with a GCS of 15. HEENT: There is no deformity or crepitus of the patient's structures. Patient does have a perforation in his right tympanic membrane. There is no blood behind the TM on the left side. Pupils are mid range in reactive to light and accommodation. EOMI. Occlusion appears normal. Neck is nontender and supple Chest: Is nontender and is without crepitance. Lungs are clear and equal bilaterally Cardiac reveals a regular rate and rhythm Abdomen is somewhat protuberant soft, nontender, with active Bowel sounds Pelvis is stable to palpation. Extremities patient has an obvious deformity of his left elbow with a puncture wound dorsally located. The remainder of the extremities show full range of motion with no deformity or crepitance. Left hand is neurovascularly intact. Neuro is grossly intact Objective Imaging CT scan - head: My impression: my impression of the head CT based on my review reveals no mass effect with good elliott-white differentiation. CT neck: Radiologist's impression: Results are pending CT scan - chest: My impression: CT angio of the chest shows good contour of the aortic arch. There are no pneumothoraces. There were no obvious rib fractures identified. CT scan - abdomen: My impression: Reveals normal architecture of the liver and the spleen as well as the kidneys. There is no free fluid in the abdomen. There was no free air. Labs 01/06/25 22:45 01/06/25 22:45 Labs: Laboratory Results - last 24 hr 01/06/25 22:45 WBC 12.9 H RBC 4.07 L Hgb 13.6 Hct 39.0 L MCV 96.0 MCH 33.5 MCHC 34.9 RDW 12.3 Plt Count 337 Neut % (Auto) 71.0 Lymph % (Auto) 17.0 L Rhea % (Auto) 8.3 Eos % (Auto) 2.9 Baso % (Auto) 0.8 Neut # (Auto) 9100 H Lymph # (Auto) 2200 Rhea # (Auto) 1100 H Eos # (Auto) 400 Baso # (Auto) 100 Assessment & Plan Assessment and plan (1) Fall from ladder: Status: Acute (2) Open bicondylar fracture of distal humerus: Status: Acute Plan Patient blood pressure was above 90 upon arrival to the hospital and was remained stable throughout his ED course. Patient does have an open bicondylar fracture of his left elbow. The ED physician has contacted ortho is recommended transfer to a higher level center and the ED department will be facilitating that transfer. Time-Based Coding :: [TOTAL MINUTES] spent with patient and on the chart (including review of chart, obtaining history, exam, reviewing outside data, placing orders, documenting exam and treatment plan, and counseling patient) on [DATE]. PROFEE Financial Analyst Accountant Document charge(s): Yes
[2025-01-06 23:20] LABS: HEMOLYSIS 90 (0-50); Potassium 4.5 mmol/L (3.4-5.1)
[2025-01-06 23:21] LABS: Alkaline Phosphatase 69 U/L (38-126)
[2025-01-06 23:27] LABS: Ethanol (ETOH) < 10 mg/dL (<10)
[2025-01-06 23:32] VITALS: BP 143/82; PULSE 72; RESP 18; O2SAT 93
[2025-01-06] MEDS: TET,DIPH,PERTUSS(ACELL),VAC/PF 0.5 ML SYRINGE IM (23:38)
--- NOTE | 2025-01-06 23:38 | EKG_ITS ---
[address] [address] Test Date: 2025-01-06 Pat Name: Carlos Enrique Bullock Department: [facility] Room: Gender: Male Acid Loader: ANASTASIA : 1955 Requested By: Order Number: [id number] Reading MD: Mikey Mann Measurements Intervals [place] Rate: 74 P: 58 [place]: 180 QRS: -7 QRSD: 84 T: 37 QT: 386 QTc: 428 Interpretive Statements Normal sinus rhythm Electronically Signed On 01-07-2025 15:05:56 PDT by Mikey Mann
[2025-01-06 23:50] LABS: INR 1.1 (0.9-1.3); Prothrombin Time 11.9 SECONDS (9.4-12.5)
[2025-01-06 23:52] LABS: PTT Partial Thromboplastin Tim 25 SECONDS (25.1-36.5)
[2025-01-06 23:53] LABS: Lactate (Lactic Acid) 1.9 mmol/L (0.7-2.1)
[2025-01-07] VITALS: BP 152/114; PULSE 92; RESP 34; O2SAT 98
[2025-01-07 00:24] LABS: UR Morphine/Opiate cutoff 300 Negative (Negative); Ur Specific Gravity Normal (Normal); Urine MDMA Negative (Negative); Urine Methamphetamines Negative (Negative); Urine Tetrahydrocannabinol Negative (Negative); Urine Tricyclic Antidepressant Negative (Negative)
[2025-01-07 00:29] VITALS: PULSE 75; RESP 15; O2SAT 95
[2025-01-07 00:30] VITALS: BP 144/89
[2025-01-07] MEDS: MORPHINE 4 MG/ML INJ IV (00:36)
--- NOTE | 2025-01-07 00:41 | PC.NURSE ---
Report given to Funmi BHATTI airlift nurse.
== END 2025-01-07 00:45 | disposition short-term general hospital (02) ==
PROVIDERS: Emergency Provider Student in an Organized Health Care Education/Training Program; PCP Family Medicine
DX: S42.492B Other displaced fracture of lower end of left humerus, initial encounter for open fracture (principal); I95.9 Hypotension, unspecified; W11.XXXA Fall on and from ladder, initial encounter; Z23 Encounter for immunization
CPT/HCPCS: 29105; 70450; 71275; 72125; 73030; 73080; 73090; 74177; 80053; 80305; 80320; 83605; 83690; 85025; 85610; 85730; 86850; 86900; 86901; 90471; 93005; 96365; 96375; 99285; 99291; 90715; G0390; J0690; J2270; J3010; Q9967